=== PATIENT | female | born 1935 | race Caucasian/White ===

== ENCOUNTER 2023-11-16 08:52 | Outpatient (CLI) | payer MEDICARE, SELFPAY ==
[2023-11-16 17:42] LABS: Appearance Urine Clear (Clear); Bacteria Urine None Seen /hpf; Bilirubin Urine Negative (Negative); Blood Urine Negative (Negative); Color Urine Yellow (Yellow); Glucose Urine UA Negative (Negative); Ketones Urine Negative (Negative); Leukocyte Esterase Ur Trace LEU/UL (Negative); Nitrate Urine Negative (Negative); Non Pathogenic Casts 0-2; Protein Urine Negative (Negative); RBC Urine 0-2 /hpf (0-2); Specific Grav Ur 1.009 (1.001-1.035); Squamous Epithelial Cell Urine None seen /hpf (Few); Urobilinogen Urine 0.2 mg/dL (<2.0); WBC Urine 0-5 /hpf
[2023-11-16 17:43] LABS: Add Urine Microscopic? YES
[2023-11-16 17:49] LABS: Basophils Absolute Auto 0.1 K/mm3 (0.0-0.1); Basophils Percent Auto 0.9 % (0.2-1.2); Eosinophils Absolute Auto 0.2 K/mm3 (0-0.3); Eosinophils Percent Auto 2.1 % (0-4.4); Hematocrit 37.4 % (37.0-47.0); Hemoglobin 11.1 g/dL (12.0-15.0); Immature Granulocyte Absolute 0.02 K/mm3 (0.00-0.031); Immature Granulocyte Percent A 0.2 % (0-0.5); Lymphocytes Absolute Auto 3.34 K/mm3 (0.9-3.2); Lymphocytes Percent Auto 39.3 % (18.3-44.2); Mean Corpuscular HGB Conc 29.7 g/dl (32-36); Mean Corpuscular Hemoglobin 25.6 pg (26-34); Mean Corpuscular Volume 86.4 fl (80-100); Mean Platelet Volume 12.8 fl (7.4-10.4); Neutrophils Absolute Auto 3.9 K/mm3 (1.3-6.7); Neutrophils Percent Auto 45.5 % (45.5-73.1); Platelet Count Result 238 k/mm3 (150-375); Red Blood Count 4.33 M/mm3 (4.2-5.4); Red Cell Distribution Width 15.9 % (11.5-14.5); White Blood Count 8.5 K/mm3 (4.5-10.0)
[2023-11-16 18:02] LABS: MALB Creatinine Ratio 112.3 mg/g (0-30); Microalbumin Urine Random 43.8 mg/L (0-16.7); Vitamin D 25 Hydroxy 75.4 ng/mL
[2023-11-16 18:05] LABS: Alanine Aminotransferase 16 U/L (6-35); Albumin Level 3.8 g/dL (3.5-5.1); Alkaline Phosphatase 102 U/L (38-126); Anion Gap 6 mmol/L (8-16); Aspartate Amino Transferase 42 U/L (14-36); Bilirubin,Total 0.5 mg/dL (0.2-1.3); Blood Urea Nitrogen 35 mg/dL (7-17); Calcium 9.4 mg/dL (8.4-10.2); Carbon Dioxide 29 mmol/L (22-30); Chloride 105 mmol/L (98-107); Cholesterol 139 mg/dL (0-200); Estimated Glomerular Filt Rate 28; Glucose 104 mg/dL (65-110); HDL Direct 43 mg/dL; Potassium 4.3 mmol/L (3.4-5.0); Sodium 140 mmol/L (137-145); Triglycerides 126 mg/dL (<150)
[2023-11-16 18:06] LABS: Parathyroid Intact 24.3 pg/mL (7.5-53.5)
[2023-11-16 18:07] LABS: Uric Acid 4.7 mg/dL (2.5-7.5)
[2023-11-16 18:16] LABS: LDL Cholesterol Direct 63 mg/dL
[2023-11-16 18:17] LABS: Hemoglobin A1C 6.7 % (<5.7)
== END 2023-11-16 08:53 | disposition home or self-care (01) ==
PROVIDERS: PCP Internal Medicine; Visit Provider Nurse Practitioner
DX: E11.9 Type 2 diabetes mellitus without complications (principal); I12.9 Hypertensive chronic kidney disease with stage 1 through stage 4 chronic kidney disease, or unspecified chronic kidney disease; N18.4 Chronic kidney disease, stage 4 (severe); E78.5 Hyperlipidemia, unspecified; R60.9 Edema, unspecified; E55.9 Vitamin D deficiency, unspecified; N39.0 Urinary tract infection, site not specified; R35.0 Frequency of micturition; E78.41 Elevated Lipoprotein(a); E21.3 Hyperparathyroidism, unspecified; R94.6 Abnormal results of thyroid function studies
CPT/HCPCS: 36415; 80053; 80061; 81001; 82043; 82306; 83036; 83970; 84443; 84550; 85025

== ENCOUNTER 2024-03-03 08:47 | Outpatient (CLI) | payer MEDICARE, SELFPAY ==
[2024-03-03 12:53] LABS: Basophils Absolute Auto 0.1 K/mm3 (0.0-0.1); Eosinophils Absolute Auto 0.2 K/mm3 (0-0.3); Eosinophils Percent Auto 2.5 % (0-4.4); Hematocrit 34.3 % (37.0-47.0); Hemoglobin 10.4 g/dL (12.0-15.0); Immature Granulocyte Absolute 0.02 K/mm3 (0.00-0.031); Immature Granulocyte Percent A 0.3 % (0-0.5); Lymphocytes Absolute Auto 2.59 K/mm3 (0.9-3.2); Lymphocytes Percent Auto 38.2 % (18.3-44.2); Mean Corpuscular HGB Conc 30.3 g/dl (32-36); Mean Corpuscular Hemoglobin 26.5 pg (26-34); Mean Corpuscular Volume 87.3 fl (80-100); Mean Platelet Volume 12.7 fl (7.4-10.4); Monocytes Absolute Auto 0.9 K/mm3 (0.1-0.6); Monocytes Percent Auto 12.5 % (2.6-8.5); Neutrophils Absolute Auto 3.1 K/mm3 (1.3-6.7); Neutrophils Percent Auto 45.5 % (45.5-73.1); Platelet Count Result 237 k/mm3 (150-375); Red Blood Count 3.93 M/mm3 (4.2-5.4); Red Cell Distribution Width 16.6 % (11.5-14.5); White Blood Count 6.8 K/mm3 (4.5-10.0)
[2024-03-03 13:00] LABS: Appearance Urine Clear (Clear); Bacteria Urine None Seen /hpf; Bilirubin Urine Negative (Negative); Blood Urine Negative (Negative); Color Urine Yellow (Yellow); Glucose Urine UA Negative (Negative); Ketones Urine Negative (Negative); Leukocyte Esterase Ur 2+ LEU/UL (Negative); Nitrate Urine Negative (Negative); Non Pathogenic Casts 0-2; Protein Urine Trace mg/dL (Negative); RBC Urine 0-2 /hpf (0-2); Specific Grav Ur 1.014 (1.001-1.035); Squamous Epithelial Cell Urine Occasional /hpf (Few); Urobilinogen Urine 0.2 mg/dL (<2.0); pH Urine 5.5 (5.0-9.0)
[2024-03-03 13:07] LABS: Add Urine Microscopic? YES
[2024-03-03 13:09] LABS: Creatinine Urine 69.4 mg/dL; Total Protein Urine Random 20 mg/dL; Ur Ttl Prot Creatinine Ratio 0.29 mg/mg (0-0.20)
[2024-03-03 13:10] LABS: MALB Creatinine Ratio 142.1 mg/g (0-30); Microalbumin Urine Random 98.6 mg/L (0-16.7)
[2024-03-03 13:11] LABS: Sodium Urine Random 126 meq/L
[2024-03-03 13:15] LABS: Alanine Aminotransferase 13 U/L (6-35); Alkaline Phosphatase 66 U/L (38-126); Anion Gap 8 mmol/L (4-12); Aspartate Amino Transferase 49 U/L (14-36); Bilirubin,Total 0.5 mg/dL (0.2-1.3); Blood Urea Nitrogen 38 mg/dL (7-17); Calcium 9.3 mg/dL (8.4-10.2); Carbon Dioxide 25 mmol/L (22-30); Chloride 108 mmol/L (98-107); Estimated Glomerular Filt Rate 25; Glucose 80 mg/dL (65-110); Potassium 4.4 mmol/L (3.4-5.0); Sodium 141 mmol/L (137-145); Uric Acid 5.4 mg/dL (2.5-7.5)
[2024-03-03 13:17] LABS: Parathyroid Intact 22.2 pg/mL (7.5-53.5)
[2024-03-03 14:06] LABS: Vitamin D 25 Hydroxy 73.1 ng/mL
[2024-03-03 14:10] LABS: Hemoglobin A1C 6.5 % (<5.7)
[2024-03-04 15:54] LABS: Osmolality, Urine 484 mOsm/kg (50-1200)
[2024-03-05 11:44] LABS: Chloride Rand Ur 115 mmol/L (32-290); Chloride/Creatinine Rand Ur 169 (38-318); Creatinine Random Urine 68 mg/dL (20-275)
== END 2024-03-03 08:48 | disposition home or self-care (01) ==
PROVIDERS: PCP Internal Medicine; Visit Provider Nurse Practitioner
DX: E11.22 Type 2 diabetes mellitus with diabetic chronic kidney disease (principal); N18.4 Chronic kidney disease, stage 4 (severe); I10 Essential (primary) hypertension; R60.9 Edema, unspecified; E55.9 Vitamin D deficiency, unspecified; N39.0 Urinary tract infection, site not specified; R35.0 Frequency of micturition; E21.3 Hyperparathyroidism, unspecified; R94.6 Abnormal results of thyroid function studies
CPT/HCPCS: 36415; 80053; 81001; 82043; 82306; 82436; 82570; 83036; 83935; 83970; 84156; 84300; 84550; 85025; 87086; 87088

== ENCOUNTER 2024-05-30 09:33 | Outpatient (CLI) | payer MEDICARE, SELFPAY ==
[2024-05-30 14:32] LABS: Bacteria Urine None Seen /hpf; Non Pathogenic Casts 0-2; RBC Urine 0-2 /hpf (0-2); Squamous Epithelial Cell Urine None Seen /hpf (Few); WBC Urine 0-5 /hpf (0-3)
[2024-05-30 14:41] LABS: Alanine Aminotransferase 15 U/L (6-35); Albumin Level 3.8 g/dL (3.5-5.1); Alkaline Phosphatase 76 U/L (38-126); Anion Gap 8 mmol/L (4-12); Aspartate Amino Transferase 44 U/L (14-36); Bilirubin,Total 0.5 mg/dL (0.2-1.3); Blood Urea Nitrogen 44 mg/dL (7-17); Calcium 9.2 mg/dL (8.4-10.2); Carbon Dioxide 29 mmol/L (22-30); Chloride 102 mmol/L (98-107); Estimated Glomerular Filt Rate 24; Glucose 102 mg/dL (65-110); Potassium 4.3 mmol/L (3.4-5.0); Sodium 139 mmol/L (137-145); Uric Acid 6.9 mg/dL (2.5-7.5)
[2024-05-30 14:44] LABS: Add Urine Microscopic? NO; Appearance Urine Clear (Clear); Bilirubin Urine Negative (Negative); Blood Urine Negative (Negative); Color Urine Yellow (Yellow); Glucose Urine UA Negative (Negative); Ketones Urine Negative (Negative); Leukocyte Esterase Ur Negative LEU/UL (Negative); Nitrate Urine Negative (Negative); Protein Urine Negative (Negative); Specific Grav Ur 1.007 (1.001-1.035); Urobilinogen Urine 0.2 mg/dL (<2.0)
[2024-05-30 14:46] LABS: Parathyroid Intact 14.6 pg/mL (14.5-75.2)
[2024-05-30 14:54] LABS: Creatinine Urine 66.7 mg/dL
[2024-05-30 15:18] LABS: MALB Creatinine Ratio < 9.0 mg/g (0-30); Microalbumin Urine Random < 6.0 mg/L (0-16.7)
[2024-05-30 15:49] LABS: Vitamin D 25 Hydroxy 58.8 ng/mL
== END 2024-05-30 09:34 | disposition home or self-care (01) ==
PROVIDERS: PCP Internal Medicine; Visit Provider Nurse Practitioner
DX: E11.22 Type 2 diabetes mellitus with diabetic chronic kidney disease (principal); N18.4 Chronic kidney disease, stage 4 (severe); I12.9 Hypertensive chronic kidney disease with stage 1 through stage 4 chronic kidney disease, or unspecified chronic kidney disease; I50.9 Heart failure, unspecified; E78.5 Hyperlipidemia, unspecified; E55.9 Vitamin D deficiency, unspecified; N39.0 Urinary tract infection, site not specified; R35.0 Frequency of micturition; E78.41 Elevated Lipoprotein(a); E21.3 Hyperparathyroidism, unspecified; R94.6 Abnormal results of thyroid function studies
CPT/HCPCS: 36415; 80053; 81003; 82043; 82306; 83036; 83970; 84443; 84550

== ENCOUNTER 2024-12-11 08:12 | Outpatient (CLI) | payer MEDICARE, SELFPAY ==
--- OUTSIDE RECORDS SUMMARY | 2024-12-11 08:24 | XMS_ITS | Patient Health Summary ---
Author Organization [facility] Address [address] [place] [address] Care Team Providers Care Roll Former Name Role Phone Ezra Jamison MD Primary Care Provider [phone] Note from [facility],non-owned Affiliates and Associated Physician Practices is amultiple site organization consisting of ambulatory clinics and hospital sitesin [place], [place], [place] and [place]. This disclosure is being madepursuant to the Care Everywhere program and may not contain all information available regarding this patient. Last updated 18.[facility] Allergies * Levofloxacin(Swelling) * Lomotil(Swelling) Medications * Be aware that medications may not be up to date on this document. Alwaysverify current medications with the patient. * acetaminophen (Tylenol) 500 MG tablet(Started 09/19/2022) Take 1 (one) tablet by mouth every 4 hours as needed for Fever or Pain Maximum allowable Acetaminophen amount = 4 Grams (4000 mg) / 24 hours. Social History Tobacco Use Types Packs/Day Years Used Date Smoking Tobacco: Never Smokeless Tobacco: Never Tobacco Cessation:Counseling Given: Not Answered Alcohol Use Standard Drinks/Week Comments Not Currently 0 (1 standard drink = 0.6 oz pur e alcohol) AUDIT-C Answer Date Recorded Q1: How often do you have a drink containing alc ohol? Never 09/19/2022 Average Number of Drinks Not on file 022 Frequency of Binge Drinking Not on file 09/01 Sex and Gender Information Value Date Recorded Sex Assigned at Not on file Gender Identity Not on file Sexual Orientation Not on file Last Filed Vital Signs Vital Sign Reading Time Taken Comments Blood Pressure 165/72 09/19/2022 6:00 AM [employer] Pulse 75 09/19/2022 3:01 AM [employer] SUPERVIS[employer] Temperature 36.4 C (97.5 F) 09/19/2022 1:51 AM [employer] SUPER[employer]OR Respiratory Rate 22 09/19/2022 2:55 AM [employer]ATMENT SUPERVISOR Oxygen Saturation 96% 09/19/2022 6:00 AM [employer]AT[employer] SUPERVISOR Inhaled Oxygen Concentration - - Weight 83.9 kg (185 lb) 09/19/2022 1:51 AM [employer]AT[employer] SUPERVISOR Height 167.6 cm (5' 6 ) 09/19/2022 1:51 AM [employer]AT[employer] SUPERVISOR Body Mass Index 29.86 09/19/2022 1:51 AM [employer]PERVISOR Procedures * MAGNESIUM BLOOD(Performed 09/19/2022) * HEPATIC FUNCTION PANEL(Performed 09/19/2022) * BASIC METABOLIC PANEL (CALCIUM TOTAL)(Performed 09/19/2022) * BLOOD TYPE VERIFICATION(Performed 09/19/2022) * TEG 6 GLOBAL HEMOSTASIS W/ LYSIS(Performed 09/19/2022) * CT CHEST ABDOMEN PELVIS WO CONT(Performed 09/19/2022) Performed for Fall, initial encounter * CT LUMBAR SPINE WO CONTRAST(Performed 09/19/2022) Performed for Fall, initial encounter * CT THORACIC SPINE WO CONTRAST(Performed 09/19/2022) Performed for Fall, initial encounter * CT CERVICAL SPINE WO CONTRAST(Performed 09/19/2022) Performed for Fall, initial encounter * CT FACIAL BONES WO CONTRAST(Performed 09/19/2022) Performed for Fall, initial encounter * CT HEAD WO CONTRAST(Performed 09/19/2022) Performed for Fall, initial encounter * TYPE + SCREEN PANEL(Performed 09/19/2022) * TEG 6S PLATELET MAPPING(Performed 09/19/2022) * PTT [facility](Performed 09/19/2022) * PT-INR [facility](Performed 09/19/2022) * PHOSPHORUS BLOOD(Performed 09/19/2022) * CBC W AUTO DIFFERENTIAL(Performed 09/19/2022) * AMYLASE BLOOD(Performed 09/19/2022) * ALCOHOL ETHYL BLOOD(Performed 09/19/2022) * XR PELVIS 1 OR 2VW(Performed 09/19/2022) Performed for Fall, initial encounter * XR CHEST 1VW PORTABLE(Performed 09/19/2022) Performed for Fall, initial encounter Results * (ABNORMAL) BASIC METABOLIC PANEL (CALCIUM TOTAL) (09/19/2022 4:31 AM [facility]) BUN 29(H) 7 - 26 mg/dL 09/19/2022 5:01 AM [facility] Creatinine 1.48(H) 0.56 - 0.96 mg/dL 09/19/2022 5:01 AM [facility] Sodium 144 136 - 145 mmol/L 09/19/2022 5:01 AM [facility] Potassium 3.9 3.5 - 4.5 mmol/L 09/19/2022 5:01 AM [facility] Chloride 109(H) 98 - 107 mmol/L 09/19/2022 5:01 AM [facility] CO2 21(L) 22 - 29 mmol/L 09/19/2022 5:01 AM [facility] Glucose 148(H) 70 - 115 mg/dL 09/19/2022 5:01 AM [facility] Calcium 8.9 8.4 - 10.2 mg/dL 09/19/2022 5:01 AM [facility] Anion Gap 18 8 - 18 09/19/2022 5:01 AM [facility] BUN/Creatinine Ratio 20 7 - 23 09/19/2022 5:01 AM [facility] Osmolality Calculated 307(H) 270 - 300 mOsm/kg 09/19/2022 5:01 AM [facility] eGFR by CKD-EPI 34(L) >=90 mL/min/1.7 3 m2 09/19/2022 5:01 AM [facility] Blood BLOOD SPECIMEN / Unknown Venipuncture / Unknown 09/19/2022 4:31 AM [employer] 09/19/2022 4:37 AM [facility] Madhu Gagnon MD LAB - CHEMISTRY ALEAH BORGES [facility] Organization Address City/State/ZIP Co de Phone Number [address] [address], [facility] [phone] * HEPATIC FUNCTION PANEL (09/19/2022 4:31 AM [facility]) Protein Total 6.4 6.0 - 8.3 g/dL 022 5:01 AM [facility] Albumin 3.4 3.4 - 5.0 g/dL 09/19/2022 5:01 AM [facility] Bilirubin Total 0.4 0.2 - 1.2 mg/dL 09/01 5:01 AM [facility] Bilirubin Conjugated 0.1 0.1 - 0.5 mg/dL 09/19/2022 5:01 AM [facility] Bilirubin Unconjugated 0.3 Unconjugated Bilirubin is a calculated value: Reference ranges have not been established. mg/dL 09/19/2022 5:01 AM [facility] Alkaline Phosphatase 83 40 - 150 U/L 09/19/2022 5:01 AM [facility] ALT 11 5 - 55 U/L 09/19/2022 5:01 AM [facility] AST 18 5 - 34 U/L 09/19/2022 5:01 AM [facility] Albumin/Globulin Ratio 1.1 1.1 - 2.3 09/19/2022 5:01 AM [facility] Blood BLOOD SPECIMEN / Unknown Venipuncture / Unknown 09/19/2022 4:31 AM [employer] 09/19/2022 4:37 AM [employer] Madhu Gagnon MD LAB - CHEMISTRY ALEAH BORGES [address] [address], [facility] [phone] * MAGNESIUM BLOOD (09/19/2022 4:31 AM [employer]) Magnesium 1.9 1.6 - 2.6 mg/dL 09/19/2022 5:01 AM [facility] Blood BLOOD SPECIMEN / Unknown Venipuncture / Unknown 09/19/2022 4:31 AM [employer] 09/19/2022 4:37 AM [employer] Madhu Gagnon MD LAB - CHEMISTRY ALEAH BORGES [address] [address], [place] [phone] * TEG 6 GLOBAL HEMOSTASIS W/ LYSIS (09/19/2022 2:55 AM [employer]) Citrated Kaolin R (Reaction Time) 6.2 4.6 - 9.1 min 09/19/2022 4:09 AM [employer]PER[employer]OR [facility] Citrated Kaolin LY30 (Lysis) 0.1 0.0 - 2.6 % 09/19/2022 4:09 AM [facility] Citrated Functional Fibrinogen MA (Max Amplitude) 26.8 15.0 - 32.0 mm 09/19/2022 4:09 AM [facility] Citrated RapidTEG MA (Max Amplitude) 66.4 52.0 - 70.0 mm 09/19/2022 4:09 AM [facility] Blood BLOOD SPECIMEN / Unknown Venipuncture / Unknown 09/19/2022 2:55 AM [employer] 09/19/2022 3:05 AM [employer] Madhu Gagnon MD LAB - HEMATOLOGY ORD ERABLES [address] [address], [facility] [phone] * BLOOD TYPE VERIFICATION (09/19/2022 2:55 AM [employer]) ABO Rh O POS 09/19/2022 4:0 6 AM [employer]AT[employer] SUPERVISOR [facility] BLOOD BANK LAB Blood Bank BLOOD SPECIMEN / Unknown Lab Venipuncture / Unknown 09/19/2022 2:55 AM [employer]AT[employer]PER[employer]OR 09/19/2022 3:06 AM [employer]OR Keiko Nassar MD LAB - BLOOD BANK ORD ERABLES [facility] BLOOD BANK LAB [address] [place] [id number], [facility] [phone] * CT CHEST ABDOMEN PELVIS WO CONT (09/19/2022 2:47 AM [employer]) Anatomical Region Laterality Modality Chest, Abdomen, Pelvis Computed Tomography 09/19/2022 2:46 AM [employer]PER[employer]OR Impressions 09/19/2022 8:42 AM [employer]PER[employer]OR Impression: 1.No acute visceral, vascular, or osseus injury identified in the chest, abdomen, or pelvis. 2.Fat-containing anterior abdominal hernia with mild fat stranding which may represent mild inflammation. No bowel loops are noted within the hernia sac. 3.Postsurgical changes at L4-5 with severe spinal canal stenosis noted at the level of L2-3 and L3-4. Please see report for dedicated CT of the lumbar spine. > Dictated by Lola Haider DO, (residential designer). Fredy Juárez MD have personally reviewed and interpreted this examination/study. > Interpreting Provider: Fredy Ace MD on 09/19/2022 8:42 AM Narrative 09/19/2022 8:42 AM [employer]PER[employer]OR PROCEDURE: CT CHEST ABDOMEN PELVIS WO CONT, DATE/TIME OF EXAM: 09/19/2022 2:49 AM, LOCATION [facility] INDICATION: W19.XXXA: Fall, initial encounter ADDITIONAL CLINICAL INFORMATION: Ordering Provider Reason For Exam: Rule out trauma COMPARISON: None. TECHNIQUE: CT of the chest, abdomen, and pelvis was performed without contrast according to standard protocol. Findings: Evaluation of visceral and vascular structures is degraded due to lack of intravenous contrast administration. Chest: Lower Neck and Axillae: Normal. Lungs: No pulmonary parenchymal or airway process is present. No suspicious pulmonary nodules are identified. No pleural fluid or pneumothorax is present. Heart and Pericardium: The cardiac chambers are normal in size. No pericardial fluid or thickening is present. Coronary artery atherosclerosis. Aortic and mitral valve annular calcifications. Mediastinum and Radhika: No enlarged lymph nodes are present. Thoracic Vasculature: The aorta and its branch vessels are atherosclerotic. Chest wall soft tissues: There is mild nodularity in bilateral breast tissue. Abdomen/pelvis: Liver: Within the limitations of a noncontrast examination, the liver is unremarkable. Gallbladder and Bile Ducts: The gallbladder is absent. Spleen: Normal. Pancreas: Normal. Adrenals: Normal. Kidneys: The kidneys are mildly atrophic.. Simple renal cyst inferior pole right kidney measuring 8 mm series 3, image 180; series 5, image 102). Gastrointestinal: The stomach and visualized loops of small bowel are unremarkable. Colonic diverticulosis is seen without evidence of diverticulitis. Mesentery/Peritoneum/Retroperitoneum: There is no mesenteric or retroperitoneal lymphadenopathy. No free air or free fluid is present. Fat-containing anterior abdominal wall hernia is noted to the right of midline (image 150, series 3). There is mild fat stranding in the region of the hernia may represent mild inflammation. Bladder: Normal. Reproductive Organs: The uterus is absent. Abdominal Vasculature: Atherosclerotic calcification of the aorta and its branch vessels. Bones: Bone windows demonstrate no suspicious lytic or blastic lesions. The visible osseous structures are intact. Posterior instrumented spinal fusion of L4 and L5 with rods and screws. The hardware appears intact. Laminectomies are present. Grade 2 anterolisthesis of L4 on L5. There are multilevel degenerative changes of the lumbar spine with vacuum phenomenon noted at multiple levels. Severe spinal canal stenosis at the level of L2-3 and L3-4. Soft tissues: Fat-containing anterior abdominal wall hernia is noted to the right of midline with mild fat stranding. Procedure Note Cassidy Ace MD - 09/19/2022 PROCEDURE: CT CHEST ABDOMEN PELVIS WO CONT, DATE/TIME OF EXAM:09/19/2022 2:49 AM, LOCATION [facility] INDICATION: W19.XXXA: Fall, initial encounter ADDITIONAL CLINICAL INFORMATION: Ordering Provider Reason For Exam: Rule out trauma COMPARISON: None. TECHNIQUE: CT of the chest, abdomen, and pelvis was performed without contrast according to standard protocol. Findings: Evaluation of visceral and vascular structures is degraded due to lackof intravenous contrast administration. Chest: Lower Neck and Axillae: Normal. Lungs: No pulmonary parenchymal or airway process is present. No suspicious pulmonary nodules are identified. No pleural fluid or pneumothorax is present. Heart and Pericardium: The cardiac chambers are normal in size. No pericardial fluid orthickening is present. Coronary artery atherosclerosis. Aortic and mitral valve annular calcifications. Mediastinum and Radhika: No enlarged lymph nodes are present. Thoracic Vasculature: The aorta and its branch vessels are atherosclerotic. Chest wall soft tissues: There is mild nodularity in bilateral breast tissue. Abdomen/pelvis: Liver: Within the limitations of a noncontrast examination, the liver is unremarkable. Gallbladder and Bile Ducts: The gallbladder is absent. Spleen: Normal. Pancreas: Normal. Adrenals: Normal. Kidneys: The kidneys are mildly atrophic.. Simple renal cyst inferior pole right kidney measuring 8 mm series 3, image 180; series 5, image 102). Gastrointestinal: The stomach and visualized loops of small bowel are unremarkable.Colonic diverticulosis is seen without evidence of diverticulitis. Mesentery/Peritoneum/Retroperitoneum: There is no mesenteric or retroperitoneal lymphadenopathy. No free airor free fluid is present. Fat-containing anterior abdominal wall hernia is noted to the right of midline (image 150, series 3). There is mild fat stranding in the region of the hernia may represent mild inflammation. Bladder: Normal. Reproductive Organs: The uterus is absent. Abdominal Vasculature: Atherosclerotic calcification of the aorta and its branch vessels. Bones: Bone windows demonstrate no suspicious lytic or blastic lesions. The visible osseous structures are intact. Posterior instrumented spinalfusion of L4 and L5 with rods and screws. The hardware appears intact. Laminectomies are present. Grade 2 anterolisthesis of L4 on L5. Thereare multilevel degenerative changes of the lumbar spine with vacuumphenomenon noted at multiple levels. Severe spinal canal stenosis at the level ofL2-3 and L3-4. Soft tissues: Fat-containing anterior abdominal wall hernia is noted to the right of midline with mild fat stranding. Impression: 1.No acute visceral, vascular, or osseus injury identified in the chest, abdomen, or pelvis. 2.Fat-containing anterior abdominal hernia with mild fat stranding which may represent mild inflammation. No bowel loops are noted within thehernia sac. 3.Postsurgical changes at L4-5 with severe spinal canal stenosis notedat the level of L2-3 and L3-4. Please see report for dedicated CT of the lumbar spine. > Dictated by Lola Haider DO, (residential designer). IFredy MD have personally reviewed and interpreted this examination/study. > Interpreting Provider: Fredy Ace MD on 09/19/2022 8:42 AM Madhu Gagnon MD CT ORDERABLES * CT LUMBAR SPINE WO CONTRAST - T/L-spine trauma, Spine fracture (09/19/2022 2:47 AM [employer]PER[employer]) Anatomical Region Laterality Modality Spine Computed Tomogra phy 09/19/2022 7:46 AM [employer] SUPER[employer]OR Impressions 09/19/2022 2:42 PM [employer]AT[employer] SUPERVISOR IMPRESSION: 1.No acute intracranial process identified within limits of the study. Mild to moderate frontal scalp hematoma along the midline extending into the periorbital soft tissues. 2.No acute facial bone fractures identified. 3.No evidence of acute fracture in the cervical, thoracic, or lumbar spine. Multilevel degenerative changes of the spine as described above. There is moderate to severe spinal canal stenosis at L2-L3 and L3-L4. ITammy MD have personally reviewed and interpreted this examination/study. > Interpreting Provider: Tammy Johnson MD on 09/19/2022 2:42 PM Narrative 09/19/2022 2:42 PM [employer]AT[employer] SUPERVISOR PROCEDURE: CT HEAD WO CONTRAST, CT LUMBAR SPINE WO CONTRAST, CT THORACIC SPINE WO CONTRAST, CT CERVICAL SPINE WO CONTRAST, CT FACIAL BONES WO CONTRAST, DATE/TIME OF EXAM: 09/19/2022 2:49 AM, LOCATION [facility] INDICATION: Trauma EXAMINATION: 1. Computed tomography (CT) of the head without contrast 2. CT of the maxillofacial bones, orbits, and paranasal sinuses without contrast 3. CT of the cervical spine without contrast 4. CT of the thoracic spine without contrast 5. CT of the lumbar spine without contrast TECHNIQUE: CT of the head, cervical spine, and maxillofacial bones, orbits, and paranasal sinuses was performed without contrast according to standard protocol. Reformatted axial, sagittal, and coronal images of the thoracic and lumbar spine were obtained by the technologist from a concurrently performed body CT and sent to the workstation for review. CT dose reduction technique was used, including Automated Exposure Control. COMPARISON: None FINDINGS: Head: Artifact limits evaluation predominantly in the posterior fossa. No acute intracranial hemorrhage. No extra-axial fluid collections are identified. There is mild cerebral volume loss with associated ex vacuo ventricular dilatation. The basilar cisterns are patent. No mass effect or midline shift is seen. Periventricular white matter hypoattenuation is indicative of chronic small vessel ischemic disease. There is vascular calcification of the carotid siphons.The tamez-white matter differentiation otherwise appears normal. No acute calvarial fracture is identified. There is significant frontal scalp/hematoma along the midline extending into the soft tissues around the eyes. Maxillofacial: Bilateral Periorbital hematoma/edema secondary to trauma. Bilateral lens replacements. No evidence of of retro-orbital hematoma. The paranasal sinuses are clear. The hard palate, mandible, and temporomandibular joints appear normal. No acute facial bone fractures are identified. The mastoid air cells are clear. No other acute soft tissue abnormality is identified. Cervical spine: There is mild anterolisthesis of C3 over C4, C4 over C5, degenerative.. Vertebral bodies are normal in height without evidence of acute fracture. Other than middle atlantoaxial joint osteoarthritis, the craniocervical junction appears normal. Multilevel degenerative disc disease with multilevel anterior disc osteophyte complexes. Posterior discussed by complexes most prominent at the level of C2-C3 and C5-C6.. Mild central canal stenosis at the level of C5-C6 otherwise no significant central canal stenosis.. Severe multilevel facet arthropathy bilaterally. Moderate multilevel uncovertebral joint arthropathy. Severe bilateral neural foraminal stenosis at the level of C3-C4, left greater than right, moderate to severe bilateral neural foraminal stenosis also noted at the level of C5-C6.. No soft tissue abnormality is identified. Thoracic spine: Mild of the thoracic spine. Vertebral bodies are normal in height without evidence of acute fracture. Mild intervertebral disc space height loss at multiple levels with concomitant spondylosis, anterior bridging osteophytes predominantly in the upper and mid thoracic spine, and slight vacuum phenomenon at T9-T10 disc space. Small posterior disc osteophyte complex at the level of T7-T8, T8-T9 without significant spinal canal stenosis. Moderate multilevel facet arthropathy. Multilevel mild neural foraminal stenosis predominantly in the lower thoracic spine.. No soft tissue abnormality is identified. Lumbar spine: Posterior spinal fusion of L4 and L5 via Bilateral transpedicular screws with interconnecting bilateral rods. Grade 2 anterolisthesis with osseous across L4-L5. Osteopenia and streak artifact slightly limits evaluation for subtle fractures at this level. No evidence of lucency surrounding the hardware. Postsurgical changes from laminectomy at the level of L4-L5. The alignment is normal. Vertebral bodies are normal in height without evidence of acute fracture. Multilevel moderate to severe disc degenerative changes through the levels of L1-L2 to L3-L4 with severe height loss and vacuum degeneration. Moderate canal stenosis at the level of L1-L2, moderate to severe spinal canal stenosis at the level of, L2-L3 L3-L4.. Moderate to severe multilevel facet arthropathy predominantly at the level of L3-L4 and L2-L3. Bilateral moderate neuroforaminal stenosis at the level of L1-L2, L2-L3. Streak artifact limits evaluation of spinal canal at the level of L3-L4 and L4-L5. Central canal decompression at the level of L4-L5.. No acute soft tissue findings. Degenerative changes in the bilateral sacroiliac joints. Procedure Note Tammy Johnson MD - 09/19/2022 PROCEDURE: CT HEAD WO CONTRAST, CT LUMBAR SPINE WO CONTRAST, CTTHORACIC SPINE WO CONTRAST, CT CERVICAL SPINE WO CONTRAST, CT FACIAL BONES WO CONTRAST, DATE/TIME OF EXAM: 09/19/2022 2:49 AM, LOCATION [facility] INDICATION: Trauma EXAMINATION: 1. Computed tomography (CT) of the head without contrast 2. CT of the maxillofacial bones, orbits, and paranasal sinuses without contrast 3. CT of the cervical spine without contrast 4. CT of the thoracic spine without contrast 5. CT of the lumbar spine without contrast TECHNIQUE: CT of the head, cervical spine, and maxillofacial bones,orbits, and paranasal sinuses was performed without contrast according tostandard protocol. Reformatted axial, sagittal, and coronal images of thethoracic and lumbar spine were obtained by the technologist from a concurrently performed body CT and sent to the workstation for review. CT dosereduction technique was used, including Automated Exposure Control. COMPARISON: None FINDINGS: Head: Artifact limits evaluation predominantly in the posterior fossa. No acute intracranial hemorrhage. No extra-axial fluid collections are identified. There is mild cerebral volume loss with associated ex vacuo ventricular dilatation. The basilar cisterns are patent. No mass effector midline shift is seen. Periventricular white matter hypoattenuation is indicative of chronic small vessel ischemic disease. There is vascular calcification of the carotid siphons.The tamez-white matterdifferentiation otherwise appears normal. No acute calvarial fracture is identified.There is significant frontal scalp/hematoma along the midline extending intothe soft tissues around the eyes. Maxillofacial: Bilateral Periorbital hematoma/edema secondary to trauma. Bilateral lens replacements. No evidence of of retro-orbital hematoma. The paranasal sinuses are clear. The hard palate, mandible, and temporomandibularjoints appear normal. No acute facial bone fractures are identified. Themastoid air cells are clear. No other acute soft tissue abnormality isidentified. Cervical spine: There is mild anterolisthesis of C3 over C4, C4 over C5, degenerative.. Vertebral bodies are normal in height without evidence of acutefracture. Other than middle atlantoaxial joint osteoarthritis, the craniocervical junction appears normal. Multilevel degenerative disc disease with multilevel anterior disc osteophyte complexes. Posterior discussed by complexes most prominent at the level of C2-C3 and C5-C6.. Mild central canal stenosis at the level of C5-C6 otherwise no significant centralcanal stenosis.. Severe multilevel facet arthropathy bilaterally. Moderate multilevel uncovertebral joint arthropathy. Severe bilateral neural foraminal stenosis at the level of C3-C4, left greater than right,moderate to severe bilateral neural foraminal stenosis also noted at the level of C5-C6.. No soft tissue abnormality is identified. Thoracic spine: Mild of the thoracic spine. Vertebral bodies are normal in heightwithout evidence of acute fracture. Mild intervertebral disc space height lossat multiple levels with concomitant spondylosis, anterior bridgingosteophytes predominantly in the upper and mid thoracic spine, and slight vacuum phenomenon at T9-T10 disc space. Small posterior disc osteophyte complexat the level of T7-T8, T8-T9 without significant spinal canal stenosis. Moderate multilevel facet arthropathy. Multilevel mild neural foraminal stenosis predominantly in the lower thoracic spine.. No soft tissue abnormality is identified. Lumbar spine: Posterior spinal fusion of L4 and L5 via Bilateral transpedicular screws with interconnecting bilateral rods. Grade 2 anterolisthesis withosseous across L4-L5. Osteopenia and streak artifact slightly limits evaluationfor subtle fractures at this level. No evidence of lucency surrounding the hardware. Postsurgical changes from laminectomy at the level of L4-L5. The alignment is normal. Vertebral bodies are normal in height without evidence of acute fracture. Multilevel moderate to severe discdegenerative changes through the levels of L1-L2 to L3-L4 with severe height loss and vacuum degeneration. Moderate canal stenosis at the level of L1-L2, moderate to severe spinal canal stenosis at the level of, L2-L3 L3-L4.. Moderate to severe multilevel facet arthropathy predominantly at thelevel of L3-L4 and L2-L3. Bilateral moderate neuroforaminal stenosis at thelevel of L1-L2, L2-L3. Streak artifact limits evaluation of spinal canal atthe level of L3-L4 and L4-L5. Central canal decompression at the level of L4-L5.. No acute soft tissue findings. Degenerative changes in the bilateral sacroiliac joints. IMPRESSION: 1.No acute intracranial process identified within limits of the study.Mild to moderate frontal scalp hematoma along the midline extending into the periorbital soft tissues. 2.No acute facial bone fractures identified. 3.No evidence of acute fracture in the cervical, thoracic, or lumbarspine. Multilevel degenerative changes of the spine as described above. Thereis moderate to severe spinal canal stenosis at L2-L3 and L3-L4. Tammy Juárez MD have personally reviewed and interpreted this examination/study. > Interpreting Provider: Tammy Johnson MD on 09/19/2022 2:42 PM Madhu Gagnon MD CT ORDERABLES * CT THORACIC SPINE WO CONTRAST - T/L-spine trauma, spine fracture (09/19/2022 2:47 AM WASTEWATER T[employer]ATMENT SUPERVISOR) Anatomical Region Laterality Modality Spine Computed Tomogra phy 09/19/2022 7:46 AM WASTEWATER TREATMENT SUPERVISOR Impressions 09/19/2022 2:42 PM WASTEWATER TREATMENT SUPERVISOR IMPRESSION: 1.No acute intracranial process identified within limits of the study. Mild to moderate frontal scalp hematoma along the midline extending into the periorbital soft tissues. 2.No acute facial bone fractures identified. 3.No evidence of acute fracture in the cervical, thoracic, or lumbar spine. Multilevel degenerative changes of the spine as described above. There is moderate to severe spinal canal stenosis at L2-L3 and L3-L4. Tammy Juárez MD have personally reviewed and interpreted this examination/study. > Interpreting Provider: Tammy Johnson MD on 09/19/2022 2:42 PM Narrative 09/19/2022 2:42 PM WASTEWATER TREATMENT SUPERVISOR PROCEDURE: CT HEAD WO CONTRAST, CT LUMBAR SPINE WO CONTRAST, CT THORACIC SPINE WO CONTRAST, CT CERVICAL SPINE WO CONTRAST, CT FACIAL BONES WO CONTRAST, DATE/TIME OF EXAM: 09/19/2022 2:49 AM, LOCATION [facility] INDICATION: Trauma EXAMINATION: 1. Computed tomography (CT) of the head without contrast 2. CT of the maxillofacial bones, orbits, and paranasal sinuses without contrast 3. CT of the cervical spine without contrast 4. CT of the thoracic spine without contrast 5. CT of the lumbar spine without contrast TECHNIQUE: CT of the head, cervical spine, and maxillofacial bones, orbits, and paranasal sinuses was performed without contrast according to standard protocol. Reformatted axial, sagittal, and coronal images of the thoracic and lumbar spine were obtained by the technologist from a concurrently performed body CT and sent to the workstation for review. CT dose reduction technique was used, including Automated Exposure Control. COMPARISON: None FINDINGS: Head: Artifact limits evaluation predominantly in the posterior fossa. No acute intracranial hemorrhage. No extra-axial fluid collections are identified. There is mild cerebral volume loss with associated ex vacuo ventricular dilatation. The basilar cisterns are patent. No mass effect or midline shift is seen. Periventricular white matter hypoattenuation is indicative of chronic small vessel ischemic disease. There is vascular calcification of the carotid siphons.The tamez-white matter differentiation otherwise appears normal. No acute calvarial fracture is identified. There is significant frontal scalp/hematoma along the midline extending into the soft tissues around the eyes. Maxillofacial: Bilateral Periorbital hematoma/edema secondary to trauma. Bilateral lens replacements. No evidence of of retro-orbital hematoma. The paranasal sinuses are clear. The hard palate, mandible, and temporomandibular joints appear normal. No acute facial bone fractures are identified. The mastoid air cells are clear. No other acute soft tissue abnormality is identified. Cervical spine: There is mild anterolisthesis of C3 over C4, C4 over C5, degenerative.. Vertebral bodies are normal in height without evidence of acute fracture. Other than middle atlantoaxial joint osteoarthritis, the craniocervical junction appears normal. Multilevel degenerative disc disease with multilevel anterior disc osteophyte complexes. Posterior discussed by complexes most prominent at the level of C2-C3 and C5-C6.. Mild central canal stenosis at the level of C5-C6 otherwise no significant central canal stenosis.. Severe multilevel facet arthropathy bilaterally. Moderate multilevel uncovertebral joint arthropathy. Severe bilateral neural foraminal stenosis at the level of C3-C4, left greater than right, moderate to severe bilateral neural foraminal stenosis also noted at the level of C5-C6.. No soft tissue abnormality is identified. Thoracic spine: Mild of the thoracic spine. Vertebral bodies are normal in height without evidence of acute fracture. Mild intervertebral disc space height loss at multiple levels with concomitant spondylosis, anterior bridging osteophytes predominantly in the upper and mid thoracic spine, and slight vacuum phenomenon at T9-T10 disc space. Small posterior disc osteophyte complex at the level of T7-T8, T8-T9 without significant spinal canal stenosis. Moderate multilevel facet arthropathy. Multilevel mild neural foraminal stenosis predominantly in the lower thoracic spine.. No soft tissue abnormality is identified. Lumbar spine: Posterior spinal fusion of L4 and L5 via Bilateral transpedicular screws with interconnecting bilateral rods. Grade 2 anterolisthesis with osseous across L4-L5. Osteopenia and streak artifact slightly limits evaluation for subtle fractures at this level. No evidence of lucency surrounding the hardware. Postsurgical changes from laminectomy at the level of L4-L5. The alignment is normal. Vertebral bodies are normal in height without evidence of acute fracture. Multilevel moderate to severe disc degenerative changes through the levels of L1-L2 to L3-L4 with severe height loss and vacuum degeneration. Moderate canal stenosis at the level of L1-L2, moderate to severe spinal canal stenosis at the level of, L2-L3 L3-L4.. Moderate to severe multilevel facet arthropathy predominantly at the level of L3-L4 and L2-L3. Bilateral moderate neuroforaminal stenosis at the level of L1-L2, L2-L3. Streak artifact limits evaluation of spinal canal at the level of L3-L4 and L4-L5. Central canal decompression at the level of L4-L5.. No acute soft tissue findings. Degenerative changes in the bilateral sacroiliac joints. Procedure Note Tammy Johnson MD - 09/19/2022 PROCEDURE: CT HEAD WO CONTRAST, CT LUMBAR SPINE WO CONTRAST, CTTHORACIC SPINE WO CONTRAST, CT CERVICAL SPINE WO CONTRAST, CT FACIAL BONES WO CONTRAST, DATE/TIME OF EXAM: 09/19/2022 2:49 AM, LOCATION [facility] INDICATION: Trauma EXAMINATION: 1. Computed tomography (CT) of the head without contrast 2. CT of the maxillofacial bones, orbits, and paranasal sinuses without contrast 3. CT of the cervical spine without contrast 4. CT of the thoracic spine without contrast 5. CT of the lumbar spine without contrast TECHNIQUE: CT of the head, cervical spine, and maxillofacial bones,orbits, and paranasal sinuses was performed without contrast according tostandard protocol. Reformatted axial, sagittal, and coronal images of thethoracic and lumbar spine were obtained by the technologist from a concurrently performed body CT and sent to the workstation for review. CT dosereduction technique was used, including Automated Exposure Control. COMPARISON: None FINDINGS: Head: Artifact limits evaluation predominantly in the posterior fossa. No acute intracranial hemorrhage. No extra-axial fluid collections are identified. There is mild cerebral volume loss with associated ex vacuo ventricular dilatation. The basilar cisterns are patent. No mass effector midline shift is seen. Periventricular white matter hypoattenuation is indicative of chronic small vessel ischemic disease. There is vascular calcification of the carotid siphons.The tamez-white matterdifferentiation otherwise appears normal. No acute calvarial fracture is identified.There is significant frontal scalp/hematoma along the midline extending intothe soft tissues around the eyes. Maxillofacial: Bilateral Periorbital hematoma/edema secondary to trauma. Bilateral lens replacements. No evidence of of retro-orbital hematoma. The paranasal sinuses are clear. The hard palate, mandible, and temporomandibularjoints appear normal. No acute facial bone fractures are identified. Themastoid air cells are clear. No other acute soft tissue abnormality isidentified. Cervical spine: There is mild anterolisthesis of C3 over C4, C4 over C5, degenerative.. Vertebral bodies are normal in height without evidence of acutefracture. Other than middle atlantoaxial joint osteoarthritis, the craniocervical junction appears normal. Multilevel degenerative disc disease with multilevel anterior disc osteophyte complexes. Posterior discussed by complexes most prominent at the level of C2-C3 and C5-C6.. Mild central canal stenosis at the level of C5-C6 otherwise no significant centralcanal stenosis.. Severe multilevel facet arthropathy bilaterally. Moderate multilevel uncovertebral joint arthropathy. Severe bilateral neural foraminal stenosis at the level of C3-C4, left greater than right,moderate to severe bilateral neural foraminal stenosis also noted at the level of C5-C6.. No soft tissue abnormality is identified. Thoracic spine: Mild of the thoracic spine. Vertebral bodies are normal in heightwithout evidence of acute fracture. Mild intervertebral disc space height lossat multiple levels with concomitant spondylosis, anterior bridgingosteophytes predominantly in the upper and mid thoracic spine, and slight vacuum phenomenon at T9-T10 disc space. Small posterior disc osteophyte complexat the level of T7-T8, T8-T9 without significant spinal canal stenosis. Moderate multilevel facet arthropathy. Multilevel mild neural foraminal stenosis predominantly in the lower thoracic spine.. No soft tissue abnormality is identified. Lumbar spine: Posterior spinal fusion of L4 and L5 via Bilateral transpedicular screws with interconnecting bilateral rods. Grade 2 anterolisthesis withosseous across L4-L5. Osteopenia and streak artifact slightly limits evaluationfor subtle fractures at this level. No evidence of lucency surrounding the hardware. Postsurgical changes from laminectomy at the level of L4-L5. The alignment is normal. Vertebral bodies are normal in height without evidence of acute fracture. Multilevel moderate to severe discdegenerative changes through the levels of L1-L2 to L3-L4 with severe height loss and vacuum degeneration. Moderate canal stenosis at the level of L1-L2, moderate to severe spinal canal stenosis at the level of, L2-L3 L3-L4.. Moderate to severe multilevel facet arthropathy predominantly at thelevel of L3-L4 and L2-L3. Bilateral moderate neuroforaminal stenosis at thelevel of L1-L2, L2-L3. Streak artifact limits evaluation of spinal canal atthe level of L3-L4 and L4-L5. Central canal decompression at the level of L4-L5.. No acute soft tissue findings. Degenerative changes in the bilateral sacroiliac joints. IMPRESSION: 1.No acute intracranial process identified within limits of the study.Mild to moderate frontal scalp hematoma along the midline extending into the periorbital soft tissues. 2.No acute facial bone fractures identified. 3.No evidence of acute fracture in the cervical, thoracic, or lumbarspine. Multilevel degenerative changes of the spine as described above. Thereis moderate to severe spinal canal stenosis at L2-L3 and L3-L4. I, Tammy Johnson MD have personally reviewed and interpreted this examination/study. > Interpreting Provider: Tammy Johnson MD on 09/19/2022 2:42 PM Madhu Gagnon MD CT ORDERABLES * CT CERVICAL SPINE WO CONTRAST - C-Spine Trauma, Spine fracture (09/19/2022 2:47 AM WASTEWATER TREATMENT SUPERVISOR) Anatomical Region Laterality Modality Spine Computed Tomogra phy 09/19/2022 7:46 AM WASTEWATER TREATMENT SUPERVISOR Impressions 09/19/2022 2:42 PM WASTEWATER TREATMENT SUPERVISOR IMPRESSION: 1.No acute intracranial process identified within limits of the study. Mild to moderate frontal scalp hematoma along the midline extending into the periorbital soft tissues. 2.No acute facial bone fractures identified. 3.No evidence of acute fracture in the cervical, thoracic, or lumbar spine. Multilevel degenerative changes of the spine as described above. There is moderate to severe spinal canal stenosis at L2-L3 and L3-L4. I, Tammy Johnson MD have personally reviewed and interpreted this examination/study. > Interpreting Provider: Tammy Johnson MD on 09/19/2022 2:42 PM Narrative 09/19/2022 2:42 PM WASTEWATER TREATMENT SUPERVISOR PROCEDURE: CT HEAD WO CONTRAST, CT LUMBAR SPINE WO CONTRAST, CT THORACIC SPINE WO CONTRAST, CT CERVICAL SPINE WO CONTRAST, CT FACIAL BONES WO CONTRAST, DATE/TIME OF EXAM: 09/19/2022 2:49 AM, LOCATION [facility] INDICATION: Trauma EXAMINATION: 1. Computed tomography (CT) of the head without contrast 2. CT of the maxillofacial bones, orbits, and paranasal sinuses without contrast 3. CT of the cervical spine without contrast 4. CT of the thoracic spine without contrast 5. CT of the lumbar spine without contrast TECHNIQUE: CT of the head, cervical spine, and maxillofacial bones, orbits, and paranasal sinuses was performed without contrast according to standard protocol. Reformatted axial, sagittal, and coronal images of the thoracic and lumbar spine were obtained by the technologist from a concurrently performed body CT and sent to the workstation for review. CT dose reduction technique was used, including Automated Exposure Control. COMPARISON: None FINDINGS: Head: Artifact limits evaluation predominantly in the posterior fossa. No acute intracranial hemorrhage. No extra-axial fluid collections are identified. There is mild cerebral volume loss with associated ex vacuo ventricular dilatation. The basilar cisterns are patent. No mass effect or midline shift is seen. Periventricular white matter hypoattenuation is indicative of chronic small vessel ischemic disease. There is vascular calcification of the carotid siphons.The tamez-white matter differentiation otherwise appears normal. No acute calvarial fracture is identified. There is significant frontal scalp/hematoma along the midline extending into the soft tissues around the eyes. Maxillofacial: Bilateral Periorbital hematoma/edema secondary to trauma. Bilateral lens replacements. No evidence of of retro-orbital hematoma. The paranasal sinuses are clear. The hard palate, mandible, and temporomandibular joints appear normal. No acute facial bone fractures are identified. The mastoid air cells are clear. No other acute soft tissue abnormality is identified. Cervical spine: There is mild anterolisthesis of C3 over C4, C4 over C5, degenerative.. Vertebral bodies are normal in height without evidence of acute fracture. Other than middle atlantoaxial joint osteoarthritis, the craniocervical junction appears normal. Multilevel degenerative disc disease with multilevel anterior disc osteophyte complexes. Posterior discussed by complexes most prominent at the level of C2-C3 and C5-C6.. Mild central canal stenosis at the level of C5-C6 otherwise no significant central canal stenosis.. Severe multilevel facet arthropathy bilaterally. Moderate multilevel uncovertebral joint arthropathy. Severe bilateral neural foraminal stenosis at the level of C3-C4, left greater than right, moderate to severe bilateral neural foraminal stenosis also noted at the level of C5-C6.. No soft tissue abnormality is identified. Thoracic spine: Mild of the thoracic spine. Vertebral bodies are normal in height without evidence of acute fracture. Mild intervertebral disc space height loss at multiple levels with concomitant spondylosis, anterior bridging osteophytes predominantly in the upper and mid thoracic spine, and slight vacuum phenomenon at T9-T10 disc space. Small posterior disc osteophyte complex at the level of T7-T8, T8-T9 without significant spinal canal stenosis. Moderate multilevel facet arthropathy. Multilevel mild neural foraminal stenosis predominantly in the lower thoracic spine.. No soft tissue abnormality is identified. Lumbar spine: Posterior spinal fusion of L4 and L5 via Bilateral transpedicular screws with interconnecting bilateral rods. Grade 2 anterolisthesis with osseous across L4-L5. Osteopenia and streak artifact slightly limits evaluation for subtle fractures at this level. No evidence of lucency surrounding the hardware. Postsurgical changes from laminectomy at the level of L4-L5. The alignment is normal. Vertebral bodies are normal in height without evidence of acute fracture. Multilevel moderate to severe disc degenerative changes through the levels of L1-L2 to L3-L4 with severe height loss and vacuum degeneration. Moderate canal stenosis at the level of L1-L2, moderate to severe spinal canal stenosis at the level of, L2-L3 L3-L4.. Moderate to severe multilevel facet arthropathy predominantly at the level of L3-L4 and L2-L3. Bilateral moderate neuroforaminal stenosis at the level of L1-L2, L2-L3. Streak artifact limits evaluation of spinal canal at the level of L3-L4 and L4-L5. Central canal decompression at the level of L4-L5.. No acute soft tissue findings. Degenerative changes in the bilateral sacroiliac joints. Procedure Note Tammy Johnson MD - 09/19/2022 PROCEDURE: CT HEAD WO CONTRAST, CT LUMBAR SPINE WO CONTRAST, CTTHORACIC SPINE WO CONTRAST, CT CERVICAL SPINE WO CONTRAST, CT FACIAL BONES WO CONTRAST, DATE/TIME OF EXAM: 09/19/2022 2:49 AM, LOCATION [facility] INDICATION: Trauma EXAMINATION: 1. Computed tomography (CT) of the head without contrast 2. CT of the maxillofacial bones, orbits, and paranasal sinuses without contrast 3. CT of the cervical spine without contrast 4. CT of the thoracic spine without contrast 5. CT of the lumbar spine without contrast TECHNIQUE: CT of the head, cervical spine, and maxillofacial bones,orbits, and paranasal sinuses was performed without contrast according tostandard protocol. Reformatted axial, sagittal, and coronal images of thethoracic and lumbar spine were obtained by the technologist from a concurrently performed body CT and sent to the workstation for review. CT dosereduction technique was used, including Automated Exposure Control. COMPARISON: None FINDINGS: Head: Artifact limits evaluation predominantly in the posterior fossa. No acute intracranial hemorrhage. No extra-axial fluid collections are identified. There is mild cerebral volume loss with associated ex vacuo ventricular dilatation. The basilar cisterns are patent. No mass effector midline shift is seen. Periventricular white matter hypoattenuation is indicative of chronic small vessel ischemic disease. There is vascular calcification of the carotid siphons.The tamez-white matterdifferentiation otherwise appears normal. No acute calvarial fracture is identified.There is significant frontal scalp/hematoma along the midline extending intothe soft tissues around the eyes. Maxillofacial: Bilateral Periorbital hematoma/edema secondary to trauma. Bilateral lens replacements. No evidence of of retro-orbital hematoma. The paranasal sinuses are clear. The hard palate, mandible, and temporomandibularjoints appear normal. No acute facial bone fractures are identified. Themastoid air cells are clear. No other acute soft tissue abnormality isidentified. Cervical spine: There is mild anterolisthesis of C3 over C4, C4 over C5, degenerative.. Vertebral bodies are normal in height without evidence of acutefracture. Other than middle atlantoaxial joint osteoarthritis, the craniocervical junction appears normal. Multilevel degenerative disc disease with multilevel anterior disc osteophyte complexes. Posterior discussed by complexes most prominent at the level of C2-C3 and C5-C6.. Mild central canal stenosis at the level of C5-C6 otherwise no significant centralcanal stenosis.. Severe multilevel facet arthropathy bilaterally. Moderate multilevel uncovertebral joint arthropathy. Severe bilateral neural foraminal stenosis at the level of C3-C4, left greater than right,moderate to severe bilateral neural foraminal stenosis also noted at the level of C5-C6.. No soft tissue abnormality is identified. Thoracic spine: Mild of the thoracic spine. Vertebral bodies are normal in heightwithout evidence of acute fracture. Mild intervertebral disc space height lossat multiple levels with concomitant spondylosis, anterior bridgingosteophytes predominantly in the upper and mid thoracic spine, and slight vacuum phenomenon at T9-T10 disc space. Small posterior disc osteophyte complexat the level of T7-T8, T8-T9 without significant spinal canal stenosis. Moderate multilevel facet arthropathy. Multilevel mild neural foraminal stenosis predominantly in the lower thoracic spine.. No soft tissue abnormality is identified. Lumbar spine: Posterior spinal fusion of L4 and L5 via Bilateral transpedicular screws with interconnecting bilateral rods. Grade 2 anterolisthesis withosseous across L4-L5. Osteopenia and streak artifact slightly limits evaluationfor subtle fractures at this level. No evidence of lucency surrounding the hardware. Postsurgical changes from laminectomy at the level of L4-L5. The alignment is normal. Vertebral bodies are normal in height without evidence of acute fracture. Multilevel moderate to severe discdegenerative changes through the levels of L1-L2 to L3-L4 with severe height loss and vacuum degeneration. Moderate canal stenosis at the level of L1-L2, moderate to severe spinal canal stenosis at the level of, L2-L3 L3-L4.. Moderate to severe multilevel facet arthropathy predominantly at thelevel of L3-L4 and L2-L3. Bilateral moderate neuroforaminal stenosis at thelevel of L1-L2, L2-L3. Streak artifact limits evaluation of spinal canal atthe level of L3-L4 and L4-L5. Central canal decompression at the level of L4-L5.. No acute soft tissue findings. Degenerative changes in the bilateral sacroiliac joints. IMPRESSION: 1.No acute intracranial process identified within limits of the study.Mild to moderate frontal scalp hematoma along the midline extending into the periorbital soft tissues. 2.No acute facial bone fractures identified. 3.No evidence of acute fracture in the cervical, thoracic, or lumbarspine. Multilevel degenerative changes of the spine as described above. Thereis moderate to severe spinal canal stenosis at L2-L3 and L3-L4. Tammy Juárez MD have personally reviewed and interpreted this examination/study. > Interpreting Provider: Tammy Johnson MD on 09/19/2022 2:42 PM Madhu Gagnon MD CT ORDERABLES * CT FACIAL BONES WO CONTRAST - Facial trauma, fx suspected, blunt (09/19/2022 2:47 AM WASTEW[employer] TREATMENT SUPERVISOR) Anatomical Region Laterality Modality Head Computed Tomogra phy 09/19/2022 7:46 AM WASTEWATER TREATMENT SUPERVISOR Impressions 09/19/2022 2:42 PM WASTEWATER TREATMENT SUPERVISOR IMPRESSION: 1.No acute intracranial process identified within limits of the study. Mild to moderate frontal scalp hematoma along the midline extending into the periorbital soft tissues. 2.No acute facial bone fractures identified. 3.No evidence of acute fracture in the cervical, thoracic, or lumbar spine. Multilevel degenerative changes of the spine as described above. There is moderate to severe spinal canal stenosis at L2-L3 and L3-L4. Tammy Juárez MD have personally reviewed and interpreted this examination/study. > Interpreting Provider: Tammy Johnson MD on 09/19/2022 2:42 PM Narrative 09/19/2022 2:42 PM WASTEWATER TREATMENT SUPERVISOR PROCEDURE: CT HEAD WO CONTRAST, CT LUMBAR SPINE WO CONTRAST, CT THORACIC SPINE WO CONTRAST, CT CERVICAL SPINE WO CONTRAST, CT FACIAL BONES WO CONTRAST, DATE/TIME OF EXAM: 09/19/2022 2:49 AM, LOCATION [facility] INDICATION: Trauma EXAMINATION: 1. Computed tomography (CT) of the head without contrast 2. CT of the maxillofacial bones, orbits, and paranasal sinuses without contrast 3. CT of the cervical spine without contrast 4. CT of the thoracic spine without contrast 5. CT of the lumbar spine without contrast TECHNIQUE: CT of the head, cervical spine, and maxillofacial bones, orbits, and paranasal sinuses was performed without contrast according to standard protocol. Reformatted axial, sagittal, and coronal images of the thoracic and lumbar spine were obtained by the technologist from a concurrently performed body CT and sent to the workstation for review. CT dose reduction technique was used, including Automated Exposure Control. COMPARISON: None FINDINGS: Head: Artifact limits evaluation predominantly in the posterior fossa. No acute intracranial hemorrhage. No extra-axial fluid collections are identified. There is mild cerebral volume loss with associated ex vacuo ventricular dilatation. The basilar cisterns are patent. No mass effect or midline shift is seen. Periventricular white matter hypoattenuation is indicative of chronic small vessel ischemic disease. There is vascular calcification of the carotid siphons.The tamez-white matter differentiation otherwise appears normal. No acute calvarial fracture is identified. There is significant frontal scalp/hematoma along the midline extending into the soft tissues around the eyes. Maxillofacial: Bilateral Periorbital hematoma/edema secondary to trauma. Bilateral lens replacements. No evidence of of retro-orbital hematoma. The paranasal sinuses are clear. The hard palate, mandible, and temporomandibular joints appear normal. No acute facial bone fractures are identified. The mastoid air cells are clear. No other acute soft tissue abnormality is identified. Cervical spine: There is mild anterolisthesis of C3 over C4, C4 over C5, degenerative.. Vertebral bodies are normal in height without evidence of acute fracture. Other than middle atlantoaxial joint osteoarthritis, the craniocervical junction appears normal. Multilevel degenerative disc disease with multilevel anterior disc osteophyte complexes. Posterior discussed by complexes most prominent at the level of C2-C3 and C5-C6.. Mild central canal stenosis at the level of C5-C6 otherwise no significant central canal stenosis.. Severe multilevel facet arthropathy bilaterally. Moderate multilevel uncovertebral joint arthropathy. Severe bilateral neural foraminal stenosis at the level of C3-C4, left greater than right, moderate to severe bilateral neural foraminal stenosis also noted at the level of C5-C6.. No soft tissue abnormality is identified. Thoracic spine: Mild of the thoracic spine. Vertebral bodies are normal in height without evidence of acute fracture. Mild intervertebral disc space height loss at multiple levels with concomitant spondylosis, anterior bridging osteophytes predominantly in the upper and mid thoracic spine, and slight vacuum phenomenon at T9-T10 disc space. Small posterior disc osteophyte complex at the level of T7-T8, T8-T9 without significant spinal canal stenosis. Moderate multilevel facet arthropathy. Multilevel mild neural foraminal stenosis predominantly in the lower thoracic spine.. No soft tissue abnormality is identified. Lumbar spine: Posterior spinal fusion of L4 and L5 via Bilateral transpedicular screws with interconnecting bilateral rods. Grade 2 anterolisthesis with osseous across L4-L5. Osteopenia and streak artifact slightly limits evaluation for subtle fractures at this level. No evidence of lucency surrounding the hardware. Postsurgical changes from laminectomy at the level of L4-L5. The alignment is normal. Vertebral bodies are normal in height without evidence of acute fracture. Multilevel moderate to severe disc degenerative changes through the levels of L1-L2 to L3-L4 with severe height loss and vacuum degeneration. Moderate canal stenosis at the level of L1-L2, moderate to severe spinal canal stenosis at the level of, L2-L3 L3-L4.. Moderate to severe multilevel facet arthropathy predominantly at the level of L3-L4 and L2-L3. Bilateral moderate neuroforaminal stenosis at the level of L1-L2, L2-L3. Streak artifact limits evaluation of spinal canal at the level of L3-L4 and L4-L5. Central canal decompression at the level of L4-L5.. No acute soft tissue findings. Degenerative changes in the bilateral sacroiliac joints. Procedure Note Tammy Johnson MD - 09/19/2022 PROCEDURE: CT HEAD WO CONTRAST, CT LUMBAR SPINE WO CONTRAST, CTTHORACIC SPINE WO CONTRAST, CT CERVICAL SPINE WO CONTRAST, CT FACIAL BONES WO CONTRAST, DATE/TIME OF EXAM: 09/19/2022 2:49 AM, LOCATION [facility] INDICATION: Trauma EXAMINATION: 1. Computed tomography (CT) of the head without contrast 2. CT of the maxillofacial bones, orbits, and paranasal sinuses without contrast 3. CT of the cervical spine without contrast 4. CT of the thoracic spine without contrast 5. CT of the lumbar spine without contrast TECHNIQUE: CT of the head, cervical spine, and maxillofacial bones,orbits, and paranasal sinuses was performed without contrast according tostandard protocol. Reformatted axial, sagittal, and coronal images of thethoracic and lumbar spine were obtained by the technologist from a concurrently performed body CT and sent to the workstation for review. CT dosereduction technique was used, including Automated Exposure Control. COMPARISON: None FINDINGS: Head: Artifact limits evaluation predominantly in the posterior fossa. No acute intracranial hemorrhage. No extra-axial fluid collections are identified. There is mild cerebral volume loss with associated ex vacuo ventricular dilatation. The basilar cisterns are patent. No mass effector midline shift is seen. Periventricular white matter hypoattenuation is indicative of chronic small vessel ischemic disease. There is vascular calcification of the carotid siphons.The tamez-white matterdifferentiation otherwise appears normal. No acute calvarial fracture is identified.There is significant frontal scalp/hematoma along the midline extending intothe soft tissues around the eyes. Maxillofacial: Bilateral Periorbital hematoma/edema secondary to trauma. Bilateral lens replacements. No evidence of of retro-orbital hematoma. The paranasal sinuses are clear. The hard palate, mandible, and temporomandibularjoints appear normal. No acute facial bone fractures are identified. Themastoid air cells are clear. No other acute soft tissue abnormality isidentified. Cervical spine: There is mild anterolisthesis of C3 over C4, C4 over C5, degenerative.. Vertebral bodies are normal in height without evidence of acutefracture. Other than middle atlantoaxial joint osteoarthritis, the craniocervical junction appears normal. Multilevel degenerative disc disease with multilevel anterior disc osteophyte complexes. Posterior discussed by complexes most prominent at the level of C2-C3 and C5-C6.. Mild central canal stenosis at the level of C5-C6 otherwise no significant centralcanal stenosis.. Severe multilevel facet arthropathy bilaterally. Moderate multilevel uncovertebral joint arthropathy. Severe bilateral neural foraminal stenosis at the level of C3-C4, left greater than right,moderate to severe bilateral neural foraminal stenosis also noted at the level of C5-C6.. No soft tissue abnormality is identified. Thoracic spine: Mild of the thoracic spine. Vertebral bodies are normal in heightwithout evidence of acute fracture. Mild intervertebral disc space height lossat multiple levels with concomitant spondylosis, anterior bridgingosteophytes predominantly in the upper and mid thoracic spine, and slight vacuum phenomenon at T9-T10 disc space. Small posterior disc osteophyte complexat the level of T7-T8, T8-T9 without significant spinal canal stenosis. Moderate multilevel facet arthropathy. Multilevel mild neural foraminal stenosis predominantly in the lower thoracic spine.. No soft tissue abnormality is identified. Lumbar spine: Posterior spinal fusion of L4 and L5 via Bilateral transpedicular screws with interconnecting bilateral rods. Grade 2 anterolisthesis withosseous across L4-L5. Osteopenia and streak artifact slightly limits evaluationfor subtle fractures at this level. No evidence of lucency surrounding the hardware. Postsurgical changes from laminectomy at the level of L4-L5. The alignment is normal. Vertebral bodies are normal in height without evidence of acute fracture. Multilevel moderate to severe discdegenerative changes through the levels of L1-L2 to L3-L4 with severe height loss and vacuum degeneration. Moderate canal stenosis at the level of L1-L2, moderate to severe spinal canal stenosis at the level of, L2-L3 L3-L4.. Moderate to severe multilevel facet arthropathy predominantly at thelevel of L3-L4 and L2-L3. Bilateral moderate neuroforaminal stenosis at thelevel of L1-L2, L2-L3. Streak artifact limits evaluation of spinal canal atthe level of L3-L4 and L4-L5. Central canal decompression at the level of L4-L5.. No acute soft tissue findings. Degenerative changes in the bilateral sacroiliac joints. IMPRESSION: 1.No acute intracranial process identified within limits of the study.Mild to moderate frontal scalp hematoma along the midline extending into the periorbital soft tissues. 2.No acute facial bone fractures identified. 3.No evidence of acute fracture in the cervical, thoracic, or lumbarspine. Multilevel degenerative changes of the spine as described above. Thereis moderate to severe spinal canal stenosis at L2-L3 and L3-L4. I, Tammy Johnson MD have personally reviewed and interpreted this examination/study. > Interpreting Provider: Tammy Johnson MD on 09/19/2022 2:42 PM Madhu Gagnon MD CT ORDERABLES * CT HEAD WO CONTRAST - Head Trauma, CSF leak, mental status changes (09/19/2022 2:47 AM WASTEWATER TREATMENT SUPERVISOR) Anatomical Region Laterality Modality Head Computed Tomogra phy 09/19/2022 7:46 AM WASTEWATER TREATMENT SUPERVISOR Impressions 09/19/2022 2:42 PM WASTEWATER TREATMENT SUPERVISOR IMPRESSION: 1.No acute intracranial process identified within limits of the study. Mild to moderate frontal scalp hematoma along the midline extending into the periorbital soft tissues. 2.No acute facial bone fractures identified. 3.No evidence of acute fracture in the cervical, thoracic, or lumbar spine. Multilevel degenerative changes of the spine as described above. There is moderate to severe spinal canal stenosis at L2-L3 and L3-L4. I, Tammy Johnson MD have personally reviewed and interpreted this examination/study. > Interpreting Provider: Tammy Johnson MD on 09/19/2022 2:42 PM Narrative 09/19/2022 2:42 PM WASTEWATER TREATMENT SUPERVISOR PROCEDURE: CT HEAD WO CONTRAST, CT LUMBAR SPINE WO CONTRAST, CT THORACIC SPINE WO CONTRAST, CT CERVICAL SPINE WO CONTRAST, CT FACIAL BONES WO CONTRAST, DATE/TIME OF EXAM: 09/19/2022 2:49 AM, LOCATION [facility] INDICATION: Trauma EXAMINATION: 1. Computed tomography (CT) of the head without contrast 2. CT of the maxillofacial bones, orbits, and paranasal sinuses without contrast 3. CT of the cervical spine without contrast 4. CT of the thoracic spine without contrast 5. CT of the lumbar spine without contrast TECHNIQUE: CT of the head, cervical spine, and maxillofacial bones, orbits, and paranasal sinuses was performed without contrast according to standard protocol. Reformatted axial, sagittal, and coronal images of the thoracic and lumbar spine were obtained by the technologist from a concurrently performed body CT and sent to the workstation for review. CT dose reduction technique was used, including Automated Exposure Control. COMPARISON: None FINDINGS: Head: Artifact limits evaluation predominantly in the posterior fossa. No acute intracranial hemorrhage. No extra-axial fluid collections are identified. There is mild cerebral volume loss with associated ex vacuo ventricular dilatation. The basilar cisterns are patent. No mass effect or midline shift is seen. Periventricular white matter hypoattenuation is indicative of chronic small vessel ischemic disease. There is vascular calcification of the carotid siphons.The tamez-white matter differentiation otherwise appears normal. No acute calvarial fracture is identified. There is significant frontal scalp/hematoma along the midline extending into the soft tissues around the eyes. Maxillofacial: Bilateral Periorbital hematoma/edema secondary to trauma. Bilateral lens replacements. No evidence of of retro-orbital hematoma. The paranasal sinuses are clear. The hard palate, mandible, and temporomandibular joints appear normal. No acute facial bone fractures are identified. The mastoid air cells are clear. No other acute soft tissue abnormality is identified. Cervical spine: There is mild anterolisthesis of C3 over C4, C4 over C5, degenerative.. Vertebral bodies are normal in height without evidence of acute fracture. Other than middle atlantoaxial joint osteoarthritis, the craniocervical junction appears normal. Multilevel degenerative disc disease with multilevel anterior disc osteophyte complexes. Posterior discussed by complexes most prominent at the level of C2-C3 and C5-C6.. Mild central canal stenosis at the level of C5-C6 otherwise no significant central canal stenosis.. Severe multilevel facet arthropathy bilaterally. Moderate multilevel uncovertebral joint arthropathy. Severe bilateral neural foraminal stenosis at the level of C3-C4, left greater than right, moderate to severe bilateral neural foraminal stenosis also noted at the level of C5-C6.. No soft tissue abnormality is identified. Thoracic spine: Mild of the thoracic spine. Vertebral bodies are normal in height without evidence of acute fracture. Mild intervertebral disc space height loss at multiple levels with concomitant spondylosis, anterior bridging osteophytes predominantly in the upper and mid thoracic spine, and slight vacuum phenomenon at T9-T10 disc space. Small posterior disc osteophyte complex at the level of T7-T8, T8-T9 without significant spinal canal stenosis. Moderate multilevel facet arthropathy. Multilevel mild neural foraminal stenosis predominantly in the lower thoracic spine.. No soft tissue abnormality is identified. Lumbar spine: Posterior spinal fusion of L4 and L5 via Bilateral transpedicular screws with interconnecting bilateral rods. Grade 2 anterolisthesis with osseous across L4-L5. Osteopenia and streak artifact slightly limits evaluation for subtle fractures at this level. No evidence of lucency surrounding the hardware. Postsurgical changes from laminectomy at the level of L4-L5. The alignment is normal. Vertebral bodies are normal in height without evidence of acute fracture. Multilevel moderate to severe disc degenerative changes through the levels of L1-L2 to L3-L4 with severe height loss and vacuum degeneration. Moderate canal stenosis at the level of L1-L2, moderate to severe spinal canal stenosis at the level of, L2-L3 L3-L4.. Moderate to severe multilevel facet arthropathy predominantly at the level of L3-L4 and L2-L3. Bilateral moderate neuroforaminal stenosis at the level of L1-L2, L2-L3. Streak artifact limits evaluation of spinal canal at the level of L3-L4 and L4-L5. Central canal decompression at the level of L4-L5.. No acute soft tissue findings. Degenerative changes in the bilateral sacroiliac joints. Procedure Note [place], Tammy, MD - 09/19/2022 PROCEDURE: CT HEAD WO CONTRAST, CT LUMBAR SPINE WO CONTRAST, CTTHORACIC SPINE WO CONTRAST, CT CERVICAL SPINE WO CONTRAST, CT FACIAL BONES WO CONTRAST, DATE/TIME OF EXAM: 09/19/2022 2:49 AM, LOCATION [facility] INDICATION: Trauma EXAMINATION: 1. Computed tomography (CT) of the head without contrast 2. CT of the maxillofacial bones, orbits, and paranasal sinuses without contrast 3. CT of the cervical spine without contrast 4. CT of the thoracic spine without contrast 5. CT of the lumbar spine without contrast TECHNIQUE: CT of the head, cervical spine, and maxillofacial bones,orbits, and paranasal sinuses was performed without contrast according tostandard protocol. Reformatted axial, sagittal, and coronal images of thethoracic and lumbar spine were obtained by the technologist from a concurrently performed body CT and sent to the workstation for review. CT dosereduction technique was used, including Automated Exposure Control. COMPARISON: None FINDINGS: Head: Artifact limits evaluation predominantly in the posterior fossa. No acute intracranial hemorrhage. No extra-axial fluid collections are identified. There is mild cerebral volume loss with associated ex vacuo ventricular dilatation. The basilar cisterns are patent. No mass effector midline shift is seen. Periventricular white matter hypoattenuation is indicative of chronic small vessel ischemic disease. There is vascular calcification of the carotid siphons.The tamez-white matterdifferentiation otherwise appears normal. No acute calvarial fracture is identified.There is significant frontal scalp/hematoma along the midline extending intothe soft tissues around the eyes. Maxillofacial: Bilateral Periorbital hematoma/edema secondary to trauma. Bilateral lens replacements. No evidence of of retro-orbital hematoma. The paranasal sinuses are clear. The hard palate, mandible, and temporomandibularjoints appear normal. No acute facial bone fractures are identified. Themastoid air cells are clear. No other acute soft tissue abnormality isidentified. Cervical spine: There is mild anterolisthesis of C3 over C4, C4 over C5, degenerative.. Vertebral bodies are normal in height without evidence of acutefracture. Other than middle atlantoaxial joint osteoarthritis, the craniocervical junction appears normal. Multilevel degenerative disc disease with multilevel anterior disc osteophyte complexes. Posterior discussed by complexes most prominent at the level of C2-C3 and C5-C6.. Mild central canal stenosis at the level of C5-C6 otherwise no significant centralcanal stenosis.. Severe multilevel facet arthropathy bilaterally. Moderate multilevel uncovertebral joint arthropathy. Severe bilateral neural foraminal stenosis at the level of C3-C4, left greater than right,moderate to severe bilateral neural foraminal stenosis also noted at the level of C5-C6.. No soft tissue abnormality is identified. Thoracic spine: Mild of the thoracic spine. Vertebral bodies are normal in heightwithout evidence of acute fracture. Mild intervertebral disc space height lossat multiple levels with concomitant spondylosis, anterior bridgingosteophytes predominantly in the upper and mid thoracic spine, and slight vacuum phenomenon at T9-T10 disc space. Small posterior disc osteophyte complexat the level of T7-T8, T8-T9 without significant spinal canal stenosis. Moderate multilevel facet arthropathy. Multilevel mild neural foraminal stenosis predominantly in the lower thoracic spine.. No soft tissue abnormality is identified. Lumbar spine: Posterior spinal fusion of L4 and L5 via Bilateral transpedicular screws with interconnecting bilateral rods. Grade 2 anterolisthesis withosseous across L4-L5. Osteopenia and streak artifact slightly limits evaluationfor subtle fractures at this level. No evidence of lucency surrounding the hardware. Postsurgical changes from laminectomy at the level of L4-L5. The alignment is normal. Vertebral bodies are normal in height without evidence of acute fracture. Multilevel moderate to severe discdegenerative changes through the levels of L1-L2 to L3-L4 with severe height loss and vacuum degeneration. Moderate canal stenosis at the level of L1-L2, moderate to severe spinal canal stenosis at the level of, L2-L3 L3-L4.. Moderate to severe multilevel facet arthropathy predominantly at thelevel of L3-L4 and L2-L3. Bilateral moderate neuroforaminal stenosis at thelevel of L1-L2, L2-L3. Streak artifact limits evaluation of spinal canal atthe level of L3-L4 and L4-L5. Central canal decompression at the level of L4-L5.. No acute soft tissue findings. Degenerative changes in the bilateral sacroiliac joints. IMPRESSION: 1.No acute intracranial process identified within limits of the study.Mild to moderate frontal scalp hematoma along the midline extending into the periorbital soft tissues. 2.No acute facial bone fractures identified. 3.No evidence of acute fracture in the cervical, thoracic, or lumbarspine. Multilevel degenerative changes of the spine as described above. Thereis moderate to severe spinal canal stenosis at L2-L3 and L3-L4. I, Tammy Johnson MD have personally reviewed and interpreted this examination/study. > Interpreting Provider: Tammy Johnson MD on 09/19/2022 2:42 PM Madhu Gagnon MD CT ORDERABLES * (ABNORMAL) TEG 6S PLATELET MAPPING (09/19/2022 2:20 AM WASTEWATER TREATMENT SUPERVISOR) TEGPLM (Max Amplitude) [place] 65.3 53.0 - 68.0 mm 09/19/2022 3:46 AM [facility] TEGPLM (Max Amplitude) ACTF 16.2 2.0 - 19.0 mm 09/19/2022 3:46 AM [facility] TEGPLM (Max Amplitude) ADP 37.1(L) 45.0 - 69.0 mm 09/19/2022 3:46 AM [facility] Comment:ADP MA below normal range. Inhibition present. TEGPLM (Max Amplitude) AA 55.7 51.0 - 71.0 mm 09/19/2022 3:46 AM [facility] TEGPLM %Inhibition ADP 57.4(H) 0.0 - 17.0 % 09/19/2022 3:46 AM [facility] TEGPLM %Inhibition AA 19.6(H) 0.0 - 11.0 % 09/19/2022 3:46 AM [facility] TEGPLM %Aggregation ADP 42.6(L) 83.0 - 100.0 % 09/19/2022 3:46 AM [facility] TEGPLM % Aggregation AA 80.4(L) 89.0 - 100.0 % 09/19/2022 3:46 AM [facility] Blood BLOOD SPECIMEN / Unknown Venipuncture / Unknown 09/19/2022 2:20 AM WASTEWATER TREATMENT SUPERVISOR 09/19/2022 2:24 AM WASTEWATER TREATMENT SUPERVISOR Madhu Gagnon MD LAB - HEMATOLOGY ORD ERABLES Performing Organization Address City/[facility]/ZIP Co de Phone Number [facility] [address] [place] [address], [place] [phone] * PTT [facility] (09/19/2022 2:20 AM WASTEWATER TREATMENT SUPERVISOR) APTT 28.2 23.0 - 38.4 Seconds 09/19/2022 2:48 AM WASTEWATER TREATMENT SUPERVISOR [facility] Comment:Suggested therapeuti c range for full dose I.V. unfractionated heparin therapy for venous thromboembolism is 71 to 109 seconds. Blood BLOOD SPECIMEN / Unknown Venipuncture / Unknown 09/19/2022 2:20 AM WASTEWATER TREATMENT SUPERVISOR 09/19/2022 2:26 AM WASTEWATER TREATMENT SUPERVISOR Madhu Gagnon MD LAB - COAGULATION OR DERABLES Performing Organization Address [facility]/ZIP Co de Phone Number [address] [address], [place] [phone] * PT-INR [facility] (09/19/2022 2:20 AM WASTEWATER TREATMENT SUPERVISOR) Pathologist [facility] PT 13.1 12.1 - 14.8 Seconds 09/19/2022 2:47 AM WASTEWATER TREATMENT SUPERVISOR [facility] INR 1.0 See Comment 09/19/2022 2:47 AM WASTEWATER TREATMENT SUPERVISOR [facility] Comment:The suggested therap eutic range for standard coumadin (warfarin) therapy is an INR of 2.0-3.0. For high-risk patients (Mechanical Mitral Valve Prosthesis, etc.), the suggested prophylactic therapeutic range is an INR of 2.5-3.5. Blood BLOOD SPECIMEN / Unknown Venipuncture / Unknown 09/19/2022 2:20 AM WASTEWATER TREATMENT SUPERVISOR 09/19/2022 2:26 AM WASTEWATER TREATMENT SUPERVISOR Madhu Gagnon MD LAB - COAGULATION OR DERABLES Performing Organization Address City/[facility]/ZIP Co de Phone Number [facility] [address] [place] [address], [place] [phone] * TYPE + SCREEN PANEL (09/19/2022 2:20 AM WASTEWATER TREATMENT SUPERVISOR) Antibody Screen NEG 3:15 AM [facility] BLOOD BANK LAB ABO Rh O POS 09/19/2022 3:15 AM [facility] BLOOD BANK LAB Blood Bank BLOOD SPECIMEN / Unknown Venipuncture / Unknown 09/19/2022 2:20 AM WASTEWATER TREATMENT SUPERVISOR 09/19/2022 2:25 AM WASTEWATER TREATMENT SUPERVISOR Madhu Gagnon MD LAB - BLOOD BANK ORD ERABLES [facility] BLOOD BANK LAB [address] [place] [address], [facility] [phone] * (ABNORMAL) CBC W AUTO DIFFERENTIAL (09/19/2022 2:18 AM WASTEWATER TREATMENT SUPERVISOR) WBC 10.7(H) 3.5 - 10.5 10 3/uL 09/19/2022 2:32 AM [facility] RBC 4.18 3.80 - 5.20 10 6/uL 09/19/2022 2:32 AM [facility] Hemoglobin 11.0(L) 12.0 - 15.6 g/dL 09/19/2022 2:32 AM [facility] Hematocrit 34.5(L) 35.0 - 45.0 % 09/19/2022 2:32 AM [facility] MCV 82.5 80.7 - 98.3 fL 09/19/2022 2:32 AM [facility] MCH 26.3(L) 26.7 - 34.0 pg 09/19/2022 2:32 AM [facility] MCHC 31.9 30.8 - 35.9 g/dL 09/19/2022 2:32 AM [facility] RDW-SD 45.2 36.0 - 50.0 fL 09/19/2022 2:32 AM [facility] RDW-CV 15.1(H) 11.2 - 14.8 % 09/19/2022 2:32 AM [facility] Platelet Count 255 150 - 400 10 3/uL 09/19/2022 2:32 AM [facility] MPV 11.4 9.4 - 12.9 fL 09/19/2022 2:32 AM [facility] nRBC Absolute 0.00 0 10 3/uL 09/19/2022 2:32 AM [facility] nRBC Auto 0.0 0 /100 WBC 09/19/2022 2:32 AM [facility] Neutrophils % 47.6 35.0 - 70.0 % 09/19/2022 2:32 AM [facility] Lymphocytes % 37.0 20.0 - 43.0 % 09/19/2022 2:32 AM [facility] Monocytes % 13.0 5.0 - 13.0 % 09/19/2022 2:32 AM [facility] Eosinophils % 1.4 0.0 - 6.0 % 09/19/2022 2:32 AM [facility] Basophil % 0.7 0.0 - 2.0 % 09/19/2022 2:32 AM [facility] Neutrophils Absolute 5.08 1.60 - 7.00 10 3/uL 09/19/2022 2:32 AM [facility] Lymphocyte Absolute 3.96(H) 1.10 - 3.90 10 3/uL 09/19/2022 2:32 AM [facility] Monocytes Absolute 1.39(H) 0.26 - 1.07 10 3/uL 09/19/2022 2:32 AM [facility] Eosinophils Absolute 0.15 0.00 - 0.47 10 3/uL 09/19/2022 2:32 AM [facility] Basophils Absolute 0.08 0.00 - 0.08 10 3/uL 09/19/2022 2:32 AM [facility] Immature Granulocytes % 0.3 0.0 - 1.0 % 09/19/2022 2:32 AM [facility] Immature Granulocytes Absolute 0.03 09/19/2022 2:32 AM [facility] Blood BLOOD SPECIMEN / Unknown Venipuncture / Unknown 09/19/2022 2:18 AM WASTEWATER TREATMENT SUPERVISOR 09/19/2022 2:25 AM [facility] Madhu Gagnon MD LAB - HEMATOLOGY ORD ERABLES [facility] [address] [place] [address], [facility] [phone] * PHOSPHORUS BLOOD (09/19/2022 2:18 AM WASTEWATER TREATMENT SUPERVISOR) Phosphorus 4.3 2.9 - 5.1 mg/dL 09/19/2022 2:59 AM [facility] Blood BLOOD SPECIMEN / Unknown Venipuncture / Unknown 09/19/2022 2:18 AM WASTEWATER TREATMENT SUPERVISOR 09/19/2022 2:26 AM WASTEWATER TREATMENT SUPERVISOR Madhu Gagnon MD LAB - CHEMISTRY ALEAH BORGES [address] [address], [facility] [phone] * AMYLASE BLOOD (09/19/2022 2:18 AM WASTEWATER TREATMENT SUPERVISOR) Amylase 43 25 - 125 U/L 09/19/2022 3:02 AM [facility] Blood BLOOD SPECIMEN / Unknown Venipuncture / Unknown 09/19/2022 2:18 AM WASTEWATER TREATMENT SUPERVISOR 09/19/2022 2:26 AM WASTEWATER TREATMENT SUPERVISOR Madhu Gagnon MD LAB - CHEMISTRY ALEAH BORGES [address] [address], [facility] [phone] * ALCOHOL ETHYL BLOOD (09/19/2022 2:18 AM WASTEWATER TREATMENT SUPERVISOR) Ethanol (mg/dL) <10 <10 mg/dL 3:02 AM [facility] Ethanol Calculated (g/dL) <0.010 <=0.010 g/dL 09/19/2022 3:02 AM [facility] Blood BLOOD SPECIMEN / Unknown Venipuncture / Unknown 09/19/2022 2:18 AM WASTEWATER TREATMENT SUPERVISOR 09/19/2022 2:26 AM WASTEWATER TREATMENT SUPERVISOR Narrative [facility] - 09/19/2022 3:02 AM WASTEWATER TREATMENT SUPERVISOR Ethanol Interp <10: None Detected. Depression of HAND CIGAR MAKER: >100 mg/dl Potentially Critical: >250 mg/dl Potentially Fatal >400 mg/dl Ethanol in the patient's blood will contribute to the osmolar gap. Ethanol's contribution to the osmolar gap can be estimated by dividing the concentration of ethanol in mg/dL by 4.6. This test is for clinical use only and does not equal a ERICA for legal purposes. Madhu Gagnon MD LAB - CHEMISTRY ALEAH BORGES [facility] Organization Address City/State/ZIP Co de Phone Number [address] [address], [facility] [phone] * XR CHEST 1VW PORTABLE (09/19/2022 2:12 AM WASTEWATER TREATMENT SUPERVISOR) Anatomical Region Laterality Modality Chest Radiographic Danielle ging 09/19/2022 3:42 AM WASTEWATER TREATMENT SUPERVISOR Narrative 09/19/2022 9:14 AM WASTEWATER TREATMENT SUPERVISOR PROCEDURE: XR CHEST 1VW PORTABLE, DATE/TIME OF EXAM: 09/19/2022 3:42 AM, LOCATION [facility] INDICATION: W19.XXXA: Fall, initial encounter ADDITIONAL CLINICAL INFORMATION: Ordering Provider Reason For Exam: Trauma COMPARISON: None. FINDINGS/IMPRESSION: There is no focal consolidation, pleural effusion, or pneumothorax. The cardiomediastinal contours are normal for technique. The visible bony thorax is intact. > Dictated by Beny Ghosh MD (residential designer). Luana Juárez MD have personally reviewed and interpreted this examination/study. > Interpreting Provider: Luana Valdez MD on 09/19/2022 9:14 AM Procedure Note Luana Valdez MD - 09/19/2022 PROCEDURE: XR CHEST 1VW PORTABLE, DATE/TIME OF EXAM: 09/19/2022 3:42AM, LOCATION [facility] INDICATION: W19.XXXA: Fall, initial encounter ADDITIONAL CLINICAL INFORMATION: Ordering Provider Reason For Exam: Trauma COMPARISON: None. FINDINGS/IMPRESSION: There is no focal consolidation, pleural effusion, or pneumothorax. The cardiomediastinal contours are normal for technique. The visible bony thorax is intact. > Dictated by Beny Ghosh MD (residential designer). Luana Juárez MD have personally reviewed and interpreted this examination/study. > Interpreting Provider: Luana Valdez MD on 09/19/2022 9:14 AM Rehan Soriano ZIPPER SLIDE ATTACHER-BAKING ASSISTANT DIAGNOSTIC IMAGING ORDERABLES * XR PELVIS 1 OR 2VW (09/19/2022 2:12 AM WASTEWATER TREATMENT SUPERVISOR) Anatomical Region Laterality Modality Pelvis Radiographic Danielle ging 09/19/2022 3:40 AM WASTEWATER TREATMENT SUPERVISOR Impressions 09/19/2022 9:11 AM WASTEWATER TREATMENT SUPERVISOR IMPRESSION: No acute fracture identified. Report dictated by Beny Ghosh MD (residential designer). Luana Juárez MD have personally reviewed and interpreted this examination/study. > Interpreting Provider: Luana Valdez MD on 09/19/2022 9:11 AM Narrative 09/19/2022 9:11 AM WASTEWATER TREATMENT SUPERVISOR PROCEDURE: XR PELVIS 1 OR 2VW, DATE/TIME OF EXAM: 09/19/2022 3:16 AM, LOCATION [facility] INDICATION: W19.XXXA: Fall, initial encounter ADDITIONAL CLINICAL INFORMATION: Ordering Provider Reason For Exam: Trauma COMPARISON: None. FINDINGS: Posterior spinal fusion of L4 and L5. No acute fracture is identified. The femoral heads appear well-seated within their respective acetabula. There are mild degenerative changes of the hips. The pubic symphysis is intact. Bone density and texture are normal. The sacroiliac joints are normal. Procedure Note Luana Valdez MD - 09/19/2022 PROCEDURE: XR PELVIS 1 OR 2VW, DATE/TIME OF EXAM: 09/19/2022 3:16 AM, LOCATION [facility] INDICATION: W19.XXXA: Fall, initial encounter ADDITIONAL CLINICAL INFORMATION: Ordering Provider Reason For Exam: Trauma COMPARISON: None. FINDINGS: Posterior spinal fusion of L4 and L5. No acute fracture is identified. The femoral heads appear well-seated within their respective acetabula. There are mild degenerative changesof the hips. The pubic symphysis is intact. Bone density and texture are normal. The sacroiliac joints are normal. IMPRESSION: No acute fracture identified. Report dictated by Beny Ghosh MD (residential designer). Luana Juárez MD have personally reviewed and interpreted this examination/study. > Interpreting Provider: Luana Valdez MD on 09/19/2022 9:11 AM Rehan Soriano ZIPPER SLIDE ATTACHER-BAKING ASSISTANT DIAGNOSTIC IMAGING ORDERABLES Care Teams Roll Former Relationship Specialty Start Date End Date Ezra Jamison MD PCP - General Internal Medicine 09/19/22
--- OUTSIDE RECORDS SUMMARY | 2024-12-11 08:24 | XMS_ITS ---
Author Organization [facility] Address [address] [place] [address] Care Team Providers Care Parole Or Probation Officer Name Role Phone Romeo Eb Unavailable [phone] MEDICATIONS Medication SIG (Take, Route, Frequency, Duration) Notes Start Date End Date Status Olmesartan Medoxomil 20 MG 1 tablet Oral ly Once a day Active Montelukast Sodium 10 MG 1 tablet Orally Once a day Active Pantoprazole Sodium 40 MG 1 tablet Orall y Once a day Active Levothyroxine Sodium 75 MCG 1 tablet in the morning on an empty stomach Orally Once a day Active Glimepiride 1 MG 1 tablet with breakf ast or the first main meal of the day Orally Once a day Active Ergocalciferol 1.25 MG (30564 UT) 1 capsule Orally twice a week for 90 day(s) Active Clopidogrel Bisulfate 75 MG 1 tablet Ora lly Once a day Active Carvedilol 6.25 MG 1 tablet with food Orally Twice a day Active Calcitriol 0.25 MCG 1 capsule Orally Thr ee times a Week Active Atorvastatin Calcium 10 MG 1 tablet Oral ly Once a day Active Eliquis 2.5 MG as directed Orally Active dilTIAZem HCl ER 120 MG 1 capsule Orally Twice a day Active PROBLEMS Problem Type ICD Code Onset Dates Problem Status W/U Status Risk SNOMED Code Notes Problem Chronic kidney disease, stage 3b (N18.32) Active confirmed Chronic kidney disease stage 3B (disorder) (173066793) Encounters Encounter Location Date Provider Diagnosis [facility] [address] [place] [address] 06/13/2024 Eb Walters Chronic kidney disea se, stage 3b N18.32 ; Essential (primary) hypertension I10 ; Renal osteodystrophy N25.0 ; Secondary hyperparathyroidism, not elsewhere classified E21.1 ; Type 2 diabetes mellitus with hyperglycemia E11.65 ; Urinary tract infection, site not specified N39.0 and Vitamin D deficiency, unspecified E55.9 ASSESSMENTS Encounter Date Diagnosis Assessment Notes Treatment Notes Treatment Clinical Notes Section Notes 06/13/2024 Chronic kidney disease, stage 3b (ICD-10 - N18.32) 06/13/2024 Essential (primary) hypertension (ICD-10 - I10) 06/13/2024 Renal osteodystrophy (ICD-10 - N25.0) 06/13/2024 Secondary hyperparathyroidism , not elsewhere classified (ICD-10 - E21.1) 06/13/2024 Type 2 diabetes mellitus with hyperglycemia (ICD-10 - E11.65) 06/13/2024 Urinary tract infection, site not specified (ICD-10 - N39.0) 06/13/2024 Vitamin D deficiency, unspecified (ICD-10 - E55.9) PLAN OF TREATMENT No Information Progress Notes * KERRI JACOBSDOB: [birth year] (89 yo F)Acc No.[id number]:06/13/2024 Patient: HUDSON JACOBSGY Provider: MD ALAN, F.A.C.P, F.A.S.N. :1935 Age:89 Y Sex:Female Date:06/13/2024 Address:[address] [place], [place] [id number] Subjective: * Chief Complaints: Objective: Assessment: * Assessment: 1. Chronic kidney disease, stage 3b - N18.32 2. Essential (primary) hypertension - I10 3. Renal osteodystrophy - N25.0 4. Secondary hyperparathyroidism, not elsewhere classified - E21.1 5. Type 2 diabetes mellitus with hyperglycemia - E11.65 6. Urinary tract infection, site not specified - N39.0 7. Vitamin D deficiency, unspecified - E55.9 Plan: * Billing Information: * Visit Code: 25405 Office Visit, Est Pt., Level 5. * Procedure Codes: * Sign off status: Pending * Provider: MD ALAN, F.A.C.P, F.A.S.N. Date: 06/13/2024
--- OUTSIDE RECORDS SUMMARY | 2024-12-11 08:24 | XMS_ITS | Patient Health Record ---
Author Organization [facility] Address [address] [place] [address] Care Team Providers Care Intermediate Card Tender Name Role Phone Eb Walters Unavailable [phone] REASON FOR REFERRAL No Information MEDICATIONS Medication SIG (Take, Route, Frequency, Duration) Notes Start Date End Date Status Ergocalciferol 1.25 MG (75989 UT) 1 capsule Orally twice a week for 90 day(s) Active Olmesartan Medoxomil 20 MG 1 tablet Oral ly Once a day Active Montelukast Sodium 10 MG 1 tablet Orally Once a day Active Pantoprazole Sodium 40 MG 1 tablet Orall y Once a day Active Clopidogrel Bisulfate 75 MG 1 tablet Ora lly Once a day Active Carvedilol 6.25 MG 1 tablet with food Orally Twice a day Active Calcitriol 0.25 MCG 1 capsule Orally Thr ee times a Week Active Atorvastatin Calcium 10 MG 1 tablet Oral ly Once a day Active Levothyroxine Sodium 75 MCG 1 tablet in the morning on an empty stomach Orally Once a day Active Glimepiride 1 MG 1 tablet with breakf ast or the first main meal of the day Orally Once a day Active Eliquis 2.5 MG as directed Orally Active dilTIAZem HCl ER 120 MG 1 capsule Orally Twice a day Active PROBLEMS Problem Type ICD Code Onset Dates Problem Status W/U Status Risk SNOMED Code Notes Problem Type 2 diabetes mellitus with hyperglycemia (E11.65) Active confirmed Hyperglycemia d ue to type 2 diabetes mellitus (143359024008025) Problem Secondary hyperparathyroid ism, not elsewhere classified (E21.1) Active confirmed Secondary hyperparathyroidism (99196568) Problem Vitamin D deficiency, unspecified (E55.9) Active confirmed Vitamin D defic iency (38904350) Problem Essential (primary) hypertension (I10) Active confirmed Essential hypertension (76007472) Problem Renal osteodystrophy (N25.0) Active confirmed Renal osteodyst rophy (59927861) Problem Urinary tract infection, site not specified (N39.0) Active confirmed Urinary tract infectious disease (disorder) (57997235) Problem Chronic kidney disease, stage 3a (N18.31) Active confirmed Chronic kidney disease stage 3A (disorder) (456012040) Problem Chronic kidney disease, stage 3b (N18.32) Active confirmed Chronic kidney disease stage 3B (disorder) (381794982) Encounters Encounter Location Date Provider Diagnosis [facility] [address] [facility] [address] [place] [address] 03/07/2024 Eb Walters Chronic kidney disea se, stage 3a N18.31 ; Essential (primary) hypertension I10 ; Renal osteodystrophy N25.0 ; Secondary hyperparathyroidism, not elsewhere classified E21.1 ; Type 2 diabetes mellitus with hyperglycemia E11.65 ; Urinary tract infection, site not specified N39.0 and Vitamin D deficiency, unspecified E55.9 [facility] [place] [facility] [address] [place] [address] 06/13/2024 Eb Walters Chronic kidney disea se, stage 3b N18.32 ; Essential (primary) hypertension I10 ; Renal osteodystrophy N25.0 ; Secondary hyperparathyroidism, not elsewhere classified E21.1 ; Type 2 diabetes mellitus with hyperglycemia E11.65 ; Urinary tract infection, site not specified N39.0 and Vitamin D deficiency, unspecified E55.9 ASSESSMENTS Encounter Date Diagnosis Assessment Notes Treatment Notes Treatment Clinical Notes Section Notes 03/07/2024 Chronic kidney disease, stage 3a (ICD-10 - N18.31) 06/13/2024 Chronic kidney disease, stage 3b (ICD-10 - N18.32) 06/13/2024 Essential (primary) hypertension (ICD-10 - I10) 03/07/2024 Essential (primary) hypertension (ICD-10 - I10) 03/07/2024 Renal osteodystrophy (ICD-10 - N25.0) 06/13/2024 Renal osteodystrophy (ICD-10 - N25.0) 06/13/2024 Secondary hyperparathyroidism , not elsewhere classified (ICD-10 - E21.1) 03/07/2024 Secondary hyperparathyroidism , not elsewhere classified (ICD-10 - E21.1) 03/07/2024 Type 2 diabetes mellitus with hyperglycemia (ICD-10 - E11.65) 06/13/2024 Type 2 diabetes mellitus with hyperglycemia (ICD-10 - E11.65) 03/07/2024 Urinary tract infection, site not specified (ICD-10 - N39.0) 06/13/2024 Urinary tract infection, site not specified (ICD-10 - N39.0) 06/13/2024 Vitamin D deficiency, unspecified (ICD-10 - E55.9) 03/07/2024 Vitamin D deficiency, unspecified (ICD-10 - E55.9) PLAN OF TREATMENT No Information
--- OUTSIDE RECORDS SUMMARY | 2024-12-11 08:24 | XMS_ITS ---
Author Organization [facility] Address [address] [facility] [address] [place] [address] Care Team Providers Care Child Neurologist Name Role Phone Eb Walters Unavailable [phone] MEDICATIONS Medication SIG (Take, Route, Frequency, Duration) Notes Start Date End Date Status Ergocalciferol 1.25 MG (18333 UT) 1 capsule Orally twice a week for 90 day(s) Active Carvedilol 6.25 MG 1 tablet with food Orally Twice a day Active Clopidogrel Bisulfate 75 MG 1 tablet Ora lly Once a day Active Atorvastatin Calcium 10 MG 1 tablet Oral ly Once a day Active Calcitriol 0.25 MCG 1 capsule Orally Thr ee times a Week Active Levothyroxine Sodium 75 MCG 1 tablet in the morning on an empty stomach Orally Once a day Active Montelukast Sodium 10 MG 1 tablet Orally Once a day Active Glimepiride 1 MG 1 tablet with breakf ast or the first main meal of the day Orally Once a day Active dilTIAZem HCl ER 120 MG 1 capsule Orally Twice a day Active Eliquis 2.5 MG as directed Orally Active Olmesartan Medoxomil 20 MG 1 tablet Oral ly Once a day Active Pantoprazole Sodium 40 MG 1 tablet Orall y Once a day Active Encounters Encounter Location Date Provider Diagnosis [facility] [address] [facility] [address] [place] [address] 11/30/2023 Eb Walters Chronic kidney disea se, stage 3a N18.31 ; Essential (primary) hypertension I10 ; Renal osteodystrophy N25.0 ; Secondary hyperparathyroidism, not elsewhere classified E21.1 ; Type 2 diabetes mellitus with hyperglycemia E11.65 ; Urinary tract infection, site not specified N39.0 and Vitamin D deficiency, unspecified E55.9 ASSESSMENTS Encounter Date Diagnosis Assessment Notes Treatment Notes Treatment Clinical Notes Section Notes 11/30/2023 Chronic kidney disease, stage 3a (ICD-10 - N18.31) 11/30/2023 Essential (primary) hypertension (ICD-10 - I10) 11/30/2023 Renal osteodystrophy (ICD-10 - N25.0) 11/30/2023 Secondary hyperparathyroidism , not elsewhere classified (ICD-10 - E21.1) 11/30/2023 Type 2 diabetes mellitus with hyperglycemia (ICD-10 - E11.65) 11/30/2023 Urinary tract infection, site not specified (ICD-10 - N39.0) 11/30/2023 Vitamin D deficiency, unspecified (ICD-10 - E55.9) PLAN OF TREATMENT No Information Progress Notes * KERRI JACOBSDOB: [birth year] (89 yo F)Acc No.[id number]:11/30/2023 Progress Notes Patient: KERRI JACOBS Provider: MD ALAN, F.A.C.P, F.A.S.N. :1935 Age:88 Y Sex:Female Date:11/30/2023 Address:[address] [place] [address] Subjective: * Chief Complaints: * * Medical History: * Medications: Taking Pantoprazole Sodium 40 MG Tablet Delayed Release 1 tablet Orally Once a day , Taking Olmesartan Medoxomil 20 MG Tablet 1 tablet Orally Once a day , Taking Montelukast Sodium 10 MG Tablet 1 tablet Orally Once a day , Taking Levothyroxine Sodium 75 MCG Tablet 1 tablet in the morning on an empty stomach Orally Once a day , Taking Glimepiride 1 MG Tablet 1 tablet with breakfast or the first main meal of the day Orally Once a day , Taking Eliquis 2.5 MG Tablet as directed Orally , Taking dilTIAZem HCl ER 120 MG Capsule Extended Release 12 Hour 1 capsule Orally Twice a day , Taking Clopidogrel Bisulfate 75 MG Tablet 1 tablet Orally Once a day , Taking Carvedilol 6.25 MG Tablet 1 tablet with food Orally Twice a day , Taking Calcitriol 0.25 MCG Capsule 1 capsule Orally Three times a Week , Taking Atorvastatin Calcium 10 MG Tablet 1 tablet Orally Once a day , Taking Ergocalciferol 1.25 MG (29839 UT) Capsule 1 capsule Orally twice a week Objective: Assessment: * Assessment: 1. Chronic kidney disease, stage 3a - N18.31 2. Essential (primary) hypertension - I10 3. Renal osteodystrophy - N25.0 4. Secondary hyperparathyroidism, not elsewhere classified - E21.1 5. Type 2 diabetes mellitus with hyperglycemia - E11.65 6. Urinary tract infection, site not specified - N39.0 7. Vitamin D deficiency, unspecified - E55.9 Plan: * Treatment: * Billing Information: * Visit Code: 79178 Office Visit, Est Pt., Level 4. * Procedure Codes: * Sign off status: Pending * Provider: MD ALAN, F.A.C.P, F.A.S.N. Date: 11/30/2023
--- OUTSIDE RECORDS SUMMARY | 2024-12-11 08:25 | XMS_ITS | Clinical Summary ---
Author Organization [facility] Address [address] [place] [id number] Care Team Providers Care Director Of Radio Services Name Role Phone Ezra Jamison MD Primary Care Provider + [phone] Allergies Active Allergy Reactions Criticality Noted Date Comments Diphenoxylate-Atropine Anaphylaxis High 03/11/2019 Lamotrigine Swelling Medium 10/18/2017 Latex Levofloxacin Other (See comments) Low 03/11/2019 Nifedipine Other (See comments) Low 03/11/2019 Medications ONETOUCH ULTRA TEST strip TEST BID. 6 10/11/2017 Active metoprolol (LOPRESSOR) 25 mg tablet TK 1 T PO BID 3 09/29/2017 Active ergocalciferol (VITAMIN D) 50,000 unit capsule TK ONE C PO THREE TIMES A WEEK 1 10/11/2017 Active losartan (COZAAR) 100 mg tablet TK 1 T PO QD 2 09/21/2017 Active levothyroxine (SYNTHROID, LEVOTHROID) 75 mcg tablet TK 1 T PO ONCE D 1 09/29/2017 Active atorvastatin (LIPITOR) 10 mg tablet 08/22/2017 Active montelukast (SINGULAIR) 10 mg tablet TK 1 T PO QD 1 08/14/2017 Active aspirin 81 mg tablet Take 81 mg by mouth daily. Active vitamin E (AQUASOL E) 1,000 unit capsule Take 1,000 Units by mouth daily. Active niacin (NIASPAN) 500 mg tablet Take 500 mg by mouth daily with breakfast. Active SITagliptin (JANUVIA) 50 mg tabletIndication s:type 2 diabetes mellitus Take 1 tablet (50 mg total) by mouth daily. 30 tablet 6 10/18/2017 Active SITagliptin (JANUVIA) 100 mg tabletIndication s:type 2 diabetes mellitus Sample [id number] 03/20 7 tablet 10/18/2017 Active glimepiride (AMARYL) 1 mg tabletIndication s:type 2 diabetes mellitus Take 1 tablet (1 mg total) by mouth daily before breakfast. 90 tablet 1 01/24/2018 Active HYDROcodone-acet aminophen (NORCO) 5-325 mg per tabletIndication s:Pain Take 1 tablet by mouth every 6 hours as needed for pain 30 tablet 03/20/2019 Active Active Problems Problem Noted Date Diagnosed Date Hypertension associated with diabetes 01/24/2018 Assessment & Plan (01/24/2018 3:47 PM CDT): Goal blood pressure is less than 140/85 Low salt diet recommended Daily aerobic exercise Continue current meds, including ASIA-I or ARB Type 2 diabetes mellitus wit h hyperglycemia, without long-term current use of insulin 10/18/2017 Assessment & Plan (01/24/2018 3:46 PM CDT): Your Hba1c today was: Lab Results Component Value Date HGBA1C 7.2 01/24/2018 meaning a 3 month average sugar of : 154 Your goal hba1c is under 8-8.5 . Your goal sugars are in the 130-180 range Daily aerobic ( walking, riding a bike, swimming ) and resistance exercises ( light weight lifting, resistance band stretching ) for at least 30 minutes is recommended If you can not walk, chair exercises is very acceptable. As little as 15-20 minutes exercise , in one or two sessions a day, is still very helpful and will help to improve your diabetes control . Eat small portion meals, no more than 1800 calories Diet Try to eat not more than than 2-3 servings of carbs ( starches ) wiith your meals. Avoid soft drinks, including regular sodas , fruit juices and sweetened tea. Drink water instead. Eat plenty of green and leafy vegetables, including salads. Monitor your sugar levels with finger sticks regularly and keep a log sheet or book. Bring your sugar meter and /or a log book or log sheet to every office visit. Lower the Glimepiride to 1 mg daily Stay on Januvia 50 mg daily Assessment & Plan (10/18/2017 10:35 AM BUSINESS CENTER MANAGER): Your Hba1c today was: 8.5 meaning a 3 month average sugar of : 190 Your goal hba1c is under 7.5 . Your goal sugars are in the 90-130 range Daily aerobic ( walking, riding a bike, swimming ) and resistance exercises ( light weight lifting, resistance band stretching ) for at least 30 minutes is recommended If you can not walk, chair exercises is very acceptable. As little as 15-20 min daily exercise , in one or two sessions a day is still very helpful . Eat small portion meals, no more than 1800 calories Diet Try to eat not more than than 2-3 servings of carbs ( starches ) wiith your meals. Avoid soft drinks, including regular sodas , fruit juices and sweetened tea. Drink water instead. Eat plenty of green and leafy vegetables, including salads. Take your medications regularly Check your sugars once a day and bring your sugar meter and /or a log book or sheet to every office visit. Start Januvia, 50 mg daily. 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 Inflamed seborrheic keratosis 05/01/2016 Keratosis, senilis 05/01/2016 Medical History Medical History Date Comments Type 2 diabetes mellitus (HCC) Hyperlipidemia Hypertension Hypothyroidism Chronic kidney failure, stage 3 (moderate) (HCC) Family History Medical History Relation Name Comments Diabetes Father Heart attack Father Diabetes Mother Heart attack Mother Relation Name Status Comments Father Mother Social History Tobacco Use Types Packs/Day Years Used Date Smoking Tobacco: Never Smokeless Tobacco: Never Alcohol Use Standard Drinks/Week Comments No 0 (1 standard drink = 0.6 oz pur e alcohol) Personal Safety Answer Date Recorded Getting School Help Needed Not on file 12/14 Comments Unknown Sex and Gender Information Value Date Recorded Sex Assigned at Not on file Legal Sex Female 11:52 AM BUSINESS CENTER MANAGER Gender Identity Not on file Sexual Orientation Not on file Obstetrics History Last Filed Vital Signs Vital Sign Reading Time Taken Comments Blood Pressure 138/87 03/11/2019 8:28 AM CDT Pulse 92 01/24/2018 3:23 PM CDT Temperature - - Respiratory Rate 12 01/24/2018 3:23 PM CDT Oxygen Saturation - - Inhaled Oxygen Concentration - - Weight 94.3 kg (208 lb) 03/11/2019 8:28 AM CDT Height 154.9 cm (5' 1 ) 03/11/2019 8:28 AM CDT Body Mass Index 39.3 03/11/2019 8:28 AM CDT Plan of Treatment Not on file Insurance [facility] MDCR HMO REF Care Teams Director Of Radio Services Relationship Specialty Start Date End Date Ezra Jamison MD PCP - General Internal Medicine 10/08/17
--- OUTSIDE RECORDS SUMMARY | 2024-12-11 08:25 | XMS_ITS | Clinical Summary ---
Author Organization [facility] Address [address] [place] [address] Care Team Providers Care Clothes Designer Name Role Phone Ezra Jamison MD Primary Care Provider [phone] [facility],non-owned Affiliates and Associated Physician Practices is amultiple site organization consisting of ambulatory clinics and hospital sitesin [place], [place], [place] and [place]. This disclosure is being madepursuant to the Care Everywhere program and may not contain all information available regarding this patient. Last updated 18.[facility] Allergies Active Allergy Reactions Criticality Noted Date Comments Levofloxacin Swelling 09/19/2022 Lomotil Swelling 09/19/2022 Medications * Be aware that medications may not be up to date on this document. Alwaysverify current medications with the patient. Medication Sig Dispensed Refills Start Date End Date Status acetaminophen (Tylenol) 500 MG tablet Take 1 (one) tablet by mouth every 4 hours as needed for Fever or Pain Maximum allowable Acetaminophen amount = 4 Grams (4000 mg) / 24 hours. 30 tablet 09/19/2022 Active Social History Tobacco Use Types Packs/Day Years [...] Comments Blood Pressure 165/72 09/19/2022 6:00 AM CLIP BOLTER AND WRAPPER Pulse 75 09/19/2022 3:01 AM CLIP BOLTER AND WRAPPER Temperature 36.4 C (97.5 F) 09/19/2022 1:51 AM CLIP BOLTER AND WRAPPER Respiratory Rate 22 09/19/2022 2:55 AM CLIP B[employer]TER AND WRAPPER Oxygen Saturation 96% 09/19/2022 6:00 AM CLIP BOLTER AND WRAPPER Inhaled Oxygen Concentration - - Weight 83.9 kg (185 lb) 09/19/2022 1:51 AM CLIP BOLTER AND WRAPPER Height 167.6 cm (5' 6 ) 09/19/2022 1:51 AM CLIP B[employer]TER AND WRAPPER Body Mass Index 29.86 09/19/2022 1:51 AM CLIP B[employer]TER [employer] WRAPPER Plan of Treatment Health Maintenance Due Date Last Done Comments BONE DENSITY TESTING 1935 DTAP/TDAP/TD VACCINES (1 - Tdap) 1954 PNEUMOCOCCAL VACCINE 50+ (1 of 1 - PCV) 1985 ZOSTER VACCINE (1 of 2) 1985 Respiratory Syncytial Virus (RSV) Vaccine Pt: or over 60 yrs (1 - 1-dose 75+ series) 2010 COVID-19 VACCINE ( - 2023-2 5 season) 2024 INFLUENZA VACCINE (#1) 2024 DEPRESSION SCREENING 10/01/2024 MEDICARE AWV CALENDAR YEAR 2024 HEPATITIS B VACCINE Aged Out No longe r eligible based on patient's age to complete this topic HIB VACCINE Aged Out No longer eligi ble based on patient's age to complete this topic HPV VACCINE Aged Out No longer eligi ble based on patient's age to complete this topic MENINGOCOCCAL (Group B) VACC INE SHARED DECISION-MAKING Aged Out No longer eligibl e based on patient's age to complete this topic MENINGOCOCCAL GROUPS A/C/Y/W VACCINE Aged Out No longer eligible b ased on patient's age to complete this topic Care Teams Clothes Designer Relationship Specialty Start Date End Date Ezra Jamison MD PCP - General Internal Medicine 09/19/22
--- OUTSIDE RECORDS SUMMARY | 2024-12-11 08:25 | XMS_ITS | Data Portability ---
Author Organization [place] [facility] [employer], Main Office Address [address] [place] [address] Care Team Providers Care Clothing Worker Name Role Phone SHEBA JAMISON Primary Care Provider SHEBA JAMISON Referring Provider Assessment Encounter Date Assessment Date Assessment LastModified by Organization Details LastModified Time 12/12/2022 12/12/2022 Follow-up 2 months continue current therapy [email or web address] Not available 12/24/2022 15:33:47 03/20/2023 03/20/2023 Diagnosis in assessment and plan been discussed continue current therapy and follow-up in 4 months avoid any nonsteroidal anti-inflammato polo stay hydrated call if questions [email or web address] Not available 03/20/2023 21:15:40 Plan of Treatment Reminders Order Date Submit Date Provider Last Modified By Organization Details Last Modified Time Details Appointments None record ed. Lab None record ed. Referral None record ed. Procedures None record ed. Surgeries None record ed. Imaging None record ed. Medication Orders None record ed. Patient TargetsNo targets recorded. Patient InstructionsNo instructions recorded. Reason for Referral None Reported. Results Created Date Observation Date Name Description Value Unit Range Abnormal Flag Note LastModifiedBy Organization Detail LastModifiedTime Result Notes None recorded. Problems Name Problem SNOMED Code Status Onset Date Resolution Date Notes Provider Name and Address Organization Details Recorded Time Acute bronchiti s 96502638 Active 2021 Not Available [facility] 3 05:47:39 Bilateral arthritis of knees 81077644174 39376 Active 2018 Not Available [facility] 3 05:47:39 Bilateral osteoarth ritis of knees 24250656410 9107 Active 2021 Not Available [facility] 3 05:47:39 Plantar fasciitis of left foot 79595728592 793681 Active 2020 Not Available [facility] 3 05:47:39 Plantar fasciitis of right foot 41383453321 135806 Active 2020 Not Available [facility] 3 05:47:39 Acquired trigger finger 4240458 Active Not Available [facility] 3 05:47:39 Asthma 308169036 Active 2020 Not Available [facility] 3 05:47:39 Tibialis posterior tendiniti s 842297933 Active 2020 Not Available [facility] 3 05:47:39 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 Not Available [facility] 3 05:47:39 Radial styloid tenosynov itis 18718124 Active Not Available [facility] 3 05:47:39 Intestina l disacchar idase deficienc y 17667746 Completed Not Available [facility] 3 01:15:55 Neuropath y due to diabetes mellitus 071296668 Active Not Available [facility] 3 05:47:39 Osteoarth ritis of knee 360443161 Active Not Available [facility] 3 05:47:39 Triggerin g of digit 595143436 Completed Not Available [facility] 3 01:15:55 Ankle pain 560428509 Completed Not Available [facility] 3 01:15:56 Anemia 640676760 Active 2017 Not Available [facility] 3 05:47:39 Subungual hematoma of foot 704537999 Active Not Available [facility] 3 05:47:39 Metatarso phalangea l joint pain 543777477 Active 2020 Not Available [facility] 3 05:47:39 Tear of medial meniscus of knee 116387445 Active 2020 Not Available [facility] 3 05:47:39 Current tear of medial cartilage AND/OR meniscus of knee Completed Not Available [facility] 3 01:15:56 Enthesopa thy of hip region 60440889 Completed Not Available [facility] 3 01:15:57 Knee pain Completed Not Available [facility] 3 01:15:57 Type 2 diabetes mellitus without complicat ion 858726806 Active Not Available [facility] 3 05:47:39 Tendiniti s of left posterior tibial tendon 71728709301 9100 Active 2020 Not Available [facility] 3 05:47:39 Osteoarth ritis of left knee joint 08655004270 9109 Active 2020 Not Available [facility] 3 05:47:39 Bronchiti s 24091583 Active 2020 Not Available [facility] 3 05:47:39 Enthesopa thy of wrist AND/OR carpus 12198813 Active Not Available [facility] 3 05:47:39 Sinusitis 22828183 Completed Not Available [facility] 3 01:15:58 Arthritis 6630108 Active 2020 Not Available [facility] 3 05:47:39 Osteoarth ritis 004585726 Active Not Available [facility] 3 05:47:39 Hypothyro idism 54565528 Active Not Available [facility] 3 05:47:39 Obesity 672284709 Active 2020 Not Available [facility] 3 05:47:39 Onychomyc osis 961630242 Active Not Available [facility] 3 05:47:39 Chronic kidney disease stage 3 720463522 Active Not Available [facility] 3 05:47:39 Type 2 diabetes mellitus 82483235 Active 2021 Not Available [facility] 3 05:47:39 Foot pain 76079494 Active Not Available [facility] 3 05:47:39 Foot pain 65813378 Active 2020 Not Available [facility] 3 05:47:39 Hip pain 24102600 Completed Not Available [facility] 3 01:16:00 Atrial fibrillat ion 85904888 Active 2021 Not Available [facility] 3 05:47:39 Upper respirato ry infection 71233845 Completed Not Available [facility] 3 01:16:00 Hyperlipi demia 25256215 Active Not Available [facility] 3 05:47:40 Heart disease 60383496 Active 2020 Not Available [facility] 3 05:47:40 Essential hypertens ion 79028944 Active Not Available [facility] 3 05:47:40 Tinea pedis 6793489 Active Not Available [facility] 3 05:47:40 Dyspnea on exertion 65341519 Completed Not Available [facility] 3 01:16:01 Osteoporo sis 92186192 Active 2020 Not Available [facility] 3 05:47:40 Hyperglyc emia 82417598 Active Not Available [facility] 3 05:47:40 Closed fracture of phalanx of foot 07901398 Completed Not Available [facility] 3 01:16:02 Kidney disease 86495100 Active 2020 Not Available [facility] 3 05:47:40 Notes:ALLERGIES, BACK/NECK P ROBLEMS, BOWEL PROBLEMS, CARDIAC ARRHYTHMIA, HERNIATED DISEASE, THYROID DISEASE, USE OF BLOOD THINNERS Problem Notes None recorded. Procedures Surgical History Date Name Laterality Status Provider Name and Address Organization Details Recorded Time 06/20/20 21 Hernia Surgery completed Not Available [facility] 11/29/2022 01:01:31 03/27/20 13 Knee arthroscopy/surger y completed Not Available [facility] 11/29/2022 01:01:31 03/28/20 12 Date of Last Colonoscopy completed Not Available [facility] 11/29/2022 01:01:26 03/28/20 12 Colonoscopy completed Not Available [facility] 11/29/2022 01:01:31 03/16/20 09 Most Recent Bone Density completed Not Available [facility] 11/29/2022 01:01:26 Cardiac Stent Placement completed Not Available [facility] 11/29/2022 01:01:31 Hysterectomy completed Not Available [facility] 11/29/2022 01:01:31 Cholecystectomy completed Not Available [facility] 11/29/2022 01:01:31 excision of bunion completed Not Available [facility] 11/29/2022 01:01:31 Back Surgery completed Not Available [facility] 11/29/2022 01:01:31 Imaging Results None recorded. Procedure Notes None recorded. Medical Equipment None Reported. Allergies Allergen ID Allergen Name Allergen Category Reaction Reaction Severity Criticality Documentation Date Start Date Code Code System Note Provider Name and Address Organization Details Recorded Time 2768 nifedipin e medicatio n other Not available Not available 11/29/2022 7417 RxNorm BP drops Not Available [facility] 3 01:34:03 2769 Lomotil medicatio n anaphylax is Not available Not available 11/29/2022 09579 RxNorm Not Available [facility] 3 01:34:03 2770 levofloxa kamila medicatio n other Not available Not available 11/29/2022 64952 RxNorm leg pain Not Available [facility] 3 01:34:03 2771 latex environme nt,medica tion Not available Not available Not available 11/29/2022 02044 91 RxNorm Not Available [facility] 3 01:34:03 Medications Name Sig Start Date Stop Date Status Note LastModified by Organization Details LastModified Time carisopro dol 350 mg tablet active Not Available Not Available No t Available amoxicill in 500 mg capsule Take 1 capsule 3 times a day by oral route. active Not Available Not Available No t Available furosemid e 40 mg tablet active Not Available Not Available Not Available metformin 500 mg tablet Take 1 tablet every day by oral route for 30 days. 10/03 completed Not Available Not Available Not Available Xanax 0.5 mg tablet Take 1 tablet every day by oral route at bedtime. 02/03 completed Not Available Not Available Not Available carvedilo l 6.25 mg tablet TAKE 1 TABLET BY MOUTH TWICE DAILY 2022 active Not Available Not Available Not Avai lable prednison e 10 mg tablet Take by oral route. take [id number], [id number], [id number] active Not Available Not Available No t Available cefuroxim e axetil 250 mg tablet Take 1 tablet twice a day by oral route for 5 days. active Not Available Not Available No t Available atorvasta tin 10 mg tablet TAKE 1 TABLET BY MOUTH DAILY 2022 active Not Available Not Available Not Avai lable azithromy kamila 250 mg tablet TAKE 2 TABLETS (500 MG) BY ORAL ROUTE ONCE DAILY FOR 1 DAY THEN 1 TABLET (250 MG) BY ORAL ROUTE ONCE DAILY FOR 4 DAYS 08/02 completed Not Available Not Available Not Available tizanidin e 4 mg tablet Take 1 tablet twice a day by oral route as needed. active Not Available Not Available No t Available hydrocodo ne 5 mg-acetam inophen 325 mg tablet TK 1 T PO BID FOR 30 DAYS 04/23 completed Not Available Not Available Not Available ondansetr on HCl 4 mg tablet Take 1 tablet every 6-8 hours by oral route as needed. active Not Available Not Available No t Available bupivacai ne HCl 0.5 % (5 mg/mL) injection solution Take 20 mg by injectio n route. 01/03 completed Not Available Not Available Not Available prednison e 20 mg tablet Take 2 tablets every day by oral route for 5 days. active Not Available Not Available No t Available niacin ER 500 mg tablet,ex tended release 24 hr 05/31 completed Not Available Not Available Not Available Lantus U-100 Insulin 100 unit/mL subcutane ous solution Inject 15 units by subcutan eous route at bedtime. 06/04 completed Not Available Not Available Not Available acetamino phen 300 mg-codein e 30 mg tablet Take 1 tablet 3 times a day by oral route as needed. active Not Available Not Available No t Available clopidogr el 75 mg tablet TAKE 1 TABLET BY MOUTH DAILY active pt not taking Not Available Not Available Not Available ciproflox acin 250 mg tablet 04/19 completed Not Available Not Available Not Available ciproflox acin 500 mg tablet TAKE 1 TABLET BY MOUTH TWICE DAILY FOR 7 DAYS 01/03 completed Not Available Not Available Not Available omeprazol e 40 mg capsule,d elayed release TAKE 1 CAPSULE BY MOUTH ONCE DAILY active Not Available Not Available No t Available tramadol 50 mg tablet Take 1 tablet every 6 hours by oral route. 04/23 completed Not Available Not Available Not Available amoxicill in 500 mg tablet Take 1 tablet every 8 hours by oral route as directed for 7 days. active Not Available Not Available No t Available glimepiri de 2 mg tablet TK 1 T PO QD 03/29 completed Not Available Not Available Not Available glimepiri de 1 mg tablet TAKE 1 TABLET BY MOUTH DAILY 2022 active Not Available Not Available Not Avai lable levothyro xine 75 mcg tablet TAKE 1 TABLET BY MOUTH DAILY 2022 active Not Available Not Available Not Avai lable Kenalog 40 mg/mL suspensio n for injection Take 1 mL by injectio n route. 04/23 completed Not Available Not Available Not Available prednison e 10 mg tablets in a dose pack 12/20 completed Not Available Not Available Not Available nortripty line 25 mg capsule TK ONE C PO HS active Not Available Not Available No t Available oxycodone -acetamin ophen 5 mg-325 mg tablet TAKE 1 TABLET BY MOUTH EVERY 4 TO 6 HOURS NEEDED 09/06 completed Not Available Not Available Not Available Celebrex 100 mg capsule Take 1 capsule( s) every day by oral route for 30 days. active Not Available Not Available No t Available magnesium oxide 400 mg (241.3 mg magnesium ) tablet OTC magnesiu m 08/02 completed Not Available Not Available Not Available gentamici n 0.3 % eye drops INSTILL 1 DROP INTO AFFECTED EYE(S) BY OPHTHALM IC ROUTE EVERY 4 HOURS active Not Available Not Available No t Available trazodone 100 mg tablet 09/25 completed Not Available Not Available Not Available diltiazem ER 120 mg capsule,2 4 hr,extend ed release TAKE ONE CAPASULE BY MOUTH EVERY DAY FOR 90 DAYS 10/04 completed duplicat e Not Available Not Available Not Available OneTouch Ultra Test strips TEST TWICE DAILY DIRECTED active Not Available Not Available No t Available Kenalog 10 mg/mL suspensio n for injection In office injectio n administ ered by the provider 01/03 completed [facility]: [phone] 4-20 Not Available Not Available Not Available meclizine 25 mg tablet Take 1 tablet 3 times a day by oral route. active Not Available Not Available No t Available cephalexi n 500 mg capsule 08/10 completed Not Available Not Available Not Available pantopraz ole 40 mg tablet,de layed release TAKE 1 TABLET BY MOUTH DAILY AT NIGHT 08/28/ 2023 active Not Available Not Available Not Avai lable simvastat in 20 mg tablet take 1 po qd 01/18 completed Patient stopped Not Available Not Available Not Available nitroglyc paula 0.4 mg sublingua l tablet PLACE 1 TABLET UNDER TONGUE EVERY 5 MINUTES NEEDED FOR CHEST PAIN UP TO 3 TABLETS CALL 911 AFTER 2ND active Not Available Not Available No t Available aspirin 81 mg chewable tablet Chew 1 tablet every day by oral route. 09/06 completed Not Available Not Available Not Available diltiazem CD 120 mg capsule,e xtended release 24 hr TAKE 1 CAPSULE BY MOUTH DAILY 2022 active Not Available Not Available Not Avai lable montel[address] st 10 mg tablet TAKE 1 TABLET BY MOUTH DAILY 2022 active Not Available Not Available Not Avai lable hydrocodo ne 5 mg-acetam inophen 500 mg tablet active Not Available Not Available Not Available hydralazi ne 50 mg tablet TK 1 T PO TID 04/[address] rojas Not Available Not Available Not Available hydrochlo rothiazid e 25 mg tablet Take 1 tablet every day by oral route. active Not Available Not Available No t Available furosemid e 20 mg tablet TK 1 T PO QD 09/06 completed Not Available Not Available Not Available ergocalci ferol (vitamin D2) 1,250 mcg (50,000 unit) capsule TAKE 1 CAPSULE BY MOUTH 2 TIMES A WEEK active Not Available Not Available No t Available levofloxa kamila 500 mg tablet TK 1 T PO QD active Not Available Not Available No t Available methylpre dnisolone 4 mg tablets in a dose pack TK UTD 05/31 completed Not Available Not Available Not Available ketoconaz ole 2 % topical cream APPLY TO THE AFFECTED AREA(S) twice daily active Not Available Not Available No t Available losartan 100 mg tablet TK 1 T PO QD 02/28 completed Not Available Not Available Not Available fluticaso ne propionat e 50 mcg/actua tion nasal spray,chi pension [place] 2 sprays every day by intranas al route in the evening. active Not Available Not Available No t Available atenolol 50 mg tablet TAKE 1 TABLET BY MOUTH EVERY DAY 05/23 completed Not Available Not Available Not Available calcitrio l 0.25 mcg capsule TAKE 1 CAPSULE BY MOUTH DAILY 2022 active Not Available Not Available Not Avai lable amoxicill in 875 mg-potass ium clavulana te 125 mg tablet TAKE 1 TABLET BY MOUTH TWICE DAILY FOR 10 DAYS 06/27 completed Not Available Not Available Not Available neomycin 3.5 mg/g-poly myxin B 10,000 unit/g-de xameth 0.1 % eye oint active Not Available Not Available Not Available magnesium 200 mg tablet 400mg daily 06/[address] Robin s; KEYONNAL Not Available Not Available Not Available olmesarta n 20 mg tablet TAKE 1 TABLET BY MOUTH DAILY 2022 active Not Available Not Available Not Avai lable ezetimibe 10 mg tablet TAKE 1 TABLET BY MOUTH EVERY DAY 03/20 completed Not Available Not Available Not Available cyclobenz aprine 5 mg tablet active Not Available Not Available No t Available Vigamox 0.5 % eye drops active Not Available Not Available Not Available metoprolo l tartrate 25 mg tablet TAKE 1 TABLET BY MOUTH TWICE DAILY active Not Available Not Available No t Available Nevanac 0.1 % eye drops,chi pension active Not Available Not Available Not Available vitamin E 400 iu daily 02/03 completed Not Available Not Available Not Available Fish Oil 12/25 completed Not Available Not Available Not Available biotin 09/09 completed Not Available Not Available Not Available Aspir-81 QD 12/25 completed Not Available Not Available Not Available OneTouch Ultra2 Meter kit FPD 09/09 completed Not Available Not Available Not Available lidocaine (PF) 10 mg/mL (1 %) injection solution In office injectio n administ ered by the provider 09/27 completed [facility]: [phone] 03-17 Not Available Not Available Not Available ProAir HFA 90 mcg/actua tion aerosol inhaler Inhale 2 puffs every 6 hours by inhalati on route as needed. active Not Available Not Available No t Available Januvia 50 mg tablet active Not Available Not Available Not Available ondansetr on HCl (PF) 4 mg/2 mL injection solution Take 2 mL by injectio n route. 04/23 completed Not Available Not Available Not Available Lantus Solostar U-100 Insulin 100 unit/mL (3 mL) subcutane ous pen INJECT SUBCUTAN EOUSLY 10 UNITS IN THE MORNING AND 25 UNITS IN THE EVENING 2022 active Not Available Not Available Not Avai lable Bystolic 10 mg tablet Take 1 tablet every day by oral route. active Not Available Not Available No t Available Voltaren 1 % topical gel active Not Available Not Available Not Available Durezol 0.05 % eye drops active Not Available Not Available No t Available Synvisc-O ne 48 mg/6 mL intra-art icular syringe Injectio ns given in the office by the doctor 10/13 completed [facility]: [id number] 001 Not Available Not Available Not Available OneTouch Delica Lancets 33 gauge USE TWICE DAILY DIRECTED active Not Available Not Available No t Available Easy Touch 32 gauge x 3/16 needle USE DIRECTED 2022 active Not Available Not Available Not Avai lable Eliquis 2.5 mg tablet TAKE 1 TABLET BY MOUTH TWICE DAILY 2022 active Not Available Not Available Not Avai lable TRUEplus Pen Needle 31 gauge x 5/16 USE DIRECTED TO INJECT INSULIN TWICE DAILY DIRECTED active Not Available Not Available No t Available Durolane 60 mg/3 mL intra-art icular syringe Take 60 mL by intraart icular route. 08/02 completed Not Available Not Available Not Available OneTouch Ultra Blue Test Strip TEST TWICE DAILY active Not Available Not Available No t Available Fluad 65yr up(PF)45 mcg(15 mcgx3)/0. 5 mL intramusc ular syringe active Not Available Not Available Not Available BD Sabrina 2nd Gen Pen Needle 32 gauge x 5/32 USE DIRECTED 2022 active Not Available Not Available Not Avai lable Fluzone High-Dose (PF) 180 mcg/0.5 mL intramusc ular syringe active Not Available Not Available Not Available Fluzone Quad (PF) 60 mcg (15 mcg x 4)/0.5 mL IM syringe active Not Available Not Available Not Available Vitals Date Recorded Body mass index (BMI) Body height Body weight Provider Name and Address Organization Details Last Updated DateTime 05/23/2022 40.1 kg/m2 154.94 cm 87070.58 g Not Available [facility] 11/29/2022 01:11:48 Date Recorded Body mass index (BMI) Body height Pain severity - 0-10 verbal numeric rating [Score] - Reported Heart rate Body temperature Body weight Systolic blood pressure Diastolic blood pressure Provider Name and Address Organization Details Last Updated DateTime 2 40.1 kg/m2 154.94 cm 2 61 /min 97.5 [degF] 28309.5 8 g 140 mm[Hg] 82 mm[Hg] Not Available [facility] 3 01:11:35 Date Recorded Body mass index (BMI) Body height Heart rate Body temperature Body weight Systolic blood pressure Diastolic blood pressure Provider Name and Address Organization Details Last Updated DateTime 3 41.4 kg/m2 154.94 cm 68 /min 97.5 [degF] 43779.7 3 g 178 mm[Hg] 88 mm[Hg] Not Available [facility] 3 01:11:35 Date Recorded Heart rate Systolic blood pressure Diastolic blood pressure Provider Name and Address Organization Details Last Updated DateTime 11/28/2022 65 /min 148 mm[Hg] 68 mm[Hg] Not Available [facility] 11/29/2022 01:11:35 Date Recorded Body height Body mass index (BMI) Body weight Body temperature Heart rate Systolic blood pressure Diastolic blood pressure Provider Name and Address Organization Details Last Updated DateTime 3 154.94 cm 41.4 kg/m2 31055.7 3 g 97.9 [degF] 60 /min 152 mm[Hg] 78 mm[Hg] Jocelyn metzger RN [facility] [employer] 3 11:50:35 Date Recorded Body height Body mass index (BMI) Body weight Body temperature Heart rate Systolic blood pressure Diastolic blood pressure Provider Name and Address Organization Details Last Updated DateTime 3 154.94 cm 40.8 kg/m2 20075.9 5 g 97.2 [degF] 64 /min 140 mm[Hg] 72 mm[Hg] KWASI Maloney [place] [employer] [facility] [employer] [facility] 3 10:52:02 Social History Question Answer Notes LastModified by Organizat ion Details LastModified Time Tobacco Smoking Status Never Smoker Not Available [facility] 11/29/2022 00:59:03 Do You Have An Advance Directive? Yes Requested Copy [id number] Information not available 11/29/2022 What Is Your Level Of Alcohol Consumption? Occasional [id number] Information not available 11/29/2022 Are You Blind Or Do You Have Difficulty Seeing? No [id number] Information not available 11/29/2022 What Is Your Level Of Caffeine Consumption? Moderate [id number] Information not available 11/29/2022 How Much Tobacco Do You Chew? None [id number] Information not available 11/29/2022 In The 14 Days Before Symptom Onset, Have You Had Close Contact With A Laboratory-confi rmed COVID-19 While That Case Was Ill? No [id number] Information not available 11/29/2022 In The 14 Days Before Symptom Onset, Have You Had Close Contact With A Person Who Is Under Investigation For COVID-19 While That Person Was Ill? No [id number] Information not available 11/29/2022 Are You Deaf Or Do You Have Serious Difficulty Hearing? No [id number] Information not available 11/29/2022 What Type Of Diet Are You Following? REGULAR [id number] Information not available 11/29/2022 Which Illicit Or Recreational Drugs Have You Used? None [id number] Information not available 11/29/2022 Do You Or Have You Ever Used E-cigarettes Or Vape? Never Used Electronic Cigarettes [id number] Information not available 11/29/2022 What Is The Highest Grade Or Level Of School You Have Completed Or The Highest Degree You Have Received? [id number] Information not available 11/29/2022 What Is Your Occupation? Retired [id number] Information not available 11/29/2022 Have There Been Any Changes To Your Family Or Social Situation? No [id number] Information not available 11/29/2022 What Is The Fluoride Status Of Your Home? Unknown [id number] Information not available 11/29/2022 Are There Any Guns Present In Your Home? No [id number].[id number] Information not available 11/29/2022 Do You Use Insect Repellent Routinely? No [id number] Information not available 11/29/2022 Where Do You Live? Apartment [id number] Information not available 11/29/2022 Do You Have A Medical Power Of Recreation Attendant Supervisor? Yes MIGRATION.46723 [id number] Information not available 11/29/2022 What Was The Date Of Your Most Recent Tobacco Screening? 03/20/2023 [email or web address] Information not available 03/20/2023 Have You Ever Been Counseled For Unhealthy Alcohol Use? No MIGRATION.32671 18023 Information not available 11/29/2022 Do You Have Any Pets? No MIGRATION.28981 84263 Information not available 11/29/2022 What Is Your Relationship Status? MIGRATION.92530 54057 Information not available 11/29/2022 Do You Use Your Seat Belt Or Car Seat Routinely? Yes MIGRATION.92535 81344 Information not available 11/29/2022 Do You Have Smoke And Carbon Monoxide Detectors In Your Home? Yes MIGRATION.23722 31890 Information not available 11/29/2022 Are You Passively Exposed To Smoke? No MIGRATION.60296 35006 Information not available 11/29/2022 Do You Or Have You Ever Used Smokeless Tobacco? Never Used Smokeless Tobacco MIGRATION.90417 15669 Information not available 11/29/2022 Are There Any Smokers In Your House? No MIGRATION.67233 80303 Information not available 11/29/2022 How Much Tobacco Do You Smoke? No MIGRATION.51725 29534 Information not available 11/29/2022 What Types Of Sporting Activities Do You Participate In? None MIGRATION.98523 81803 Information not available 11/29/2022 Do You Feel Stressed (tense, Restless, Nervous, Or Anxious, Or Unable To Sleep At Night)? [id number] MIGRATION.97560 62949 Information not available 11/29/2022 Do You Use Any Illicit Or Recreational Drugs? No MIGRATION.51446 19806 Information not available 11/29/2022 Do You Use Sunscreen Routinely? No MIGRATION.75228 51370 Information not available 11/29/2022 Has Tobacco Cessation Counseling Been Provided? No MIGRATION.19041 72888 Information not available 11/29/2022 How Many Years Have You Smoked Tobacco? 0 MIGRATION.14240 24941 Information not available 11/29/2022 Have You Recently Traveled Abroad? No MIGRATION.09093 68155 Information not available 11/29/2022 Do You Have Any Dietary Restrictions? No MIGRATION.39193 53971 Information not available 11/29/2022 Do You Or Have You Ever Used Any Other Forms Of Tobacco Or Nicotine? No MIGRATION.84081 18642 Information not available 11/29/2022 Sex: Female Functional Status Question Answer Note LastModified by Organizat ion Details LastModified Time Do you have difficulty walking or climbing stairs? No MIGRATION.0850198 026 Information not available 11/29/2022 Do you have transportation difficulties? No MIGRATION.5391588 026 Information not available 11/29/2022 Are you able to walk? YESASSIST MIGRATION.5729006 026 Information not available 11/29/2022 Do you have difficulty doing errands alone? No MIGRATION.3206354 026 Information not available 11/29/2022 Are you able to care for yourself? Yes MIGRATION.7605784 026 Information not available 11/29/2022 Do you have difficulty dressing or bathing? No MIGRATION.3622051 026 Information not available 11/29/2022 What is your exercise level? Occasional MIGRATION.0305957 026 Information not available 11/29/2022 Mental Status Question Answer Note LastModified by Organizat ion Details LastModified Time Do you have difficulty concentrating, remembering or making decisions? No MIGRATION.[id number] 6 Information not available 11/29/2022 Family History Relationship Description Onset Age of this Age Resolved Age Notes LastModified by Organization Details LastModified Time Father Rheumatoid arthritis MIGRATION.710 [id number] Not available 11/29/2022 01:01:41 Father Heart disease MIGRATION.228 [id number] Not available 11/29/2022 01:01:41 Father Diabetes mellitus MIGRATION.607 [id number] Not available 11/29/2022 01:01:41 Father Arthritis MIGRATION.804 [id number] Not available 11/29/2022 01:01:41 Mother Heart disease MIGRATION.840 5547629 Not available 11/29/2022 01:01:41 Mother Diabetes mellitus MIGRATION.010 1018861 Not available 11/29/2022 01:01:42 Mother Arthritis MIGRATION.550 [id number] Not available 11/29/2022 01:01:42 Sister Disorder of thyroid gland MIGRATION.685 1558661 Not available 11/29/2022 01:01:42 Sister Malignant tumor of breast with Mets-d ecease d MIGRATION.905 [id number] Not available 11/29/2022 01:01:42 Sister Diabetes mellitus MIGRATION.072 8137721 Not available 11/29/2022 01:01:42 Brother Malignant tumor of lung MIGRATION.302 8201666 Not available 11/29/2022 01:01:42 Brother Heart disease MIGRATION.323 8571027 Not available 11/29/2022 01:01:42 Brother Diabetes mellitus MIGRATION.752 7302753 Not available 11/29/2022 01:01:42 Unspecified Relation Hypertensive disorder ENTIRE FAMILY MIGRATION.772 [id number] Not available 11/29/2022 01:01:42 Unspecified Relation Osteoporosis ALL FAMILY MIGRATION.298 [id number] Not available 11/29/2022 01:01:42 Notes:BLOOD CLOTS-1 SISTER, CANCER-SISTER/BROTHER, STROKE-MOTHER/FATHER Medical History Condition Response NERVE DISEASE N BLINDNESS N RHEUMATIC FEVER N KIDNEY STONES N BLADDER PROBLEMS N OTHER # 1 N POLIO N LUNG DISEASE/DISORDER N COPD N RADIATION / CHEMOTHERAPY N Other # 2 N BLOOD DISEASES N SURGERY N EAR OR HEARING PROBLEMS N MUMPS N BOWEL PROBLEMS Y DEPRESSION (INCLUDING POST ) N STROKE/TIA N ULCERS Y BENIGN PROSTATIC HYPERPLASIA N MEASLES N MYOCARDIAL INFARCTION N OBESITY Y GERD/NAUSEA N ANEURYSM N URINARY/BLADDER/KIDNEY PROBLEMS N CORONARY ARTERY DISEASE (CAD) N INPATIENT PSYCH CARE N ADDICTION CONCERNS N ENDOMETRIOSIS N Impotence N USE OF BLOOD THINNERS Y SKIN PROBLEMS N GASTROINTESTINAL DISORDER N PERIPHERAL VASCULAR DISEASE N MUSCLE,JOINT OR BONE PROBLEMS N GASTROINTESTINAL BLEEDING N BLOOD CLOTS N ASTHMA Y CATARACTS N ERECTILE DYSFUNCTION N VARICOSITIES N GI PROBLEMS N Low Testosterone N INFERTILITY N AIDS/HIV N LIVER DISEASE N MALE HYPOGONADISM N HYPERTENSION Y Deficiency N ANXIETY DISORDER N BLOOD TRANSFUSION N ANEMIA/BLOOD DISORDER N CHRONIC EAR INFECTIONS N BRONCHITIS Y TUBERCULOSIS N GLAUCOMA N DIVERTICULITIS N SLEEP APNEA N CHICKENPOX N INFECTIOUS DISEASE N HEART ARRHYTHMIA N PROSTATE N INSOMNIA N HIGH CHOLESTEROL / HYPERLIPIDEMIA Y HYPERTHYROIDISM N EYE PROBLEMS N NEUROLOGICAL PROBLEMS N EDEMA N CHRONIC PAIN SYNDROME N HYPOTHYROIDISM N CAROTID BLOCKAGE N CONSTIPATION N BACK / NECK PROBLEMS Y HAVE YOU BEEN HOSPITALIZED OR SEEN IN [facility] IN THE PAST YEAR ? N ATHEROSCLEROSIS N BREAST PROBLEMS N DIALYSIS N ECZEMA N OSTEOPOROSIS Y ARTHRITIS Y APPENDICITIS N DIABETES, TYPE Y BAD TEETH N ENT N HEARTBURN / REFLUX Y AUTISM SPECTRUM DISORDER (ASD) N HEPATITIS / LIVER DISEASE N PULMONARY DISEASE N GOUT N SLEEP DISORDER N ALZHEIMER'S DISEASE N Brain Problems N HERPES N DEMENTIA N HEADACHES/MIGRAINES N SEIZURES/EPILEPSY N VASCULAR DISEASE N PACEMAKER N Blood Disorder N DIZZINESS N HEART DISEASE/HEART PROBLEMS Y KIDNEY DISEASE Y MULTIPLE SCLEROSIS N CARDIAC ARRHYTHMIA Y CANCER: SPECIFY N ANESTHESIA COMPLICATIONS N ATRIAL FIBRILLATION Y Gall Stones N PULMONARY EMBOLISM N AUTOIMMUNE DISEASE N Gynecological History Statement/Question Response Date of Last Pap Date of Last Mammogram 01/17/2017 Date of Last Colonoscopy 03/28/2012 Most Recent Bone Density 03/16/2009 Obstetrics History GPAL:G 5 P 3 0 2 0 Type Value Full Term 3 Spontaneous 2 Total 5 Immunizations Vaccine Type Date Status Note Provider Nam e and Address Organization Details Recorded Time Influenza, high-dose, quadrivalent, PF 1 completed Not Available [facility] 08/14/2023 05:47:42 COVID-19, mRNA, LNP-S, PF, 30 mcg/0.3 mL dose 1 completed Not Available [facility] 08/14/2023 05:47:42 COVID-19, mRNA, LNP-S, PF, 30 mcg/0.3 mL dose 1 completed Not Available [facility] 08/14/2023 05:47:42 Influenza, split virus, trivalent, preservative 0 completed Not Available [facility] 08/14/2023 05:47:42 Influenza, high-dose, trivalent, PF 9 completed Not Available [facility] 08/14/2023 05:47:42 Influenza, high-dose, trivalent, PF 8 completed Not Available [facility] 08/14/2023 05:47:42 COVID-19, mRNA, LNP-S, PF, 30 mcg/0.3 mL dose 1 completed Not Available [facility] 08/14/2023 05:47:42 Influenza, high-dose, quadrivalent, PF 2 completed Not Available [facility] 08/14/2023 05:47:42 Influenza, split virus, quadrivalent, PF 5 completed Not Available [facility] 08/14/2023 05:47:42 Past Encounters Encounter ID Performer Location Encounter Start Date Encounter Closed Date Diagnosis/Indication Diagnosis SNOMED-CT Code Diagnosis ICD10 Code Diagnosis Note [id number] [facility] Internal Med [facility] [address] [facility] [address] [place] [address] 12/06/2020 00:00:00 12/06/2020 22:04:23 [id number] [facility] Internal Med [facility] [address] [address] 01/14/2021 00:00:00 01/15/2021 14:36:58 [id number] [facility] [place] [address], [facility] [address] [place] [address] 02/03/2021 00:00:00 02/03/2021 11:55:47 [id number] [facility] [place] [address], [address] [address] 02/11/2021 00:00:00 02/11/2021 09:46:16 [id number] [facility] Internal Med [facility] [address] [place] [address] 03/07/2021 00:00:00 03/07/2021 22:20:00 [id number] [facility] [place] [address], [facility] 4 [place] [address] 03/24/2021 00:00:00 03/24/2021 11:14:30 [id number] [facility] [place] [address], [facility] 4 [place] [address] 05/09/2021 00:00:00 05/09/2021 11:10:26 [id number] [facility] Internal Med [facility] [address] [place] [address] [address] 05/20/2021 00:00:00 05/21/2021 17:35:04 [id number] [facility] [place] [address], [address] [address] 05/30/2021 00:00:00 05/30/2021 10:53:39 [id number] [facility] General Surgery [address] [place] [address] 05/31/2021 00:00:00 05/31/2021 13:25:59 [id number] [facility] Internal Med [place] [address] [place] [address] 06/27/2021 00:00:00 06/27/2021 10:42:57 [id number] [facility] General Surgery [address] [place] [address] 06/28/2021 00:00:00 06/28/2021 11:36:57 [id number] [facility] [place] [address] [facility], [address] [place] [address] 07/04/2021 00:00:00 07/11/2021 07:48:30 [id number] [facility] Internal Med [place] [address] [facility] [place] [facility] [address] [place] [address] 08/31/2021 00:00:00 09/18/2021 22:19:11 [id number] [facility] Ortho [address] [address] 09/06/2021 00:00:00 09/06/2021 09:37:29 [id number] [facility] Ortho [address] [address] 09/27/2021 00:00:00 09/27/2021 09:17:20 [id number] [facility] Internal Med [place] [address] [place], [place] [address]e., [facility] [address] [place] [address] 10/04/2021 00:00:00 10/04/2021 22:57:15 [id number] [facility] Ortho [address] [address] 10/11/2021 00:00:00 10/11/2021 09:26:55 [id number] [facility] Internal Med Bj [address] [address] 11/14/2021 00:00:00 11/27/2021 11:12:31 [id number] [facility] [address] [place] [address] 11/22/2021 00:00:00 11/22/2021 09:15:40 [id number] [facility] Internal Med [facility] [address] [place] [address] Ave[address] [address] 01/03/2022 00:00:00 01/15/2022 15:48:27 [id number] [facility] Internal Med [facility] [address] [place] [address] [address] [address] 04/12/2022 00:00:00 05/01/2022 20:37:22 [id number] [facility] [address] [address] 05/23/2022 00:00:00 05/23/2022 11:09:17 [id number] [facility] Internal Med [facility] [address] [place] [address] Ave[address] [address] 08/02/2022 00:00:00 08/02/2022 22:43:51 [id number] [facility] Internal Med Bird martínez [address] [place] [address] [place] [address] 11/16/2022 00:00:00 11/18/2022 21:28:53 [id number] Sheba Jamison MD [facility] Internal Med Bird mart[facility]nez [address] [place] [address] [place] [address] 12/12/2022 11:18:36 12/12/2022 12:33:58 Essential hypertension 57949059 I10 [id number] Sheba Jamison MD [facility] Internal Med Bird martínez [address] [place] [address] [place] [address] 03/20/2023 10:40:06 03/20/2023 11:42:37 Essential hypertension 45868362 I10 Hyperlipidemia 65112026 E78.5 Hypothyroidism 37477554 E03.9 Type 2 adolph betes mellitus without complication 005249049 E11.9 Health Concerns Section Related Observation LastModified by Organization Detai ls LastModified Time None Recorded Concern Status LastModified by Organization Details LastModified Time None Recorded Advance Directives Directive Y: requested copy Payers Encounter Date Sequence Insurance Name Policy Number Policy Miranda Covered Member ID Miranda Member ID Guarantor Name 12/12/2022 1 [facility] (MEDICARE REPLACEMENT/ ADVANTAGE - HMO) [id number] Danna S Mellisaldanielle [id number] Danna S Solldanielle 03/20/2023 1 [facility] (MEDICARE REPLACEMENT/ ADVANTAGE - HMO) [id number] Danna S Solldanielle [id number] Danna S Mellisaldanielle Notes Date Note Type Note Provider Name and Address Organization Details Recorded Time 12/12/2022 text/html Blood pressure a little bit better Sheba Jamison MD [address], [place], [address], [place] 12/24/2022 15:34:06 03/20/2023 text/html diabetes no polyphagia no polydipsia. Hyperlipidemia try to take her medication watch diet. Hypothyroid some fatigue but no heat or cold intolerance. Hypertension no headache denies dizziness. 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
--- OUTSIDE RECORDS SUMMARY | 2024-12-11 08:25 | XMS_ITS | Referral Summary ---
Author Organization [facility] Address [address] [place] [address] Care Team Providers Care Strategic Planning Specialist Name Role Phone Ezra Jamison MD Primary Care Provider + [phone] Allergies Active Allergy Reactions Criticality Noted Date [...] mg tabletIndication s:type 2 diabetes mellitus Sample [id number] 03/20 7 tablet 10/18/2017 Active glimepiride (AMARYL) [...] daily Assessment & Plan (10/18/2017 10:35 AM MUSEUM CURATOR): Your Hba1c today was: 8.5 meaning a [...] Inflamed seborrheic keratosis 05/01/2016 Keratosis, senilis 05/01/2016 Social History Tobacco Use Types Packs/Day Years [...] on file Legal Sex Female 11:52 AM MUSEUM CURATOR Gender Identity Not on file Sexual Orientation [...] Plan of Treatment Not on file Insurance [facility] MDCR HMO REF [facility] MEDIC[facility] Address: [id number] [place] [address] Care Teams Strategic Planning Specialist Relationship Specialty Start Date End Date Ezra Jamison MD PCP - General Internal Medicine 10/08/17
--- OUTSIDE RECORDS SUMMARY | 2024-12-11 08:25 | XMS_ITS | Referral Summary ---
Author Organization [facility] Address [address] [place] [address] Care Team Providers Care Director Acute Name Role Phone Ezra Jamison MD Primary Care Provider [phone] Source Comments [facility],non-owned Affiliates and Associated Physician Practices is amultiple site organization consisting of ambulatory clinics and hospital sitesin [place], [place], [place] and [place]. This disclosure is being madepursuant to the Care Everywhere program and may not contain all information available regarding this patient. Last updated 18.[facility] Allergies Active Allergy Reactions Criticality Noted Date [...] Comments Blood Pressure 165/72 09/19/2022 6:00 AM FLORAL DESIGNER SALESPERSON Pulse 75 09/19/2022 3:01 AM FLORAL DESIGNER SALESPERSON Temperature 36.4 C (97.5 F) 09/19/2022 1:51 AM FLORAL DESIGNER SALESPERSON Respiratory Rate 22 09/19/2022 2:55 AM FLORAL DESIGNER SALESPERSON Oxygen Saturation 96% 09/19/2022 6:00 AM FLORAL DESIGNER SALESPERSON Inhaled Oxygen Concentration - - Weight 83.9 kg (185 lb) 09/19/2022 1:51 AM FLORAL DESIGNER SALESPERSON Height 167.6 cm (5' 6 ) 09/19/2022 1:51 AM FLORAL DESIGNER SALESPERSON Body Mass Index 29.86 09/19/2022 1:51 AM FLORAL DESIGNER SALESPERSON Plan of Treatment Not on file Care Teams Director Acute Relationship Specialty Start Date End Date Ezra Jamison MD PCP - General Internal Medicine 09/19/22
--- OUTSIDE RECORDS SUMMARY | 2024-12-11 08:25 | XMS_ITS | CONTINUITY OF CARE DOCUMENT ---
Author Name mark flores Address Unknown Organization [facility] Address [id number] [place] [address] [address] [place] [address] Phone [phone] Care Team Providers Care It Architecture Analyst Name Role Phone Briana Zheng MD Unavailable SHEBA JAMISON MD Unavailable [phone] SHEBA JAMISON MD Unavailable PROBLEMS Condition Status Date Provider Notes Shortness of breath active Panda Campbell Chest pain active Panda Campbell Palpitations active Panda Campbell Atrial Fibrillation active Panda Campbell HTN active Panda Campbell Hypothyroidism active Panda Campbell Diabetes mellitus, type 2 active Panda jordan Preoperative cardiovascular evaluation active Panda Campbell Carotid bruit active Panda Campbell CAD s/p stent in the circ active Panda jordan Systolic murmur active Panda Campbell ENCOUNTERS Date Type Provider Location Encounter Diag nosis - In-person encounter Office Visit Briana Zheng MD [facility] - In-person encounter Office Visit Briana Zheng MD [facility] - In-person encounter Office Visit Briana Zheng MD [facility] - In-person encounter Office Visit Briana Zheng MD [facility] - In-person encounter Office Visit Briana Zheng MD [facility] - In-person encounter Office Visit Briana Zheng MD [facility] Preoperative cardiovascular evaluationCarotid bruitCAD s/p stent in the circSystolic murmur - In-person encounter Office Visit Briana Zheng MD [facility] - In-person encounter Office Visit Briana Zheng MD [facility] - In-person encounter Office Visit Briana Zheng MD [facility] Shortness of breathChest painPalpitationsAtrial FibrillationHTNHypothyroidismDiabetes mellitus, type 2 VITAL SIGNS Date Observation Value Provider Body Mass Index (Ratio) 39.14 kg/m2 Taew on Derrick blood pressure, diastolic 96 mm[Hg] Carla nkLog blood pressure, systolic 174 mm[Hg] Payton [facility] blood pressure, cuff size ;l Ke perezi Carrington blood pressure, diastolic 96 mm[Hg] Ke rri Carrington blood pressure, systolic 174 mm[Hg] Afshan Beck oxygen saturation, oximetry 98 % Елена Beck respiratory rate E&M 16 /min Елена oden pulse rate 66 /min Елена Torres [facility] weight E&M 214 [lb_av] Елена Torres [facility] height E&M 62 [in_i] Елена Torres [facility] Body Mass Index (Ratio) 39.69 kg/m2 Taew on Derrick blood pressure, diastolic 98 mm[Hg] Cy ntmehdi Benitez blood pressure, systolic 152 mm[Hg] Kori thilisa Benitez blood pressure, cuff size regular Cy nthia Benitez pulse rate 96 /min Jelly Campbel l oxygen saturation, oximetry 97 % Jellykendra Benitez respiratory rate E&M 16 /min Jelly Benitez weight E&M 217 [lb_av] Jelly Campbel l height E&M 62 [in_i] Jelly Campbel l Body Mass Index (Ratio) 38.59 kg/m2 Jord en Faustino blood pressure, diastolic 60 mm[Hg] [facility], systolic 122 mm[Hg] Sánchez buckner Granger oxygen saturation, oximetry 96 % [facility] E&M 16 /min [facility] 71 /min [place] [facility] weight E&M 211 [lb_av] [facility] E&M 62 [in_i] [place] Body Mass Index (Ratio) 38.04 kg/m2 Jord alec Faustino respiratory rate E&M 16 /min Jellykendra Benitez oxygen saturation, oximetry 98 % Jellykendra Benitez pulse rate 62 /min Jelly Campbel l blood pressure, cuff size regular Cy ntmehdi Benitez blood pressure, diastolic 80 mm[Hg] Cy nthia Benitez blood pressure, systolic 138 mm[Hg] Kori kendra Benitez weight E&M 208 [lb_av] Jelly Campbel l height E&M 62 [in_i] Jelly Campbel l Body Mass Index (Ratio) 38.04 kg/m2 Jord en Faustino oxygen saturation, oximetry 98 % Jelly Benitez pulse rate 60 /min Jelly Campbel l respiratory rate E&M 20 /min Jelly Benitez blood pressure, cuff size regular Cy ntchaveza Benitez blood pressure, diastolic 80 mm[Hg] Cy nthia Benitez blood pressure, systolic 160 mm[Hg] Kori Benitez weight E&M 208 [lb_av] Jelly metzger height E&M 62 [in_i] Jelly Chan l Body Mass Index (Ratio) 38.04 kg/m2 Maurilio Shannan blood pressure, diastolic 80 mm[Hg] [facility] blood pressure, systolic 130 mm[Hg] Sánchez buckner [place] oxygen saturation, oximetry 97 % Angie [place] respiratory rate E&M 16 /min [place] [facility] pulse rate 71 /min [facility] weight E&M 208 [lb_av] Angie [place] height E&M 62 [in_i] [facility] Body Mass Index (Ratio) 38.04 kg/m2 [facility], cuff size large Ke rri Gruenenfelder blood pressure, diastolic 60 mm[Hg] Cash rri Gruenenfelder blood pressure, systolic 140 mm[Hg] Afshan Shultzer oxygen saturation, oximetry 97 % Елена Beck respiratory rate E&M 18 /min Елена oden pulse rate 84 /min Елена Torres er weight E&M 208 [lb_av] Елена Escobarnenfe lder height E&M 62 [in_i] Елена Gruenenfe lder Body Mass Index (Ratio) 38.59 kg/m2 Maurilio us Shannan blood pressure, diastolic 90 mm[Hg] Da javier Martha blood pressure, systolic 142 mm[Hg] Dac ia Martha oxygen saturation, oximetry 96 % Eileen Martha respiratory rate E&M 18 /min Eileen V oss pulse rate 74 /min Eileen Martha weight E&M 211 [lb_av] Eileen Martha height E&M 62 [in_i] Eileen Martha Body Mass Index (Ratio) 40.38 kg/m2 Maurilio Campbell blood pressure, resting Yes Brenda Huff blood pressure, diastolic 80 mm[Hg] Jose Antonio Huff blood pressure, systolic 196 mm[Hg] Sara Huff oxygen saturation, oximetry 96 % Rosalio Huff respiratory rate E&M 20 /min Berenice Huff pulse rate 80 /min Rosalio baker weight E&M 220.8 [lb_av] Rosalio lacy height E&M 62 [in_i] Rosalio baker ALLERGIES Allergy Name Onset Date Reaction Criticality Status LATEX Low Criticality active NIFEDIPINE Low Criticality active LAMOTIL Low Criticality active RESULTS Date Observation Value Provider Reference Range Interpretation Location bacteria, urine microscopy Few LinkLogic None seen/Few epithelial cells, urine 0-10 [facility] 0 - 10 RBC, Urine None seen /hpf [facility] 0 - 2 WBC urine on microscopy 6-10 /hpf [facility] 0 - 5 Abnormal urinalysis, microscopic examination See below: [facility] nitrate, urine Negative [facility] Negative urobilinogen, urine, semiquantitative (dipstick) 0.2 [facility] 0.2-1.0 bilirubin, urine Negative [facility] Negative hemoglobin, urine, by dipstick Negative [facility] Negative ketones, urine, by test strip Negative [facility] Negative glucose, urine Negative [facility] Negative protein, urine, semiquantitative (dipstick) Negative [facility] Negative/Tra ce leukocyte esterase, urine, by dipstick 1+ [facility] Negative Abnormal appearance, urine Clear [facility] Clear urine color Yellow [facility]ic Yellow pH, urine, semiquantitative 6.5 [facility] 5.0-7.5 specific gravity, body fluid 1.011 [facility] 1.005-1.030 pro brain natriuretic peptide 811 pg/mL [facility] 0-738 High uric acid, serum 4.1 mg/dL [facility] 2.5-7.1 basophil count, absolute 0.1 x10E3/uL [facility] 0.0-0.2 Eosinophil Absolute Count 0.2 X10E3/UL [facility] 0.0-0.4 monocyte count, blood, automated 1.2 X10E3/UL [facility] 0.1-0.9 High lymphocyte count, blood, automated 2.6 X10E3/UL [facility] 0.7-3.1 Absolute Neutrophils 4.2 X10E3/UL [facility] 1.4-7.0 basophils as percent of blood leukocytes 1 % [facility] Not Estab. eosinophils as percent of blood leukocytes 2 % [facility] Not Estab. monocytes as percent of blood leukocytes 14 % [facility] Not Estab. lymphocytes as percent of blood leukocytes 32 % [facility] Not Estab. neutrophils as percent of blood leukocytes 51 % [facility] Not Estab. platelet count 282 X10E3/UL [facility] 092-902 5402/08/ 18 red blood cell distribution width 15.9 % [facility] 12.3-15.4 High mean corpuscular hemoglobin concentration, RBC 32.9 G/DL [facility] 31.5-35.7 mean corpuscular hemoglobin, RBC 28.0 pg [facility] 26.6-33.0 mean corpuscular volume, RBC 85 fL [facility] 79-97 hematocrit, blood 29.8 % [facility] 34.0-46.6 Low hemoglobin, blood 9.8 g/dL [facility] 11.1-15.9 Low erythrocyte (RBC) count 3.50 X10E6/UL [facility] 3.77-5.28 Low leukocyte count, blood 8.2 X10E3/UL [facility] 3.4-10.8 alanine aminotransferase (SGPT), serum 14 1/L [facility] 0-32 aspartate aminotransferase (SGOT), serum 18 1/L [facility] 0-40 alkaline phosphatase, serum 73 1/L [facility] 39-117 bilirubin, serum, total 0.6 mg/dL [facility] 0.0-1.2 albumin/globulin ratio, serum 1.4 [facility] 1.2-2.2 globulin, serum 2.7 [facility] 1.5-4.5 albumin, serum 3.8 g/dL [facility] 3.5-4.7 protein, total, serum 6.5 g/dL [facility] 6.0-8.5 calcium, serum 9.0 mg/dL [facility] 8.7-10.3 carbon dioxide, venous blood 25 mmol/L [facility] 20-29 chloride, serum 99 mmol/L [facility] 96-106 potassium, serum 4.0 mmol/L [facility] 3.5-5.2 sodium, serum 138 mmol/L [facility] 312-031 0428/08/ 18 urea nitrogen/creatinine ratio, serum 13 [facility] 12-28 eGFR if 41 mL/min/{1.7 3_m2} [facility]ic >59 Low eGFR if not 35 mL/min/{1.7 3_m2} [facility] >59 Low creatinine, serum 1.39 mg/dL [facility] 0.57-1.00 High urea nitrogen, blood 18 mg/dL [facility] 8-27 blood glucose, random 162 mg/dL [facility] 65-99 High HISTORY OF MEDICATION USE Medication Status Instructions Dates Provider Indications Com mentjoshua Nitrostat 0.4 mg tablet, sublingual completed Take 1 tablet under tongue as directed for chest pain. May repeat every 5 minutes if still having chest pain- to max of 3 tablets per episode. If no relief after 3rd dose, go to ER - María Meza magnesium oxide 400 mg magnesium tablet completed Take 1 tablet by mouth once a day - María Meza ezetimibe 10 mg tablet completed Take 1 tablet by mouth once a day - María Meza nortriptyline 25 mg capsule active Take 1 tablet by mouth every night Jelly Benitez trazodone 100 mg tablet active 1 tablet by mouth every night Елена Beck tramadol 50 mg tablet active tablet by mouth every six hours Елена Beck olmesartan 20 mg tablet active Take 1 tablet by mouth once a day Елена Beck pantoprazole 40 mg tablet,delayed release (DR/EC) active Take 1 tablet by mouth every night Елена Beck Lasix 40 mg tablet active 1 tablet by mouth once a day Елена Beck vitamin E (dl, acetate) 180 mg (400 unit) capsule active 1000 unit by mouth once a day Rosalio Huff JANUVIA 50 MG ORAL TABLET completed 1 tab once daily - Jelly Benitez montelukast 10 mg tablet active 1 tablet by mouth once a day Rosalio Huff LOSARTAN POTASSIUM 100 MG ORAL TABLET completed Take one tablet daily - Chidi Harmon glimepiride 1 mg tablet active 1 tablet by mouth once a day Rosalio Huff ergocalciferol (vitamin D2) 1,250 mcg (50,000 unit) capsule active 1 capsule by mouth twice a week Rosalio Huff atorvastatin 10 mg tablet active 1 tablet by mouth once a day Rosalio Huff Nitrostat 0.4 mg tablet, sublingual completed 1 tablet under tongue every two hours as needed - Rosalio Huff levothyroxine 75 mcg tablet active 1 tablet by mouth once a day Rosalio Huff Plavix 75 mg tablet active 1 tablet by mouth once a day Rosalio Huff Eliquis 2.5 mg tablet completed Take 1 tablet by mouth twice a day - María Meza diltiazem HCl 120 mg tablet active 1 tablet by mouth twice a day Jelly Benitez Coreg 6.25 mg tablet active 1 tablet by mouth twice a day Rosalio Huff SOCIAL HISTORY Date Observation Value Provider social history E&M S moking History: Aster walters has never smoked. María Meza social history reviewed E&M revi ewed - no changes required María Meza smoking status Never smoker Елена timmons social history E&M S moking History: Aster walters has never smoked. María Meza social history reviewed E&M revi ewed - no changes required María Meza smoking status Never smoker Jelly michael social history E&M S moking History: Aster walters has never smoked. Reynaldo Marshall social history reviewed E&M revi ewed - no changes required Reynaldo Marshall smoking status Never smoker Angie pearson social history reviewed E&M revi ewed - no changes required Chidi Harmon smoking status Never smoker Jelly michael smoking status Never smoker Chidi Harmon social history reviewed E&M revi ewed - no changes required Chidi Harmon social history reviewed E&M revi ewed - no changes required Panda Campbell social history E&M S moking History: Aster walters has never smoked. Panda Campbell smoking status Never smoker Angie pearson social history reviewed E&M revi ewed - no changes required Panda Campbell social history E&M S moking History: Aster walters has never smoked. Panda Campbell smoking status Never smoker Елена timmons social history reviewed E&M revi ewed - no changes required Panda Campbell social history E&M S moking History: Aster walters has never smoked. Panda Campbell smoking status Never smoker Eileen Thomas number of grandchildren Briana Zheng MD Panda Campbell social history reviewed E&M revi ewed - no changes required Panda Campbell social history E&M S moking History: Aster walters has never smoked. Panda Campbell smoking status Never smoker Rosalio Lorenzo michaelarnulfo FUNCTIONAL STATUS Date Observation Value Provider HRA, CV Assess/Plan, Angina (inactive) Management Plan continue current therapy María Meza HRA, CV Assess/Plan, Angina (inactive) Management Plan continue current therapy Milly Chery HRA, CV Assess/Plan, Angina (inactive) Management Plan continue current therapy Chidi Faustion HRA, CV Assess/Plan, Angina (inactive) Management Plan continue current therapy Chidi Faustino HRA, CV Assess/Plan, Angina (inactive) Management Plan continue current therapy Chidi Faustino FAMILY HISTORY Family Member Condition Full Brother Family History of Co ronary Artery Disease: Full Brother Family History of Di abetes: Full Sister Family History of Di abetes: Father Family History of Co ronary Artery Disease: Father Family History of Di abetes: Mother Family History of Co ronary Artery Disease: Mother Family History of Di abetes: INSURANCE PROVIDERS Payer name Policy type / Coverage type [place] [employer] [facility] MEDICARE COMPLETE HMO Other [id number] ADVANCE DIRECTIVES Name Date DISCUSSED - NO DECISION MADE TREATMENT PLAN Date Name Performer [id number],C, María Meza [id number],B, María Meza [id number],B, n o chest pain Her updated medication list for this problem includes: Nitrostat 0.4 Mg Tablet, Sublingual (Nitroglycerin) ..... Take 1 tablet under tongue as directed for chest pain. may repeat every 5 minutes if still having chest pain- to max of 3 tablets per episode. if no relief after 3rd dose, go to er Diltiazem Hcl 120 Mg Tablet (Diltiazem hcl) ..... 1 tablet by mouth twice a day Plavix 75 Mg Tablet (Clopidogrel) ..... 1 tablet by mouth once a day Coreg 6.25 Mg Tablet (Carvedilol) ..... 1 tablet by mouth twice a day [facility] [id number],B, o n art bird magnesium M onitor 06/2021: S inus Rhythm. T he average heart rate was 77bpm. H er updated medication list for this problem includes: Plavix 75 Mg Tablet (Clopidogrel) ..... 1 tablet by mouth once a day Coreg 6.25 Mg Tablet (Carvedilol) ..... 1 tablet by mouth twice a day [facility] [id number],Supriya [place] following. cailin claudia controlled per pt Her updated medication list for this problem includes: Glimepiride 1 Mg Tablet (Glimepiride) ..... 1 tablet by mouth once a day Olmesartan 20 Mg Tablet (Olmesartan) ..... Take 1 tablet by mouth once a day [facility] [id number],C, O rders: C arotid Duplex Bilateral (CPT-20587) [facility] [id number],C, O rders: E KG (CPT-13159) M onitor - Telemetry (Mobile Cardiac) (CPT-38358) C omplete Echo (CPT-05648) Her updated medication list for this problem includes: Plavix 75 Mg Tablet (Clopidogrel) ..... 1 tablet by mouth once a day Coreg 6.25 Mg Tablet (Carvedilol) ..... 1 tablet by mouth twice a day [facility] [id number],C, H er updated medication list for this problem includes: Nitrostat 0.4 Mg Tablet, Sublingual (Nitroglycerin) ..... 1 tablet under tongue every two hours as needed Diltiazem Hcl 120 Mg Tablet (Diltiazem hcl) ..... 1 tablet by mouth twice a day Plavix 75 Mg Tablet (Clopidogrel) ..... 1 tablet by mouth once a day Coreg 6.25 Mg Tablet (Carvedilol) ..... 1 tablet by mouth twice a day Orders: C omplete Echo (CPT-63901) [facility] 02-07 [facility] 02-07: n o chest pain Her updated medication list for this problem includes: Nitrostat 0.4 Mg Tablet, Sublingual (Nitroglycerin) ..... Take 1 tablet under tongue as directed for chest pain. may repeat every 5 minutes if still having chest pain- to max of 3 tablets per episode. if no relief after 3rd dose, go to er Diltiazem Hcl 120 Mg Tablet (Diltiazem hcl) ..... 1 tablet by mouth twice a day Plavix 75 Mg Tablet (Clopidogrel) ..... 1 tablet by mouth once a day Coreg 6.25 Mg Tablet (Carvedilol) ..... 1 tablet by mouth twice a day [facility] 5-10: o art lópez magnesium M onitor 06/2021: S inus Rhythm. T he average heart rate was 77bpm. H er updated medication list for this problem includes: Plavix 75 Mg Tablet (Clopidogrel) ..... 1 tablet by mouth once a day Coreg 6.25 Mg Tablet (Carvedilol) ..... 1 tablet by mouth twice a day [facility] Electrophysiology 15 : Supriya Jamison following. cailin claudia controlled per pt Her updated medication list for this problem includes: Glimepiride 1 Mg Tablet (Glimepiride) ..... 1 tablet by mouth once a day Olmesartan 20 Mg Tablet (Olmesartan) ..... Take 1 tablet by mouth once a day teja Derrick Electrophysiology 15 : O rders: C arotid Duplex Bilateral (CPT-16408) Electrophysiology 15 : O rders: E KG (CPT-62500) M onitor - Telemetry (Mobile Cardiac) (CPT-48467) C larry Echo (CPT-00111) Her updated medication list for this problem includes: Plavix 75 Mg Tablet (Clopidogrel) ..... 1 tablet by mouth once a day Coreg 6.25 Mg Tablet (Carvedilol) ..... 1 tablet by mouth twice a day tyler Derrick Electrophysiology 15 : H er updated medication list for this problem includes: Nitrostat 0.4 Mg Tablet, Sublingual (Nitroglycerin) ..... 1 tablet under tongue every two hours as needed Diltiazem Hcl 120 Mg Tablet (Diltiazem hcl) ..... 1 tablet by mouth twice a day Plavix 75 Mg Tablet (Clopidogrel) ..... 1 tablet by mouth once a day Coreg 6.25 Mg Tablet (Carvedilol) ..... 1 tablet by mouth twice a day Orders: Carla kellerlete Echo (CPT-24699) Jimteja Derrick Cardiology follow up - completed : O rders: Joshua Rivera (CPT-78533) as she cannot walk distances Her updated medication list for this problem includes: Nitrostat 0.4 Mg Sublingual Tablet Sublingual (Nitroglycerin) ..... One tab. under tongue as needed. may repeat twice in 10 minutes. Plavix 75 Mg Oral Tablet (Clopidogrel bisulfate) ..... One tab. daily Diltiazem Hcl 120 Mg Oral Tablet (Diltiazem hcl) ..... 1 tab twice daily Coreg 6.25 Mg Oral Tablet (Carvedilol) ..... One tab. twice daily teja Derrick Cardiology follow up - completed : B P today: 152/98 P rior BP: 122/60 (05/09/2019) H er updated medication list for this problem includes: Olmesartan Medoxomil 20 Mg Oral Tablet (Olmesartan medoxomil) ..... Take 1 tab once daily Lasix 40 Mg Oral Tablet (Furosemide) ..... One tablet daily. Diltiazem Hcl 120 Mg Oral Tablet (Diltiazem hcl) ..... 1 tab twice daily Coreg 6.25 Mg Oral Tablet (Carvedilol) ..... [facility] tab. twice [facility] follow [facility] - completed :Dr. Jamison following. On lantus according to patient Her updated medication list for this problem includes: Olmesartan Medoxomil 20 Mg Oral Tablet (Olmesartan medoxomil) ..... Take 1 tab once daily Glimepiride 1 Mg Oral Tablet (Glimepiride) ..... 1 tab once daily [facility] Cardiology follow up - completed : H er updated medication list for this problem includes: Olmesartan Medoxomil 20 Mg Oral Tablet (Olmesartan medoxomil) ..... Take 1 tab once daily Lasix 40 Mg Oral Tablet (Furosemide) ..... One tablet daily. Diltiazem Hcl 120 Mg Oral Tablet (Diltiazem hcl) ..... 1 tab twice daily Coreg 6.25 Mg Oral Tablet (Carvedilol) ..... One tab. twice daily Orders: F VC - [id number] (26041) F RC - 92805 (68503) D LCO - 84305 (65191) [facility] - [facility] : O rders: E KG (CPT-81983) Her updated medication list for this problem includes: Plavix 75 Mg Oral Tablet (Clopidogrel bisulfate) ..... One tab. daily Coreg 6.25 Mg Oral Tablet (Carvedilol) ..... One tab. twice daily [facility] Cardiology follow up - completed : H er updated medication list for this problem includes: Nitrostat 0.4 Mg Sublingual Tablet Sublingual (Nitroglycerin) ..... One tab. under tongue as needed. may repeat twice in 10 minutes. Plavix 75 Mg Oral Tablet (Clopidogrel bisulfate) ..... One tab. daily Diltiazem Hcl 120 Mg Oral Tablet (Diltiazem hcl) ..... 1 tab twice daily Coreg 6.25 Mg Oral Tablet (Carvedilol) ..... One tab. twice daily María Derrick Electrophysiology: H er updated medication list for this problem includes: Lasix 40 Mg Oral Tablet (Furosemide) ..... One tablet daily. Diltiazem Hcl 120 Mg Oral Tablet (Diltiazem hcl) ..... 1 tab twice daily Coreg 6.25 Mg Oral Tablet (Carvedilol) ..... One tab. twice daily Reynaldo Marshall Electrophysiology: H er updated medication list for this problem includes: Nitrostat 0.4 Mg Sublingual Tablet Sublingual (Nitroglycerin) ..... One tab. under tongue as needed. may repeat twice in 10 minutes. Plavix 75 Mg Oral Tablet (Clopidogrel bisulfate) ..... One tab. daily Diltiazem Hcl 120 Mg Oral Tablet (Diltiazem hcl) ..... 1 tab twice daily Coreg 6.25 Mg Oral Tablet (Carvedilol) ..... One tab. twice daily Reynaldo Marshall Electrophysiology: H er updated medication list for this problem includes: Plavix 75 Mg Oral Tablet (Clopidogrel bisulfate) ..... One tab. daily Coreg 6.25 Mg Oral Tablet (Carvedilol) ..... One tab. twice daily Orders: [id number] Minor (CPT-44645) S chedule Followup (*) M obile Cardiac Tele (CPT-20869) Reynaldo Marshall Electrophysiology fo [facility] up : s /p cardiac cath with stent to circ 05/10/18. O n Plavix. Her updated medication list for this problem includes: Nitrostat 0.4 Mg Sublingual Tablet Sublingual (Nitroglycerin) ..... One tab. under tongue as needed. may repeat twice in 10 minutes. Plavix 75 Mg Oral Tablet (Clopidogrel bisulfate) ..... One tab. daily Diltiazem Hcl 120 Mg Oral Tablet (Diltiazem hcl) ..... 1 tab twice daily Coreg 6.25 Mg Oral Tablet (Carvedilol) ..... One tab. twice daily Chidi Harmon Electrophysiology fo llow up : s /p cardioversion 05/10/18, converted to sinus rhythm. R emains in sinus rhythm by EKG today. Her updated medication list for this problem includes: Plavix 75 Mg Oral Tablet (Clopidogrel bisulfate) ..... One tab. daily Coreg 6.25 Mg Oral Tablet (Carvedilol) ..... One tab. twice daily Orders: Michael KG (CPT-78726) Chidi Harmon Electrophysiology fo llow up : s /p cardiac cath with stent to circ 05/10/18. O n Plavix. s /p cardioversion 05/10/18, converted to sinus rhythm. R emains in sinus rhythm by EKG today. & #13;Her updated medication list for this problem includes: Nitrostat 0.4 Mg Sublingual Tablet Sublingual (Nitroglycerin) ..... One tab. under tongue as needed. may repeat twice in 10 minutes. Plavix 75 Mg Oral Tablet (Clopidogrel bisulfate) ..... One tab. daily Diltiazem Hcl 120 Mg Oral Tablet (Diltiazem hcl) ..... 1 tab twice daily Coreg 6.25 Mg Oral Tablet (Carvedilol) ..... One tab. twice daily Chidi Harmon Electrophysiology fo llow up : H er updated medication list for this problem includes: Lasix 40 Mg Oral Tablet (Furosemide) ..... One tablet daily. Diltiazem Hcl 120 Mg Oral Tablet (Diltiazem hcl) ..... 1 tab twice daily Coreg 6.25 Mg Oral Tablet (Carvedilol) ..... One tab. twice daily Chidi Harmon Electrophysiology follow up Michael Harmon Electrophysiology fo llow up : B P today: 138/80 P rior BP: 160/80 (02/28/2019) Labs Reviewed: C reat: 1.39 (05/18/2018) Her updated medication list for this problem includes: Hydralazine Hcl 50 Mg Oral Tablet (Hydralazine hcl) ..... Take one tablet by mouth three times a day Lasix 40 Mg Oral Tablet (Furosemide) ..... One tablet daily. Diltiazem Hcl 120 Mg Oral Tablet (Diltiazem hcl) ..... 1 tab twice daily Coreg 6.25 Mg Oral Tablet (Carvedilol) ..... One tab. twice daily Chidialec [facility] follow up Michael alec [facility] fo llow up:s/p cardiac cath with stent to circ 05/10/18. O n Plavix. H er updated medication list for this problem includes: Nitrostat 0.4 Mg Sublingual Tablet Sublingual (Nitroglycerin) ..... One tab. under tongue as needed. may repeat twice in 10 minutes. Plavix 75 Mg Oral Tablet (Clopidogrel bisulfate) ..... One tab. daily Diltiazem Hcl 120 Mg Oral Tablet (Diltiazem hcl) ..... 1 tab twice daily Coreg 6.25 Mg Oral Tablet (Carvedilol) ..... One tab. twice daily Orders: [facility] (CPT-13270) 9 9214 MOD Complex (CPT-48853) R enal Artery Duplex (CPT-19664) S chedule Followup (*) Chidialec [facility] fo llow up:s/p cardioversion 05/10/18, converted to sinus rhythm. R emains in sinus rhythm by EKG today. H er updated medication list for this problem includes: Plavix 75 Mg Oral Tablet (Clopidogrel bisulfate) ..... One tab. daily Coreg 6.25 Mg Oral Tablet (Carvedilol) ..... One tab. twice daily Orders: [facility] (CPT-14910) 9 9214 MOD Complex (CPT-85135) R enal Artery Duplex (CPT-51165) Chidialce [facility] fo llow up: B P today: 160/80 P rior BP: 130/80 (01/31/2019) Labs Reviewed: C reat: 1.39 (05/18/2018) The following medications were removed from the medication list: Losartan Potassium 100 Mg Oral Tablet (Losartan potassium) ..... Take one tablet daily Her updated medication list for this problem includes: Hydralazine Hcl 50 Mg Oral Tablet (Hydralazine hcl) ..... Take one tablet by mouth three times a day Lasix 40 Mg Oral Tablet (Furosemide) ..... One tablet daily. Diltiazem Hcl 120 Mg Oral Tablet (Diltiazem hcl) ..... 1 tab twice daily Coreg 6.25 Mg Oral Tablet (Carvedilol) ..... One tab. twice daily Orders: 9 9214 MOD Complex (CPT-88806) R enal Artery Duplex (CPT-92288) Chidi [facility] fo llow up:home sleep study T he following medications were removed from the medication list: Losartan Potassium 100 Mg Oral Tablet (Losartan potassium) ..... Take one tablet daily Her updated medication list for this problem includes: Lasix 40 Mg Oral Tablet (Furosemide) ..... One tablet daily. Diltiazem Hcl 120 Mg Oral Tablet (Diltiazem hcl) ..... 1 tab twice daily Coreg 6.25 Mg Oral Tablet (Carvedilol) ..... One tab. twice daily Orders: S leep Study Home (CPT-26443) R enal Artery Duplex (CPT-16636) Chidi [facility]iology fo llow up:s/p cardiac cath with stent to circ 05/10/18. O n Plavix. s /p cardioversion 05/10/18, converted to sinus rhythm. R emains in sinus rhythm by EKG today. [place] renal artery duplex P hanane to continue Aspirin. H er updated medication list for this problem includes: Nitrostat 0.4 Mg Sublingual Tablet Sublingual (Nitroglycerin) ..... One tab. under tongue as needed. may repeat twice in 10 minutes. Plavix 75 Mg Oral Tablet (Clopidogrel bisulfate) ..... One tab. daily Diltiazem Hcl 120 Mg Oral Tablet (Diltiazem hcl) ..... 1 tab twice daily Coreg 6.25 Mg Oral Tablet (Carvedilol) ..... One tab. twice daily Orders: R enal Artery Duplex (CPT-70803) Chidi [facility] Electrophysiology: Carla sarabia carotid US. Orders: C arotid Duplex Bilateral (CPT-63997) Panda Campbell Electrophysiology: B P today: 130/80 P rior BP: 140/60 (07/26/2018) Labs Reviewed: C reat: 1.39 (05/18/2018) Her updated medication list for this problem includes: Lasix 40 Mg Oral Tablet (Furosemide) ..... One tablet daily. Losartan Potassium 100 Mg Oral Tablet (Losartan potassium) ..... Take one tablet daily Diltiazem Hcl 120 Mg Oral Tablet (Diltiazem hcl) ..... 1 tab once daily Coreg 6.25 Mg Oral Tablet (Carvedilol) ..... One tab. twice daily Panda Campbell Electrophysiology: s /p cardiac cath with stent to circ 05/10/18. O n Plavix. Her updated medication list for this problem includes: Nitrostat 0.4 Mg Sublingual Tablet Sublingual (Nitroglycerin) ..... One tab. under tongue as needed. may repeat twice in 10 minutes. Plavix 75 Mg Oral Tablet (Clopidogrel bisulfate) ..... One tab. daily Diltiazem Hcl 120 Mg Oral Tablet (Diltiazem hcl) ..... 1 tab once daily Coreg 6.25 Mg Oral Tablet (Carvedilol) ..... One tab. twice daily Panda Shannan Electrophysiology: s /p cardioversion 05/10/18, converted to sinus rhythm. R emains in sinus rhythm by EKG today. O n Eliquis for OAC. Her updated medication list for this problem includes: Plavix 75 Mg Oral Tablet (Clopidogrel bisulfate) ..... One tab. daily Coreg 6.25 Mg Oral Tablet (Carvedilol) ..... One tab. twice daily Panda Shannan Electrophysiology: s /p cardiac cath with stent to circ 05/10/18. O n Plavix. s/p cardioversion 05/10/18, converted to sinus rhythm. R emains in sinus rhythm by EKG today. O n Eliquis for OAC. Check echo doppler and carotid US in 1-2 weeks. F ollowup in 3 months to reassess cardiac risk for surgery. Recommend waiting for hernia surgery until after 05/13/19. W ill plan to hold Eliquis and Plavix for 5 days prior to surgery. P hanane to continue Aspirin. Orders: C omplete Echo (CPT-21886) C arotid Duplex Bilateral (CPT-46192) Her updated medication list for this problem includes: Nitrostat 0.4 Mg Sublingual Tablet Sublingual (Nitroglycerin) ..... One tab. under tongue as needed. may repeat twice in 10 minutes. Plavix 75 Mg Oral Tablet (Clopidogrel bisulfate) ..... One tab. daily Diltiazem Hcl 120 Mg Oral Tablet (Diltiazem hcl) ..... 1 tab once daily Coreg 6.25 Mg Oral Tablet (Carvedilol) ..... One tab. twice daily Pandaus Campbell Electrophysiology Fo llow up:BP today: 140/60 P rior BP: 142/90 (05/24/2018) Labs Reviewed: C reat: 1.39 (05/18/2018) Her updated medication list for this problem includes: Lasix 40 Mg Oral Tablet (Furosemide) ..... One tablet daily. Losartan Potassium 100 Mg Oral Tablet (Losartan potassium) ..... Take one tablet daily Diltiazem Hcl 120 Mg Oral Tablet (Diltiazem hcl) ..... 1 tab once daily Coreg 6.25 Mg Oral Tablet (Carvedilol) ..... One tab. twice daily Pandaus Campbell Electrophysiology Fo llow up:Orders: S chedule Followup (*) C omplete Echo (CPT-44924) 9 9214 MOD Complex (CPT-30392) Her updated medication list for this problem includes: Lasix 40 Mg Oral Tablet (Furosemide) ..... One tablet daily. Losartan Potassium 100 Mg Oral Tablet (Losartan potassium) ..... Take one tablet daily Diltiazem Hcl 120 Mg Oral Tablet (Diltiazem hcl) ..... 1 tab once daily Coreg 6.25 Mg Oral Tablet (Carvedilol) ..... One tab. twice daily Pandaus Campbell Electrophysiology Fo llow up:Orders: S chedule Followup (*) C omplete Echo (CPT-56174) 9 9214 MOD Complex (CPT-01619) Her updated medication list for this problem includes: Nitrostat 0.4 Mg Sublingual Tablet Sublingual (Nitroglycerin) ..... One tab. under tongue as needed. may repeat twice in 10 minutes. Plavix 75 Mg Oral Tablet (Clopidogrel bisulfate) ..... One tab. daily Diltiazem Hcl 120 Mg Oral Tablet (Diltiazem hcl) ..... 1 tab once daily Coreg 6.25 Mg Oral Tablet (Carvedilol) ..... One tab. twice daily Panda Campbell Electrophysiology Fo llow up:Orders: M obile Cardiac Tele (CPT-96920) S [facility] (*) 9 9214 MOD Complex (CPT-36186) Her updated medication list for this problem includes: Nitrostat 0.4 Mg Sublingual Tablet Sublingual (Nitroglycerin) ..... One tab. under tongue as needed. may repeat twice in 10 minutes. Plavix 75 Mg Oral Tablet (Clopidogrel bisulfate) ..... One tab. daily Diltiazem Hcl 120 Mg Oral Tablet (Diltiazem hcl) ..... 1 tab once daily Coreg 6.25 Mg Oral Tablet (Carvedilol) ..... One tab. twice daily Pandaus Campbell Electrophysiology Fo llow up:Remains in sinus rhythm today. HR 62 bpm. Orders: E KG (CPT-00355) obile Cardiac Tele (CPT-11203) S [facility] (*) 9 9214 MOD Complex (CPT-42050) Her updated medication list for this problem includes: Plavix 75 Mg Oral Tablet (Clopidogrel bisulfate) ..... One tab. daily Coreg 6.25 Mg Oral Tablet (Carvedilol) ..... One tab. twice daily Panda Shannan Electrophysiology fo llow up:Her updated medication list for this problem includes: Levothyroxine Sodium 75 Mcg Oral Tablet (Levothyroxine sodium) ..... One tab. daily Panda Shannan Electrophysiology fo llow up:Orders: H EMOGLOBIN A1c (496) Her updated medication list for this problem includes: Januvia 50 Mg Oral Tablet (Sitagliptin phosphate) ..... 1 tab once daily Losartan Potassium 100 Mg Oral Tablet (Losartan potassium) ..... Take one tablet daily Glimepiride 1 Mg Oral Tablet (Glimepiride) ..... 1 tab once daily Panda Campbell Electrophysiology fo llow up:Orders: C OMPREHENSIVE METABOLIC PANEL, W/EGFR (50089) T HYROID PANEL WITH TSH, 3RD GENERATION (7444) L IPID PANEL (7600) C BC (INCLUDES DIFF/PLT) (6399) F ERRITIN (457) I LAKSHMI AND TOTAL IRON BINDING CAPACITY (7573) 9 9213 LTD. Complex (CPT-59714) S chedule Followup (*) Her updated medication list for this problem includes: Nitrostat 0.4 Mg Sublingual Tablet Sublingual (Nitroglycerin) ..... One tab. under tongue as needed. may repeat twice in 10 minutes. Plavix 75 Mg Oral Tablet (Clopidogrel bisulfate) ..... One tab. daily Diltiazem Hcl 120 Mg Oral Tablet (Diltiazem hcl) ..... 1 tab once daily Coreg 6.25 Mg Oral Tablet (Carvedilol) ..... One tab. twice daily Panda Campbell Electrophysiology fo llow up:CXR 05/17/18 shows small RLL effusion. Orders: C OMPREHENSIVE METABOLIC PANEL, W/EGFR (91250) T HYROID PANEL WITH TSH, 3RD GENERATION (7444) L IPID PANEL (7600) C BC (INCLUDES DIFF/PLT) (6399) F ERRITIN (457) I LAKSHMI AND TOTAL IRON BINDING CAPACITY (7573) 9 9213 LTD. [facility] (CPT-52998) S chedule Followup (*) Her updated medication list for this problem includes: Lasix 40 Mg Oral Tablet (Furosemide) ..... One tablet daily. Losartan Potassium 100 Mg Oral Tablet (Losartan potassium) ..... Take one tablet daily Diltiazem Hcl 120 Mg Oral Tablet (Diltiazem hcl) ..... 1 tab once daily Coreg 6.25 Mg Oral Tablet (Carvedilol) ..... One tab. twice daily Panda Campbell Electrophysiology fo llow up:Her updated medication list for this problem includes: Plavix 75 Mg Oral Tablet (Clopidogrel bisulfate) ..... One tab. daily Coreg 6.25 Mg Oral Tablet (Carvedilol) ..... One tab. twice daily Panda Shannan Electrophysiology:BP today: 196/80 Her updated medication list for this problem includes: Lasix 40 Mg Oral Tablet (Furosemide) ..... One tablet daily. Losartan Potassium 100 Mg Oral Tablet (Losartan potassium) ..... Take one tablet daily Diltiazem Hcl 120 Mg Oral Tablet (Diltiazem hcl) ..... 1 tab once daily Coreg 6.25 Mg Oral Tablet (Carvedilol) ..... One tab. twice daily Panda Campbell Electrophysiology:CV on 05/10/18 at [facility], successfully converted to SR. Patient in SR todaywith HR 75 bpm. Orders: M obile Cardiac Tele (CPT-48278) 9 9214 MOD Complex (CPT-81040) & #13;Her updated medication list for this problem includes: Plavix 75 Mg Oral Tablet (Clopidogrel bisulfate) ..... One tab. daily Coreg 6.25 Mg Oral Tablet (Carvedilol) ..... One tab. twice daily Panda Campbell Electrophysiology:Ca rdiac stent 05/10/18 in circumflex artery. 70% occluded LAD. Orders: E KG (CPT-61028) X -Ray, Chest - Routine (CPT-08455) M obile Cardiac Tele (CPT-85317) C OMPREHENSIVE METABOLIC PANEL, W/EGFR (34616) P ROBNP, N TERMINAL (42480) C BC (H/H, RBC, INDICES, WBC, PLT) (8229) 9 9214 MOD Complex (CPT-98686) Her updated medication list for this problem includes: Lasix 40 Mg Oral Tablet (Furosemide) ..... One tablet daily. Losartan Potassium 100 Mg Oral Tablet (Losartan potassium) ..... Take one tablet daily Diltiazem Hcl 120 Mg Oral Tablet (Diltiazem hcl) ..... 1 tab once daily Coreg 6.25 Mg Oral Tablet (Carvedilol) ..... One tab. twice daily Panda Campbell Date Name Complete Echo Carotid Duplex Bilat eral Monitor - Telemetry (Mobile Cardiac) DLMD - 66987 FRC - 64504 FVC - 92082 Stress Regadenoson Mobile Cardiac Tele Renal Artery Duplex Sleep Study Home Carotid Duplex Bilat eral Complete Echo Complete Echo Mobile Cardiac Tele HEMOGLOBIN A1c IRON AND TOTAL IRON BINDING CAPACITY FERRITIN CBC (INCLUDES DIFF/P LT) LIPID PANEL THYROID PANEL WITH T SH, 3RD GENERATION COMPREHENSIVE METABO LIC PANEL, W/EGFR URINALYSIS, COMPLETE W/REFLEX TO CULTURE Vitamin D, 25-Hydrox y URIC ACID CBC (INCLUDES DIFF/P LT) PROBNP, N TERMINAL COMPREHENSIVE METABO LIC PANEL, W/EGFR CBC (H/H, RBC, INDIC ES, WBC, PLT) PROBNP, N TERMINAL COMPREHENSIVE METABO LIC PANEL, W/EGFR Mobile Cardiac Tele X-Ray, Chest - Routi ne HISTORY OF PROCEDURES Procedure Date Procedure Name Provider Procedure Notes S tatus Event Monitor Briana Zheng MD c ompleted EKG Briana Zheng MD comp leted Regadenoson, 4 units Briana Zheng MD completed Cardiolite, 2 units Briana Zheng MD completed SPECT Images Briana Zheng MD co mpleted Stress EKG Briana Zheng MD comp leted FVC / MVV - 50759 Briana Zheng MD completed BLOOD COUNT HEMOGLOBIN Briana Zheng MD completed FRC - 40183 Briana Zheng MD com pleted SpO2 w/o 6min walk/titration Briana Zheng MD completed DLCO - 29299 Briana Zheng MD co mpleted EKG Briana Zheng MD comp leted Mobile Cardiac Telemetry - Tech Briana Zheng MD completed Mobile Cardiac Telemetry - Prof Briana Zheng MD completed Schedule Followup ulius Marce RIDER In one y ear completed EKG Briana Zheng MD comp leted Schedule Followup Briana Zheng MD IN ONE W YUROK completed EKG Briana Zheng MD comp leted Schedule Followup Briana Zheng MD in 3 mo completed EKG Briaan Zheng MD comp leted Schedule Followup Briana Zheng MD in 1 yr completed EKG Briana Zheng MD comp leted Schedule Followup Briana Zheng MD in 2 mo completed Mobile Cardiac Telemetry - Tech Briana Zheng MD completed Mobile Cardiac Telemetry - Prof Briana Zheng MD completed Schedule Followup Briana Zheng MD in 1 wk completed EKG Briana Zheng MD comp leted
--- OUTSIDE RECORDS SUMMARY | 2024-12-11 08:25 | XMS_ITS ---
Author Organization [facility] Address [address] [facility] [address] [place] [address] Care Team Providers Care Telegraph Repeater Installer Name Role Phone Eb Walters Unavailable [phone] MEDICATIONS Medication SIG (Take, Route, Frequency, Duration) Notes Start Date End Date Status Montelukast Sodium 10 MG 1 tablet Orally Once a day Active Levothyroxine Sodium 75 MCG 1 tablet in the morning on an empty stomach Orally Once a day Active Pantoprazole Sodium 40 MG 1 tablet Orall y Once a day Active Olmesartan Medoxomil 20 MG 1 tablet Oral ly Once a day Active Glimepiride 1 MG 1 tablet with breakf ast or the first main meal of the day Orally Once a day Active Ergocalciferol 1.25 MG (48681 UT) 1 capsule Orally twice a week for 90 day(s) Active Calcitriol 0.25 MCG 1 capsule Orally Thr ee times a Week Active Atorvastatin Calcium 10 MG 1 tablet Oral ly Once a day Active Carvedilol 6.25 MG 1 tablet with food Orally Twice a day Active Clopidogrel Bisulfate 75 MG 1 tablet Ora lly Once a day Active dilTIAZem HCl ER 120 MG 1 capsule Orally Twice a day Active Eliquis 2.5 MG as directed Orally Active Encounters Encounter Location Date Provider Diagnosis [place] [facility] [address] [facility] [address] [place] [address] 03/07/2024 Eb Walters Chronic kidney disea se, [...] kidney disease, stage 3a (ICD-10 - N18.31) 03/07/2024 Essential (primary) hypertension (ICD-10 - I10) 03/07/2024 Renal osteodystrophy (ICD-10 - N25.0) 03/07/2024 Secondary hyperparathyroidism , not elsewhere classified (ICD-10 - E21.1) 03/07/2024 Type 2 diabetes mellitus with hyperglycemia (ICD-10 - E11.65) 03/07/2024 Urinary tract infection, site not specified (ICD-10 - N39.0) 03/07/2024 Vitamin D deficiency, unspecified (ICD-10 - E55.9) PLAN OF TREATMENT No Information Progress Notes * KERRI JACOBSDOB: [birth year] (89 yo F)Acc No.[id number]:03/07/2024 Progress Notes Patient: KERRI JACOBS Provider: MD ALAN, F.A.C.P, F.A.S.N. :1935 Age:88 Y Sex:Female Date:03/07/2024 Address:[address] [place] [address] Subjective: * Chief Complaints: * * Medical [...] a day , Taking Ergocalciferol 1.25 MG (99697 UT) Capsule 1 capsule Orally twice a week Objective: Assessment: * Assessment: 1. Chronic kidney disease, stage 3a - N18.31 (Primary) 2. Essential (primary) hypertension - I10 3. Renal osteodystrophy - N25.0 4. Secondary hyperparathyroidism, not elsewhere classified - E21.1 5. Type 2 diabetes mellitus with hyperglycemia - E11.65 6. Urinary tract infection, site not specified - N39.0 7. Vitamin D deficiency, unspecified - E55.9 Plan: * Treatment: * Billing Information: * Visit Code: 73250 Office Visit, Est Pt., Level 4. * Procedure Codes: * Sign off status: Pending * Provider: MD ALAN, F.A.C.P, F.A.S.N. Date: 03/07/2024
[2024-12-11 13:32] LABS: Basophils Absolute Auto 0.1 K/mm3 (0.0-0.1); Basophils Percent Auto 1.3 % (0.2-1.2); Eosinophils Absolute Auto 0.2 K/mm3 (0-0.3); Eosinophils Percent Auto 2.8 % (0-4.4); Hematocrit 34.7 % (37.0-47.0); Hemoglobin 10.6 g/dL (12.0-15.0); Immature Granulocyte Absolute 0.01 K/mm3 (0.00-0.031); Immature Granulocyte Percent A 0.1 % (0-0.5); Lymphocytes Absolute Auto 2.99 K/mm3 (0.9-3.2); Lymphocytes Percent Auto 43.6 % (18.3-44.2); Mean Corpuscular HGB Conc 30.5 g/dl (32-36); Mean Corpuscular Hemoglobin 26.2 pg (26-34); Mean Corpuscular Volume 85.7 fl (80-100); Mean Platelet Volume 12.2 fl (7.4-10.4); Monocytes Percent Auto 14.6 % (2.6-8.5); Neutrophils Absolute Auto 2.6 K/mm3 (1.3-6.7); Neutrophils Percent Auto 37.6 % (45.5-73.1); Platelet Count Result 290 k/mm3 (150-375); Red Blood Count 4.05 M/mm3 (4.2-5.4); Red Cell Distribution Width 16.1 % (11.5-14.5); White Blood Count 6.9 K/mm3 (4.5-10.0)
[2024-12-11 13:52] LABS: Alanine Aminotransferase 18 U/L (6-35); Alkaline Phosphatase 75 U/L (38-126); Anion Gap 11 mmol/L (4-12); Aspartate Amino Transferase 51 U/L (14-36); Bilirubin,Total 0.5 mg/dL (0.2-1.3); Blood Urea Nitrogen 46 mg/dL (7-17); Calcium 9.4 mg/dL (8.4-10.2); Carbon Dioxide 26 mmol/L (22-30); Chloride 103 mmol/L (98-107); Cholesterol 134 mg/dL (0-200); Estimated Glomerular Filt Rate 21; Glucose 109 mg/dL (65-110); HDL Direct 47 mg/dL; Potassium 4.4 mmol/L (3.4-5.0); Sodium 140 mmol/L (137-145); Triglycerides 99 mg/dL (<150)
[2024-12-11 14:04] LABS: LDL Cholesterol Direct 47 mg/dL
[2024-12-11 14:09] LABS: Creatinine Urine 39.2 mg/dL; Total Protein Urine Random 21 mg/dL; Ur Ttl Prot Creatinine Ratio 0.54 mg/mg (0-0.20)
[2024-12-11 14:22] LABS: Thyroid Stimulating Hormone 0.778 uIU/mL (0.465-4.680)
[2024-12-11 14:31] LABS: Parathyroid Intact 17.1 pg/mL (14.5-75.2)
[2024-12-11 14:33] LABS: Vitamin D 25 Hydroxy 69.2 ng/mL
[2024-12-11 21:14] LABS: Creatinine Urine 39.5 mg/dL
[2024-12-11 21:19] LABS: MALB Creatinine Ratio 129.9 mg/g (0-30); Microalbumin Urine Random 51.3 mg/L (0-16.7)
[2024-12-12 11:03] LABS: Hemoglobin A1C 6.8 % (<5.7)
== END 2024-12-11 08:13 | disposition home or self-care (01) ==
PROVIDERS: Nurse Practitioner; PCP Internal Medicine; Visit Provider Internal Medicine Nephrology
DX: N18.4 Chronic kidney disease, stage 4 (severe) (principal); E07.9 Disorder of thyroid, unspecified; E55.9 Vitamin D deficiency, unspecified; E11.22 Type 2 diabetes mellitus with diabetic chronic kidney disease; Z79.4 Long term (current) use of insulin; I48.20 Chronic atrial fibrillation, unspecified
CPT/HCPCS: 36415; 80053; 80061; 82043; 82306; 82570; 83036; 83970; 84156; 84443; 85025

== ENCOUNTER 2024-12-25 08:08 | Outpatient (CLI) | payer MEDICARE, SELFPAY ==
--- OUTSIDE RECORDS SUMMARY | 2024-12-25 08:14 | XMS_ITS | Patient Health Record ---
Author Organization [facility] Address [address] [place] [address] Care Team Providers Care Computer Systems Auditor Name Role Phone Eb Walters Unavailable [phone] REASON FOR REFERRAL No Information MEDICATIONS Medication SIG (Take, Route, Frequency, Duration) Notes Start Date End Date Status Ergocalciferol 1.25 MG (05017 UT) 1 capsule Orally twice a week [...] d ue to type 2 diabetes mellitus (421606281091642) Problem Secondary hyperparathyroid ism, not elsewhere classified (E21.1) Active confirmed Secondary hyperparathyroidism (32702889) Problem Vitamin D deficiency, unspecified (E55.9) Active confirmed Vitamin D defic iency (25305420) Problem Essential (primary) hypertension (I10) Active confirmed Essential hypertension (19172344) Problem Renal osteodystrophy (N25.0) Active confirmed Renal osteodyst rophy (99458560) Problem Urinary tract infection, site not specified (N39.0) Active confirmed Urinary tract infectious disease (disorder) (03569604) Problem Chronic kidney disease, stage 3a (N18.31) Active confirmed Chronic kidney disease stage 3A (disorder) (516216448) Problem Chronic kidney disease, stage 3b (N18.32) Active confirmed Chronic kidney disease stage 3B (disorder) (859332117) Encounters Encounter Location Date Provider Diagnosis [facility] [address] [facility] [address] [place] [address] 03/07/2024 Eb Walters Chronic kidney disea se, stage 3a N18.31 ; Essential (primary) hypertension I10 ; Renal osteodystrophy N25.0 ; Secondary hyperparathyroidism, not elsewhere classified E21.1 ; Type 2 diabetes mellitus with hyperglycemia E11.65 ; Urinary tract infection, site not specified N39.0 and Vitamin D deficiency, unspecified E55.9 [facility] [place] [facility] [address] [place] [address] 06/13/2024 Eb Walters Chronic kidney disea se, [...]
--- OUTSIDE RECORDS SUMMARY | 2024-12-25 08:14 | XMS_ITS ---
Author Organization [facility] Address [address] [facility] [address] [place] [address] Care Team Providers Care Densitometrist Name Role Phone Eb Walters Unavailable [phone] MEDICATIONS Medication SIG (Take, Route, Frequency, Duration) Notes Start Date End Date Status Ergocalciferol 1.25 MG (29494 UT) 1 capsule Orally twice a week [...] Active Encounters Encounter Location Date Provider Diagnosis [place] [facility] [address] [facility] [address] [place] [address] 11/30/2023 Eb Walters Chronic kidney disea se, [...] * KERRI JACOBSDOB: [birth year] (89 yo F)Acc No.[id number]:11/30/2023 Progress Notes Patient: KERRI JACOBS Provider: MD ALAN, F.A.C.P, F.A.S.N. :1935 Age:88 Y Sex:Female Date:11/30/2023 Address:[address] [place] [address] Subjective: * Chief Complaints: * * Medical [...] a day , Taking Ergocalciferol 1.25 MG (07511 UT) Capsule 1 capsule Orally twice a [...] Treatment: * Billing Information: * Visit Code: 74655 Office Visit, Est Pt., Level 4. * Procedure Codes: * Sign off status: Pending * Provider: MD ALAN, F.A.C.P, F.A.S.N. Date: 11/30/2023
--- OUTSIDE RECORDS SUMMARY | 2024-12-25 08:14 | XMS_ITS ---
Author Organization [facility] Address [address] [place] [address] Care Team Providers Care Remote Recruiter Name Role Phone Eb Walters Unavailable [phone] MEDICATIONS Medication SIG (Take, Route, Frequency, Duration) [...] Once a day Active Ergocalciferol 1.25 MG (75993 UT) 1 capsule Orally twice a week [...] confirmed Chronic kidney disease stage 3B (disorder) (886486420) Encounters Encounter Location Date Provider Diagnosis [facility] [place] [facility] [address] [place] [address] 06/13/2024 Eb Walters Chronic kidney disea se, [...] * KERRI JACOBSDOB: [birth year] (89 yo F)Acc No.[id number]:06/13/2024 Patient: HUDSON JACOBSGY Provider: MD ALAN, F.A.C.P, F.A.S.N. :1935 Age:89 Y Sex:Female Date:06/13/2024 Address:[address] [place], [place] [id number] Subjective: * Chief Complaints: Objective: Assessment: * [...] Plan: * Billing Information: * Visit Code: 17741 Office Visit, Est Pt., Level 5. * Procedure Codes: * Sign off status: Pending * Provider: MD ALAN, F.A.C.P, F.A.S.N. Date: 06/13/2024
--- OUTSIDE RECORDS SUMMARY | 2024-12-25 08:15 | XMS_ITS | Clinical Summary ---
Author Organization [facility] [place] Address [address] [place] [id number] Care Team Providers Care Pediatrics Hospitalist Name Role Phone Ezra Jamison MD Primary Care Provider + [phone] Allergies Active Allergy Reactions Criticality Noted Date [...] mg tabletIndication s:type 2 diabetes mellitus Sample [id number] 03/20 7 tablet 10/18/2017 Active glimepiride (AMARYL) [...] daily Assessment & Plan (10/18/2017 10:35 AM SPORTS COMMENTATOR): Your Hba1c today was: 8.5 meaning a [...] on file Legal Sex Female 11:52 AM SPORTS COMMENTATOR Gender Identity Not on file Sexual Orientation [...] Treatment Not on file Insurance [facility] MDCR HMO REF Care Teams Pediatrics Hospitalist Relationship Specialty Start Date End Date Ezra Jamison MD PCP - General Internal Medicine 10/08/17
--- OUTSIDE RECORDS SUMMARY | 2024-12-25 08:15 | XMS_ITS | CONTINUITY OF CARE DOCUMENT ---
Author Name mark flores Address Unknown Organization [facility] Address [address] [place] [address] [address] [place] [address] Phone [phone] Care Team Providers Care Assistant Womens Volleyball Coach Name Role Phone Briana Zheng MD Unavailable SHEBA JAMISON MD Unavailable SHEBA JAMISON MD Unavailable PROBLEMS Condition Status [...] In-person encounter Office Visit Briana Zheng MD [place] [facility] - In-person encounter Office Visit Briana Zheng MD [place] [facility] - In-person encounter Office Visit Briana Zheng MD [place] [facility] - In-person encounter Office Visit Briana Zheng MD [place] [facility] - In-person encounter Office Visit Briana Zheng MD [place] [facility] - In-person encounter Office Visit Briana Zheng MD [place] [facility] Preoperative cardiovascular evaluationCarotid bruitCAD s/p stent in the circSystolic murmur - In-person encounter Office Visit Briana Zheng MD [place] [facility] - In-person encounter Office Visit Briana Zheng MD [place] [facility] - In-person encounter Office Visit Briana Zheng MD [place] [facility] Shortness of breathChest painPalpitationsAtrial FibrillationHTNHypothyroidismDiabetes mellitus, type 2 VITAL SIGNS Date Observation Value Provider Body Mass Index (Ratio) 39.14 kg/m2 Taew on Derrick blood pressure, diastolic 96 mm[Hg] Carla nkLog blood pressure, systolic 174 mm[Hg] Payton kLog blood pressure, cuff size ;l Ke perezi Carrington blood pressure, diastolic 96 mm[Hg] Ke rri Ebony blood pressure, systolic 174 mm[Hg] Afshan Beck oxygen saturation, oximetry 98 % Елена Beck respiratory rate E&M 16 /min Елена oden pulse rate 66 /min Елена Torres [facility] weight E&M 214 [lb_av] Елена Torres [facility] height E&M 62 [in_i] Елена Torres [facility] Body Mass Index (Ratio) 39.69 kg/m2 Taew on Derrick blood pressure, diastolic 98 mm[Hg] Cy nthia Emmanuel blood pressure, systolic 152 mm[Hg] Kori thia Emmanuel blood pressure, cuff size regular Cy ntmehdi Benitez pulse rate 96 /min Jelly Campbel l oxygen saturation, oximetry 97 % Jellykendra Benitez respiratory rate E&M 16 /min Jelly Benitez weight E&M 217 [lb_av] Jelly Campbel l height E&M 62 [in_i] Jelly Campbel l Body Mass Index (Ratio) 38.59 kg/m2 Jord en Faustino blood pressure, diastolic 60 mm[Hg] [facility], systolic 122 mm[Hg] Sánchez buckner Ochoa oxygen saturation, oximetry 96 % [facility] respiratory rate E&M 16 /min Angie Ochoa pulse rate 71 /min [place] weight E&M 211 [lb_av] Angie Ochoa height E&M 62 [in_i] [place] Ochoa Body Mass Index (Ratio) 38.04 kg/m2 Jord en Faustino respiratory rate E&M 16 /min Jellykendra Benitez oxygen saturation, oximetry 98 % Jellykendra Benitez pulse rate 62 /min Jelly Campbel l blood pressure, cuff size regular Cy mala Benitez blood pressure, diastolic 80 mm[Hg] Cy mala Benitez blood pressure, systolic 138 mm[Hg] Kori kendra Benitez weight E&M 208 [lb_av] Jelly Campbel l height E&M 62 [in_i] Jelly Campbel l Body Mass Index (Ratio) 38.04 kg/m2 Jord en Faustino oxygen saturation, oximetry 98 % Jellykendra Benitez pulse rate 60 /min Jelly Campbel l respiratory rate E&M 20 /min Jelly Benitez blood pressure, cuff size regular Cy alciraa Benitez blood pressure, diastolic 80 mm[Hg] Shorty Benitez blood pressure, systolic 160 mm[Hg] Kori Benitez weight E&M 208 [lb_av] Jelly metzger height E&M 62 [in_i] Jelly Chan l Body Mass Index (Ratio) 38.04 kg/m2 Maurilio Shannan blood pressure, diastolic 80 mm[Hg] [facility] O[facility] blood pressure, systolic 130 mm[Hg] Sánchez buckner Ochoa oxygen saturation, oximetry 97 % Angie Ochoa respiratory rate E&M 16 /min [place] Ochoa pulse rate 71 /min [facility] E&M 208 [lb_av] Angie Ochoa height E&M 62 [in_i] [facility] Body Mass Index (Ratio) 38.04 kg/m2 Maurilio Shannan blood pressure, cuff size large Ke rri Gruenenfelder blood pressure, diastolic 60 mm[Hg] Ke rri Gruenenfelder blood pressure, systolic 140 mm[Hg] Afshan ri Jessenfelder oxygen saturation, oximetry 97 % Елена Shultzer respiratory rate E&M 18 /min Елена oden pulse rate 84 /min Елена Gruenenfe lder weight E&M 208 [lb_av] Елена Gruenenfe lder height E&M 62 [in_i] Елена Gruenenfe [...] Rosalio baker weight E&M 220.8 [lb_av] Rosalio armendarizon height E&M 62 [in_i] Rosalio baker ALLERGIES [...] Not Estab. platelet count 282 X10E3/UL [employer] [phone]/08/ 18 red blood cell distribution width 15.9 [...] [employer] 3.5-5.2 sodium, serum 138 mmol/L [employer] [phone]/08/ 18 urea nitrogen/creatinine ratio, serum 13 [employer] 12-28 eGFR if 41 mL/min/{1.7 3_m2} [employer] >59 Low eGFR if not 35 mL/min/{1.7 3_m2} [employer] >59 Low creatinine, serum 1.39 mg/dL [employer] 0.57-1.00 High urea nitrogen, blood 18 mg/dL [employer] 8-27 blood glucose, random 162 mg/dL [employer] 65-99 High HISTORY OF MEDICATION USE Medication Status Instructions Dates Provider Indications Com ments Nitrostat 0.4 mg tablet, sublingual completed Take [...] smoker Jelly michael smoking status Never smoker Cihdi Harmon social history reviewed E&M revi ewed [...] smoked. Panda Campbell smoking status Never smoker Rosaliojulian Otoole FUNCTIONAL STATUS Date Observation Value Provider HRA, [...] Payer name Policy type / Coverage type [place] red republican ID [facility] MEDICARE COMPLETE HMO Other [id number] ADVANCE DIRECTIVES Name Date DISCUSSED - NO DECISION MADE TREATMENT PLAN Date Name Performer [id number],C, María Meza [id number],B, María Meza [id number],B, n o chest pain Her updated medication [...] 1 tablet by mouth twice a day [facility] [id number],B, o n art bird magnesium M onitor 06/2021: S inus Rhythm. T he average heart rate was 77bpm. H er updated medication list for this problem includes: Plavix 75 Mg Tablet (Clopidogrel) ..... 1 tablet by mouth once a day Coreg 6.25 Mg Tablet (Carvedilol) ..... 1 tablet by mouth twice a day [facility] [id number],Supriya [place] following. cailin claudia controlled per pt Her updated medication list for this problem includes: Glimepiride 1 Mg Tablet (Glimepiride) ..... 1 tablet by mouth once a day Olmesartan 20 Mg Tablet (Olmesartan) ..... Take 1 tablet by mouth once a day [facility] [id number],C, O rders: C arotid Duplex Bilateral (CPT-40760) [facility] [id number],C, O rders: E KG (CPT-18337) M onitor - Telemetry (Mobile Cardiac) (CPT-67109) C omplete Echo (CPT-39817) Her updated medication list for this problem includes: Plavix 75 Mg Tablet (Clopidogrel) ..... 1 tablet by mouth once a day Coreg 6.25 Mg Tablet (Carvedilol) ..... 1 tablet by mouth twice a day [facility] [id number],C, H er updated medication list for this [...] twice a day Orders: C omplete Echo (CPT-43606) [facility] 02-07 [facility] 02-07: n o chest pain [...] 1 tablet by mouth twice a day [facility] 10: o art lópez, magnesium M onitor 06/2021: S inus Rhythm. T he average heart rate was 77bpm. H er updated medication list for this problem includes: Plavix 75 Mg Tablet (Clopidogrel) ..... 1 tablet by mouth once a day Coreg 6.25 Mg Tablet (Carvedilol) ..... 1 tablet by mouth twice a day [facility] Electrophysiology 15 : Supriya Jamison following. cailin claudia controlled per pt Her updated medication list for this problem includes: Glimepiride 1 Mg Tablet (Glimepiride) ..... 1 tablet by mouth once a day Olmesartan 20 Mg Tablet (Olmesartan) ..... Take 1 tablet by mouth once a day teja Derrick Electrophysiology 15 : O rders: C arotid Duplex Bilateral (CPT-36615) [facility] Elect[facility]iology 15 : O rders: E KG (CPT-25003) M onitor - Telemetry (Mobile Cardiac) (CPT-91930) C omplete Echo (CPT-86760) Her updated medication list for this problem [...] twice a day Orders: C omplete Echo (CPT-52284) Jimteja Derrick Cardiology follow up - completed : O rders: Robel Rivera (CPT-23013) as she cannot walk distances Her updated [...] Tablet (Carvedilol) ..... [facility] tab. [facility] daily [facility] - completed : [...] (Carvedilol) ..... One tab. twice daily María Meza Cardiology follow up - completed :Dr. Jamison following. On lantus according to patient Her updated medication list for this problem includes: Olmesartan Medoxomil 20 Mg Oral Tablet (Olmesartan medoxomil) ..... Take 1 tab once daily Glimepiride 1 Mg Oral Tablet (Glimepiride) ..... 1 tab once daily [facility] follow up - completed : H [...] tab. twice daily Orders: F VC - 40526 (26750) F RC - 38015 (22501) D LCO - 96260 (54884) María Derrick Cardiology follow up - completed : O rders: E KG (CPT-85572) Her updated medication list for this problem includes: Plavix 75 Mg Oral Tablet (Clopidogrel bisulfate) ..... One tab. daily Coreg 6.25 Mg Oral Tablet (Carvedilol) ..... One tab. twice daily [facility] follow up - completed : H [...] tab. twice daily Orders: 9 9212 Minor (CPT-67386) S chedule Followup (*) M obile Cardiac Tele (CPT-05987) Reynaldo Marshall Electrophysiology fo [facility] up : s /p cardiac cath with [...] One tab. twice daily Orders: Michael KG (CPT-70418) Chidi Harmon Electrophysiology fo llow up : [...] (Carvedilol) ..... One tab. twice daily Chidi Faustino Electrophysiology follow up Michael alec Faustino Electrophysiology fo llow up:s/p cardiac cath with [...] ..... One tab. twice daily Orders: S [facility] Study Home (CPT-62217) 9 9214 MOD Complex (CPT-00846) R enal Artery Duplex (CPT-12840) S chedule Followup (*) Chidialec Harmon Electrophysiology fo llow up:s/p cardioversion 05/10/18, converted to sinus rhythm. R emains in sinus rhythm by EKG today. H er updated medication list for this problem includes: Plavix 75 Mg Oral Tablet (Clopidogrel bisulfate) ..... One tab. daily Coreg 6.25 Mg Oral Tablet (Carvedilol) ..... One tab. twice daily Orders: S [facility] Study Home (CPT-85794) 9 9214 MOD Complex (CPT-54939) R enal Artery Duplex (CPT-39608) Chidi Harmon Electrophysiology fo llow up: B P [...] twice daily Orders: 9 9214 MOD Complex (CPT-15165) R enal Artery Duplex (CPT-22452) Chidi Harmon Electrophysiology fo llow up:home sleep [...] twice daily Orders: S leep Study Home (CPT-85004) R enal Artery Duplex (CPT-83365) Chidi Harmon Electrophysiology fo llow up:s/p cardiac [...] twice daily Orders: R enal Artery Duplex (CPT-54747) Chidi Harmon Electrophysiology: C kevink carotid US. Orders: C arotid Duplex Bilateral (CPT-64085) Panda Campbell Electrophysiology: B P today: 130/80 [...] to continue Aspirin. Orders: C omplete Echo (CPT-36858) C arotid Duplex Bilateral (CPT-17926) Her updated medication list for this problem [...] S chedule Followup (*) C omplete Echo (CPT-87155) 9 9214 MOD Complex (CPT-58934) Her updated medication list for this problem [...] S chedule Followup (*) C omplete Echo (CPT-83148) 9 9214 MOD Complex (CPT-97183) Her updated medication list for this problem [...] Fo llow up:Orders: M obile Cardiac Tele (CPT-31442) S [facility] (*) 9 14 MOD Complex (CPT-71580) Her updated medication list for this problem [...] today. HR 62 bpm. Orders: E KG (CPT-96091) M obile Cardiac Tele (CPT-72940) S [facility] (*) 9 14 MOD Complex (CPT-95150) Her updated medication list for this problem [...] llow up:Orders: C OMPREHENSIVE METABOLIC PANEL, W/EGFR (68567) T HYROID PANEL WITH TSH, 3RD GENERATION (7444) L IPID PANEL (7600) C BC (INCLUDES DIFF/PLT) (6399) F ERRITIN (457) I LAKSHMI AND TOTAL IRON BINDING CAPACITY (7573) 9 9213 LTD. Complex (CPT-49925) S chedule Followup (*) Her updated medication [...] effusion. Orders: C OMPREHENSIVE METABOLIC PANEL, W/EGFR (73587) T HYROID PANEL WITH TSH, 3RD GENERATION (7444) L IPID PANEL (7600) C BC (INCLUDES DIFF/PLT) (6399) F ERRITIN (457) I LAKSHMI AND TOTAL IRON BINDING CAPACITY (7573) 9 9213 LTD. Complex (CPT-80580) S chedule Followup (*) Her updated medication [...] ..... One tab. twice daily Panda Campbell Electrophysiology:BP today: 196/80 Her updated medication list [...] daily Panda Campbell Electrophysiology:CV on 05/10/18 at [facility], successfully converted to SR. Patient in SR todaywith HR 75 bpm. Orders: M obile Cardiac Tele (CPT-90636) 9 9214 MOD Complex (CPT-18235) & #13;Her updated medication list for this problem includes: Plavix 75 Mg Oral Tablet (Clopidogrel bisulfate) ..... One tab. daily Coreg 6.25 Mg Oral Tablet (Carvedilol) ..... One tab. twice daily Panda Campbell Electrophysiology:Ca rdiac stent 05/10/18 in circumflex artery. 70% occluded LAD. Orders: E KG (CPT-82937) X -Ray, Chest - Routine (CPT-82810) M obile Cardiac Tele (CPT-95845) C OMPREHENSIVE METABOLIC PANEL, W/EGFR (91808) P ROBNP, N TERMINAL (33282) C BC (H/H, RBC, INDICES, WBC, PLT) (1759) 9 9214 MOD Complex (CPT-64616) Her updated medication list for this problem [...] Bilat eral Monitor - Telemetry (Mobile Cardiac) DLCO - 31435 FRC - 86738 FVC - 01503 Stress Regadenoson Mobile Cardiac Tele Renal Artery [...] MD comp leted FVC / MVV - 79211 Briana Zheng MD completed BLOOD COUNT HEMOGLOBIN Briana Zheng MD completed FRC - 60523 Briana Zheng MD com pleted SpO2 w/o 6min walk/titration Briana Zheng MD completed DLCO - 49405 Briana Zheng MD co mpleted EKG Briana Zheng MD comp leted Mobile Cardiac Telemetry - Tech Briana Zheng MD completed Mobile Cardiac Telemetry - Prof Briana Zheng MD completed Schedule Followup ulius Marce RIDER In one y ear completed EKG Briana Zheng MD comp leted Schedule Followup Briana Zheng MD IN ONE W L[place] completed EKG Briana Zheng MD comp leted Schedule Followup Briana Zheng MD in 3 mo completed EKG Briana Zheng MD comp leted [...]
--- OUTSIDE RECORDS SUMMARY | 2024-12-25 08:15 | XMS_ITS ---
Author Organization [facility] [facility] Address [address] [facility] [address] [place] [address] Care Team Providers Care Tile Trimmer Name Role Phone Eb Walters Unavailable [phone] MEDICATIONS Medication SIG (Take, Route, Frequency, Duration) [...] Once a day Active Ergocalciferol 1.25 MG (04027 UT) 1 capsule Orally twice a week [...] Active Encounters Encounter Location Date Provider Diagnosis [place] [facility] [address] [facility] [address] [place] [address] 03/07/2024 Eb Walters Chronic kidney disea se, [...] * KERRI JACOBSDOB: [birth year] (89 yo F)Acc No.[id number]:03/07/2024 Progress Notes Patient: KERRI JACOBS Provider: MD ALAN, F.A.C.P, F.A.S.N. :1935 Age:88 Y Sex:Female Date:03/07/2024 Address:[address] [place] [address] Subjective: * Chief Complaints: * * Medical [...] a day , Taking Ergocalciferol 1.25 MG (07888 UT) Capsule 1 capsule Orally twice a [...] Treatment: * Billing Information: * Visit Code: 83351 Office Visit, Est Pt., Level 4. * Procedure Codes: * Sign off status: Pending * Provider: MD ALAN, F.A.C.P, F.A.S.N. Date: 03/07/2024
--- OUTSIDE RECORDS SUMMARY | 2024-12-25 08:15 | XMS_ITS | Data Portability ---
Author Organization [place] [employer], Main Office Address [address] [place] [address] Care Team Providers Care Security Monitor Name Role Phone SHEBA JAMISON Primary Care Provider SHEBA JAMISON Referring Provider [phone] Assessment Encounter Date Assessment Date Assessment LastModified by Organization Details LastModified Time 12/12/2022 12/12/2022 Follow-up 2 months continue current therapy [email or web address] Not available 12/24/2022 15:33:47 03/20/2023 03/20/2023 Diagnosis in assessment and plan been discussed continue current therapy and follow-up in 4 months avoid any nonsteroidal anti-inflammato polo stay hydrated call if questions [email or web address] Not available 03/20/2023 21:15:40 Plan of Treatment [...] Organization Details Recorded Time Acute bronchiti s 90906397 Active 2021 Not Available [facility] 3 05:47:39 Bilateral arthritis of knees 93999347587 84544 Active 2018 Not Available [facility] 3 05:47:39 Bilateral osteoarth ritis of knees 00208976036 9107 Active 2021 Not Available [facility] 3 05:47:39 Plantar fasciitis of left foot 23546974412 249658 Active 2020 Not Available [facility] 3 05:47:39 Plantar fasciitis of right foot 67905599050 948032 Active 2020 Not Available [facility] 3 05:47:39 Acquired trigger finger 8689557 Active Not Available [facility] 3 05:47:39 Asthma 591941476 Active 2020 Not Available [facility] 3 05:47:39 Tibialis posterior tendiniti s 078100731 Active 2020 Not Available [facility] 3 05:47:39 Fibromyal camilo 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 2020 Not Available [facility] 3 05:47:39 Radial styloid tenosynov itis 29081885 Active Not Available [facility] 3 05:47:39 Intestina l disacchar idase deficienc y 10627252 Completed Not Available [facility] 3 01:15:55 Neuropath y due to diabetes mellitus 928671520 Active Not Available [facility] 3 05:47:39 Osteoarth ritis of knee 001701620 Active Not Available [facility] 3 05:47:39 Triggerin g of digit 153250551 Completed Not Available [facility] 3 01:15:55 Ankle pain 021628293 Completed Not Available [facility] 3 01:15:56 Anemia 076564486 Active 2017 Not Available [facility] 3 05:47:39 Subungual hematoma of foot 332985881 Active Not Available [facility] 3 05:47:39 Metatarso phalangea l joint pain 777339920 Active 2020 Not Available [facility] 3 05:47:39 Tear of medial meniscus of knee 032138349 Active 2020 Not Available [facility] 3 05:47:39 Current tear of medial cartilage AND/OR meniscus of knee Completed Not Available [facility] 3 01:15:56 Enthesopa thy of hip region 51048254 Completed Not Available [facility] 3 01:15:57 Knee pain Completed Not Available [facility] 3 01:15:57 Type 2 diabetes mellitus without complicat ion 401208176 Active Not Available [facility] 3 05:47:39 Tendiniti s of left posterior tibial tendon 45593512469 9100 Active 2020 Not Available [facility] 3 05:47:39 Osteoarth ritis of left knee joint 76357757029 9109 Active 2020 Not Available [facility] 3 05:47:39 Bronchiti s 05984763 Active 2020 Not Available [facility] 3 05:47:39 Enthesopa thy of wrist AND/OR carpus 42034736 Active Not Available [facility] 3 05:47:39 Sinusitis 12335317 Completed Not Available [facility] 3 01:15:58 Arthritis 4017971 Active 2020 Not Available [facility] 3 05:47:39 Osteoarth ritis 350700053 Active Not Available [facility] 3 05:47:39 Hypothyro idism 60053877 Active Not Available [facility] 3 05:47:39 Obesity 563416762 Active 2020 Not Available [facility] 3 05:47:39 Onychomyc osis 197232494 Active Not Available [facility] 3 05:47:39 Chronic kidney disease stage 3 383895861 Active Not Available [facility] 3 05:47:39 Type 2 diabetes mellitus 81334000 Active 2021 Not Available [facility] 3 05:47:39 Foot pain 48165358 Active Not Available [facility] 3 05:47:39 Foot pain 90787515 Active 2020 Not Available [facility] 3 05:47:39 Hip pain 81272632 Completed Not Available [facility] 3 01:16:00 Atrial fibrillat ion 98564589 Active 2021 Not Available [facility] 3 05:47:39 Upper respirato ry infection 14573333 Completed Not Available [facility] 3 01:16:00 Hyperlipi demia 69603242 Active Not Available [facility] 3 05:47:40 Heart disease 25890560 Active 2020 Not Available [facility] 3 05:47:40 Essential hypertens ion 28628096 Active Not Available [facility] 3 05:47:40 Tinea pedis 5598270 Active Not Available [facility] 3 05:47:40 Dyspnea on exertion 98107437 Completed Not Available [facility] 3 01:16:01 Osteoporo sis 83915220 Active 2020 Not Available [facility] 3 05:47:40 Hyperglyc emia 69673519 Active Not Available [facility] 3 05:47:40 Closed fracture of phalanx of foot 31909449 Completed Not Available [facility] 3 01:16:02 Kidney disease 59187965 Active 2020 Not Available [facility] 3 05:47:40 Notes:ALLERGIES, BACK/NECK P ROBLEMS, BOWEL PROBLEMS, CARDIAC ARRHYTHMIA, HERNIATED DISEASE, THYROID DISEASE, USE OF BLOOD THINNERS Problem Notes None recorded. Procedures Surgical History Date Name Laterality Status Provider Name and Address Organization Details Recorded Time 06/20/20 21 Hernia Surgery completed Not Available [facility] 11/29/2022 01:01:31 03/27/20 13 Knee arthroscopy/surger y completed Not Available [facility] 11/29/2022 01:01:31 03/28/20 12 Date of Last Colonoscopy completed Not Available [facility] 11/29/2022 01:01:26 03/28/20 12 Colonoscopy completed Not Available [facility] 11/29/2022 01:01:31 03/16/20 09 Most Recent Bone Density completed Not Available [facility] 11/29/2022 01:01:26 Cardiac Stent Placement completed Not Available [facility] 11/29/2022 01:01:31 Hysterectomy completed Not Available [facility] 11/29/2022 01:01:31 Cholecystectomy completed Not Available [facility] 11/29/2022 01:01:31 excision of bunion completed Not Available [facility] 11/29/2022 01:01:31 Back Surgery completed Not Available [facility] 11/29/2022 01:01:31 Imaging Results None recorded. Procedure Notes None recorded. Medical Equipment None Reported. Allergies Allergen ID Allergen Name Allergen Category Reaction Reaction Severity Criticality Documentation Date Start Date Code Code System Note Provider Name and Address Organization Details Recorded Time 2768 nifedipin e medicatio n other Not available Not available 11/29/2022 7417 RxNorm BP drops Not Available [facility] 3 01:34:03 2769 Lomotil medicatio n anaphylax is Not available Not available 11/29/2022 61579 RxNorm Not Available [facility] 3 01:34:03 2770 levofloxa kamila medicatio n other Not available Not available 11/29/2022 34060 RxNorm leg pain Not Available [facility] 3 01:34:03 2771 latex environme nt,medica tion Not available Not available Not available 11/29/2022 71328 91 RxNorm Not Available [facility] 3 01:34:03 Medications Name Sig Start Date [...] mg tablet Take by oral route. take 2o3vchk, 6v2buky, 7a1joec active Not Available Not Available No t [...] administ ered by the provider 01/03 completed [facility]: [id number] 4-20 Not Available Not Available Not [...] e 50 mcg/actua tion nasal spray,[facility] [employer] [place] 2 sprays every day by intranas al [...] administ ered by the provider 09/27 completed [facility]: [id number] 03-17 Not Available Not Available Not [...] the office by the doctor 10/13 completed [facility]: [id number] 001 Not Available Not Available Not Available [...] Updated DateTime 05/23/2022 40.1 kg/m2 154.94 cm 33420.58 g Not Available [facility] 11/29/2022 01:11:48 Date Recorded Body mass index (BMI) Body height Pain severity - 0-10 verbal numeric rating [Score] - Reported Heart rate Body temperature Body weight Systolic blood pressure Diastolic blood pressure Provider Name and Address Organization Details Last Updated DateTime 2 40.1 kg/m2 154.94 cm 2 61 /min 97.5 [degF] 32101.5 8 g 140 mm[Hg] 82 mm[Hg] Not Available [facility] 3 01:11:35 Date Recorded Body mass index (BMI) Body height Heart rate Body temperature Body weight Systolic blood pressure Diastolic blood pressure Provider Name and Address Organization Details Last Updated DateTime 3 41.4 kg/m2 154.94 cm 68 /min 97.5 [degF] 14239.7 3 g 178 mm[Hg] 88 mm[Hg] Not Available [facility] 3 01:11:35 Date Recorded Heart rate Systolic blood pressure Diastolic blood pressure Provider Name and Address Organization Details Last Updated DateTime 11/28/2022 65 /min 148 mm[Hg] 68 mm[Hg] Not Available [facility] 11/29/2022 01:11:35 Date Recorded Body height Body mass index (BMI) Body weight Body temperature Heart rate Systolic blood pressure Diastolic blood pressure Provider Name and Address Organization Details Last Updated DateTime 3 154.94 cm 41.4 kg/m2 82865.7 3 g 97.9 [degF] 60 /min 152 mm[Hg] 78 mm[Hg] Jocelyn metzger RN [facility] [employer] 3 11:50:35 Date Recorded Body height Body mass index (BMI) Body weight Body temperature Heart rate Systolic blood pressure Diastolic blood pressure Provider Name and Address Organization Details Last Updated DateTime 3 154.94 cm 40.8 kg/m2 98295.9 5 g 97.2 [degF] 64 /min 140 mm[Hg] 72 mm[Hg] KWASI Maloney [facility] [employer] [facility] 3 10:52:02 Social History Question Answer Notes LastModified by Organizat ion Details LastModified Time Tobacco Smoking Status Never Smoker Not Available [facility] 11/29/2022 00:59:03 Do You Have An Advance Directive? Yes Requested Copy MIGRATION.03172 [id number] Information not available 11/29/2022 What Is Your Level Of Alcohol Consumption? Occasional MIGRATION.25592 58731 Information not available 11/29/2022 Are You Blind Or Do You Have Difficulty Seeing? No MIGRATION.58612 46281 Information not available 11/29/2022 What Is Your Level Of Caffeine Consumption? Moderate MIGRATION.43050 02960 Information not available 11/29/2022 How Much Tobacco Do You Chew? None MIGRATION.87070 09368 Information not available 11/29/2022 In The 14 Days Before Symptom Onset, Have You Had Close Contact With A Laboratory-confi rmed COVID-19 While That Case Was Ill? No MIGRATION.86680 54294 Information not available 11/29/2022 In The 14 Days Before Symptom Onset, Have You Had Close Contact With A Person Who Is Under Investigation For COVID-19 While That Person Was Ill? No MIGRATION.39412 96483 Information not available 11/29/2022 Are You Deaf Or Do You Have Serious Difficulty Hearing? No MIGRATION.21988 60745 Information not available 11/29/2022 What Type Of Diet Are You Following? REGULAR MIGRATION.67977 53894 Information not available 11/29/2022 Which Illicit Or Recreational Drugs Have You Used? None MIGRATION.18466 25291 Information not available 11/29/2022 Do You Or Have You Ever Used E-cigarettes Or Vape? Never Used Electronic Cigarettes MIGRATION.53214 63113 Information not available 11/29/2022 What Is The Highest Grade Or Level Of School You Have Completed Or The Highest Degree You Have Received? [id number] MIGRATION.84353 66025 Information not available 11/29/2022 What Is Your Occupation? Retired MIGRATION.18370 32730 Information not available 11/29/2022 Have There Been Any Changes To Your Family Or Social Situation? No MIGRATION.23504 27846 Information not available 11/29/2022 What Is The Fluoride Status Of Your Home? Unknown MIGRATION.55278 53632 Information not available 11/29/2022 Are There Any Guns Present In Your Home? No MIGRATION.82529 81393 Information not available 11/29/2022 Do You Use Insect Repellent Routinely? No MIGRATION.29641 00674 Information not available 11/29/2022 Where Do You Live? Apartment MIGRATION.13466 80974 Information not available 11/29/2022 Do You Have A Medical Power Of Silviculturist? Yes MIGRATION.24887 04705 Information not available 11/29/2022 What Was The Date Of Your Most Recent Tobacco Screening? 03/20/2023 [email or web address] Information not available 03/20/2023 Have You Ever Been Counseled For Unhealthy Alcohol Use? No MIGRATION.33001 00417 Information not available 11/29/2022 Do You Have Any Pets? No MIGRATION.03065 10814 Information not available 11/29/2022 What Is Your Relationship Status? MIGRATION.19396 56222 Information not available 11/29/2022 Do You Use Your Seat Belt Or Car Seat Routinely? Yes MIGRATION.35234 78481 Information not available 11/29/2022 Do You Have Smoke And Carbon Monoxide Detectors In Your Home? Yes MIGRATION.37175 31873 Information not available 11/29/2022 Are You Passively Exposed To Smoke? No MIGRATION.07407 40736 Information not available 11/29/2022 Do You Or Have You Ever Used Smokeless Tobacco? Never Used Smokeless Tobacco MIGRATION.88869 38941 Information not available 11/29/2022 Are There Any Smokers In Your House? No MIGRATION.74075 83377 Information not available 11/29/2022 How Much Tobacco Do You Smoke? No MIGRATION.57240 05012 Information not available 11/29/2022 What Types Of Sporting Activities Do You Participate In? None MIGRATION.95667 89991 Information not available 11/29/2022 Do You Feel Stressed (tense, Restless, Nervous, Or Anxious, Or Unable To Sleep At Night)? [id number] MIGRATION.53069 26119 Information not available 11/29/2022 Do You Use Any Illicit Or Recreational Drugs? No MIGRATION.71223 10024 Information not available 11/29/2022 Do You Use Sunscreen Routinely? No MIGRATION.35501 54388 Information not available 11/29/2022 Has Tobacco Cessation Counseling Been Provided? No MIGRATION.80106 80541 Information not available 11/29/2022 How Many Years Have You Smoked Tobacco? 0 MIGRATION.33422 89836 Information not available 11/29/2022 Have You Recently Traveled Abroad? No MIGRATION.59562 69601 Information not available 11/29/2022 Do You Have Any Dietary Restrictions? No MIGRATION.61559 95308 Information not available 11/29/2022 Do You Or Have You Ever Used Any Other Forms Of Tobacco Or Nicotine? No MIGRATION.01448 97268 Information not available 11/29/2022 Sex: Female Functional Status Question Answer Note LastModified by Organizat ion Details LastModified Time Do you have difficulty walking or climbing stairs? No MIGRATION.8831459 026 Information not available 11/29/2022 Do you have transportation difficulties? No MIGRATION.4277153 026 Information not available 11/29/2022 Are you able to walk? YESASSIST MIGRATION.5906944 026 Information not available 11/29/2022 Do you have difficulty doing errands alone? No MIGRATION.9478842 026 Information not available 11/29/2022 Are you able to care for yourself? Yes MIGRATION.7723363 026 Information not available 11/29/2022 Do you have difficulty dressing or bathing? No MIGRATION.1288734 026 Information not available 11/29/2022 What is your exercise level? Occasional MIGRATION.1530016 026 Information not available 11/29/2022 Mental Status Question Answer Note LastModified by Organizat ion Details LastModified Time Do you have difficulty concentrating, remembering or making decisions? No MIGRATION.793778332 6 Information not available 11/29/2022 Family History Relationship Description Onset Age of this Age Resolved Age Notes LastModified by Organization Details LastModified Time Father Rheumatoid arthritis MIGRATION.492 [id number] Not available 11/29/2022 01:01:41 Father Heart disease MIGRATION.602 2127502 Not available 11/29/2022 01:01:41 Father Diabetes mellitus MIGRATION.399 7735890 Not available 11/29/2022 01:01:41 Father Arthritis MIGRATION.422 9481502 Not available 11/29/2022 01:01:41 Mother Heart disease MIGRATION.719 4342900 Not available 11/29/2022 01:01:41 Mother Diabetes mellitus MIGRATION.431 7212190 Not available 11/29/2022 01:01:42 Mother Arthritis MIGRATION.887 8474334 Not available 11/29/2022 01:01:42 Sister Disorder of thyroid gland MIGRATION.078 8897505 Not available 11/29/2022 01:01:42 Sister Malignant tumor of breast with Mets-d ecease d MIGRATION.970 2234535 Not available 11/29/2022 01:01:42 Sister Diabetes mellitus MIGRATION.144 0801151 Not available 11/29/2022 01:01:42 Brother Malignant tumor of lung MIGRATION.765 2735815 Not available 11/29/2022 01:01:42 Brother Heart disease MIGRATION.474 5148553 Not available 11/29/2022 01:01:42 Brother Diabetes mellitus MIGRATION.100 4368893 Not available 11/29/2022 01:01:42 Unspecified Relation Hypertensive disorder ENTIRE FAMILY MIGRATION.485 3169847 Not available 11/29/2022 01:01:42 Unspecified Relation Osteoporosis ALL FAMILY MIGRATION.125 1869774 Not available 11/29/2022 01:01:42 Notes:BLOOD CLOTS-1 SISTER, CANCER-SISTER/BROTHER, STROKE-MOTHER/FATHER Medical History Condition Response NERVE DISEASE N BLINDNESS N RHEUMATIC FEVER N KIDNEY STONES N BLADDER PROBLEMS N OTHER # 1 N POLIO N LUNG DISEASE/DISORDER N RADIATION / CHEMOTHERAPY N COPD N Other # 2 N BLOOD DISEASES N SURGERY N EAR OR HEARING PROBLEMS N MUMPS N BOWEL PROBLEMS Y DEPRESSION (INCLUDING POST ) N STROKE/TIA N ULCERS Y BENIGN PROSTATIC HYPERPLASIA N MEASLES N MYOCARDIAL INFARCTION N OBESITY Y GERD/NAUSEA N ANEURYSM N URINARY/BLADDER/KIDNEY PROBLEMS N INPATIENT PSYCH CARE N CORONARY ARTERY DISEASE (CAD) N ADDICTION CONCERNS N Impotence N ENDOMETRIOSIS N USE OF BLOOD THINNERS Y SKIN [...] APNEA N CHICKENPOX N INFECTIOUS DISEASE N PROSTATE N HEART ARRHYTHMIA N INSOMNIA N HIGH CHOLESTEROL / HYPERLIPIDEMIA Y EYE PROBLEMS N HYPERTHYROIDISM N NEUROLOGICAL PROBLEMS N EDEMA N CHRONIC PAIN SYNDROME N HYPOTHYROIDISM N CONSTIPATION N CAROTID BLOCKAGE N BACK / NECK PROBLEMS Y HAVE YOU BEEN HOSPITALIZED OR SEEN IN [facility] IN THE PAST YEAR ? N ATHEROSCLEROSIS N BREAST PROBLEMS N DIALYSIS N ECZEMA N OSTEOPOROSIS Y ARTHRITIS Y APPENDICITIS N DIABETES, TYPE Y BAD TEETH N ENT N HEARTBURN / REFLUX Y AUTISM SPECTRUM DISORDER (ASD) N HEPATITIS / LIVER DISEASE N PULMONARY DISEASE N GOUT N SLEEP DISORDER N ALZHEIMER'S DISEASE N Brain Problems N DEMENTIA N HERPES N SEIZURES/EPILEPSY N HEADACHES/MIGRAINES N VASCULAR DISEASE N PACEMAKER N Blood Disorder N DIZZINESS N HEART DISEASE/HEART PROBLEMS Y KIDNEY DISEASE Y MULTIPLE SCLEROSIS N CANCER: SPECIFY N CARDIAC ARRHYTHMIA Y ANESTHESIA COMPLICATIONS N ATRIAL FIBRILLATION Y Gall [...] high-dose, quadrivalent, PF 1 completed Not Available [facility] 08/14/2023 05:47:42 COVID-19, mRNA, LNP-S, PF, 30 mcg/0.3 mL dose 1 completed Not Available [facility] 08/14/2023 05:47:42 COVID-19, mRNA, LNP-S, PF, 30 mcg/0.3 mL dose 1 completed Not Available [facility] 08/14/2023 05:47:42 Influenza, split virus, trivalent, preservative 0 completed Not Available [facility] 08/14/2023 05:47:42 Influenza, high-dose, trivalent, PF 9 completed Not Available [facility] 08/14/2023 05:47:42 Influenza, high-dose, trivalent, PF 8 completed Not Available [facility] 08/14/2023 05:47:42 COVID-19, mRNA, LNP-S, PF, 30 mcg/0.3 mL dose 1 completed Not Available [facility] 08/14/2023 05:47:42 Influenza, high-dose, quadrivalent, PF 2 completed Not Available [facility] 08/14/2023 05:47:42 Influenza, split virus, quadrivalent, PF 5 completed Not Available [facility] 08/14/2023 05:47:42 Past Encounters Encounter ID Performer Location Encounter Start Date Encounter Closed Date Diagnosis/Indication Diagnosis SNOMED-CT Code Diagnosis ICD10 Code Diagnosis Note [id number] [facility] [address] [facility] 15 [place] [address] 12/06/2020 00:00:00 12/06/2020 22:04:23 [id number] [facility] [address] [address] 01/14/2021 00:00:00 01/15/2021 14:36:58 [id number] [facility] [place] [address], [facility] 4 [place] [address] 02/03/2021 00:00:00 02/03/2021 11:55:47 [id number] [facility] [place] [address], [address] [address] 02/11/2021 00:00:00 02/11/2021 09:46:16 [id number] [facility] [address] [address] 03/07/2021 00:00:00 03/07/2021 22:20:00 [id number] [facility] [place] [address], [facility] 4 [place] [address] 03/24/2021 00:00:00 03/24/2021 11:14:30 [id number] [facility] [place] [address], [facility] 4 [place] [address] 05/09/2021 00:00:00 05/09/2021 11:10:26 [id number] [facility] [address] [address] 05/20/2021 00:00:00 05/21/2021 17:35:04 [id number] [facility] [place] [address], [address] [address] 05/30/2021 00:00:00 05/30/2021 10:53:39 [id number] [facility] General Surgery [address] [place] [address] 05/31/2021 00:00:00 05/31/2021 13:25:59 [id number] [facility] [address] [place] [address] 06/27/2021 00:00:00 06/27/2021 10:42:57 [id number] [facility] General Surgery [address] [place] [address] 06/28/2021 00:00:00 06/28/2021 11:36:57 [id number] [facility] [place] [address] [facility], Bj 4 [place] [address] 07/04/2021 00:00:00 07/11/2021 07:48:30 [id number] [facility] [address] [facility] 15 [place] [address] 08/31/2021 00:00:00 09/18/2021 22:19:11 [id number] [facility] Ortho [address] [address] 09/06/2021 00:00:00 09/06/2021 09:37:29 [id number] [facility] Ortho [address] [address] 09/27/2021 00:00:00 09/27/2021 09:17:20 [id number] [facility] Internal [facility] Bj [address] [place], [place] [address]e., [facility] 15 [place] [address] 10/04/2021 00:00:00 10/04/2021 22:57:15 [id number] [facility] Ortho [address] [address] 10/11/2021 00:00:00 10/11/2021 09:26:55 [id number] [facility] Internal [facility] Bj [address] [address] 11/14/2021 00:00:00 11/27/2021 11:12:31 [id number] [facility] [address] [place] [address] 11/22/2021 00:00:00 11/22/2021 09:15:40 [id number] [facility] Internal [facility] [address] [place] [address] Ave[address] [address] 01/03/2022 00:00:00 01/15/2022 15:48:27 [id number] [facility] [address] [place] [address] [address] [address] 04/12/2022 00:00:00 05/01/2022 20:37:22 [id number] [facility] [address] [address] 05/23/2022 00:00:00 05/23/2022 11:09:17 [id number] [facility] [address] [place] [address] Ave[address] [address] 08/02/2022 00:00:00 08/02/2022 22:43:51 [id number] [facility] Internal Med Bird martínez [address] [place] [address] [place] [address] 11/16/2022 00:00:00 11/18/2022 21:28:53 [id number] Sheba Jamison MD [facility] [place] [place] [address] [place] [address] 12/12/2022 11:18:36 12/12/2022 12:33:58 Essential hypertension 78195252 I10 [id number] Sheba Jamison MD [facility] Bird mart[address]nez [address] [place] [address] [place] [address] 03/20/2023 10:40:06 03/20/2023 11:42:37 Essential hypertension 14096074 I10 Hyperlipidemia 67550791 E78.5 Hypothyroidism 93213368 E03.9 Type 2 adolph betes mellitus without complication [id number] E11.9 Health Concerns Section Related Observation LastModified by Organization Detai ls LastModified Time None Recorded Concern Status LastModified by Organization Details LastModified Time None Recorded Advance Directives Directive Y: requested copy Payers Encounter Date Sequence Insurance Name Policy Number Policy Miranda Covered Member ID Miranda Member ID Guarantor Name 12/12/2022 1 [facility] (MEDICARE REPLACEMENT/ ADVANTAGE - HMO) [id number] Danna S Mellisaldanielle [id number] Danna S Solldanielle 03/20/2023 1 [employer] (MEDICARE REPLACEMENT/ ADVANTAGE - HMO) [id number] Danna S Solldanielle [id number] Danna S Mellisaldanielle Notes Date Note Type Note Provider Name and Address Organization Details Recorded Time 12/12/2022 text/html Blood pressure a little bit better Sheba Jamison MD [address], [place], [address], [employer] 12/24/2022 15:34:06 03/20/2023 text/html diabetes no polyphagia no polydipsia. Hyperlipidemia try to take her medication watch diet. Hypothyroid some fatigue but no heat or cold intolerance. Hypertension no headache denies dizziness. CKD 3 no symptoms Sheba Jamison MD [address], [employer], [place], [address], [employer] 03/20/2023 21:16:00 OBGyn Episode No OBEpisode recorded.
--- OUTSIDE RECORDS SUMMARY | 2024-12-25 08:15 | XMS_ITS | Clinical Summary ---
Author Organization [facility] Address [address] [place] [address] Care Team Providers Care Rouge Sifter And Miller Name Role Phone Ezra Jamison MD Primary Care Provider [phone] Source Comments [facility],non-owned Affiliates and Associated Physician Practices is amultiple site organization consisting of ambulatory clinics and hospital sitesin [place], [place], [place] and [place]. This disclosure is being madepursuant to the Care Everywhere program and may not contain all information available regarding this patient. Last updated [facility] Allergies Active Allergy Reactions Criticality Noted Date [...] Comments Blood Pressure 165/72 09/19/2022 6:00 AM EQUIPMENT ENGINEERING TECHNICIAN Pulse 75 09/19/2022 3:01 AM EQUIPMENT ENGINEERING TECHNICIAN Temperature 36.4 C (97.5 F) 09/19/2022 1:51 AM EQUIPMENT ENGINEERING TECHNICIAN Respiratory Rate 22 09/19/2022 2:55 AM EQUIPMENT ENGINEERING TECHNICIAN Oxygen Saturation 96% 09/19/2022 6:00 AM EQUIPMENT ENGINEERING TECHNICIAN Inhaled Oxygen Concentration - - Weight 83.9 kg (185 lb) 09/19/2022 1:51 AM EQUIPMENT ENGINEERING TECHNICIAN Height 167.6 cm (5' 6 ) 09/19/2022 1:51 AM EQUIPMENT ENGINEERING TECHNICIAN Body Mass Index 29.86 09/19/2022 1:51 AM EQUIPMENT ENGINEERING TECHNICIAN Plan of Treatment Health Maintenance Due Date [...] age to complete this topic Care Teams Rouge Sifter And Miller Relationship Specialty Start Date End Date Ezra Jamison MD PCP - General Internal Medicine 09/19/22
--- OUTSIDE RECORDS SUMMARY | 2024-12-25 08:15 | XMS_ITS | Referral Summary ---
Author Organization [facility] Address [address] [place] [address] Care Team Providers Care Sql Database Programmer Name Role Phone Ezra Jamison MD Primary Care Provider + [phone] Allergies Active Allergy Reactions Criticality Noted Date [...] mg tabletIndication s:type 2 diabetes mellitus Sample [id number] 03/20 7 tablet 10/18/2017 Active glimepiride (AMARYL) [...] daily Assessment & Plan (10/18/2017 10:35 AM IT OPERATIONS MANAGER): Your Hba1c today was: 8.5 meaning [...] on file Legal Sex Female 11:52 AM IT OPERATIONS MANAGER Gender Identity Not on file Sexual [...] Plan of Treatment Not on file Insurance [facility] MDCR HMO REF Care Teams Sql Database Programmer Relationship Specialty Start Date End Date Ezra Jamison MD PCP - General Internal Medicine 10/08/17
[2024-12-25 20:33] LABS: Anion Gap 12 mmol/L (4-12); Blood Urea Nitrogen 40 mg/dL (7-17); Calcium 9.6 mg/dL (8.4-10.2); Carbon Dioxide 26 mmol/L (22-30); Chloride 103 mmol/L (98-107); Estimated Glomerular Filt Rate 25; Glucose 60 mg/dL (65-110); Potassium 4.5 mmol/L (3.4-5.0); Sodium 141 mmol/L (137-145)
== END 2024-12-25 08:09 | disposition home or self-care (01) ==
PROVIDERS: PCP Internal Medicine; Visit Provider Internal Medicine Nephrology
DX: N18.4 Chronic kidney disease, stage 4 (severe) (principal)
CPT/HCPCS: 36415; 80048

== ENCOUNTER 2024-12-26 10:20 | Outpatient (CLI) | payer MEDICARE, SELFPAY ==
--- OUTSIDE RECORDS SUMMARY | 2024-12-26 11:15 | XMS_ITS ---
Author Organization [facility] Address [address] [facility] [address] [facility] [address] [place] [address] Care Team Providers Care Reserve Operator Name Role Phone Eb Walters Unavailable [phone] MEDICATIONS Medication SIG (Take, Route, Frequency, Duration) Notes Start Date End Date Status Ergocalciferol 1.25 MG (78221 UT) 1 capsule Orally twice a week [...] Active Encounters Encounter Location Date Provider Diagnosis [place] [facility] [address] [facility] [address] [place] [address] 11/30/2023 Eb Walters Chronic kidney disea se, [...] * KERRI JACOBSDOB: [birth year] (89 yo F)Acc No.[id number]:11/30/2023 Progress Notes Patient: KERRI JACOBS Provider: MD ALAN, F.A.C.P, F.A.S.N. :1935 Age:88 Y Sex:Female Date:11/30/2023 Address:[address] [place] [address] Subjective: * Chief Complaints: * * Medical [...] a day , Taking Ergocalciferol 1.25 MG (64714 UT) Capsule 1 capsule Orally twice a [...] Treatment: * Billing Information: * Visit Code: 10932 Office Visit, Est Pt., Level 4. * Procedure Codes: * Sign off status: Pending * Provider: MD ALAN, F.A.C.P, F.A.S.N. Date: 11/30/2023
--- OUTSIDE RECORDS SUMMARY | 2024-12-26 11:15 | XMS_ITS ---
Author Organization [facility] Address [address] [place] [address] Care Team Providers Care Associate Chemist Name Role Phone Eb Walters Unavailable [phone] MEDICATIONS Medication SIG (Take, Route, Frequency, Duration) [...] Once a day Active Ergocalciferol 1.25 MG (25683 UT) 1 capsule Orally twice a week [...] confirmed Chronic kidney disease stage 3B (disorder) (034057419) Encounters Encounter Location Date Provider Diagnosis [facility] [place] [facility] [address] [place] [address] 06/13/2024 Eb Walters Chronic kidney disea se, [...] * KERRI JACOBSDOB: [birth year] (89 yo F)Acc No.[id number]:06/13/2024 Patient: HUDSON JACOBSGY Provider: MD ALAN, F.A.C.P, F.A.S.N. :1935 Age:89 Y Sex:Female Date:06/13/2024 Address:[address] [place], [place] [id number] Subjective: * Chief Complaints: Objective: Assessment: * [...] Plan: * Billing Information: * Visit Code: 01484 Office Visit, Est Pt., Level 5. * Procedure Codes: * Sign off status: Pending * Provider: MD ALAN, F.A.C.P, F.A.S.N. Date: 06/13/2024
--- OUTSIDE RECORDS SUMMARY | 2024-12-26 11:15 | XMS_ITS | Patient Health Record ---
Author Organization [facility] Address [address] [place] [address] Care Team Providers Care Fisher Trawl Net Name Role Phone Eb Walters Unavailable [phone] REASON FOR REFERRAL No Information MEDICATIONS Medication SIG (Take, Route, Frequency, Duration) Notes Start Date End Date Status Ergocalciferol 1.25 MG (28616 UT) 1 capsule Orally twice a week [...] d ue to type 2 diabetes mellitus (039913669628072) Problem Secondary hyperparathyroid ism, not elsewhere classified (E21.1) Active confirmed Secondary hyperparathyroidism (52950148) Problem Vitamin D deficiency, unspecified (E55.9) Active confirmed Vitamin D defic iency (70528290) Problem Essential (primary) hypertension (I10) Active confirmed Essential hypertension (78973089) Problem Renal osteodystrophy (N25.0) Active confirmed Renal osteodyst rophy (66640661) Problem Urinary tract infection, site not specified (N39.0) Active confirmed Urinary tract infectious disease (disorder) (64390097) Problem Chronic kidney disease, stage 3a (N18.31) Active confirmed Chronic kidney disease stage 3A (disorder) (029778460) Problem Chronic kidney disease, stage 3b (N18.32) Active confirmed Chronic kidney disease stage 3B (disorder) (725859138) Encounters Encounter Location Date Provider Diagnosis [facility] [address] [facility] [address] [place] [address] 03/07/2024 Eb Walters Chronic kidney disea se, stage 3a N18.31 ; Essential (primary) hypertension I10 ; Renal osteodystrophy N25.0 ; Secondary hyperparathyroidism, not elsewhere classified E21.1 ; Type 2 diabetes mellitus with hyperglycemia E11.65 ; Urinary tract infection, site not specified N39.0 and Vitamin D deficiency, unspecified E55.9 [facility] [place] [facility] [address] [place] [address] 06/13/2024 Eb Walters Chronic kidney disea se, [...]
--- OUTSIDE RECORDS SUMMARY | 2024-12-26 11:16 | XMS_ITS | Data Portability ---
Author Organization [place] [facility] [employer], Main Office Address [address] [place] [address] Care Team Providers Care Noodle Maker Name Role Phone SHEBA JAMISON Primary Care Provider SHEBA JAMISON Referring Provider Assessment Encounter Date Assessment Date Assessment LastModified by Organization Details LastModified Time 12/12/2022 12/12/2022 Follow-up 2 months continue current therapy [email or web address] Not available 12/24/2022 15:33:47 03/20/2023 03/20/2023 Diagnosis in assessment and plan been discussed continue current therapy and follow-up in 4 months avoid any nonsteroidal anti-inflammato polo stay hydrated call if questions [id number] Not available 03/20/2023 21:15:40 Plan of Treatment [...] Organization Details Recorded Time Acute bronchiti s 12447394 Active 2021 Not Available [facility] 3 05:47:39 Bilateral arthritis of knees 46280314156 42308 Active 2018 Not Available [facility] 3 05:47:39 Bilateral osteoarth ritis of knees 44707241991 9107 Active 2021 Not Available [facility] 3 05:47:39 Plantar fasciitis of left foot 66517801970 720037 Active 2020 Not Available [facility] 3 05:47:39 Plantar fasciitis of right foot 63655037761 308648 Active 2020 Not Available [facility] 3 05:47:39 Acquired trigger finger 9675612 Active Not Available [facility] 3 05:47:39 Asthma 412425318 Active 2020 Not Available [facility] 3 05:47:39 Tibialis posterior tendiniti s 563075145 Active 2020 Not Available [facility] 3 05:47:39 Fibromyal camilo 683551551 Active 2020 Not Available [facility] 3 05:47:39 Radial styloid tenosynov itis 20418312 Active Not Available [facility] 3 05:47:39 Intestina l disacchar idase deficienc y 15309254 Completed Not Available [facility] 3 01:15:55 Neuropath y due to diabetes mellitus 200240119 Active Not Available [facility] 3 05:47:39 Osteoarth ritis of knee 299547431 Active Not Available [facility] 3 05:47:39 Triggerin g of digit 100378959 Completed Not Available [facility] 3 01:15:55 Ankle pain 538870005 Completed Not Available [facility] 3 01:15:56 Anemia 267692083 Active 2017 Not Available [facility] 3 05:47:39 Subungual hematoma of foot 445531630 Active Not Available [facility] 3 05:47:39 Metatarso phalangea l joint pain 871717839 Active 2020 Not Available [facility] 3 05:47:39 Tear of medial meniscus of knee 566619869 Active 2020 Not Available [facility] 3 05:47:39 Current tear of medial cartilage AND/OR meniscus of knee Completed Not Available [facility] 3 01:15:56 Enthesopa thy of hip region 65810398 Completed Not Available [facility] 3 01:15:57 Knee pain Completed Not Available [facility] 3 01:15:57 Type 2 diabetes mellitus without complicat ion 809889746 Active Not Available [facility] 3 05:47:39 Tendiniti s of left posterior tibial tendon 53397386011 9100 Active 2020 Not Available [facility] 3 05:47:39 Osteoarth ritis of left knee joint 98250056520 9109 Active 2020 Not Available [facility] 3 05:47:39 Bronchiti s 45251820 Active 2020 Not Available [facility] 3 05:47:39 Enthesopa thy of wrist AND/OR carpus 39552066 Active Not Available [facility] 3 05:47:39 Sinusitis 22761387 Completed Not Available [facility] 3 01:15:58 Arthritis 8058978 Active 2020 Not Available [facility] 3 05:47:39 Osteoarth ritis 087101735 Active Not Available [facility] 3 05:47:39 Hypothyro idism 32609127 Active Not Available [facility] 3 05:47:39 Obesity 522355561 Active 2020 Not Available [facility] 3 05:47:39 Onychomyc osis 585806853 Active Not Available [facility] 3 05:47:39 Chronic kidney disease stage 3 849615541 Active Not Available [facility] 3 05:47:39 Type 2 diabetes mellitus 23612883 Active 2021 Not Available [facility] 3 05:47:39 Foot pain 34807381 Active Not Available [facility] 3 05:47:39 Foot pain 04868193 Active 2020 Not Available [facility] 3 05:47:39 Hip pain 92129225 Completed Not Available [facility] 3 01:16:00 Atrial fibrillat ion 40230652 Active 2021 Not Available [facility] 3 05:47:39 Upper respirato ry infection 36757536 Completed Not Available [facility] 3 01:16:00 Hyperlipi demia 80091172 Active Not Available [facility] 3 05:47:40 Heart disease 89464989 Active 2020 Not Available [facility] 3 05:47:40 Essential hypertens ion 84478702 Active Not Available [facility] 3 05:47:40 Tinea pedis 3586972 Active Not Available [facility] 3 05:47:40 Dyspnea on exertion 89198922 Completed Not Available [facility] 3 01:16:01 Osteoporo sis 28176829 Active 2020 Not Available [facility] 3 05:47:40 Hyperglyc emia 09736063 Active Not Available [facility] 3 05:47:40 Closed fracture of phalanx of foot 34644831 Completed Not Available [facility] 3 01:16:02 Kidney disease 82445569 Active 2020 Not Available [facility] 3 05:47:40 Notes:ALLERGIES, BACK/NECK P ROBLEMS, BOWEL PROBLEMS, CARDIAC ARRHYTHMIA, HERNIATED DISEASE, THYROID DISEASE, USE OF BLOOD THINNERS Problem Notes None recorded. Procedures Surgical History Date Name Laterality Status Provider Name and Address Organization Details Recorded Time 06/20/20 21 Hernia Surgery completed Not Available [facility] 11/29/2022 01:01:31 03/27/20 13 Knee arthroscopy/surger y completed Not Available [facility] 11/29/2022 01:01:31 03/28/20 12 Date of Last Colonoscopy completed Not Available [facility] 11/29/2022 01:01:26 03/28/20 12 Colonoscopy completed Not Available [facility] 11/29/2022 01:01:31 03/16/20 09 Most Recent Bone Density completed Not Available [facility] 11/29/2022 01:01:26 Cardiac Stent Placement completed Not Available [facility] 11/29/2022 01:01:31 Hysterectomy completed Not Available [facility] 11/29/2022 01:01:31 Cholecystectomy completed Not Available [facility] 11/29/2022 01:01:31 excision of bunion completed Not Available [facility] 11/29/2022 01:01:31 Back Surgery completed Not Available [facility] 11/29/2022 01:01:31 Imaging Results None recorded. Procedure Notes None recorded. Medical Equipment None Reported. Allergies Allergen ID Allergen Name Allergen Category Reaction Reaction Severity Criticality Documentation Date Start Date Code Code System Note Provider Name and Address Organization Details Recorded Time 2768 nifedipin e medicatio n other Not available Not available 11/29/2022 7417 RxNorm BP drops Not Available [facility] 3 01:34:03 2769 Lomotil medicatio n anaphylax is Not available Not available 11/29/2022 07323 RxNorm Not Available [facility] 3 01:34:03 2770 levofloxa kamila medicatio n other Not available Not available 11/29/2022 24759 RxNorm leg pain Not Available [facility] 3 01:34:03 2771 latex environme nt,medica tion Not available Not available Not available 11/29/2022 39186 91 RxNorm Not Available [facility] 3 01:34:03 Medications Name Sig Start Date [...] mg tablet Take by oral route. take [id number], 7c3xude, 3t2wrhf active Not Available Not Available No t [...] administ ered by the provider 01/03 completed [facility]: [phone] 4-20 Not Available Not Available Not [...] e 50 mcg/actua tion nasal spray,chi pension [place] 2 sprays every day by intranas al [...] administ ered by the provider 09/27 completed [facility]: 0409-427 03-17 Not Available Not Available Not [...] the office by the doctor 10/13 completed [facility]: [id number] 001 Not Available Not Available Not Available [...] Updated DateTime 05/23/2022 40.1 kg/m2 154.94 cm 10966.58 g Not Available [facility] 11/29/2022 01:11:48 Date Recorded Body mass index (BMI) Body height Pain severity - 0-10 verbal numeric rating [Score] - Reported Heart rate Body temperature Body weight Systolic blood pressure Diastolic blood pressure Provider Name and Address Organization Details Last Updated DateTime 2 40.1 kg/m2 154.94 cm 2 61 /min 97.5 [degF] 01403.5 8 g 140 mm[Hg] 82 mm[Hg] Not Available [facility] 3 01:11:35 Date Recorded Body mass index (BMI) Body height Heart rate Body temperature Body weight Systolic blood pressure Diastolic blood pressure Provider Name and Address Organization Details Last Updated DateTime 3 41.4 kg/m2 154.94 cm 68 /min 97.5 [degF] 32046.7 3 g 178 mm[Hg] 88 mm[Hg] Not Available [facility] 3 01:11:35 Date Recorded Heart rate Systolic blood pressure Diastolic blood pressure Provider Name and Address Organization Details Last Updated DateTime 11/28/2022 65 /min 148 mm[Hg] 68 mm[Hg] Not Available [facility] 11/29/2022 01:11:35 Date Recorded Body height Body mass index (BMI) Body weight Body temperature Heart rate Systolic blood pressure Diastolic blood pressure Provider Name and Address Organization Details Last Updated DateTime 3 154.94 cm 41.4 kg/m2 16728.7 3 g 97.9 [degF] 60 /min 152 mm[Hg] 78 mm[Hg] Jocelyn metzger RN [facility] [employer] 3 11:50:35 Date Recorded Body height Body mass index (BMI) Body weight Body temperature Heart rate Systolic blood pressure Diastolic blood pressure Provider Name and Address Organization Details Last Updated DateTime 3 154.94 cm 40.8 kg/m2 19298.9 5 g 97.2 [degF] 64 /min 140 mm[Hg] 72 mm[Hg] KWASI Maloney [place] [employer] [facility] [email or web address] [facility] 3 10:52:02 Social History Question Answer Notes LastModified by Organizat ion Details LastModified Time Tobacco Smoking Status Never Smoker Not Available [facility] 11/29/2022 00:59:03 Do You Have An Advance Directive? Yes Requested Copy MIGRATION.18033 69283 Information not available 11/29/2022 What Is Your Level Of Alcohol Consumption? Occasional MIGRATION.74039 49305 Information not available 11/29/2022 Are You Blind Or Do You Have Difficulty Seeing? No MIGRATION.46363 57934 Information not available 11/29/2022 What Is Your Level Of Caffeine Consumption? Moderate MIGRATION.35998 40976 Information not available 11/29/2022 How Much Tobacco Do You Chew? None MIGRATION.16356 32814 Information not available 11/29/2022 In The 14 Days Before Symptom Onset, Have You Had Close Contact With A Laboratory-confi rmed COVID-19 While That Case Was Ill? No MIGRATION.71214 95588 Information not available 11/29/2022 In The 14 Days Before Symptom Onset, Have You Had Close Contact With A Person Who Is Under Investigation For COVID-19 While That Person Was Ill? No MIGRATION.07561 24528 Information not available 11/29/2022 Are You Deaf Or Do You Have Serious Difficulty Hearing? No MIGRATION.63696 60821 Information not available 11/29/2022 What Type Of Diet Are You Following? REGULAR MIGRATION.78168 74594 Information not available 11/29/2022 Which Illicit Or Recreational Drugs Have You Used? None MIGRATION.16149 07270 Information not available 11/29/2022 Do You Or Have You Ever Used E-cigarettes Or Vape? Never Used Electronic Cigarettes MIGRATION.88260 69996 Information not available 11/29/2022 What Is The Highest Grade Or Level Of School You Have Completed Or The Highest Degree You Have Received? OL08752-2 MIGRATION.41249 96677 Information not available 11/29/2022 What Is Your Occupation? Retired MIGRATION.53630 71532 Information not available 11/29/2022 Have There Been Any Changes To Your Family Or Social Situation? No MIGRATION.69928 17831 Information not available 11/29/2022 What Is The Fluoride Status Of Your Home? Unknown MIGRATION.38173 16115 Information not available 11/29/2022 Are There Any Guns Present In Your Home? No MIGRATION.23710 89232 Information not available 11/29/2022 Do You Use Insect Repellent Routinely? No MIGRATION.83218 81828 Information not available 11/29/2022 Where Do You Live? Apartment MIGRATION.13636 41268 Information not available 11/29/2022 Do You Have A Medical Power Of Rn Embedded? Yes MIGRATION.15535 36980 Information not available 11/29/2022 What Was The Date Of Your Most Recent Tobacco Screening? 03/20/2023 [email or web address] Information not available 03/20/2023 Have You Ever Been Counseled For Unhealthy Alcohol Use? No MIGRATION.69890 59302 Information not available 11/29/2022 Do You Have Any Pets? No MIGRATION.36659 74290 Information not available 11/29/2022 What Is Your Relationship Status? MIGRATION.16324 47140 Information not available 11/29/2022 Do You Use Your Seat Belt Or Car Seat Routinely? Yes MIGRATION.00745 39644 Information not available 11/29/2022 Do You Have Smoke And Carbon Monoxide Detectors In Your Home? Yes MIGRATION.63086 27401 Information not available 11/29/2022 Are You Passively Exposed To Smoke? No MIGRATION.71091 99622 Information not available 11/29/2022 Do You Or Have You Ever Used Smokeless Tobacco? Never Used Smokeless Tobacco MIGRATION.09755 35564 Information not available 11/29/2022 Are There Any Smokers In Your House? No MIGRATION.19108 36758 Information not available 11/29/2022 How Much Tobacco Do You Smoke? No MIGRATION.11453 11852 Information not available 11/29/2022 What Types Of Sporting Activities Do You Participate In? None MIGRATION.61655 12509 Information not available 11/29/2022 Do You Feel Stressed (tense, Restless, Nervous, Or Anxious, Or Unable To Sleep At Night)? [id number] MIGRATION.48003 02687 Information not available 11/29/2022 Do You Use Any Illicit Or Recreational Drugs? No MIGRATION.40479 89711 Information not available 11/29/2022 Do You Use Sunscreen Routinely? No MIGRATION.11852 85356 Information not available 11/29/2022 Has Tobacco Cessation Counseling Been Provided? No MIGRATION.72364 57798 Information not available 11/29/2022 How Many Years Have You Smoked Tobacco? 0 MIGRATION.52292 82372 Information not available 11/29/2022 Have You Recently Traveled Abroad? No MIGRATION.60607 63921 Information not available 11/29/2022 Do You Have Any Dietary Restrictions? No MIGRATION.18596 56345 Information not available 11/29/2022 Do You Or Have You Ever Used Any Other Forms Of Tobacco Or Nicotine? No MIGRATION.65057 30500 Information not available 11/29/2022 Sex: Female Functional Status Question Answer Note LastModified by Organizat ion Details LastModified Time Do you have difficulty walking or climbing stairs? No MIGRATION.1078520 026 Information not available 11/29/2022 Do you have transportation difficulties? No MIGRATION.4082129 026 Information not available 11/29/2022 Are you able to walk? YESASSIST MIGRATION.0252828 026 Information not available 11/29/2022 Do you have difficulty doing errands alone? No MIGRATION.6772891 026 Information not available 11/29/2022 Are you able to care for yourself? Yes MIGRATION.5107551 026 Information not available 11/29/2022 Do you have difficulty dressing or bathing? No MIGRATION.2435265 026 Information not available 11/29/2022 What is your exercise level? Occasional MIGRATION.1930354 026 Information not available 11/29/2022 Mental Status Question Answer Note LastModified by Organizat ion Details LastModified Time Do you have difficulty concentrating, remembering or making decisions? No MIGRATION.956224732 6 Information not available 11/29/2022 Family History Relationship Description Onset Age of this Age Resolved Age Notes LastModified by Organization Details LastModified Time Father Rheumatoid arthritis MIGRATION.981 0668002 Not available 11/29/2022 01:01:41 Father Heart disease MIGRATION.344 1874390 Not available 11/29/2022 01:01:41 Father Diabetes mellitus MIGRATION.124 9681235 Not available 11/29/2022 01:01:41 Father Arthritis MIGRATION.092 9081309 Not available 11/29/2022 01:01:41 Mother Heart disease MIGRATION.898 6771727 Not available 11/29/2022 01:01:41 Mother Diabetes mellitus MIGRATION.437 5709536 Not available 11/29/2022 01:01:42 Mother Arthritis MIGRATION.366 2194351 Not available 11/29/2022 01:01:42 Sister Disorder of thyroid gland MIGRATION.879 0504647 Not available 11/29/2022 01:01:42 Sister Malignant tumor of breast with Mets-d ecease d MIGRATION.905 5529584 Not available 11/29/2022 01:01:42 Sister Diabetes mellitus MIGRATION.649 3382296 Not available 11/29/2022 01:01:42 Brother Malignant tumor of lung MIGRATION.843 8214909 Not available 11/29/2022 01:01:42 Brother Heart disease MIGRATION.492 1775984 Not available 11/29/2022 01:01:42 Brother Diabetes mellitus MIGRATION.788 9923679 Not available 11/29/2022 01:01:42 Unspecified Relation Hypertensive disorder ENTIRE FAMILY MIGRATION.522 0698860 Not available 11/29/2022 01:01:42 Unspecified Relation Osteoporosis ALL FAMILY MIGRATION.176 0076249 Not available 11/29/2022 01:01:42 Notes:BLOOD CLOTS-1 SISTER, CANCER-SISTER/BROTHER, STROKE-MOTHER/FATHER Medical History Condition Response NERVE DISEASE N BLINDNESS N RHEUMATIC FEVER N KIDNEY STONES N BLADDER PROBLEMS N OTHER # 1 N POLIO N LUNG DISEASE/DISORDER N RADIATION / CHEMOTHERAPY N COPD N Other # 2 N BLOOD DISEASES N SURGERY N EAR OR HEARING PROBLEMS N MUMPS N DEPRESSION (INCLUDING POST ) N BOWEL PROBLEMS Y STROKE/TIA N ULCERS Y BENIGN PROSTATIC HYPERPLASIA [...] HAVE YOU BEEN HOSPITALIZED OR SEEN IN THE MEDICAL CENTER IN THE PAST YEAR ? N ATHEROSCLEROSIS N BREAST PROBLEMS N DIALYSIS N ECZEMA N OSTEOPOROSIS Y ARTHRITIS Y APPENDICITIS N DIABETES, TYPE Y BAD TEETH N ENT N HEARTBURN / REFLUX Y AUTISM SPECTRUM DISORDER (ASD) N HEPATITIS / LIVER DISEASE N PULMONARY DISEASE N GOUT N SLEEP DISORDER N ALZHEIMER'S DISEASE N Brain Problems N HERPES N DEMENTIA N SEIZURES/EPILEPSY N HEADACHES/MIGRAINES N VASCULAR DISEASE N PACEMAKER N Blood Disorder N DIZZINESS N KIDNEY DISEASE Y HEART DISEASE/HEART PROBLEMS Y MULTIPLE SCLEROSIS N CARDIAC ARRHYTHMIA Y CANCER: SPECIFY N ANESTHESIA COMPLICATIONS N Gall Stones N ATRIAL FIBRILLATION Y PULMONARY EMBOLISM N AUTOIMMUNE DISEASE N Gynecological [...] high-dose, quadrivalent, PF 1 completed Not Available [facility] 08/14/2023 05:47:42 COVID-19, mRNA, LNP-S, PF, 30 mcg/0.3 mL dose 1 completed Not Available [facility] 08/14/2023 05:47:42 COVID-19, mRNA, LNP-S, PF, 30 mcg/0.3 mL dose 1 completed Not Available [facility] 08/14/2023 05:47:42 Influenza, split virus, trivalent, preservative 0 completed Not Available [facility] 08/14/2023 05:47:42 Influenza, high-dose, trivalent, PF 9 completed Not Available [facility] 08/14/2023 05:47:42 Influenza, high-dose, trivalent, PF 8 completed Not Available [facility] 08/14/2023 05:47:42 COVID-19, mRNA, LNP-S, PF, 30 mcg/0.3 mL dose 1 completed Not Available [facility] 08/14/2023 05:47:42 Influenza, high-dose, quadrivalent, PF 2 completed Not Available [facility] 08/14/2023 05:47:42 Influenza, split virus, quadrivalent, PF 5 completed Not Available [facility] 08/14/2023 05:47:42 Past Encounters Encounter ID Performer Location Encounter Start Date Encounter Closed Date Diagnosis/Indication Diagnosis SNOMED-CT Code Diagnosis ICD10 Code Diagnosis Note [id number] [facility] [address] [facility] [address] [place] [address] 12/06/2020 00:00:00 12/06/2020 22:04:23 [id number] [facility] [address] [address] 01/14/2021 00:00:00 01/15/2021 14:36:58 [id number] [facility] [place] [address], [facility] [address] [place] [address] 02/03/2021 00:00:00 02/03/2021 11:55:47 [id number] [facility] [place] [address], [address] [address] 02/11/2021 00:00:00 02/11/2021 09:46:16 [id number] [facility] [address] [address] 03/07/2021 00:00:00 03/07/2021 22:20:00 [id number] [facility] [place] [address], [facility] [address] [place] [address] 03/24/2021 00:00:00 03/24/2021 11:14:30 [id number] [facility] [place] [address], [facility] [address] [place] [address] 05/09/2021 00:00:00 05/09/2021 11:10:26 [id number] [facility] [address] [address] 05/20/2021 00:00:00 05/21/2021 17:35:04 [id number] [facility] [place] [address], [address] [address] 05/30/2021 00:00:00 05/30/2021 10:53:39 [id number] [facility] General Surgery [address] [place] [address] 05/31/2021 00:00:00 05/31/2021 13:25:59 [id number] [facility] [address] [place] [address] 06/27/2021 00:00:00 06/27/2021 10:42:57 [id number] [facility] General Surgery [address] [place] [address] 06/28/2021 00:00:00 06/28/2021 11:36:57 [id number] [facility] [place] [address] [facility], [address] [place] [address] 07/04/2021 00:00:00 07/11/2021 07:48:30 [id number] [facility] [address] [address] 15 [place] [address] 08/31/2021 00:00:00 09/18/2021 22:19:11 [id number] [facility] Ortho [address] [address] 09/06/2021 00:00:00 09/06/2021 09:37:29 [id number] [facility] [address] [address] 09/27/2021 00:00:00 09/27/2021 09:17:20 [id number] [facility] Bj [address] [place], [place] [address]e., [facility] [address] [place] [address] 10/04/2021 00:00:00 10/04/2021 22:57:15 [id number] [facility] Orth[facility] [address] [address] 10/11/2021 00:00:00 10/11/2021 09:26:55 [id number] [facility] Bj [address] [address] 11/14/2021 00:00:00 11/27/2021 11:12:31 [id number] [facility] [address] [place] [address] 11/22/2021 00:00:00 11/22/2021 09:15:40 [id number] [facility] [address] [place] [address] Ave[address] [address] 01/03/2022 00:00:00 01/15/2022 15:48:27 [id number] [facility] [address] [place] [address] [address] [address] 04/12/2022 00:00:00 05/01/2022 20:37:22 [id number] [facility] [address] [address] 05/23/2022 00:00:00 05/23/2022 11:09:17 [id number] [facility] [address] [place] [address] Ave[address] [address] 08/02/2022 00:00:00 08/02/2022 22:43:51 [id number] [facility] Internal Med Bird martínez [address] [place] [address] [place] [address] 11/16/2022 00:00:00 11/18/2022 21:28:53 [id number] Sheba Jamison MD [facility] [place] [address] [place] [address] [place] [address] 12/12/2022 11:18:36 12/12/2022 12:33:58 Essential hypertension 17526762 I10 [id number] Sheba Jamison MD [facility] [place] [address] [place] [address] [place] [address] 03/20/2023 10:40:06 03/20/2023 11:42:37 Essential hypertension 52530996 I10 Hyperlipidemia 64225165 E78.5 Hypothyroidism 04679835 E03.9 Type 2 adolph betes mellitus without complication 174527507 E11.9 Health Concerns Section Related Observation LastModified by Organization Detai ls LastModified Time None Recorded Concern Status LastModified by Organization Details LastModified Time None Recorded Advance Directives Directive Y: requested copy Payers Encounter Date Sequence Insurance Name Policy Number Policy Miranda Covered Member ID Miranda Member ID Guarantor Name 12/12/2022 1 [facility] (MEDICARE REPLACEMENT/ ADVANTAGE - HMO) [id number] Danna S Mellisaldanielle [id number] Danna S Solldanielle 03/20/2023 1 [facility] (MEDICARE REPLACEMENT/ ADVANTAGE - HMO) [id number] Danna S Solldanielle [id number] Danna S Mellisaldanielle Notes Date Note Type Note Provider Name and Address Organization Details Recorded Time 12/12/2022 text/html Blood pressure a little bit better Sheba Jamison MD [address], [place], [address], [facility] 12/24/2022 15:34:06 03/20/2023 text/html diabetes no polyphagia no polydipsia. Hyperlipidemia try to take her medication watch diet. Hypothyroid some fatigue but no heat or cold intolerance. Hypertension no headache denies dizziness. CKD 3 no symptoms Sheba Jamison MD [address], [address] [employer], [place], [address], [facility] 03/20/2023 21:16:00 OBGyn Episode No OBEpisode recorded.
--- OUTSIDE RECORDS SUMMARY | 2024-12-26 11:16 | XMS_ITS | Referral Summary ---
Author Organization [facility] [place] [facility] [place] Address [address] [place] [address] Care Team Providers Care Rn Mds Name Role Phone Ezra Jamison MD Primary Care Provider + [phone] Allergies Active Allergy Reactions Criticality Noted Date [...] mg tabletIndication s:type 2 diabetes mellitus Sample [id number] 03/20 7 tablet 10/18/2017 Active glimepiride (AMARYL) [...] daily Assessment & Plan (10/18/2017 10:35 AM MANAGER STORAGE): Your Hba1c today was: 8.5 meaning a [...] on file Legal Sex Female 11:52 AM MANAGER STORAGE Gender Identity Not on file Sexual Orientation [...] Treatment Not on file Insurance [facility] MDCR HMO [facility]F [facility] Address: [id number] [place] [address] Care Teams Rn Mds Relationship Specialty Start Date End Date Ezra Jamison MD PCP - General Internal Medicine 10/08/17
--- OUTSIDE RECORDS SUMMARY | 2024-12-26 11:16 | XMS_ITS ---
Author Organization [facility] Address [address] [place] [address] Care Team Providers Care Tire Repairman Name Role Phone Eb Walters Unavailable [phone] MEDICATIONS Medication SIG (Take, Route, Frequency, Duration) [...] Once a day Active Ergocalciferol 1.25 MG (30015 UT) 1 capsule Orally twice a week [...] Active Encounters Encounter Location Date Provider Diagnosis [facility] [address] [facility] [address] [place] [address] 03/07/2024 Eb Walters Chronic kidney disea se, [...] * KERRI JACOBSDOB: [birth year] (89 yo F)Acc No.[id number]:03/07/2024 Progress Notes Patient: KERRI JACOBS Provider: MD ALAN, F.A.C.P, F.A.S.N. :1935 Age:88 Y Sex:Female Date:03/07/2024 Address:[address] [place] [address] Subjective: * Chief Complaints: * * Medical [...] a day , Taking Ergocalciferol 1.25 MG (82267 UT) Capsule 1 capsule Orally twice a [...] Treatment: * Billing Information: * Visit Code: 50943 Office Visit, Est Pt., Level 4. * Procedure Codes: * Sign off status: Pending * Provider: MD ALAN, F.A.C.P, F.A.S.N. Date: 03/07/2024
--- OUTSIDE RECORDS SUMMARY | 2024-12-26 11:16 | XMS_ITS | Clinical Summary ---
Author Organization [facility] [place] [facility] [place] Address [address] [place] [address] Care Team Providers Care Facilities Management Executive Name Role Phone Ezra Jamison MD Primary Care Provider + [phone] Allergies Active Allergy Reactions Criticality Noted Date [...] mg tabletIndication s:type 2 diabetes mellitus Sample [id number] 03/20 7 tablet 10/18/2017 Active glimepiride (AMARYL) [...] daily Assessment & Plan (10/18/2017 10:35 AM CREMATOR): Your Hba1c today was: 8.5 meaning a [...] on file Legal Sex Female 11:52 AM CREMATOR Gender Identity Not on file Sexual Orientation [...] Plan of Treatment Not on file Insurance [facility] MDCR HMO REF Care Teams Facilities Management Executive Relationship Specialty Start Date End Date Ezra Jamison MD PCP - General Internal Medicine 10/08/17
--- OUTSIDE RECORDS SUMMARY | 2024-12-26 11:16 | XMS_ITS | Continuity of Care Document ---
Author Organization [facility] [place] [address] [place] [address] [place] [address] Phone Care Team Providers Care Command And Control Officer Name Role Phone Cortes Montenegro Unavailable Unavailable Procedures Procedure Date Office/outpatient Visit, Est Post-op Follow-up Visit Refraction BF Plastic Sphcyl [place] To +/-4d .12-2d Vision Svcs Frames Purchases Frames Deluxe Progressive Lens, Plastic Post-op Follow-up Visit Remove Cataract, Insert Lens PreOp Assessment Performed Eye Exam & Treatment Dilated Retinal Exam W Interpretation Au Script Printed/Phoned Pt Requ Or Pharm N ot Availab Echo Exam Of Eye Eye Exam & Treatment Dilated Retinal Exam W Interpretation Ju Office/outpatient Visit, Est Corneal Pachymetry Advance Directives Directive Yes / No Effective Date File Name No Information Encounters Encounter Description Practice Location Reason(s) For Visit Diagnoses Date Provider Providers Copied on Encounter Office/outpat ient Visit, Est [facility], [address] [place] [address] [address], [place], [place], [address], [place] tel:[phone] SEC [facility] No Information Nov-0 5-201 0 Moni Kolb. [address] , [address], [place], [address], [place]. tel:[phone] Referring Provider: Cortes Caba [address] [facility] [address], [place], [address]. tel:[phone] [facility], [address], [place], [place], [address], [place] tel:[phone] SEC [facility] No Information 9 Moni Kolb. [facility] , [address], [place], [address], [place]. tel:[phone] [facility], [address], [place], [place], [address], [place] tel:[phone] [facility] No Information 9 [facility] . [address], [address], [place], [place], [address], [place]. tel:[phone] Referring Provider: Cortes Caba, [address] [place], [place] [address]ate Center [address], [place], [address]. tel:[phone] sulting Provider: Rm Connors, [address] [place], [place] [address]ate Ctr, [place], [address]. tel:[phone] [facility], [address], [place], [place], [address], [place] tel:[phone] SEC [facility] No Information 0 9 Moni Kolb. [address] [place], [place] [address]ate Center , [address], [place], [address], [place]. tel:[phone] [facility], [address], [place], [place], [address], [place] tel:[phone] [facility] No Information 0 200 9 Moni Kolb. [address] [place], [place] [address]ate Center , [address], [place], [address], [place]. tel:[phone] [facility], [address], [place], [place], [address], tel:[phone] SEC [facility] No Information May-0 3-200 9 Moni Kolb. [facility] [address], [place], [place], [facility], . tel:[phone] Referring Provider: [facility] [address], [place], [place], [facility]. tel:[phone] [facility], [address] [place] [address] [address], [place], [place], [address], tel:[phone] [facility] No Information Mar-2 7-200 8 Moni Kolb. [address] [place] [address] [address], [place], [place], [facility], . tel:[phone] Office/outpat ient Visit, [facility], [address] [place] [address] [address], [place], [place], [address], tel:[phone] [facility] No Information Mar-0 4-200 7 Moni Kolb. [facility] [address], [place], [place], [facility], . tel:[phone] Referring Provider: [facility] [address], [place], [place], [facility]. tel:[phone] Family History Family Member Type Diagnosis Age At Onset No Information Payers Payer name Insurance type Covered republican ID Authoriza tion(s) [place] [id number] AARP Medicare Supp [place] [id number] Social History Type Description Quantity Date Captured Comments Sex Female Smoking Status No Information Chief Complaint And Reason For Visit No Information Reason For Referral Reason For Referral No Information History Of Present Illness Encounter Date Complaint History Of Prese nt Illness No Information Functional Status Date Functional Assessmen t No Information Instructions Date Instruction Additional Infor mation No Information Assessments Type Assessment Date No Information Patient Care Teams Name Effective Dates (start - stop) Status Members No Information
--- OUTSIDE RECORDS SUMMARY | 2024-12-26 11:16 | XMS_ITS | CONTINUITY OF CARE DOCUMENT ---
Author Name mark flores Address Unknown Organization [facility] Address [address] [place] [address] [address] [place] [address] Phone [phone] Care Team Providers Care Band Log Mill And Carriage Operator Name Role Phone Briana Zheng MD Unavailable SHEBA JAMISON MD Unavailable [phone] SHEBA JAMISON MD Unavailable PROBLEMS Condition Status [...] In-person encounter Office Visit Briana Zheng MD [facility] - In-person encounter Office Visit Briana Zheng MD [facility] - In-person encounter Office Visit Briana Zheng MD [facility] - In-person encounter Office Visit Briana Zheng MD [facility] - In-person encounter Office Visit Briana Zheng MD [facility] - In-person encounter Office Visit Briana Zheng MD [facility] Preoperative cardiovascular evaluationCarotid bruitCAD s/p stent in the circSystolic murmur - In-person encounter Office Visit Briana Zheng MD [facility] - In-person encounter Office Visit Briana Zheng MD [facility] - In-person encounter Office Visit Briana Zheng MD [facility] Shortness of breathChest painPalpitationsAtrial FibrillationHTNHypothyroidismDiabetes mellitus, [...] oden pulse rate 66 /min Елена Torres [facility] weight E&M 214 [lb_av] Елена Torres [facility] height E&M 62 [in_i] Елена Torres [facility] Body Mass Index (Ratio) 39.69 kg/m2 Taew [...] Faustino blood pressure, diastolic 60 mm[Hg] [facility] pressure, systolic 122 mm[Hg] Sánchez buckner Ocho[place] oxygen saturation, oximetry 96 % [facility] respiratory rate E&M 16 /min Angie Ochoa pulse rate 71 /min [place] weight E&M 211 [lb_av] Angie [place] height E&M 62 [in_i] [place] Body Mass Index (Ratio) 38.04 kg/m2 [...] Shannan blood pressure, diastolic 80 mm[Hg] [facility] [place] blood pressure, systolic 130 mm[Hg] Sánchez buckner Ochoa oxygen saturation, oximetry 97 % Angie Ochoa respiratory rate E&M 16 /min [place] pulse rate 71 /min [facility] weight E&M 208 [lb_av] Angie [place] height E&M 62 [in_i] [facility] Body Mass Index (Ratio) 38.04 kg/m2 Maurilio [...] Not Estab. platelet count 282 X10E3/UL [employer] [phone]/08/ 18 red blood cell distribution width 15.9 [...] [employer] 3.5-5.2 sodium, serum 138 mmol/L [employer] 306-500 6050/08/ 18 urea nitrogen/creatinine ratio, serum 13 [employer] [...] Payer name Policy type / Coverage type [place] red alliance party ID [facility] MEDIC[employer] COMPLETE HMO Other [id number] ADVANCE DIRECTIVES Name Date DISCUSSED - NO DECISION MADE TREATMENT PLAN Date Name Performer [id number],C, María Meza [id number],B, María Meza [id number],B, n o chest pain Her updated medication [...] 1 tablet by mouth twice a day [facility] [id number],B, o n art bird magnesium M onitor 06/2021: S inus Rhythm. T he average heart rate was 77bpm. H er updated medication list for this problem includes: Plavix 75 Mg Tablet (Clopidogrel) ..... 1 tablet by mouth once a day Coreg 6.25 Mg Tablet (Carvedilol) ..... 1 tablet by mouth twice a day [facility] [id number],Supriya [place] following. cailin claudia controlled per pt Her updated medication list for this problem includes: Glimepiride 1 Mg Tablet (Glimepiride) ..... 1 tablet by mouth once a day Olmesartan 20 Mg Tablet (Olmesartan) ..... Take 1 tablet by mouth once a day [facility] [id number],C, O rders: C arotid Duplex Bilateral (CPT-75356) [facility] [id number],C, O rders: E KG (CPT-63428) M onitor - Telemetry (Mobile Cardiac) (CPT-90091) C omplete Echo (CPT-74071) Her updated medication list for this problem includes: Plavix 75 Mg Tablet (Clopidogrel) ..... 1 tablet by mouth once a day Coreg 6.25 Mg Tablet (Carvedilol) ..... 1 tablet by mouth twice a day [facility] [id number],C, H er updated medication list for this [...] twice a day Orders: C omplete Echo (CPT-84574) [facility] 02-07 [facility] 02-07: n o chest pain Her updated [...] 1 tablet by mouth twice a day [facility] 10: o art lópez, magnesium M onitor 06/2021: S inus Rhythm. T he average heart rate was 77bpm. H er updated medication list for this problem includes: Plavix 75 Mg Tablet (Clopidogrel) ..... 1 tablet by mouth once a day Coreg 6.25 Mg Tablet (Carvedilol) ..... 1 tablet by mouth twice a day [facility] Electrophysiology 15 : Supriya Jamison following. cailin claudia controlled per pt Her updated medication list for this problem includes: Glimepiride 1 Mg Tablet (Glimepiride) ..... 1 tablet by mouth once a day Olmesartan 20 Mg Tablet (Olmesartan) ..... Take 1 tablet by mouth once a day teja Derrick Electrophysiology 15 : O rders: C arotid Duplex Bilateral (CPT-53561) [facility] 15 : O rders: E KG (CPT-49228) M onitor - Telemetry (Mobile Cardiac) (CPT-92228) C omplete Echo (CPT-24064) Her updated medication list for this problem [...] twice a day Orders: C omplete Echo (CPT-58755) Jimteja Derrick Cardiology follow up - completed : O rders: Robel Rivera (CPT-16676) as she cannot walk distances Her updated [...] Tablet (Carvedilol) ..... One tab. twice daily [facility] follow up - completed : [...] Tablet (Glimepiride) ..... 1 tab once daily [facility] follow up - completed : [...] tab. twice daily Orders: F VC - 68525 (18075) F RC - 78111 (31611) D LCO - 50836 (43888) María Derrick Cardiology follow up - completed : O rders: E KG (CPT-38719) Her updated medication list for this problem includes: Plavix 75 Mg Oral Tablet (Clopidogrel bisulfate) ..... One tab. daily Coreg 6.25 Mg Oral Tablet (Carvedilol) ..... One tab. twice daily [facility] Cardiology follow up - completed : [...] tab. twice daily Orders: 9 9212 Minor (CPT-48567) S chedule Followup (*) M obile Cardiac Tele (CPT-25865) Reynaldo [facility] express up : s /p cardiac cath with [...] One tab. twice daily Orders: Michael KG (CPT-58943) Chidi Harmon Electrophysiology fo llow up : [...] ..... One tab. twice daily Orders: S [facility] Study Home (CPT-71361) 9 9214 MOD Complex (CPT-31515) R enal Artery Duplex (CPT-73873) S chedule Followup (*) Chidialec Harmon Electrophysiology fo llow up:s/p cardioversion 05/10/18, converted to sinus rhythm. R emains in sinus rhythm by EKG today. H er updated medication list for this problem includes: Plavix 75 Mg Oral Tablet (Clopidogrel bisulfate) ..... One tab. daily Coreg 6.25 Mg Oral Tablet (Carvedilol) ..... One tab. twice daily Orders: S [facility] Study Home (CPT-76148) 9 9214 MOD Complex (CPT-96462) R enal Artery Duplex (CPT-13334) Chidi Harmon Electrophysiology fo llow up: B [...] twice daily Orders: 9 9214 MOD Complex (CPT-67654) R enal Artery Duplex (CPT-38197) Chidi Harmon Electrophysiology fo llow up:home sleep [...] twice daily Orders: S leep Study Home (CPT-19661) R enal Artery Duplex (CPT-33941) Chidi Harmon Electrophysiology fo llow up:s/p cardiac [...] twice daily Orders: R enal Artery Duplex (CPT-22097) Chidi Harmon Electrophysiology: C kevink carotid US. Orders: C arotid Duplex Bilateral (CPT-03314) Panda Campbell Electrophysiology: B P today: 130/80 [...] to continue Aspirin. Orders: C omplete Echo (CPT-69540) C arotid Duplex Bilateral (CPT-85999) Her updated medication list for this problem [...] S chedule Followup (*) C omplete Echo (CPT-34689) 9 9214 MOD Complex (CPT-76009) Her updated medication list for this problem [...] S chedule Followup (*) C omplete Echo (CPT-38309) 9 9214 MOD Complex (CPT-46820) Her updated medication list for this problem [...] Fo llow up:Orders: M obile Cardiac Tele (CPT-34819) S [facility] (*) 9 14 MOD Complex (CPT-66171) Her updated medication list for this problem [...] today. HR 62 bpm. Orders: E KG (CPT-80977) M obile Cardiac Tele (CPT-19272) S [facility] (*) 9 14 MOD Complex (CPT-46948) Her updated medication list for this problem [...] llow up:Orders: C OMPREHENSIVE METABOLIC PANEL, W/EGFR (34714) T HYROID PANEL WITH TSH, 3RD GENERATION (7444) L IPID PANEL (7600) C BC (INCLUDES DIFF/PLT) (6399) F ERRITIN (457) I LAKSHMI AND TOTAL IRON BINDING CAPACITY (7573) 9 9213 LTD. Complex (CPT-57596) S chedule Followup (*) Her updated medication [...] effusion. Orders: C OMPREHENSIVE METABOLIC PANEL, W/EGFR (45138) T HYROID PANEL WITH TSH, 3RD GENERATION (7444) L IPID PANEL (7600) C BC (INCLUDES DIFF/PLT) (6399) F ERRITIN (457) I LAKSHMI AND TOTAL IRON BINDING CAPACITY (7573) 9 9213 LTD. Complex (CPT-32434) S chedule Followup (*) Her updated medication [...] daily Panda Campbell Electrophysiology:CV on 05/10/18 at [facility], successfully converted to SR. Patient in SR todaywith HR 75 bpm. Orders: M obile Cardiac Tele (CPT-68470) 9 9214 MOD Complex (CPT-97930) & #13;Her updated medication list for this problem includes: Plavix 75 Mg Oral Tablet (Clopidogrel bisulfate) ..... One tab. daily Coreg 6.25 Mg Oral Tablet (Carvedilol) ..... One tab. twice daily Panda Campbell Electrophysiology:Ca rdiac stent 05/10/18 in circumflex artery. 70% occluded LAD. Orders: E KG (CPT-82695) X -Ray, Chest - Routine (CPT-82835) M obile Cardiac Tele (CPT-33050) C OMPREHENSIVE METABOLIC PANEL, W/EGFR (40649) P ROBNP, N TERMINAL (78292) C BC (H/H, RBC, INDICES, WBC, PLT) (1759) 9 9214 MOD Complex (CPT-82088) Her updated medication list for this problem [...] Monitor - Telemetry (Mobile Cardiac) DLCO - 58301 FRC - 04975 FVC - 66957 Stress Regadenoson Mobile Cardiac Tele Renal Artery [...] MD comp leted FVC / MVV - 08947 Briana Zheng MD completed BLOOD COUNT HEMOGLOBIN Briana Zheng MD completed FRC - 17546 Briana Zheng MD com pleted SpO2 w/o 6min walk/titration Briana Zheng MD completed DLCO - 35371 Briana Zhegn MD co mpleted EKG Briana Zheng MD comp leted Mobile Cardiac Telemetry - Tech Briana Zheng MD completed Mobile Cardiac Telemetry - Prof Briana Zheng MD completed Schedule Followup ulius Marce RIDER In one y ear completed EKG Briana Zheng MD comp leted Schedule Followup Briana Zheng MD IN ONE W SHINNECOCK completed EKG Briana Zheng MD comp leted [...]
--- OUTSIDE RECORDS SUMMARY | 2024-12-26 11:16 | XMS_ITS | Clinical Summary ---
Author Organization [facility] Address [address] [place] [address] Care Team Providers Care Surface To Air Weapons Officer Name Role Phone Ezra Jamison MD Primary Care Provider [phone] Source Comments [facility],non-owned Affiliates and Associated Physician Practices is amultiple site organization consisting of ambulatory clinics and hospital sitesin [place], [place], [place] and [place]. This disclosure is being madepursuant to the Care Everywhere program and may not contain all information available regarding this patient. Last updated 18.[employer] [facility] Allergies Active Allergy Reactions Criticality Noted Date [...] Comments Blood Pressure 165/72 09/19/2022 6:00 AM ENERGY SPECIALIST Pulse 75 09/19/2022 3:01 AM ENERGY SPECIALIST Temperature 36.4 C (97.5 F) 09/19/2022 1:51 AM ENERGY SPECIALIST Respiratory Rate 22 09/19/2022 2:55 AM ENERGY SPECIALIST Oxygen Saturation 96% 09/19/2022 6:00 AM ENERGY SPECIALIST Inhaled Oxygen Concentration - - Weight 83.9 kg (185 lb) 09/19/2022 1:51 AM ENERGY SPECIALIST Height 167.6 cm (5' 6 ) 09/19/2022 1:51 AM ENERGY SPECIALIST Body Mass Index 29.86 09/19/2022 1:51 AM ENERGY SPECIALIST Plan of Treatment Health Maintenance Due Date [...] age to complete this topic Care Teams Surface To Air Weapons Officer Relationship Specialty Start Date End Date Ezra Jamison MD PCP - General Internal Medicine 09/19/22
[2024-12-26 12:52] LABS: Hematocrit 36.4 % (37.0-47.0); Hemoglobin 11.2 g/dL (12.0-15.0); Mean Corpuscular HGB Conc 30.8 g/dl (32-36); Mean Corpuscular Hemoglobin 26.4 pg (26-34); Mean Corpuscular Volume 85.6 fl (80-100); Mean Platelet Volume 12.3 fl (7.4-10.4); Platelet Count Result 299 k/mm3 (150-375); Red Blood Count 4.25 M/mm3 (4.2-5.4); Red Cell Distribution Width 15.9 % (11.5-14.5); White Blood Count 7.5 K/mm3 (4.5-10.0)
[2024-12-26 13:04] LABS: Albumin Level 4.3 g/dL (3.5-5.1); Anion Gap 11 mmol/L (4-12); Blood Urea Nitrogen 34 mg/dL (7-17); Calcium 9.5 mg/dL (8.4-10.2); Carbon Dioxide 27 mmol/L (22-30); Chloride 103 mmol/L (98-107); Creatine Kinase 131 U/L (30-135); Estimated Glomerular Filt Rate 26; Glucose 81 mg/dL (65-110); Potassium 4.1 mmol/L (3.4-5.0); Sodium 141 mmol/L (137-145)
[2024-12-26 13:08] LABS: Complement C3 121 mg/dL (88-165)
[2024-12-26 13:09] LABS: Parathyroid Intact 14.5 pg/mL (14.5-75.2)
[2024-12-26 13:13] LABS: Add Urine Microscopic? YES; Appearance Urine Clear (Clear); Bacteria Urine None Seen /hpf; Bilirubin Urine Negative (Negative); Blood Urine Negative (Negative); Color Urine Yellow (Yellow); Glucose Urine UA Negative (Negative); Ketones Urine Negative (Negative); Leukocyte Esterase Ur 1+ LEU/UL (Negative); Need Manual Microscopic Reviewed; Nitrate Urine Negative (Negative); Non Pathogenic Casts 0-2; Protein Urine Negative (Negative); RBC Urine 0-2 /hpf (0-2); Specific Grav Ur 1.007 (1.001-1.035); Squamous Epithelial Cell Urine None Seen /hpf (Few); Urobilinogen Urine 0.2 mg/dL (<2.0); WBC Urine 0-5 /hpf (0-3); pH Urine 5.5 (5.0-9.0)
[2024-12-26 13:44] LABS: Creatinine Urine 26.6 mg/dL; Total Protein Urine Random 21 mg/dL; Ur Ttl Prot Creatinine Ratio 0.79 mg/mg (0-0.20)
[2024-12-26 13:50] LABS: Erythrocyte Sedimentation Rate 10 mm/hr (0-20)
[2024-12-29 11:03] LABS: Lambda Light Chain 42.2 mg/L (5.7-26.3)
[2024-12-29 15:53] LABS: Complement Total CH50 >60 U/mL (31-60)
== END 2024-12-26 10:21 | disposition home or self-care (01) ==
LOC: ANHGOSHLAB 10:22
PROVIDERS: PCP Internal Medicine; Visit Provider Internal Medicine Nephrology
DX: N18.4 Chronic kidney disease, stage 4 (severe) (principal)
CPT/HCPCS: 36415; 80069; 81001; 82550; 82570; 83883; 83970; 84156; 85027; 85652; 86038; 86039; 86160; 86162; 86334

== ENCOUNTER 2024-12-29 09:39 | Outpatient (NON) | payer MEDICARE, SELFPAY ==
--- OUTSIDE RECORDS SUMMARY | 2024-12-29 10:32 | XMS_ITS | Clinical Summary ---
Author Organization [facility] [place] [facility] [place] Address [address] [place] [address] Care Team Providers Care Transfer Iron Operator Name Role Phone Ezra Jamison MD Primary Care Provider + [phone] Allergies Active Allergy Reactions Criticality Noted Date [...] mg tabletIndication s:type 2 diabetes mellitus Sample [id number] 03/20 7 tablet 10/18/2017 Active glimepiride (AMARYL) [...] daily Assessment & Plan (10/18/2017 10:35 AM FLOWER GRADER): Your Hba1c today was: 8.5 meaning a [...] on file Legal Sex Female 11:52 AM FLOWER GRADER Gender Identity Not on file Sexual Orientation [...] Plan of Treatment Not on file Insurance [facility] MDCR HMO REF Care Teams Transfer Iron Operator Relationship Specialty Start Date End Date Ezra Jamison MD PCP - General Internal Medicine 10/08/17
--- OUTSIDE RECORDS SUMMARY | 2024-12-29 10:32 | XMS_ITS ---
Author Organization [facility] Address [address] [place] [address] Care Team Providers Care Mammography Technician Name Role Phone Eb Walters Unavailable [phone] MEDICATIONS Medication SIG (Take, Route, Frequency, Duration) [...] Once a day Active Ergocalciferol 1.25 MG (63427 UT) 1 capsule Orally twice a week [...] confirmed Chronic kidney disease stage 3B (disorder) ([id number]) Encounters Encounter Location Date Provider Diagnosis [facility] [place] [facility] [address] [place] [address] 06/13/2024 Eb Walters Chronic kidney disea se, [...] * KERRI JACOBSDOB: [birth year] (89 yo F)Acc No.[id number]:06/13/2024 Patient: HUDSON JACOBSGY Provider: MD ALAN, F.A.C.P, F.A.S.N. :1935 Age:89 Y Sex:Female Date:06/13/2024 Address:[address] [place], [place] [id number] Subjective: * Chief Complaints: Objective: Assessment: * [...] Plan: * Billing Information: * Visit Code: 47978 Office Visit, Est Pt., Level 5. * Procedure Codes: * Sign off status: Pending * Provider: MD ALAN, F.A.C.P, F.A.S.N. Date: 06/13/2024
--- OUTSIDE RECORDS SUMMARY | 2024-12-29 10:32 | XMS_ITS | Referral Summary ---
Author Organization [facility] Address [address] [place] [address] Care Team Providers Care Campus Security Director Name Role Phone Ezra Jamison MD Primary Care Provider + [phone] Allergies Active Allergy Reactions Criticality Noted Date [...] mg tabletIndication s:type 2 diabetes mellitus Sample [id number] 03/20 7 tablet 10/18/2017 Active glimepiride (AMARYL) [...] daily Assessment & Plan (10/18/2017 10:35 AM LABELING SPECIALIST): Your Hba1c today was: 8.5 meaning a [...] on file Legal Sex Female 11:52 AM LABELING SPECIALIST Gender Identity Not on file Sexual Orientation [...] Plan of Treatment Not on file Insurance [facility] MDCR HMO REF Care Teams Campus Security Director Relationship Specialty Start Date End Date Ezra Jamison MD PCP - General Internal Medicine 10/08/17
--- OUTSIDE RECORDS SUMMARY | 2024-12-29 10:32 | XMS_ITS ---
Author Organization [facility] Address [address] [facility] [address] [place] [address] Care Team Providers Care Payroll Supervisor Name Role Phone Eb Walters Unavailable [phone] MEDICATIONS Medication SIG (Take, Route, Frequency, Duration) [...] Once a day Active Ergocalciferol 1.25 MG (76020 UT) 1 capsule Orally twice a week [...] Active Encounters Encounter Location Date Provider Diagnosis [place] [facility] [address] [facility] [address] [place] [address] 03/07/2024 Eb Walters Chronic kidney disea se, [...] * KERRI JACOBSDOB: [birth year] (89 yo F)Acc No.[id number]:03/07/2024 Progress Notes Patient: KERRI JACOBS Provider: MD ALAN, F.A.C.P, F.A.S.N. :1935 Age:88 Y Sex:Female Date:03/07/2024 Address:[address] [place] [address] Subjective: * Chief Complaints: * * Medical [...] a day , Taking Ergocalciferol 1.25 MG (82449 UT) Capsule 1 capsule Orally twice a [...] Treatment: * Billing Information: * Visit Code: 46202 Office Visit, Est Pt., Level 4. * Procedure Codes: * Sign off status: Pending * Provider: MD ALAN, F.A.C.P, F.A.S.N. Date: 03/07/2024
--- OUTSIDE RECORDS SUMMARY | 2024-12-29 10:32 | XMS_ITS ---
Author Organization [facility] Address [address] [facility] [address] [place] [address] Care Team Providers Care Life Science Teacher Name Role Phone Eb Walters Unavailable [phone] MEDICATIONS Medication SIG (Take, Route, Frequency, Duration) Notes Start Date End Date Status Ergocalciferol 1.25 MG (11320 UT) 1 capsule Orally twice a week [...] Active Encounters Encounter Location Date Provider Diagnosis [place] [facility] [address] [facility] [address] [place] [address] 11/30/2023 Eb Walters Chronic kidney disea se, [...] * KERRI JACOBSDOB: [birth year] (89 yo F)Acc No.[id number]:11/30/2023 Progress Notes Patient: KERRI JACOBS Provider: MD ALAN, F.A.C.P, F.A.S.N. :1935 Age:88 Y Sex:Female Date:11/30/2023 Address:[address] [place] [address] Subjective: * Chief Complaints: * * Medical [...] a day , Taking Ergocalciferol 1.25 MG (39007 UT) Capsule 1 capsule Orally twice a [...] Treatment: * Billing Information: * Visit Code: 87297 Office Visit, Est Pt., Level 4. * Procedure Codes: * Sign off status: Pending * Provider: MD ALAN, F.A.C.P, F.A.S.N. Date: 11/30/2023
--- OUTSIDE RECORDS SUMMARY | 2024-12-29 10:32 | XMS_ITS | Clinical Summary ---
Author Organization [facility] Address [address] [place] [address] Care Team Providers Care Car Inspector Name Role Phone Ezra Jamison MD Primary Care Provider [phone] Source Comments [facility],non-owned Affiliates and Associated Physician Practices is amultiple site organization consisting of ambulatory clinics and hospital sitesin [place], [place], [place] and [place]. This disclosure is being madepursuant to the Care Everywhere program and may not contain all information available regarding this patient. Last updated 18.[facility] Allergies Active Allergy Reactions Criticality Noted Date [...] Comments Blood Pressure 165/72 09/19/2022 6:00 AM CHANNEL SALES MANAGER Pulse 75 09/19/2022 3:01 AM CHANNEL SALES MANAGER Temperature 36.4 C (97.5 F) 09/19/2022 1:51 AM CHANNEL SALES MANAGER Respiratory Rate 22 09/19/2022 2:55 AM CHANNEL SALES MANAGER Oxygen Saturation 96% 09/19/2022 6:00 AM CHANNEL SALES MANAGER Inhaled Oxygen Concentration - - Weight 83.9 kg (185 lb) 09/19/2022 1:51 AM CHANNEL SALES MANAGER Height 167.6 cm (5' 6 ) 09/19/2022 1:51 AM CHANNEL SALES MANAGER Body Mass Index 29.86 09/19/2022 1:51 AM CHANNEL SALES MANAGER Plan of Treatment Health Maintenance Due Date [...] age to complete this topic Care Teams Car Inspector Relationship Specialty Start Date End Date Ezra Jamison MD PCP - General Internal Medicine 09/19/22
--- OUTSIDE RECORDS SUMMARY | 2024-12-29 10:32 | XMS_ITS | Continuity of Care Document ---
Author Organization [facility] Address [address] [place] [address] [place] [address] Phone Care Team Providers Care Mailing Clerk Name Role Phone Cortes Montenegro Unavailable Unavailable Procedures Procedure Date Office/outpatient Visit, Est Post-op Follow-up Visit Refraction BF Plastic Sphcyl [place] To +/-4d .12-2d Vision Svcs Frames Purchases [...] Copied on Encounter Office/outpat ient Visit, Est [facility], [address] [place] [address] [address], [place], [place], [id number], [place] tel:[phone] [facility] No Information Nov-0 5-201 0 Moni Kolb. [address] [facility] , [address], [place], [address], [place]. tel:[phone] Referring Provider: Cortes Caba [address] [facility] [address], [place], [address]. tel:[phone] [facility], [address], [place], [place], [address], [place] tel:[phone] [facility] No Information 9 Moni Kolb. [facility] , [address], [place], [address], [place]. tel:[phone] [facility], [address], [place], [place], [address], [place] tel:[phone] SEC [facility] No Information 9 [facility] . [address] [facility], [address], [place], [place], [address], [place]. tel:[phone] Referring Provider: Cortes Caba, [address] [place], [place] [address]ate Center [address], [place], [address]. tel:[phone] sulting Provider: Rm Connors, [address] [place], [place] [address]ate Ctr, [place], [address]. tel:[phone] [facility], [address], [place], [place], [address], [place] tel:[phone] SEC [facility] No Information 0 9 Moni Kolb. [address] [place], [place] [address]ate Center , [address], [place], [address], [place]. tel:[phone] [facility], [address], [place], [place], [address], [place] tel:[phone] [facility] No Information 0 200 9 Moni Kolb. [address] [place], [place] [address]ate Center , [address], [place], [address], [place]. tel:[phone] [facility], [address], [place], [place], [address], tel:[phone] SEC [facility] No Information May-0 3-200 9 Moni Kolb. [facility] [address], [place], [place], [facility], . tel:[phone] Referring Provider: Paul Thomas [facility] [address], [place], [place], [facility]. tel:[phone] [facility], [address] [place] [address] [address], [place], [place], [address], tel:[phone] SEC [facility] No Information Mar-2 7-200 8 Moni Kolb. [address] [place] [address] [address], [place], [place], [facility], . tel:[phone] Office/outpat ient Visit, [facility], [address] [place] [address] [address], [place], [place], [address], tel:[phone] SEC [facility] No Information Mar-0 4-200 7 Moni Kolb. [facility] [address], [place], [place], [facility], . tel:[phone] Referring Provider: Paul Thomas [facility] [address], [place], [place], [facility]. tel:[phone] Family History Family Member Type Diagnosis Age At Onset No Information Payers Payer name Insurance type Covered libertarian ID Authoriza tion(s) [place] [id number] AARP Medicare Supp MB [id number] Social History Type Description Quantity Date Captured [...]
--- OUTSIDE RECORDS SUMMARY | 2024-12-29 10:32 | XMS_ITS | Patient Health Record ---
Author Organization [facility] Address [address] [place] [address] Care Team Providers Care Securities Trader Name Role Phone Eb Walters Unavailable [phone] REASON FOR REFERRAL No Information MEDICATIONS Medication SIG (Take, Route, Frequency, Duration) Notes Start Date End Date Status Ergocalciferol 1.25 MG (36286 UT) 1 capsule Orally twice a week [...] d ue to type 2 diabetes mellitus (332134202725756) Problem Secondary hyperparathyroid ism, not elsewhere classified (E21.1) Active confirmed Secondary hyperparathyroidism (86256117) Problem Vitamin D deficiency, unspecified (E55.9) Active confirmed Vitamin D defic iency (31756126) Problem Essential (primary) hypertension (I10) Active confirmed Essential hypertension (43871809) Problem Renal osteodystrophy (N25.0) Active confirmed Renal osteodyst rophy (48130396) Problem Urinary tract infection, site not specified (N39.0) Active confirmed Urinary tract infectious disease (disorder) (48530391) Problem Chronic kidney disease, stage 3a (N18.31) Active confirmed Chronic kidney disease stage 3A (disorder) (754151015) Problem Chronic kidney disease, stage 3b (N18.32) Active confirmed Chronic kidney disease stage 3B (disorder) (957144985) Encounters Encounter Location Date Provider Diagnosis [facility] [address] [facility] [address] [place] [address] 03/07/2024 Eb Walters Chronic kidney disea se, stage 3a N18.31 ; Essential (primary) hypertension I10 ; Renal osteodystrophy N25.0 ; Secondary hyperparathyroidism, not elsewhere classified E21.1 ; Type 2 diabetes mellitus with hyperglycemia E11.65 ; Urinary tract infection, site not specified N39.0 and Vitamin D deficiency, unspecified E55.9 [facility] [place] [facility] [address] [place] [address] 06/13/2024 Eb Walters Chronic kidney disea se, [...]
--- OUTSIDE RECORDS SUMMARY | 2024-12-29 10:33 | XMS_ITS | CONTINUITY OF CARE DOCUMENT ---
Author Name mark flores Address Unknown Organization [facility] Address [address] [place] [address] [address] [place] [address] Phone [phone] Care Team Providers Care Fountain Waitress/Waiter Name Role Phone Briana Zheng MD Unavailable [phone] SHEBA JAMISON MD Unavailable [phone] SHEBA JAMISON MD Unavailable PROBLEMS Condition Status [...] In-person encounter Office Visit Briana Zheng MD [place] [facility] - In-person encounter Office Visit Briana Zheng MD [facility] - In-person encounter Office Visit Briana Zheng MD [facility] - In-person encounter Office Visit Briana Zheng MD [facility] - In-person encounter Office Visit Briana Zheng MD [facility] - In-person encounter Office Visit Briana Zheng MD [facility] Preoperative cardiovascular evaluationCarotid bruitCAD s/p stent in the circSystolic murmur - In-person encounter Office Visit Briana Zheng MD [facility] - In-person encounter Office Visit Briana Zheng MD [facility] - In-person encounter Office Visit Briana Zheng MD [facility] Shortness of breathChest painPalpitationsAtrial FibrillationHTNHypothyroidismDiabetes mellitus, [...] oden pulse rate 66 /min Елена Torres [facility] weight E&M 214 [lb_av] Елена Torres [facility] height E&M 62 [in_i] Елена Torres [facility] Body Mass Index (Ratio) 39.69 kg/m2 Taew [...] Mass Index (Ratio) 38.59 kg/m2 Jord en Fasutino blood pressure, diastolic 60 mm[Hg] [facility] blood pressure, systolic 122 mm[Hg] Sánchez buckner Ochoa oxygen saturation, oximetry 96 % [facility] respiratory rate E&M 16 /min Angie Ochoa pulse rate 71 /min [place] weight E&M 211 [lb_av] Angie Ochoa height E&M 62 [in_i] [place] Body Mass Index (Ratio) 38.04 kg/m2 [...] Shannan blood pressure, diastolic 80 mm[Hg] Kaz [facility] [place] blood pressure, systolic 130 mm[Hg] Sánchez buckner Ochoa oxygen saturation, oximetry 97 % Angie Ochoa respiratory rate E&M 16 /min [place] pulse rate 71 /min [facility] weight E&M 208 [lb_av] Angie Ochoa height E&M 62 [in_i] [facility] Body Mass Index (Ratio) [...] Not Estab. platelet count 282 X10E3/UL [employer] [phone]/08/ 18 red blood cell distribution width 15.9 [...] [employer] 3.5-5.2 sodium, serum 138 mmol/L [employer] [phone]/08/ 18 urea nitrogen/creatinine ratio, serum 13 [employer] [...] Payer name Policy type / Coverage type [place] red constitution party ID [facility] MEDICARE COMPLETE HMO Other [id number] ADVANCE DIRECTIVES Name Date DISCUSSED - NO DECISION MADE TREATMENT PLAN Date Name Performer [id number],C, María Meza [id number],B, María Meza [id number],B, n o chest pain Her updated medication [...] by mouth twice a day [facility] [id number],B, o n art bird magnesium M onitor 06/2021: S inus Rhythm. T he average heart rate was 77bpm. H er updated medication list for this problem includes: Plavix 75 Mg Tablet (Clopidogrel) ..... 1 tablet by mouth once a day Coreg 6.25 Mg Tablet (Carvedilol) ..... 1 tablet by mouth twice a day [facility] [id number],Supriya [place] following. cailin claudia controlled per pt Her updated medication list for this problem includes: Glimepiride 1 Mg Tablet (Glimepiride) ..... 1 tablet by mouth once a day Olmesartan 20 Mg Tablet (Olmesartan) ..... Take 1 tablet by mouth once a day [facility] [id number],C, O rders: C arotid Duplex Bilateral (CPT-37897) [facility] [id number],C, O rders: E KG (CPT-26524) M onitor - Telemetry (Mobile Cardiac) (CPT-69967) C omplete Echo (CPT-01463) Her updated medication list for this problem includes: Plavix 75 Mg Tablet (Clopidogrel) ..... 1 tablet by mouth once a day Coreg 6.25 Mg Tablet (Carvedilol) ..... 1 tablet by mouth twice a day [facility] [id number],C, H er updated medication list for this [...] twice a day Orders: C omplete Echo (CPT-52781) [facility] [facility] 02-[address] [facility] 02-07: n o chest pain Her [...] by mouth twice a day [facility] 10: o art lópez, magnesium M onitor 06/2021: S inus Rhythm. T he average heart rate was 77bpm. H er updated medication list for this problem includes: Plavix 75 Mg Tablet (Clopidogrel) ..... 1 tablet by mouth once a day Coreg 6.25 Mg Tablet (Carvedilol) ..... 1 tablet by mouth twice a day [facility] Electrophysiology 15 : Supriya Jamison following. cailin claudia controlled per pt Her updated medication list for this problem includes: Glimepiride 1 Mg Tablet (Glimepiride) ..... 1 tablet by mouth once a day Olmesartan 20 Mg Tablet (Olmesartan) ..... Take 1 tablet by mouth once a day teja [facility] 15 : O rders: C arotid Duplex Bilateral (CPT-45600) [facility] 15 : O rders: E KG (CPT-43003) M onitor - Telemetry (Mobile Cardiac) (CPT-39187) C omplete Echo (CPT-14476) Her updated medication list for this problem [...] twice a day Orders: C omplete Echo (CPT-00624) Jimteja [facility] Cardiology follow up - completed : O rders: Robel Rivera (CPT-97819) as she cannot walk distances Her updated [...] Tablet (Carvedilol) ..... One tab. [facility] daily [facility] follow up - completed : [...] Tablet (Glimepiride) ..... 1 tab once daily [facility] follow up - completed : [...] tab. twice daily Orders: F VC - 88208 (78250) F RC - 10939 (28302) D LCO - 28136 (21569) María [facility]rick Cardiology follow up - completed : O rders: E KG (CPT-35434) Her updated medication list for this problem includes: Plavix 75 Mg Oral Tablet (Clopidogrel bisulfate) ..... One tab. daily Coreg 6.25 Mg Oral Tablet (Carvedilol) ..... One tab. twice daily [facility] follow up - completed : [...] tab. twice daily Orders: 9 9212 Minor (CPT-09886) S chedule Followup (*) M obile Cardiac Tele (CPT-56423) Reynaldo Marshall Electrophysiology fo [facility] up : s /p cardiac cath [...] One tab. twice daily Orders: Michael KG (CPT-01964) Chidi Harmon Electrophysiology fo llow up : [...] ..... One tab. twice daily Orders: S [facility] Study Home (CPT-93786) 9 9214 MOD Complex (CPT-15107) R enal Artery Duplex (CPT-43066) S chedule Followup (*) Chidialec Harmon Electrophysiology fo llow up:s/p cardioversion 05/10/18, converted to sinus rhythm. R emains in sinus rhythm by EKG today. H er updated medication list for this problem includes: Plavix 75 Mg Oral Tablet (Clopidogrel bisulfate) ..... One tab. daily Coreg 6.25 Mg Oral Tablet (Carvedilol) ..... One tab. twice daily Orders: S [facility] Study Home (CPT-33642) 9 9214 MOD Complex (CPT-65513) R enal Artery Duplex (CPT-15059) Chidi Harmon Electrophysiology fo llow up: B [...] twice daily Orders: 9 9214 MOD Complex (CPT-54924) R enal Artery Duplex (CPT-85499) Chidi Harmon Electrophysiology fo llow up:home sleep [...] twice daily Orders: S leep Study Home (CPT-60559) R enal Artery Duplex (CPT-80847) Chidi Harmon Electrophysiology fo llow up:s/p cardiac [...] twice daily Orders: R enal Artery Duplex (CPT-69358) Chidi Harmon Electrophysiology: C kevink carotid US. Orders: C arotid Duplex Bilateral (CPT-82766) Panda Campbell Electrophysiology: B P today: 130/80 [...] to continue Aspirin. Orders: C omplete Echo (CPT-92770) C arotid Duplex Bilateral (CPT-28092) Her updated medication list for this problem [...] S chedule Followup (*) C omplete Echo (CPT-90901) 9 9214 MOD Complex (CPT-80962) Her updated medication list for this problem [...] S chedule Followup (*) C omplete Echo (CPT-72618) 9 9214 MOD Complex (CPT-23468) Her updated medication list for this problem [...] Fo llow up:Orders: M obile Cardiac Tele (CPT-80336) S [facility] (*) 9 14 MOD Complex (CPT-33057) Her updated medication list for this problem [...] today. HR 62 bpm. Orders: E KG (CPT-41422) M obile Cardiac Tele (CPT-83082) S [facility] (*) 9 14 MOD Complex (CPT-93451) Her updated medication list for this problem [...] llow up:Orders: C OMPREHENSIVE METABOLIC PANEL, W/EGFR (70065) T HYROID PANEL WITH TSH, 3RD GENERATION (7444) L IPID PANEL (7600) C BC (INCLUDES DIFF/PLT) (6399) F ERRITIN (457) I LAKSHMI AND TOTAL IRON BINDING CAPACITY (7573) 9 9213 LTD. Complex (CPT-58761) S chedule Followup (*) Her updated medication [...] effusion. Orders: C OMPREHENSIVE METABOLIC PANEL, W/EGFR (66223) T HYROID PANEL WITH TSH, 3RD GENERATION (7444) L IPID PANEL (7600) C BC (INCLUDES DIFF/PLT) (6399) F ERRITIN (457) I LAKSHMI AND TOTAL IRON BINDING CAPACITY (7573) 9 9213 LTD. Complex (CPT-42253) S chedule Followup (*) Her updated medication [...] daily Panda Campbell Electrophysiology:CV on 05/10/[address] [facility] [place], successfully converted to SR. Patient in SR todaywith HR 75 bpm. Orders: M obile Cardiac Tele (CPT-42387) 9 9214 MOD Complex (CPT-65057) & #13;Her updated medication list for this problem includes: Plavix 75 Mg Oral Tablet (Clopidogrel bisulfate) ..... One tab. daily Coreg 6.25 Mg Oral Tablet (Carvedilol) ..... One tab. twice daily Panda Campbell Electrophysiology:Ca rdiac stent 05/10/18 in circumflex artery. 70% occluded LAD. Orders: E KG (CPT-91755) X -Ray, Chest - Routine (CPT-18408) M obile Cardiac Tele (CPT-50577) C OMPREHENSIVE METABOLIC PANEL, W/EGFR (52325) P ROBNP, N TERMINAL (56228) C BC (H/H, RBC, INDICES, WBC, PLT) (1759) 9 9214 MOD Complex (CPT-62542) Her updated medication list for this problem [...] Monitor - Telemetry (Mobile Cardiac) DLCO - 00142 FRC - 55159 FVC - 41341 Stress Regadenoson Mobile Cardiac Tele Renal Artery [...] MD comp leted FVC / MVV - 07318 Briana Zheng MD completed BLOOD COUNT HEMOGLOBIN Briana Zheng MD completed FRC - 81127 Briana Zheng MD com pleted SpO2 w/o 6min walk/titration Briana Zheng MD completed DLCO - 28656 Briana Zheng MD co mpleted EKG Briana Zheng MD comp leted Mobile Cardiac Telemetry - Tech Briana Zheng MD completed Mobile Cardiac Telemetry - Prof Briana Zheng MD completed Schedule Followup ulius Marce RIDER In one y ear completed EKG Briana Zheng MD comp leted Schedule Followup Briana Zheng MD IN ONE W PICAYUNE completed EKG Briana Zheng MD comp leted [...]
[2024-12-29 11:22] LABS: Total Volume 24 Hour Urine 3200 ml
[2024-12-29 14:16] LABS: Urea Nitrogen 24 Hour Urine 7.3 G/DAY (12-20)
[2024-12-30 15:28] LABS: Creat 24 Hr 1.06 g/24 h (0.50-2.15); Pro/Creat Ratio 394 mg/g creat (<150); Pro/Creat Ratio mg/mg 0.394 (<0.150); Protein,total, 24 Hr Ur 416 mg/24 h (<150)
== END 2024-12-29 09:40 | disposition home or self-care (01) ==
LOC: ANHGOSHLAB 09:40
PROVIDERS: PCP Internal Medicine; Visit Provider Internal Medicine Nephrology
DX: N18.4 Chronic kidney disease, stage 4 (severe) (principal)
CPT/HCPCS: 81050; 84540; 86335

== ENCOUNTER 2025-02-26 14:22 | Outpatient (CLI) | payer MEDICARE, SELFPAY ==
--- OUTSIDE RECORDS SUMMARY | 2025-02-26 14:28 | XMS_ITS ---
Author Organization [facility] Address [address] [place] [address] Care Team Providers Care Glue Jointer Feeder Name Role Phone Eb Walters Unavailable [phone] Medications Medication SIG (Take, Route, Frequency, Duration) Notes [...] Once a day Active Ergocalciferol 1.25 MG (16835 UT) 1 capsule Orally twice a week [...] 1 capsule Orally Twice a day Active Problems Problem Type SNOMED Code ICD Code Onset Dates Problem Status W/U Status Risk Notes Problem Chronic kidney disease stage 3B (disorder) (083396568) Chronic kidney disease, stage 3b (N18.32) Active confirmed Encounters Encounter Location Date Provider Diagnosis [facility] [address] [place] [address] 06/13/2024 Eb Walters Chronic kidney disea se, stage 3b N18.32 ; Essential (primary) hypertension I10 ; Renal osteodystrophy N25.0 ; Secondary hyperparathyroidism, not elsewhere classified E21.1 ; Type 2 diabetes mellitus with hyperglycemia E11.65 ; Urinary tract infection, site not specified N39.0 and Vitamin D deficiency, unspecified E55.9 Assessments Encounter Date Diagnosis (ICD Code) Assessment Notes Treatment Notes Treatment Clinical Notes [...] Vitamin D deficiency, unspecified (ICD-10 - E55.9) Plan Of Treatment No Information Progress Notes * KERRI JACOBSDOB: [birth year] (89 yo F)Acc No.[id number]:06/13/2024 Patient: HUDSON CALIGY Provider: Marquita BURGOS MD, F.A.C.P, F.A.S.N. :1935 A ge:89 Y S ex:Female Date:06/13/2024 Address:[address] [place], [place] [id number] Subjective: * Chief Complaints: Objective: Assessment: * Assessment: 1. C hronic kidney disease, stage 3b - N18.32 2 . E ssential (primary) hypertension - I10 3 . R enal osteodystrophy - N25.0 4 . S econdary hyperparathyroidism, not elsewhere classified - E21.1 5 . T ype 2 diabetes mellitus with hyperglycemia - E11.65 6 . U rinary tract infection, site not specified - N39.0 7 . V itamin D deficiency, unspecified - E55.9 Plan: * Billing Information: * Visit Code: 83633 Office Visit, Est Pt., Level 5. * Procedure Codes: * Electronic signature of Altaf Walters MD on 02/26/2025 at 02:28 PM CDT Sign off status: Pending * Provider: Marquita BURGOS MD, F.A.C.P, F.A.S.N. Date: 0 06/13/2024 Generated for Printing/Faxing/eTransmitting on: 0 02/26/2025 02:28 PM CDT
--- OUTSIDE RECORDS SUMMARY | 2025-02-26 14:28 | XMS_ITS | Patient Health Record ---
Author Organization [facility] Address [address] [place] [address] Care Team Providers Care Admissions Manager Rn Name Role Phone Eb Walters Unavailable [phone] Reason For Referral No Information Medications Medication SIG (Take, Route, Frequency, Duration) Notes Start Date End Date Status Ergocalciferol 1.25 MG (15583 UT) 1 capsule Orally twice a week [...] Problem Status W/U Status Risk Notes Problem Hyperglycemia due to type 2 diabetes mellitus (462763834420873) Type 2 diabetes mellitus with hyperglycemia (E11.65) Active confirmed Problem Secondary hyperparathyroidism (09218868) Secondary hyperparathyroid ism, not elsewhere classified (E21.1) Active confirmed Problem Vitamin D deficiency (89294851) Vitamin D deficiency, unspecified (E55.9) Active confirmed Problem Essential hypertension (94798848) Essential (primary) hypertension (I10) Active confirmed Problem Renal osteodystrophy (88537153) Renal osteodystrophy (N25.0) Active confirmed Problem Urinary tract infectious disease (disorder) (37593654) Urinary tract infection, site not specified (N39.0) Active confirmed Problem Chronic kidney disease stage 3A (disorder) (362312309) Chronic kidney disease, stage 3a (N18.31) Active confirmed Problem Chronic kidney disease, stage 3b (N18.32) Active confirmed Encounters Encounter Location Date Provider Diagnosis [facility] [address] [facility] [address] [place] [address] 03/07/2024 Eb Walters Chronic kidney disea se, stage 3a N18.31 ; Essential (primary) hypertension I10 ; Renal osteodystrophy N25.0 ; Secondary hyperparathyroidism, not elsewhere classified E21.1 ; Type 2 diabetes mellitus with hyperglycemia E11.65 ; Urinary tract infection, site not specified N39.0 and Vitamin D deficiency, unspecified E55.9 [facility] [address] [place] [address] 06/13/2024 Eb Walters Chronic kidney disea se, [...]
--- OUTSIDE RECORDS SUMMARY | 2025-02-26 14:28 | XMS_ITS ---
Author Organization [facility] Address [address] [facility] [address] [place] [address] Care Team Providers Care Rib Knitter Name Role Phone Eb Walters Unavailable [phone] Medications Medication SIG (Take, Route, Frequency, Duration) Notes Start Date End Date Status Ergocalciferol 1.25 MG (91566 UT) 1 capsule Orally twice a week [...] Active Encounters Encounter Location Date Provider Diagnosis [facility] [address] [facility] [address] [place] [address] 11/30/2023 Eb Walters Chronic kidney disea se, [...] * KERRI JACOBSDOB: [birth year] (89 yo F)Acc No.[id number]:11/30/2023 Progress Notes Patient: Robel IRINA KERRI Provider: Marquita BURGOS MD, F.A.C.P, F.A.S.N. :1935 A ge:88 Y S ex:Female Date:11/30/2023 Address:[address] [place] [address] Subjective: * Chief Complaints: * * Medical History: * Medications: T aking Pantoprazole Sodium 40 MG Tablet Delayed Release [...] a day , Taking Ergocalciferol 1.25 MG (97447 UT) Capsule 1 capsule Orally twice a week Objective: * Vitals: Assessment: * Assessment: 1. C hronic kidney disease, stage 3a - N18.31 2 . E ssential (primary) hypertension - [...] Treatment: * Billing Information: * Visit Code: 53460 Office Visit, Est Pt., Level 4. * Procedure Codes: * Electronic signature of Altaf Walters MD on 02/26/2025 at 02:28 PM CDT Sign off status: Pending * Provider: Marquita BURGOS MD, F.A.C.P, F.A.S.N. Date: 0 11/30/2023 Generated for Printing/Faxing/eTransmitting on: 0 02/26/2025 02:28 PM CDT
--- OUTSIDE RECORDS SUMMARY | 2025-02-26 14:28 | XMS_ITS | Continuity of Care Document ---
Author Organization [facility] Address [address] [place] [address] [place] [address] Phone Care Team Providers Care Transaction Coordinator Name Role Phone Cortes Montenegro Unavailable Unavailable Procedures Procedure Date Office/outpatient Visit, Est Post-op Follow-up Visit Refraction BF Plastic Sphcyl [place] To +/-4d .12-2d Vision Svcs Frames Purchases [...] Copied on Encounter Office/outpat ient Visit, Est [facility], [address] [place] [address] [address], [place], [place], [address], [place] tel:[phone] SEC [facility] No Information Nov-0 5-201 0 Moni Kolb. [address] [facility] , [address], [place], [address], [place]. tel:[phone] Referring Provider: Cortes Caba [address] [facility] [address], [place], [address]. tel:[phone] [facility], [address], [place], [place], [address], [place] tel:[phone] SEC [facility] No Information 9 Moni Kolb. [facility] , [address], [place], [address], [place]. tel:[phone] [facility], [address], [place], [place], [address], [place] tel:[phone] SEC [facility] [place] No Information 9 [facility] . [address] [facility], [address], [place], [place], [address], [place]. tel:[phone] Referring Provider: Cortes Caba, [address] [place], [place] [address]ate [address], [place], [address]. tel:[phone] sulting Provider: Rm Connors, [address] [place], [place] [address], [place], [address]. tel:[phone] [facility], [address], [place], [place], [address], [place] tel:[phone] SEC [facility] No Information 0 9 Moni Kolb. [address] [place], [place] [address]ate Center , [address], [place], [address], [place]. tel:[phone] [facility], [address], [place], [place], [address], [place] tel:[phone] [facility] No Information 0 200 9 Moni Kolb. [address] [place], [place] [address]ate Center , [address], [place], [address], [place]. tel:[phone] [facility], [address], [place], [place], [address], tel:[phone] SEC [facility] [place] No Information May-0 3-200 9 Moni Kolb. [facility] [address], [place], [place], [facility], . tel:[phone] Referring Provider: Paul [facility] [address], [place], [facility]. tel:[phone] [facility], [address] [place] [address] [address], [place], [place], [address], tel:[phone] SEC [facility] [place] No Information Mar-2 7-200 8 Moni Kolb. [address] [place] [address] [address], [place], [facility], . tel:[phone] Office/outpat ient Visit, [facility], [address] [place] [address] [address], [place], [place], [address], tel:[phone] SEC [facility] [place] No Information Mar-0 4-200 7 Moni Kolb. [facility] [address], [place], [facility], . tel:[phone] Referring Provider: Paul Thomas [facility] [address], [place], [facility]. tel:[phone] Family History Family Member Type Diagnosis Age At Onset No Information Payers Payer name Insurance type Covered libertarian ID Authoriza tion(s) [place] [id number] AARP Medicare Supp MB [id number] Social History Type Description Quantity Date Captured [...]
--- OUTSIDE RECORDS SUMMARY | 2025-02-26 14:29 | XMS_ITS ---
Author Organization [facility] Address [address] [place] [address] Care Team Providers Care Brand Mgr Name Role Phone Eb Walters Unavailable [phone] Medications Medication SIG (Take, Route, Frequency, Duration) [...] Once a day Active Ergocalciferol 1.25 MG (67176 UT) 1 capsule Orally twice a week [...] Active Encounters Encounter Location Date Provider Diagnosis [facility] [address] [facility] 15 [place] [address] 03/07/2024 Eb Walters Chronic kidney disea se, [...] * KERRI JACOBSDOB: [birth year] (89 yo F)Acc No.[id number]:03/07/2024 Progress Notes Patient: Robel KERRI AREVALO Provider: Marquita BURGOS MD, F.A.C.P, F.A.S.N. :1935 A ge:88 Y S ex:Female Date:03/07/2024 Address:[address] [place] [address] Subjective: * Chief Complaints: * * Medical [...] a day , Taking Ergocalciferol 1.25 MG (45976 UT) Capsule 1 capsule Orally twice a week Objective: * Vitals: Assessment: * Assessment: 1. C hronic kidney disease, stage 3a - N18.31 (Primary) 2 . E ssential (primary) hypertension - I10 3 . 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 T ype 2 diabetes mellitus with hyperglycemia - E11.65 6 . U rinary tract infection, site not specified - N39.0 7 . V itamin D deficiency, unspecified - E55.9 Plan: * Treatment: * Billing Information: * Visit Code: 06845 Office Visit, Est Pt., Level 4. * Procedure Codes: * Electronic signature of Altaf Walters MD on 02/26/2025 at 02:28 PM CDT Sign off status: Pending * Provider: Marquita BURGOS MD, F.A.C.P, F.A.S.N. Date: 0 03/07/2024 Generated for Printing/Faxing/eTransmitting on: 0 02/26/2025 02:28 PM CDT
--- OUTSIDE RECORDS SUMMARY | 2025-02-26 14:29 | XMS_ITS | Referral Summary ---
Author Organization [facility] Address [address] [place] [address] Care Team Providers Care Mainspring Winder And Oiler Name Role Phone Ezra Jamison MD Primary Care Provider [phone] Allergies Active Allergy Reactions Criticality Noted Date [...] mg tabletIndication s:type 2 diabetes mellitus Sample [id number] 03/20 7 tablet 10/18/2017 Active glimepiride (AMARYL) [...] daily Assessment & Plan (10/18/2017 10:35 AM CLIENT INSIGHTS CONSULTANT): Your Hba1c today was: 8.5 meaning a [...] on file Legal Sex Female 11:52 AM CLIENT INSIGHTS CONSULTANT Gender Identity Not on file Sexual Orientation [...] 8:28 AM CDT Height 154.9 cm (5' 1) 03/11/2019 8:28 AM CDT Body Mass Index 39.3 03/11/2019 8:28 AM CDT Plan of Treatment Not on file Insurance [facility] MDCR HMO REF [facility] MEDICARE Address: [id number] [place] [address] Care Teams Mainspring Winder And Oiler Relationship Specialty Start Date End Date Ezra Jamison MD PCP - General Internal Medicine 10/08/17
--- OUTSIDE RECORDS SUMMARY | 2025-02-26 14:29 | XMS_ITS | Clinical Summary ---
Author Organization [facility] [employer] Address [address] [place] [address] Care Team Providers Care Carbon Paper Coating Machine Setter Name Role Phone Ezra Jamison MD Primary Care Provider [phone] Source Comments [facility] [employer],non-owned Affiliates and Associated Physician Practices is amultiple site organization consisting of ambulatory clinics and hospital sitesin [place] and [place]. This disclosure is being madepursuant to the Care Everywhere program and may not contain all information available regarding this patient. Last updated 18.[employer] Allergies Active Allergy Reactions Criticality Noted Date Comments Levofloxacin Swelling 09/19/2022 Lomotil Swelling 09/19/2022 Medications * Be aware that medications may not be up to date on this document. Alwaysverify current medications with the patient. acetaminophen (Tylenol) 500 MG tablet Take 1 (one) tablet by mouth every 4 hours as needed for Fever or Pain Maximum allowable Acetaminophen amount = 4 Grams (4000 mg) / 24 hours. 30 tablet Active Social History Tobacco Use Types Packs/Day [...] of Binge Drinking Not on file 09/01 Comments No Sex and Gender Information Value Date Recorded Sex Assigned at Not on file Legal Sex Female 1:49 AM RADAR ENGINEER Gender Identity Not on file Sexual Orientation Not on file Last Filed Vital Signs Vital Sign Reading Time Taken Comments Blood Pressure 165/72 09/19/2022 6:00 AM RADAR ENGINEER Pulse 75 09/19/2022 3:01 AM RADAR ENGINEER Temperature 36.4 C (97.5 F) 09/19/2022 1:51 AM RADAR ENGINEER Respiratory Rate 22 09/19/2022 2:55 AM RADAR ENGINEER Oxygen Saturation 96% 09/19/2022 6:00 AM RADAR ENGINEER Inhaled Oxygen Concentration - - Weight 83.9 kg (185 lb) 09/19/2022 1:51 AM RADAR ENGINEER Height 167.6 cm (5' 6) 09/19/2022 1:51 AM RADAR ENGINEER Body Mass Index 29.86 09/19/2022 1:51 AM RADAR ENGINEER Plan of Treatment Health Maintenance Due Date Last Done Comments BONE DENSITY TESTING 1935 DTAP/TDAP/TD VACCINES (1 - Tdap) 1954 PNEUMOCOCCAL VACCINE 50+ (1 of 1 - PCV) 1985 ZOSTER VACCINE (1 of 2) 1985 Respiratory Syncytial Virus (RSV) Vaccine Pt: or over 60 yrs (1 - 1-dose 75+ series) 2010 COVID-19 VACCINE ( - 2023-2 5 season) 2024 DEPRESSION SCREENING 10/01/2024 MEDICARE AWV CALENDAR YEAR 2024 INFLUENZA VACCINE (Season Ended) 2025 HEPATITIS B VACCINE Aged Out No longe [...] on patient's age to complete this topic Insurance [employer] MANAGED MEDICARE ADV [facility] MANAGED MEDICARE ADV Care Teams Carbon Paper Coating Machine Setter Relationship Specialty Start Date End Date Ezra Jamison MD PCP - General Internal Medicine 09/19/22
--- OUTSIDE RECORDS SUMMARY | 2025-02-26 14:29 | XMS_ITS | Encounter Summary ---
Author Organization [facility] ETIENNE Huston [facility] Address [address] [place] [address] Care Team Providers Care Litigation Paralegal Name Role Phone Unavailable Primary Care Provider Unavailabl e Reason for Referral * Radiology Services (Routine) - Authorized Specialty Diagnoses / Procedures Referred By Contnate t Referred To Contact Diagnoses Plasma cell disorder Procedures XR BONE SURVEY COMPLETE Job Joyner MD [address] [place] [phone] Phone: tel: fax: Referral ID Status Reason Start Date Expiration Date V isits Requested Visits Authorized [id number] Authorized 02/26/2025 03/29/2026 1 1 Reason for Visit * Reason Comments Establish Care Encounter Details Date Type Department Care Team (Late st Contact Info) Description 02/26/2025 1:30 PM CDT Office Visit [facility] Oncology and Hematology - [place] [address] [place] [address] [address] [place] [address] Job Joyner MD [address] [place] [address] Plasma cell disorder (Primary Dx) Social History Tobacco Use Types Packs/Day Years Used Date Smoking Tobacco: Never Smokeless Tobacco: Never Alcohol Use Standard Drinks/Week Comments Yes 0 (1 standard drink = 0.6 oz pur e alcohol) occasional Comments Unknown Sex and Gender Information Value Date Recorded Sex Assigned at Not on file Legal Sex Female 11:14 AM CDT Gender Identity Not on file Sexual Orientation Not on file documented as of this encounter Last Filed Vital Signs Vital Sign Reading Time Taken Comments Blood Pressure 149/77 02/26/2025 1:27 PM CDT Pulse 54 02/26/2025 1:24 PM CDT Temperature 36.4 C (97.5 F) 02/26/2025 1:24 PM CDT Respiratory Rate 15 02/26/2025 1:24 PM CDT Oxygen Saturation 96% 02/26/2025 1:24 PM CDT Inhaled Oxygen Concentration - - Weight 94 kg (207 lb 3.2 oz) 02/26/2025 1:24 PM CDT Height 154.9 cm (5' 1) 02/26/2025 1:24 PM CDT Body Mass Index 39.15 02/26/2025 1:24 PM CDT documented in this encounter Progress Notes * Job Joyner MD - 02/26/2025 1:39 PM CDT Hematology-oncology consult Note Requesting Physician Daniel Edward MD Primary Care Physician No primary care provider on file. Problem list There is no problem list on file for this patient. Previous TREATMENT ? Measurable Disease ? Reason for Visit Danna Mittal is a 89 y.o. female who was referred for consultation for plasma cell disorder. History of present illness This is a pleasant 89-year-old obese female with history of chronic kidney stage IV disease, diabetes, hypothyroidism, coronary artery disease status post stent placement, atrial fibrillation and hyperlipidemia referred to me for abnormal blood test including serum protein electrophoresisand immunofixation done on December 26, 2024 that showed IgG lambda monoclonal band present. Workup was performed by Dr. Edward for proteinuria and renal insufficiency. She has been dealing with generalized bone pain mainly including the shoulder back and the hip. She also has been dealing with bilateral feet neuropathy and her neuropathy. Her weight and appetite stable. Denies any bleeding and bruising. Denies any other new complaints. Past Medical History Past Medical History: Diagnosis Date Diabetes mellitus (CMS/HCC) Diverticulitis History of heart attack Hypertension Surgical History Past Surgical History: Procedure Laterality Date HX CHOLECYSTECTOMY HX CORONARY STENT PLACEMENT HX HERNIA REPAIR HX HYSTERECTOMY HX LUMBAR FUSION x2 Medications Current Outpatient Medications Medication Sig Dispense Refill Eliquis 5 mg tablet Take 1 Tablet by mouth 2 times daily. calcitRIOL (ROCALTROL) 0.25 mcg capsule Take 1 Capsule by mouth daily. dilTIAZem (CARDIZEM CD, CARTIA XT) 120 mg Controlled Delivery 24 hour capsule Take 1 Capsule by mouth daily. olmesartan (BENICAR) 40 mg tablet Take 1 Tablet by mouth daily. pantoprazole (PROTONIX) 40 mg Tablet, Delayed Release (E.C.) Take 40 mg by mouth daily at bedtime. Lantus Solostar U-100 Insulin 100 unit/mL (3 mL) solution for injection INJECT 10 UNITS UNDER THE SKIN IN THE MORNING AND 25 UNITS IN THE EVENING vit A/vit C/vit E/zinc/copper (PRESERVISION AREDS ORAL) Take by mouth 2 times daily. vitamin E 400 unit capsule Take 400 Units by mouth daily. TURMERIC ORAL Take 1,000 mg by mouth 2 times daily. levothyroxine 75 mcg tablet Take 75 mcg by mouth daily. aspirin (ECOTRIN EC) 81 mg Tablet, Delayed Release (E.C.) Take 81 mg by mouth daily. atorvastatin (LIPITOR) 10 mg tablet Take 10 mg by mouth daily. montelukast (SINGULAIR) 10 mg tablet Take 10 mg by mouth daily. ergocalciferol (VITAMIN D2) 50,000 unit capsule Take 50,000 Units by mouth every 2 weeks. carvediloL (COREG) 6.25 mg tablet Take 6.25 mg by mouth 2 times daily. No current facility-administered medications for this visit. Allergies Allergies Allergen Reactions Diphenoxylate-Atropine Anaphylaxis and Swelling Lamotrigine Swelling Latex Unknown Levofloxacin Other (See Comments) and Swelling Nifedipine Other (See Comments) Immunizations: There is no immunization history on file for this patient. Family History Family History Problem Relation Name Age of Onset Heart Disease Father Heart Disease Mother Diabetes Mother Heart Disease Brother Diabetes Brother Kidney Cancer Brother Heart Disease Brother Lung Cancer Brother Heart Disease Brother Diabetes Brother Heart Disease Sister Diabetes Sister Breast Cancer Sister Heart Disease Sister Diabetes Sister Diabetes Child Diabetes Child No Known Problems Child Social History Social History Tobacco Use Smoking status: Never Smokeless tobacco: Never Substance Use Topics Alcohol use: Yes Comment: occasional Review of Systems Constitutional: Patient did not mention fever; no night sweats; no anorexia; no weight loss; no fatique NEENT: Patient did not mention headache; no change in vision; no change in hearing; no sore throat;no dysphagia Respiratory: Patient did not mention shortness of breath; no pleuritic chest pain; no cough; no hemoptysis Cardiac: Patient did not mention cardiac-like chest pain; no palpitations; no orthopnea; no PND; noDOE Breasts: Patient did not mention tenderness; no masses GI: Patient did not mention abdominal pain; no nausea; no vomiting; no diarrhea; no hematochezia; no melena : Patient did not mention dysuria; no frequency; no hesitancy; no hematuria CONTACT AGENT: Musculosketetal: Patient did not mention bone pain, complain of generalized arthralgia; no joint swelling; no myalgia; Skin: Patient did not mention pruritis; no rash; no petechiae; no ecchymoses Endocrine: Patient did not mention polydipsia; no polyuria; no unusual weight gain Neuro: Patient did not mention headache; no change in vision; complain of neuropathy involving bilateral feet and hand, no confusion; no seizures Psych: Patient did not mention anxiety; no depression; Physical Exam Vitals: As per nursing note Constitutional: Well developed, well nourished, no acute distress, non-toxic appearance Teeth and gum. No signs of infection or swelling. Eyes: PERRL, conjunctiva normal HEENT: Atraumatic, external ears normal, nose normal, oropharynx moist, no pharyngeal exudates. no sinus tenderness Neck- normal range of motion, no tenderness, supple Respiratory: No respiratory distress, normal breath sounds, no rales, no wheezing Cardiovascular: Normal rate, normal rhythm, no murmurs, no gallops, no rubs GI: Soft, nondistended, normal bowel sounds, nontender, no splenomegaly, no hepatomegaly, no mass, no rebound, no guarding : No costovertebral angle tenderness Musculoskeletal: No edema, no tenderness, no deformities. Back- no tenderness Integument: Well hydrated, no rash, Digits and nails inspection normal Lymphatic: No lymphadenopathy noted Neurologic: Alert & oriented x 3, CN 2-12 normal, normal motor function, normal sensory function, no focal deficits noted Psychiatric: Speech and behavior appropriate ? labs No results found for this or any previous visit (from the past 24 hours). Labs from December 26, 2024 including serum immunofixation study showed IgG lambda monoclonal band present kappa light chain 54.8 lambda 42.4 WBC 7.5 hemoglobin 11.2 platelet 299,000 creatinine 1.8 calcium 9.5 Pathology ? Imaging & Other Studies Performance Status? Assessment / Plan: ? 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 Patient is a pleasant 89-year-old female with multiple comorbidities including chronic kidney stage IV disease, type 2 diabetes, hypothyroidism, hyperlipidemia, atrial fibrillation and coronary artery disease status status post stent placement. Blood workup was performed by Dr. Edward for renal insufficiency that showed presence of monoclonal IgG lambda band. 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 I have discussed the differential diagnosis of plasma cell disorders in detail. At this time I will order the workup that will include CBC with differential, CMP, serum protein electrophoresis with immunofixation, quantitative immunoglobulin and skeletal survey. Based on the initial findings we will decide about bone marrow aspiration and biopsy. I have answeredall the questions to patient and the family satisfaction. Chronic kidney disease stage IV. Patient will follow-up with Dr. Edward. Coronary artery disease status post stent placement. Patient is on aspirin. Type 2 diabetes. Patient is on insulin. Atrial fibrillation. She is on Eliquis. Hypothyroidism. She is on levothyroxine. Hyperlipidemia. Patient is on Lipitor. Thank you very much for allowing me to participate in Danna Mittal's evaluation and management.Please feel free to contact if I can be of any further assistance in your patient???s care requiring hematology or oncology evaluation. Sincerely, ? ? Job Joyner M.D. cell TOBACCO COUNSELING She is not a tobacco/nicotine user. Job Joyner MD ,02/26/2025 2:13 PM ? Total time spent 60 minutes, two third of the total time spent counseling patient [id number]. CC: Daniel Edward MD documented in this encounter Plan of Treatment Upcoming Encounters Date Type Department Care Team (Late st Contact Info) Description 03/12/2025 4:30 PM CDT Telephone Check Up [facility] Oncology and Hematology - [place] [address] [facility] [address] [place] [address] Job Joyner MD [address] [facility] [address] [place] [phone] Scheduled Orders Name Type Priority Associated Diagnoses Orde r Schedule CBC WITH DIFFERENTIAL Lab Stat Plasma cell disorder Expected: 02/26/2025, Expires: 02/26/2026 COMPREHENSIVE METABOLIC PANEL Lab Stat Plasma cell disorder Expected: 02/26/2025, Expires: 02/26/2026 IMMUNOGLOBULINS IGG IGA IGM Lab Routine Plasma cell disorder Expected: 02/26/2025, Expires: 02/26/2026 KAPPA/LAMBDA, FREE LIGHT CHAINS Lab Routine Plasma cell disorder Expected: 02/26/2025, Expires: 02/26/2026 PROTEIN ELECTROPHORESIS W/REFLEX,SERUM Lab Routine Plasma cell disorder Expected: 02/26/2025, Expires: 02/26/2026 XR BONE SURVEY COMPLETE Imaging Routine Plasma cell disorder 1 Occurrences starting 02/26/2025 until 02/26/2026 documented as of this encounter Visit Diagnoses Diagnosis Plasma cell disorder- Primary Other specified disease of white blood cells documented in this encounter
--- OUTSIDE RECORDS SUMMARY | 2025-02-26 14:29 | XMS_ITS | Data Portability ---
Author Organization [place] - [facility] [email or web address], Main Office Address [address] [place] [address] Care Team Providers Care Cultural Anthropology Professor Name Role Phone SHEBA JAMISON Primary Care Provider SHEBA JAMISON Referring Provider Assessment Encounter Date Assessment Date Assessment LastModified by Organization Details LastModified Time 12/12/2022 12/12/2022 Follow-up 2 months continue current therapy [email or web address] Not available 12/24/2022 15:33:47 03/20/2023 03/20/2023 Diagnosis in assessment and plan been discussed continue current therapy and follow-up in 4 months avoid any nonsteroidal anti-inflammato polo stay hydrated call if questions [email or web address] Not available 03/20/2023 21:15:40 Plan of Treatment [...] Organization Details Recorded Time Acute bronchiti s 97669478 Active 2021 Not Available [facility] 3 05:47:39 Bilateral arthritis of knees 16003511421 98637 Active 2018 Not Available [facility] 3 05:47:39 Bilateral osteoarth ritis of knees 82457480729 9107 Active 2021 Not Available [facility] 3 05:47:39 Plantar fasciitis of left foot 96166891993 586509 Active 2020 Not Available [facility] 3 05:47:39 Plantar fasciitis of right foot 74323328254 002217 Active 2020 Not Available [facility] 3 05:47:39 Acquired trigger finger 5980851 Active Not Available [facility] 3 05:47:39 Asthma 442618147 Active 2020 Not Available [facility] 3 05:47:39 Tibialis posterior tendiniti s 342450698 Active 2020 Not Available [facility] 3 05:47:39 Fibromyal camilo 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 2020 Not Available [facility] 3 05:47:39 Radial styloid tenosynov itis 03406017 Active Not Available [facility] 3 05:47:39 Intestina l disacchar idase deficienc y 34403824 Completed Not Available [facility] 3 01:15:55 Neuropath y due to diabetes mellitus 862749388 Active Not Available [facility] 3 05:47:39 Osteoarth ritis of knee 571160406 Active Not Available [facility] 3 05:47:39 Triggerin g of digit 825235428 Completed Not Available [facility] 3 01:15:55 Ankle pain 543576244 Completed Not Available [facility] 3 01:15:56 Anemia 622119929 Active 2017 Not Available [facility] 3 05:47:39 Subungual hematoma of foot 221109752 Active Not Available [facility] 3 05:47:39 Metatarso phalangea l joint pain 337380948 Active 2020 Not Available [facility] 3 05:47:39 Tear of medial meniscus of knee 118378079 Active 2020 Not Available [facility] 3 05:47:39 Current tear of medial cartilage AND/OR meniscus of knee Completed Not Available [facility] 3 01:15:56 Enthesopa thy of hip region 49437770 Completed Not Available [facility] 3 01:15:57 Knee pain Completed Not Available [facility] 3 01:15:57 Type 2 diabetes mellitus without complicat ion 837157647 Active Not Available [facility] 3 05:47:39 Tendiniti s of left posterior tibial tendon 08440580873 9100 Active 2020 Not Available [facility] 3 05:47:39 Osteoarth ritis of left knee joint 78311788127 9109 Active 2020 Not Available [facility] 3 05:47:39 Bronchiti s 95216103 Active 2020 Not Available [facility] 3 05:47:39 Enthesopa thy of wrist AND/OR carpus 19194101 Active Not Available [facility] 3 05:47:39 Sinusitis 15870111 Completed Not Available [facility] 3 01:15:58 Arthritis 9056098 Active 2020 Not Available [facility] 3 05:47:39 Osteoarth ritis 349147506 Active Not Available [facility] 3 05:47:39 Hypothyro idism 55784086 Active Not Available [facility] 3 05:47:39 Obesity 449498541 Active 2020 Not Available [facility] 3 05:47:39 Onychomyc osis 102588416 Active Not Available [facility] 3 05:47:39 Chronic kidney disease stage 3 187042100 Active Not Available [facility] 3 05:47:39 Type 2 diabetes mellitus 83821758 Active 2021 Not Available [facility] 3 05:47:39 Foot pain 66282389 Active Not Available [facility] 3 05:47:39 Foot pain 15888980 Active 2020 Not Available [facility] 3 05:47:39 Pain of hip region 95922655 Completed Not Available [facility] 3 01:16:00 Atrial fibrillat ion 48029959 Active 2021 Not Available [facility] 3 05:47:39 Upper respirato ry infection 89854729 Completed Not Available [facility] 3 01:16:00 Hyperlipi demia 20268502 Active Not Available [facility] 3 05:47:40 Heart disease 53370014 Active 2020 Not Available [facility] 3 05:47:40 Essential hypertens ion 38458791 Active Not Available [facility] 3 05:47:40 Tinea pedis 1837225 Active Not Available [facility] 3 05:47:40 Dyspnea on exertion 02992576 Completed Not Available [facility] 3 01:16:01 Osteoporo sis 04232245 Active 2020 Not Available [facility] 3 05:47:40 Hyperglyc emia 19393906 Active Not Available [facility] 3 05:47:40 Closed fracture of phalanx of foot 49173331 Completed Not Available [facility] 3 01:16:02 Kidney disease 51141408 Active 2020 Not Available [facility] 3 05:47:40 Notes:ALLERGIES, BACK/NECK P ROBLEMS, BOWEL PROBLEMS, CARDIAC ARRHYTHMIA, HERNIATED DISEASE, THYROID DISEASE, USE OF BLOOD THINNERS Problem Notes None recorded. Procedures Surgical History Date Name Laterality Status Provider Name and Address Organization Details Recorded Time 06/20/20 21 Hernia Surgery completed Not Available [facility] 11/29/2022 01:01:31 03/27/20 13 Knee arthroscopy/surger y completed Not Available [facility] 11/29/2022 01:01:31 03/28/20 12 Date of Last Colonoscopy completed Not Available [facility] 11/29/2022 01:01:26 03/28/20 12 Colonoscopy completed Not Available [facility] 11/29/2022 01:01:31 03/16/20 09 Most Recent Bone Density completed Not Available [facility] 11/29/2022 01:01:26 Cardiac Stent Placement completed Not Available [facility] 11/29/2022 01:01:31 Hysterectomy completed Not Available [facility] 11/29/2022 01:01:31 Cholecystectomy completed Not Available [facility] 11/29/2022 01:01:31 excision of bunion completed Not Available [facility] 11/29/2022 01:01:31 Back Surgery completed Not Available [facility] 11/29/2022 01:01:31 Imaging Results None recorded. Procedure Notes None recorded. Medical Equipment None Reported. Allergies Allergen ID Allergen Name Allergen Category Reaction Reaction Severity Criticality Documentation Date Start Date Code Code System Note Provider Name and Address Organization Details Recorded Time 2768 nifedipin e medicatio n other Not available Not available 11/29/2022 7417 RxNorm BP drops Not Available [facility] 3 01:34:03 2769 Lomotil medicatio n anaphylax is Not available Not available 11/29/2022 62137 RxNorm Not Available [facility] 3 01:34:03 2770 levofloxa kamila medicatio n other Not available Not available 11/29/2022 58821 RxNorm leg pain Not Available [facility] 3 01:34:03 2771 latex environme nt,medica tion Not available Not available Not available 11/29/2022 00357 91 RxNorm Not Available [facility] 3 01:34:03 Medications Name Sig Start Date [...] mg tablet Take by oral route. take 5v5srdy, 4k9uhkg, 3u4pqgu active Not Available Not Available No t [...] the provider 01/03 completed [facility]: [phone] 4- Not Available Not Available Not Available meclizine 25 mg tablet Take 1 tablet 3 times a day by oral route. active Not Available Not Available No t Available cephalexi n 500 mg capsule 08/10 completed Not Available Not Available Not Available pantopraz ole 40 mg tablet,de layed release TAKE 1 TABLET BY MOUTH DAILY AT NIGHT 2022 active Not Available Not Available Not [...] e 50 mcg/actua tion nasal spray,chi pension [place] 2 sprays every day by intranas al [...] 06/[address] Robin s; DUPL Not Available Not Available Not Available olmesarta [...] the provider 09/27 completed [facility]: [phone] 03-17 Not Available Not Available Not [...] the doctor 10/13 completed [facility]: [id number] 001 Not Available Not Available Not Available [...] kg/m2 154.94 cm 68 /min 97.5 [degF] 45408.7 3 g 178 mm[Hg] 88 mm[Hg] Not Available [facility] 3 01:11:35 Date Recorded Heart rate Systolic blood pressure Diastolic blood pressure Provider Name and Address Organization Details Last Updated DateTime 11/28/2022 65 /min 148 mm[Hg] 68 mm[Hg] Not Available [facility] 11/29/2022 01:11:35 Date Recorded Body height Body mass index (BMI) Body weight Body temperature Heart rate Systolic blood pressure Diastolic blood pressure Provider Name and Address Organization Details Last Updated DateTime 3 154.94 cm 41.4 kg/m2 47142.7 3 g 97.9 [degF] 60 /min 152 mm[Hg] 78 mm[Hg] Jocelyn metzger RN [facility] [employer] [facility] 3 11:50:35 Date Recorded Body height Body mass index (BMI) Body weight Body temperature Heart rate Systolic blood pressure Diastolic blood pressure Provider Name and Address Organization Details Last Updated DateTime 3 154.94 cm 40.8 kg/m2 93852.9 5 g 97.2 [degF] 64 /min 140 mm[Hg] 72 mm[Hg] KWASI Maloney [facility] [employer] [facility] 3 10:52:02 Date Recorded Body mass index (BMI) Body height Body weight Provider Name and Address Organization Details Last Updated DateTime 05/23/2022 40.1 kg/m2 154.94 cm 39224.58 g Not Available [facility] 11/29/2022 01:11:48 Date Recorded Body mass index (BMI) Body height Heart rate Body temperature Body weight Systolic blood pressure Diastolic blood pressure Provider Name and Address Organization Details Last Updated DateTime 2 40.1 kg/m2 154.94 cm 61 /min 97.5 [degF] 96470.5 8 g 140 mm[Hg] 82 mm[Hg] Not Available [facility] 3 01:11:35 Social History Question Answer Notes LastModified by Organizat ion Details LastModified Time Tobacco Smoking Status Never Smoker Not Available [facility] 11/29/2022 00:59:03 Do You Have An Advance Directive? Yes Requested Copy MIGRATION.28771 47188 Information not available 11/29/2022 Are You Blind Or Do You Have Difficulty Seeing? No MIGRATION.88668 77363 Information not available 11/29/2022 What Is Your Level Of Caffeine Consumption? Moderate MIGRATION.00984 53180 Information not available 11/29/2022 How Much Tobacco Do You Chew? None MIGRATION.12356 22351 Information not available 11/29/2022 In The 14 Days Before Symptom Onset, Have You Had Close Contact With A Laboratory-confi rmed COVID-19 While That Case Was Ill? No MIGRATION.90131 55982 Information not available 11/29/2022 In The 14 Days Before Symptom Onset, Have You Had Close Contact With A Person Who Is Under Investigation For COVID-19 While That Person Was Ill? No MIGRATION.53706 39621 Information not available 11/29/2022 Are You Deaf Or Do You Have Serious Difficulty Hearing? No MIGRATION.39817 10837 Information not available 11/29/2022 What Type Of Diet Are You Following? REGULAR MIGRATION.48837 59442 Information not available 11/29/2022 Which Illicit Or Recreational Drugs Have You Used? None MIGRATION.62218 29644 Information not available 11/29/2022 What Is The Highest Grade Or Level Of School You Have Completed Or The Highest Degree You Have Received? [id number] MIGRATION.02672 62328 Information not available 11/29/2022 Have There Been Any Changes To Your Family Or Social Situation? No MIGRATION.03856 03517 Information not available 11/29/2022 What Is The Fluoride Status Of Your Home? Unknown MIGRATION.17107 97845 Information not available 11/29/2022 Are There Any Guns Present In Your Home? No MIGRATION.95273 43167 Information not available 11/29/2022 Do You Use Insect Repellent Routinely? No MIGRATION.89418 81834 Information not available 11/29/2022 Where Do You Live? Apartment MIGRATION.68446 28062 Information not available 11/29/2022 Do You Have A Medical Power Of Government Guard? Yes MIGRATION.41514 92733 Information not available 11/29/2022 What Was The Date Of Your Most Recent Tobacco Screening? 03/20/2023 [email or web address] Information not available 03/20/2023 Have You Ever Been Counseled For Unhealthy Alcohol Use? No MIGRATION.94769 29746 Information not available 11/29/2022 Do You Have Any Pets? No MIGRATION.60898 32312 Information not available 11/29/2022 What Is Your Relationship Status? MIGRATION.44028 93813 Information not available 11/29/2022 Do You Use Your Seat Belt Or Car Seat Routinely? Yes MIGRATION.42004 59560 Information not available 11/29/2022 Do You Have Smoke And Carbon Monoxide Detectors In Your Home? Yes MIGRATION.92537 91427 Information not available 11/29/2022 Are You Passively Exposed To Smoke? No MIGRATION.61468 02151 Information not available 11/29/2022 Are There Any Smokers In Your House? No MIGRATION.76180 86116 Information not available 11/29/2022 How Much Tobacco Do You Smoke? No MIGRATION.29351 72562 Information not available 11/29/2022 What Types Of Sporting Activities Do You Participate In? None MIGRATION.65287 08636 Information not available 11/29/2022 Do You Use Sunscreen Routinely? No MIGRATION.97630 42764 Information not available 11/29/2022 Has Tobacco Cessation Counseling Been Provided? No MIGRATION.72164 70681 Information not available 11/29/2022 How Many Years Have You Smoked Tobacco? 0 MIGRATION.31206 09786 Information not available 11/29/2022 Have You Recently Traveled Abroad? No MIGRATION.22524 55570 Information not available 11/29/2022 Do You Have Difficulty Walking Or Climbing Stairs? No MIGRATION.87312 51977 Information not available 11/29/2022 Do You Have Any Dietary Restrictions? No MIGRATION.43631 64802 Information not available 11/29/2022 Sex: Female Functional Status Question Answer Note LastModified by Organizat ion Details LastModified Time Do you use any illicit or recreational drugs? No MIGRATION.003925 0067 Information not available 11/29/2022 Do you or have you ever used any other forms of tobacco or nicotine? No MIGRATION.049268 2272 Information not available 11/29/2022 What is your level of alcohol consumption? Occasional MIGRATION.410521 5870 Information not available 11/29/2022 Do you or have you ever used smokeless tobacco? Never used smokeless tobacco MIGRATION.385119 5797 Information not available 11/29/2022 Do you have transportation difficulties? No MIGRATION.617911 5933 Information not available 11/29/2022 Are you able to walk? YESASSIST MIGRATION.365284 0676 Information not available 11/29/2022 Do you have difficulty doing errands alone? No MIGRATION.998460 6831 Information not available 11/29/2022 Are you able to care for yourself? Yes MIGRATION.429707 0285 Information not available 11/29/2022 What is your occupation? retired MIGRATION.910947 3687 Information not available 11/29/2022 Do you have difficulty dressing or bathing? No MIGRATION.873244 2769 Information not available 11/29/2022 Do you or have you ever used e-cigarettes or vape? Never used electronic cigarettes MIGRATION.892916 2586 Information not available 11/29/2022 What is your exercise level? Occasional MIGRATION.112451 2433 Information not available 11/29/2022 Mental Status Question Answer Note LastModified by Organizat ion Details LastModified Time Do you feel stressed (tense, restless, nervous, or anxious, or unable to sleep at night)? [id number] MIGRATION.40497953 26 Information not available 11/29/2022 Do you have difficulty concentrating, remembering or making decisions? No MIGRATION.52351089 26 Information not available 11/29/2022 Family History Relationship Description Onset Age of this Age Resolved Age Notes LastModified by Organization Details LastModified Time Father Rheumatoid arthritis MIGRATION.553 6461258 Not available 11/29/2022 01:01:41 Father Heart disease MIGRATION.447 0212476 Not available 11/29/2022 01:01:41 Father Diabetes mellitus MIGRATION.693 9995241 Not available 11/29/2022 01:01:41 Father Arthritis MIGRATION.255 3002261 Not available 11/29/2022 01:01:41 Mother Heart disease MIGRATION.091 2939433 Not available 11/29/2022 01:01:41 Mother Diabetes mellitus MIGRATION.038 2471213 Not available 11/29/2022 01:01:42 Mother Arthritis MIGRATION.774 8511945 Not available 11/29/2022 01:01:42 Sister Disorder of thyroid gland MIGRATION.924 4720208 Not available 11/29/2022 01:01:42 Sister Malignant tumor of breast with Mets-d ecease d MIGRATION.927 3443025 Not available 11/29/2022 01:01:42 Sister Diabetes mellitus MIGRATION.783 7506633 Not available 11/29/2022 01:01:42 Brother Malignant neoplasm of lung MIGRATION.882 3413100 Not available 11/29/2022 01:01:42 Brother Heart disease MIGRATION.177 2215948 Not available 11/29/2022 01:01:42 Brother Diabetes mellitus MIGRATION.715 9393188 Not available 11/29/2022 01:01:42 Unspecified Relation Hypertensive disorder ENTIRE FAMILY MIGRATION.320 6005901 Not available 11/29/2022 01:01:42 Unspecified Relation Osteoporosis ALL FAMILY MIGRATION.755 4860354 Not available 11/29/2022 01:01:42 Notes:BLOOD CLOTS-1 SISTER, [...] HAVE YOU BEEN HOSPITALIZED OR SEEN IN [facility] IN THE PAST YEAR ? N ATHEROSCLEROSIS [...] high-dose, quadrivalent, PF 1 completed Not Available [facility] 08/14/2023 05:47:42 COVID-19, mRNA, LNP-S, PF, 30 mcg/0.3 mL dose 1 completed Not Available [facility] 08/14/2023 05:47:42 COVID-19, mRNA, LNP-S, PF, 30 mcg/0.3 mL dose 1 completed Not Available [facility] 08/14/2023 05:47:42 Influenza, split virus, trivalent, preservative 0 completed Not Available [facility] 08/14/2023 05:47:42 Influenza, high-dose, trivalent, PF 9 completed Not Available [facility] 08/14/2023 05:47:42 Influenza, high-dose, trivalent, PF 8 completed Not Available [facility] 08/14/2023 05:47:42 COVID-19, mRNA, LNP-S, PF, 30 mcg/0.3 mL dose 1 completed Not Available [facility] 08/14/2023 05:47:42 Influenza, high-dose, quadrivalent, PF 2 completed Not Available [facility] 08/14/2023 05:47:42 Influenza, split virus, quadrivalent, PF 5 completed Not Available [facility] 08/14/2023 05:47:42 Past Encounters Encounter ID Performer Location Encounter Start Date Encounter Closed Date Diagnosis/Indication Diagnosis SNOMED-CT Code Diagnosis ICD10 Code Diagnosis Note [id number] Sheba Jamison MD [facility] [address] [place] [address] [address] 12/06/2020 00:00:00 12/06/2020 22:04:23 [id number] Sheba Jamison MD [facility] [address] [place] [address]148 1 01/14/2021 00:00:00 01/15/2021 14:36:58 [id number] John Ricketts DPM [facility] [address] [address] 0 02/03/2021 00:00:00 02/03/2021 11:55:47 [id number] John Ricketts DPM [facility] [address] [address] 0 02/11/2021 00:00:00 02/11/2021 09:46:16 [id number] Sheba Jamison MD [facility] [address] [place] [address]551 1 03/07/2021 00:00:00 03/07/2021 22:20:00 [id number] John Ricketts DPM [facility] [address] [address] 0 03/24/2021 00:00:00 03/24/2021 11:14:30 [id number] John Ricketts DPM [facility] [address] [address] 0 05/09/2021 00:00:00 05/09/2021 11:10:26 [id number] Sheba Jamison MD [facility] [address] [place] [address]650 1 05/20/2021 00:00:00 05/21/2021 17:35:04 [id number] John Ricketts DPM [facility] [place] [address] [address] 05/30/2021 00:00:00 05/30/2021 10:53:39 [id number] Pietro francois MD [facility] General [facility] [address] [facility] [address] [address] 1 05/31/2021 00:00:00 05/31/2021 13:25:59 [id number] Sheba Jamison MD [facility] [facility] [address] [address] 1 06/27/2021 00:00:00 06/27/2021 10:42:57 [id number] Pietro francois MD [facility] General Surgery 2043 [facility], [address] [address] 1 06/28/2021 00:00:00 06/28/2021 11:36:57 [id number] John Ricketts DPM [facility] Podiatry [place] [address] [place] [address] 0 07/04/2021 00:00:00 07/11/2021 07:48:30 [id number] Sheba Jamison MD [facility] [address] [place] [address] 1 08/31/2021 00:00:00 09/18/2021 22:19:11 [id number] Freedom Stevens MD Robel_[address] [address] 09/06/2021 00:00:00 09/06/2021 09:37:29 [id number] MD JN Boyd[facility] [address] [address] 09/27/2021 00:00:00 09/27/2021 09:17:20 [id number] Sheba Jamison MD [facility] Internal [facility] [address] [place] [address] 1 10/04/2021 00:00:00 10/04/2021 22:57:15 [id number] Freedom Stevens MD S_[address] [address] 9 10/11/2021 00:00:00 10/11/2021 09:26:55 [id number] Sheba Jamison MD S_[facility] Internal Med Bj [address] [place] [address]., [address] [address] 1 11/14/2021 00:00:00 11/27/2021 11:12:31 [id number] Freedom Stevens MD S_[facility]G [address] [address] 9 11/22/2021 00:00:00 11/22/2021 09:15:40 [id number] Sheba Jamison MD S_[facility] Internal Med [facility] [address] [facility] [address] 1 01/03/2022 00:00:00 01/15/2022 15:48:27 [id number] Sheba Jamison MD S[facility] Internal Med Bj 15 [address] [facility] [address] [address] 1 04/12/2022 00:00:00 05/01/2022 20:37:22 [id number] Freedom Stevens MD [facility]_[address] [address] 9 05/23/2022 00:00:00 05/23/2022 11:09:17 [id number] Sheba Jamison MD [facility] Internal Med [facility] [address] [facility] [address] [address] 1 08/02/2022 00:00:00 08/02/2022 22:43:51 [id number] Sheba Jamison MD S[facility] Internal Med [address] [place] [address] 11/16/2022 00:00:00 11/18/2022 21:28:53 [id number] MD JN Souza[facility] Internal Med [address] [place] [address] 12/12/2022 11:18:36 12/12/2022 12:33:58 Essential hypertension 10205188 I10 [id number] Sheba Jamison MD S_G Internal Med Melvinsuly mauricio [address] [facility] , [place] [address] 03/20/2023 10:40:06 03/20/2023 11:42:37 Essential hypertension 91591901 I10 Hyperlipidemia 27012349 E78.5 Hypothyroidism 25391780 E03.9 Type 2 adolph betes mellitus without complication 914620793 E11.9 Health Concerns Section Related Observation LastModified by Organization Detai ls LastModified Time None Recorded Concern Status LastModified by Organization Details LastModified Time None Recorded Advance Directives Directive Y: requested copy Payers Encounter Date Sequence Insurance Name Policy Number Policy Miranda Covered Member ID Miranda Member ID Guarantor Name 12/12/2022 1 [facility] (MEDICARE REPLACEMENT/ ADVANTAGE - HMO) [id number] Danna S Sollberger [id number] Danna S Sollberger 03/20/2023 1 [facility] (MEDICARE REPLACEMENT/ ADVANTAGE - HMO) [id number] Danna S Sollberger [id number] Danna S Sollberger Notes Date Note Type Note Provider Name and Address Organization Details Recorded Time 12/12/2022 text/html Blood pressure a little bit better Sheba Jamison MD [address], [place], [address], [employer] [facility] [email or web address] 12/24/2022 15:34:06 03/20/2023 text/html diabetes no polyphagia no polydipsia. Hyperlipidemia try to take her medication watch diet. Hypothyroid some fatigue but no heat or cold intolerance. Hypertension no headache denies dizziness. CKD 3 no symptoms Sheba Jamison MD [address], [place], [address], [employer] [facility] [email or web address] 03/20/2023 21:16:00 OBGyn Episode No OBEpisode recorded.
--- OUTSIDE RECORDS SUMMARY | 2025-02-26 14:29 | XMS_ITS | Clinical Summary ---
Author Organization [facility] Address [address] [place] [address] Care Team Providers Care Palm And Back Forger Name Role Phone Unavailable Primary Care Provider Unavailabl e Allergies Active Allergy Reactions Criticality Noted Date Comments Diphenoxylate-Atropine Anaphylaxis,Swelling High 08/2019 Lamotrigine Swelling Medium 10/18/2017 Latex Unknown Low 05/17/2018 Levofloxacin Other (See Comments),Swelling Low 03/01 Nifedipine Other (See Comments) Low 05/17/2018 Medications Eliquis 5 mg tablet Take 1 Tablet by mouth 2 times daily. 01/07/2025 Active levothyroxine 75 mcg tablet Take 75 mcg by mouth daily. Active aspirin (ECOTRIN EC) 81 mg Tablet, Delayed Release (E.C.) Take 81 mg by mouth daily. Active atorvastatin (LIPITOR) 10 mg tablet Take 10 mg by mouth daily. Active montelukast (SINGULAIR) 10 mg tablet Take 10 mg by mouth daily. Active calcitRIOL (ROCALTROL) 0.25 mcg capsule Take 1 Capsule by mouth daily. 02/04/2025 Active dilTIAZem (CARDIZEM CD, CARTIA XT) 120 mg Controlled Delivery 24 hour capsule Take 1 Capsule by mouth daily. 01/02/2025 Active olmesartan (BENICAR) 40 mg tablet Take 1 Tablet by mouth daily. 01/05/2025 Active pantoprazole (PROTONIX) 40 mg Tablet, Delayed Release (E.C.) Take 40 mg by mouth daily at bedtime. 02/04/2025 Active ergocalciferol (VITAMIN D2) 50,000 unit capsule Take 50,000 Units by mouth every 2 weeks. Active carvediloL (COREG) 6.25 mg tablet Take 6.25 mg by mouth 2 times daily. Active Lantus Solostar U-100 Insulin 100 unit/mL (3 mL) solution for injection INJECT 10 UNITS UNDER THE SKIN IN THE MORNING AND 25 UNITS IN THE EVENING 02/11/2025 Active vit A/vit C/vit E/zinc/copper (PRESERVISION AREDS ORAL) Take by mouth 2 times daily. Active vitamin E 400 unit capsule Take 400 Units by mouth daily. Active TURMERIC ORAL Take 1,000 mg by mouth 2 times daily. Active Active Problems No known active problems Encounters Date Type Department Care Team Description 02/26/2025 1:30 PM CDT Office Visit [facility] Oncology and Hematology [place] [address] [facility] [address] [address] Job Joyner MD Plasma cell disorder (Primary Dx) from Last 3 Months Family History Medical History Relation Name Comments Diabetes Brother 1 Heart Disease Brother 1 Heart Disease Brother 2 Kidney Cancer Brother 2 Diabetes Brother 3 Heart Disease Brother 3 Lung Cancer Brother 3 Diabetes Child 1 Diabetes Child 2 No Known Problems Child 3 Heart Disease Father Diabetes Mother Heart Disease Mother Diabetes Sister 1 Heart Disease Sister 1 Breast Cancer Sister 2 Heart Disease Sister 2 Diabetes Sister 3 Relation Name Status Comments Brother 1 Alive Brother 2 Brother 3 Child 1 Alive Child 2 Alive Child 3 Alive Father Mother Sister 1 Sister 2 Sister 3 Alive Social History Tobacco Use Types Packs/Day Years [...] Mass Index 39.15 02/26/2025 1:24 PM CDT Plan of Treatment Upcoming Encounters Date Type Department Care Team (Late st Contact Info) Description 03/12/2025 4:30 PM CDT Telephone Check Up [facility] Oncology and Hematology - [place] [address] [facility] [address] [place] [address] Job Joyner MD [address] [facility] [address] [place] [address] Health Maintenance Due Date Last Done Comments DTAP/TDAP/TD VACCINES (1 - Tdap) 1954 PNEUMOCOCCAL VACCINE 50+ YEA RS (1 of 1 - PCV) 1985 ZOSTER VACCINE (1 of 2) 1985 OSTEOPOROSIS SCREENING 2000 RSV VACCINE (60+ or ) (1 - 1-dose 75+ series) 2010 INFLUENZA VACCINE (#1) 2024 2, 07/10/2021, 07/24/2020, Additional history exists Medicare Advantage ([place]) Preventative Visit/Annual Wellness Visit 10/01/2024 Insurance [facility] [id number] [facility] Address: [facility] [address] [place] [address]
--- OUTSIDE RECORDS SUMMARY | 2025-02-26 14:29 | XMS_ITS | Clinical Summary ---
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
[2025-02-26 14:41] LABS: Basophils Absolute Auto 0.1 K/mm3 (0.0-0.1); Basophils Percent Auto 1.3 % (0.2-1.2); Eosinophils Absolute Auto 0.2 K/mm3 (0-0.3); Eosinophils Percent Auto 2.4 % (0-4.4); Hematocrit 34.7 % (37.0-47.0); Hemoglobin 10.8 g/dL (12.0-15.0); Immature Granulocyte Absolute 0.01 K/mm3 (0.00-0.031); Immature Granulocyte Percent A 0.1 % (0-0.5); Lymphocytes Absolute Auto 3.57 K/mm3 (0.9-3.2); Lymphocytes Percent Auto 43.3 % (18.3-44.2); Mean Corpuscular HGB Conc 31.1 g/dl (32-36); Mean Corpuscular Hemoglobin 26.7 pg (26-34); Mean Corpuscular Volume 85.9 fl (80-100); Mean Platelet Volume 11.7 fl (7.4-10.4); Monocytes Absolute Auto 0.9 K/mm3 (0.1-0.6); Neutrophils Absolute Auto 3.4 K/mm3 (1.3-6.7); Neutrophils Percent Auto 41.9 % (45.5-73.1); Platelet Count Result 288 k/mm3 (150-375); Red Blood Count 4.04 M/mm3 (4.2-5.4); Red Cell Distribution Width 15.5 % (11.5-14.5); White Blood Count 8.2 K/mm3 (4.5-10.0)
[2025-02-26 16:51] LABS: Alanine Aminotransferase 17 U/L (6-35); Albumin Level 4.3 g/dL (3.5-5.1); Alkaline Phosphatase 61 U/L (38-126); Anion Gap 8 mmol/L (4-12); Aspartate Amino Transferase 56 U/L (14-36); Bilirubin,Total 0.5 mg/dL (0.2-1.3); Blood Urea Nitrogen 44 mg/dL (7-17); Calcium 9.6 mg/dL (8.4-10.2); Carbon Dioxide 28 mmol/L (22-30); Chloride 104 mmol/L (98-107); Estimated Glomerular Filt Rate 25; Glucose 65 mg/dL (65-110); Sodium 140 mmol/L (137-145)
[2025-02-26 16:57] LABS: Immunoglobulin A 270 mg/dL (70-400); Immunoglobulin G 1249 mg/dL (700-1600); Immunoglobulin M 37 mg/dL (40-230)
[2025-03-02 14:18] LABS: Protein, Total 7.1 g/dL (6.1-8.1)
[2025-03-02 16:03] LABS: Kappa\\Lambda Light Chains 1.26 (0.26-1.65); Lambda Light Chain 39.9 mg/L (5.7-26.3)
[2025-03-03 10:04] LABS: Abnormal Protein Band 1 0.2 g/dL (NONE DETECTED); Albumin 4.1 g/dL (3.8-4.8); Alpha 1 Globulin 0.3 g/dL (0.2-0.3); Alpha 2 Globulin 0.7 g/dL (0.5-0.9); Beta 1 Globulin 0.5 g/dL (0.4-0.6); Gamma Globulin 1.1 g/dL (0.8-1.7)
== END 2025-02-26 14:23 | disposition home or self-care (01) ==
PROVIDERS: PCP Internal Medicine; Visit Provider Internal Medicine Hematology & Oncology
DX: D72.9 Disorder of white blood cells, unspecified (principal)
CPT/HCPCS: 36415; 80053; 82784; 83883; 84155; 84165; 85025

== ENCOUNTER 2025-02-26 14:48 | Outpatient (CLI) | payer MEDICARE, SELFPAY ==
--- NOTE | ~2025-02-26 | XR_ITS ---
XR bone survey comp/metastic 02/26/2025 15:40 Indication: Bone survey. Evaluate for metastatic disease. Plasma cell disorder. Procedure: Complete bone survey submitted including 31 images of the skeleton. Comparison: No prior studies for comparison. Findings: There is moderate cervical spondylosis. Craniovertebral junction within normal limits. No f ocal abnormalities of the skull identified. Moderate thoracic spondylosis. Moderate osteoarthritis of the right shoulder. No suspicious lytic or blastic lesions. 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 There are cholecystectomy clips. There are fusion changes at L4-5. Moderate osteoar thritis of the hips. There is chondrocalcinosis of the knees. No acute fracture, subluxation or dislo cation. Impression: 1: No focal lytic or blastic lesions to suggest myeloma or metastatic disease. Reviewed, dictated and finalized at location A. Impression: 1: No focal lytic or blastic lesions to suggest myeloma or metastatic disease.
--- OUTSIDE RECORDS SUMMARY | 2025-02-26 14:52 | XMS_ITS | Clinical Summary ---
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
--- OUTSIDE RECORDS SUMMARY | 2025-02-26 14:52 | XMS_ITS | Clinical Summary ---
Author Organization [facility] Address [address] [place] [address] Care Team Providers Care Nail Expert Name Role Phone Ezra Jamison MD Primary Care Provider [phone] Source Comments [facility],non-owned Affiliates and Associated Physician Practices is amultiple site organization consisting of ambulatory clinics and hospital sitesin [place], [place], [place] and [place]. This disclosure is being madepursuant to the Care Everywhere program and may not contain all information available regarding this patient. Last updated 18.[employer] [facility] Allergies Active Allergy Reactions Criticality Noted Date [...] on file Legal Sex Female 1:49 AM WHEELCHAIR RENTAL CLERK Gender Identity Not on file Sexual Orientation Not on file Last Filed Vital Signs Vital Sign Reading Time Taken Comments Blood Pressure 165/72 09/19/2022 6:00 AM WHEELCHAIR RENTAL CLERK Pulse 75 09/19/2022 3:01 AM WHEELCHAIR RENTAL CLERK Temperature 36.4 C (97.5 F) 09/19/2022 1:51 AM WHEELCHAIR RENTAL CLERK Respiratory Rate 22 09/19/2022 2:55 AM WHEELCHAIR RENTAL CLERK Oxygen Saturation 96% 09/19/2022 6:00 AM WHEELCHAIR RENTAL CLERK Inhaled Oxygen Concentration - - Weight 83.9 kg (185 lb) 09/19/2022 1:51 AM WHEELCHAIR RENTAL CLERK Height 167.6 cm (5' 6) 09/19/2022 1:51 AM WHEELCHAIR RENTAL CLERK Body Mass Index 29.86 09/19/2022 1:51 AM WHEELCHAIR RENTAL CLERK Plan of Treatment Health Maintenance Due Date [...] this topic Insurance [employer] MANAGED MEDICARE ADV [facility] MANAGED MEDICARE ADV Care Teams Nail Expert Relationship Specialty Start Date End Date Ezra Jamison MD PCP - General Internal Medicine 09/19/22
--- OUTSIDE RECORDS SUMMARY | 2025-02-26 14:52 | XMS_ITS | Encounter Summary ---
Author Organization [facility] Address [address] [place] [address] Care Team Providers Care Accounts Manager Name Role Phone Unavailable Primary Care Provider Unavailabl e Reason for Referral * Radiology Services (Routine) - Authorized Specialty Diagnoses / Procedures Referred By Contnate t Referred To Contact Diagnoses Plasma cell disorder Procedures XR BONE SURVEY COMPLETE Job Joyner MD [address] [place] [address] Phone: tel: fax: Referral ID Status Reason Start Date Expiration Date V isits Requested Visits Authorized [id number] Authorized 02/26/2025 03/29/2026 1 1 Reason for Visit * Reason Comments Establish Care Encounter Details Date Type Department Care Team (Late st Contact Info) Description 02/26/2025 1:30 PM CDT Office Visit [facility] Oncology and Hematology - [place] [address] [place] [address] [address] [place] [address] Job Joyner MD [address] [place] [address] Plasma cell disorder (Primary Dx) [...] dysuria; no frequency; no hesitancy; no hematuria GREY GOODS TESTER: Musculosketetal: Patient did not mention bone pain, [...] of the total time spent counseling patient [id number]. CC: Daniel Edward MD documented in this encounter Plan of Treatment Upcoming Encounters Date Type Department Care Team (Late st Contact Info) Description 03/12/2025 4:30 PM CDT Telephone Check Up [facility] Oncology and Hematology - [place] [address] [facility] [address] [place] [address] Job Joyner MD [address] [facility] [address] [place] [phone] Scheduled Orders Name Type Priority Associated Diagnoses [...]
--- OUTSIDE RECORDS SUMMARY | 2025-02-26 14:52 | XMS_ITS | Clinical Summary ---
Author Organization [facility] Dung [facility] Address [address] [place] [address] Care Team Providers Care Steam Trap Worker Name Role Phone Unavailable Primary Care Provider [...] Description 02/26/2025 1:30 PM CDT Office Visit [facility] Oncology and Hematology [place] [address] [facility] [address] [address] Job Joyner MD Plasma cell [...] 03/12/2025 4:30 PM CDT Telephone Check Up [facility] Oncology and Hematology - [place] [address] [facility] [address] [place] [address] Job Joyner MD [address] [facility] [address] [place] [address] Health Maintenance Due Date Last [...] ([place]) Preventative Visit/Annual Wellness Visit 10/01/2024 Insurance [facility] [id number] [facility] Address: [facility] [address] [place] [address]
--- OUTSIDE RECORDS SUMMARY | 2025-02-26 14:52 | XMS_ITS | Continuity of Care Document ---
Author Organization [facility] Address [address] [place] [address] [place] [address] Phone Care Team Providers Care Supervisor Edging Name Role Phone Cortes Montenegro Unavailable Unavailable Procedures Procedure Date Office/outpatient Visit, Est Post-op Follow-up Visit Refraction BF Plastic Sphcyl [place] To +/-4d .12-2d Vision Svcs Frames Purchases [...] Copied on Encounter Office/outpat ient Visit, Est [facility], [address] [place] [address] [address], [place], [place], [id number], [place] tel:[phone] SEC [facility] No Information Nov-0 5-201 0 Moni Kolb. [address] [facility] , [address], [place], [address], [place]. tel:[phone] Referring Provider: Cortes Caba [address] [facility] [address], [place], [address]. tel:[phone] [facility], [address], [place], [place], [id number], [place] tel:[phone] [facility] [place] No Information 9 Moni Kolb. [facility] , [address], [place], [address], [place]. tel:[phone] [facility], [address], [place], [place], [id number], [place] tel:[phone] [facility] [place] No Information 9 [employer] [facility] . [address] [facility], [address], [place], [place], [id number], [place]. tel:[phone] Referring Provider: Cortes Caba, [address] [place], [place] [address]ate [address], [place], [address]. tel:[phone] sulting Provider: Rm Connors, [address] [place], [place] [address] C[address], [place], [address]. tel:[phone] [facility], [address], [place], [place], [id number], [place] tel:[phone] [facility] No Information 0 9 Moni Kolb. [address] [place], [place] [address]ate Center , [address], [place], [address], [place]. tel:[phone] [facility], [address], [place], [place], [address], [place] tel:[phone] [facility] No Information 0 200 9 Moni Kolb. [address] [place], [place] [address]ate Center , [address], [place], [address], [place]. tel:[phone] [facility], [address], [place], [place], [address], tel:[phone] [facility] [place] No Information May-0 3-200 9 Moni Kolb. [facility] [address], [place], [place], [facility], . tel:[phone] Referring Provider: Paul Thomas [facility] [address], [place], [place], [facility] [place]. tel:[phone] [facility], [address] [place] [address] [address], [place], [place], [id number], tel:[phone] [facility] [place] No Information Mar-2 7-200 8 Moni Kolb. [address] [place] [address] [address], [place], [place], [facility] [place], . tel:[phone] Office/outpat ient Visit, [facility], [address] [place] [address] [address], [place], [place], [id number], tel:[phone] [facility] [place] No Information Mar-0 4-200 7 Moni Kolb. [facility] [address], [place], [place], [facility] [place], . tel:[phone] Referring Provider: Paul Thomas [facility] [address], [place], [place], [facility] [place]. tel:[phone] Family History Family Member Type Diagnosis Age At Onset No Information Payers Payer name Insurance type Covered libertarian ID Authoriza tion(s) [place] [id number] AARP [place] [id number] Social History Type Description Quantity Date Captured [...]
--- OUTSIDE RECORDS SUMMARY | 2025-02-26 14:52 | XMS_ITS | Referral Summary ---
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
== END 2025-02-26 14:49 | disposition home or self-care (01) ==
PROVIDERS: PCP Internal Medicine; Visit Provider Internal Medicine Hematology & Oncology
DX: D72.9 Disorder of white blood cells, unspecified (principal)
CPT/HCPCS: 77075